=== PATIENT | male | born 1940 | race Caucasian/White ===

== ENCOUNTER 2019-10-12 16:18 | Inpatient (IN) | payer OTHER ==
--- NOTE | 2019-10-12 16:22 | PDOC ---
Rapid Medical Evaluation Time Seen by Provider: 10/12/19 16:20 Medical Evaluation: 10/12/19 16:20 Patient c/o: low hgb sent from pcp, no hx of anemia, no blood in stool or urine , + sob, + weakness Patient on brief exam: vss, no resp distress, ambulatory Patient ordered for: labs, urine, stool, type and screen, ekg, cxr Patient to proceed to the ED Discharge Disposition - Diagnosis Symptomatic anemia - Discharge Dispostion Condition at time of disposition: Stable - Referrals - Patient Instructions - Post Discharge Activity
[2019-10-12 16:56] LABS: PH,URINE 5.5 (5.0-8.0); URINE APPEARANCE CLEAR; URINE BILIRUBIN NEGATIVE (NEGATIVE); URINE COLOR YELLOW; URINE GLUCOSE (UA) NEGATIVE (NEGATIVE); URINE KETONE NEGATIVE (NEGATIVE); URINE LEUK ESTERASE NEGATIVE (NEGATIVE); URINE NITRITE NEGATIVE (NEGATIVE); URINE PROTEIN NEGATIVE (NEGATIVE)
[2019-10-12 17:06] LABS: INR 1.05 (0.83-1.09); PROTHROMBIN TIME (PATIENT) 12.4 SEC (9.7-13.0)
[2019-10-12 17:20] LABS: BASO % 0.7 % (0-2.0); EOS % 1.8 % (0-4.5); HEMATOCRIT 19.4 % (35.4-49); MCHC 25.2 g/dl (32.0-35.9); MEAN CELL VOLUME 58.6 fl (80-96); MEAN PLT VOLUME 8.4 fl (7.5-11.1); MONO % 8.2 % (3.8-10.2); NEUT % 75.3 % (42.8-82.8); PLATELET COUNT 219 K/MM3 (134-434); RBC 3.31 M/mm3 (4.00-5.60); RDW 22.7 % (11.9-15.9)
--- NOTE | 2019-10-12 17:22 | PDOC ---
Documentation entered by Filomena Parr SCRIBE, acting as scribe for Marylu Nam DO. Marylu Nam DO: This documentation has been prepared by the Karolyn conley Xhesika, SCRIBE, under my direction and personally reviewed by me in its entirety. I confirm that the documentation accurately reflects all work, treatment, procedures, and medical decision making performed by me. Attending Attestation - Resident Resident Name: KobeClint - ED Attending Attestation I have performed the following: I have examined & evaluated the patient, The case was reviewed & discussed with the resident, I agree w/resident's findings & plan, Exceptions are as noted - HPI HPI: 10/12/19 18:18 The patient is an 79 year old male with a significant PMH of HTN (non medicated ) who presents to the emergency department from PCP (Javier Car) office with low HGB. Family at bedside reports chronic constipation with black tarry stool for the past 2 years. Pt reports associated abdominal and epigastric pain and SOB worse when walking. Pt denies history of blood transfusions, hematuria, hemostasis, and epistaxis. Pt denies taking blood thinners. The patient denies chest pain, headache and dizziness. Denies fever, chills, cough, nausea, vomiting, diarrhea. Denies dysuria, frequency, urgency and hematuria. Allergies: NKDA - Physicial Exam PE: 10/12/19 18:19 GENERAL: Awake, alert, and fully oriented, in no acute distress HEAD: No signs of trauma EYES: PERRLA, EOMI, sclera anicteric, + pale conjunctiva ENT: Auricles normal inspection, hearing grossly normal, nares patent, oropharynx clear without exudates. Moist mucosa LUNGS: Breath sounds equal, clear to auscultation bilaterally. No wheezes, and no crackles HEART: Regular rate and rhythm, normal S1 and S2, no murmurs, rubs or gallops ABDOMEN: + mild LLQ abdominal tenderness. + mild epigastric tenderness to palpation. Soft, normoactive bowel sounds. No guarding, no rebound. No masses EXTREMITIES: Normal range of motion, no edema. No clubbing or cyanosis. No cords, erythema, or tenderness NEUROLOGICAL: Cranial nerves II through XII grossly intact. Normal speech, normal gait SKIN: Warm, Dry, normal turgor, no rashes or lesions noted. - Medical Decision Making 10/12/19 17:22 a/p:79yo male presents for eval of GOMEZ and low h/h per PMD ([facility]) -pt states constipation x 2 years and intermittent dark stools x 2 years -denies hematemesis -denies cp -denies f/c, wt loss, night sweats -no prior colonoscopy or endoscopy -labs sent from E -pt denies cp, cough -states mild epigastric abd pain and intermittent LLQ pain- denies currently -denies hematuria, epistaxis -denies nsaids or blood thinners cxr- clear 10/12/19 18:08 hgb 4.9 vss will need transfusion will add iron studies will need rectal exam 10/12/19 18:12 cxr shows a nodule vs calcification 10/12/19 18:44 stool was light brown per the resident, no masses palpated pt will need admission 10/12/19 18:[address] Staton- case discussed and she accepts pt to service Discharge - Discharge Information Problems reviewed: Yes Clinical Impression/Diagnosis: Symptomatic anemia Condition: Stable - Admission Yes - Follow up/Referral - Patient Discharge Instructions - Post Discharge Activity Heart Score/ECG Review - ECG Intrepretation Comment:: 10/12/19 17:57 sinus at 66, RBBB, nl axis, no acute s/tt wave findings, t wave inversions iii which are nonspecific
[2019-10-12 17:25] LABS: HEMOGLOBIN 4.9 GM/dL (11.7-16.9); MCH 14.7 pg (25.7-33.7)
[2019-10-12 17:28] LABS: ALBUMIN 3.3 g/dl (3.4-5.0); BILIRUBIN,TOTAL 0.8 mg/dL (0.2-1); BLOOD UREA NITROGEN 17.2 mg/dL (7-18); CALCIUM 9.7 mg/dL (8.5-10.1); CREATININE 1.1 mg/dL (0.55-1.3); POTASSIUM 4.4 mmol/L (3.5-5.1); TOT PROT 6.4 g/dl (6.4-8.2)
--- NOTE | 2019-10-12 18:52 | PDOC ---
History of Present Illness - General Chief Complaint: Shortness of Breath Stated Complaint: LOW HEMOGLOBIN, SOB Time Seen by Provider: 10/12/19 16:20 History Source: Patient Exam Limitations: No Limitations - History of Present Illness Initial Comments: 10/12/19 18:45 Sree Gallegos is an 79M with PMH HTN presenting with SOB on exertion. Patient immigrated from [place] 2 months ago, is a recent new citizen, went to [place] for first physical, labs show anemia with Hgb 5.3, sent from PMD office to ED for evaluation and transfusion. Reports for last 3 months has had worsening SOB with ambulation, can only walk across the room before getting SOB, associated with midline chest pain radiating to L shoulder. Denies chest pain at rest, palpitations, abdominal pain , urinary symptoms. Has been constipated intermittently with dark stools, denies any epigastric pain or pain with eating. Has never had a colonoscopy or EGD. Denies PMH anemia or cardiac/pulmonary disease. Denies nausea/vomiting, denies blood in stools, denies hematuria, denies weakness or weight loss, appetite good. PMH HTN, was on antihypertensives in [place] but doctor there discontinued. Had trauma to head 10 years ago, had surgery to remove calcified clot. Non-smoker, 1 glass of wine every once in a while, no drug use. Past History - Past Medical History Allergies/Adverse Reactions: Allergies Allergy/AdvReac Type Severity Reaction Status Date / Time No Known Allergies Allergy Verified 10/12/19 16:24 COPD: No HTN: Yes (not on meds) - Psycho Social/Smoking Cessation Hx Smoking History: Never smoked Information on smoking cessation initiated: No Hx Alcohol Use: No Drug/Substance Use Hx: No Review of Systems - Review of Systems Able to Perform ROS?: Yes Constitutional: No: Symptoms Reported HEENTM: No: Symptoms Reported Respiratory: Yes: SOB with Exertion. No: Cough, Orthopnea, Stridor, Wheezing, Productive cough, Hemoptysis Cardiac (ROS): Yes: Chest Pain. No: Edema, Irregular Heart Rate, Lightheadedness, Palpitations, Syncope, Chest Tightness ABD/GI: Yes: Constipated, Tarry Stools. No: Blood Streaked Bowels, Nausea, Poor Appetite, Poor Fluid Intake, Vomiting : No: Symptoms Reported Musculoskeletal: No: Symptoms Reported Integumentary: No: Symptoms Reported Neurological: No: Symptoms reported Endocrine: No: Symptoms Reported Hematologic/Lymphatic: No: Symptoms Reported All Other Systems: Reviewed and Negative *Physical Exam - Vital Signs Last Vital Signs Temp Pulse Resp BP Pulse Ox 98.7 F 71 12 117/50 L 100 10/12/19 16:22 10/12/19 16:22 10/12/19 16:22 10/12/19 16:22 10/12/19 16:22 - Physical Exam General Appearance: Yes: Nourished, Appropriately Dressed, Other (well- appearing male resting in bed, conversing amicably with family). No: Apparent Distress HEENT: positive: EOMI, MUMTAZ, Normal Voice, Symmetrical, Pharynx Normal, Hearing Grossly Normal. negative: Scleral Icterus (R), Scleral Icterus (L), Pharyngeal Erythema, Tonsillar Exudate, Tonsillar Erythema Neck: positive: Trachea midline, Normal Thyroid, Supple. negative: Tender, Lymphadenopathy (R), Lymphadenopathy (L) Respiratory/Chest: positive: Lungs Clear, Normal Breath Sounds. negative: Chest Tender, Respiratory Distress, Accessory Muscle Use, Crackles, Rales, Rhonchi, Stridor, Wheezing Cardiovascular: positive: Regular Rhythm, Regular Rate. negative: Murmur Gastrointestinal/Abdominal: positive: Normal Bowel Sounds, Flat, Soft. negative : Tender, Organomegaly, Pulsatile Mass, Distended, Guarding, Rebound Rectal Exam: positive: heme negative stool, normal exam, NL Prostate, normal rectal tone, other (good rectal tone, no hemorrhoids or fissues, no palpable masses, no BRBPR, stool appeared brown and soft). negative: melena, hemorrhoids Musculoskeletal: positive: Normal Inspection. negative: CVA Tenderness, Vertebral Tenderness Extremity: positive: Normal Capillary Refill, Normal Inspection, Normal Range of Motion, Pelvis Stable. negative: Tender, Coldness, Cyanosis, Pedal Edema, Calf Tenderness Integumentary: positive: Normal Color, Dry, Warm Neurologic: positive: Fully Oriented, Alert, Normal Mood/Affect, Normal Response ED Treatment Course - LABORATORY CBC & Chemistry Diagram: 10/12/19 16:39 10/12/19 16:39 - ADDITIONAL ORDERS Additional order review: Laboratory Results 10/12/19 10/12/19 10/12/19 16:39 16:39 16:39 PT with INR 12.40 INR 1.05 Sodium Potassium Chloride Carbon Dioxide Anion Gap BUN Creatinine Est GFR (CKD-EPI)AfAm Est GFR (CKD-EPI)NonAf Random Glucose Calcium Total Bilirubin AST ALT Alkaline Phosphatase Creatine Kinase Troponin I Total Protein Albumin Urine Color Yellow Urine Appearance Clear Urine pH 5.5 Ur Specific [place] 1.017 Urine Protein Negative Urine Glucose (UA) Negative Urine Ketones Negative Urine Blood Negative Urine Nitrite Negative Urine Bilirubin Negative Urine Urobilinogen 1.0 Ur Leukocyte Esterase Negative Blood Type O POSITIVE Antibody Screen Negative Crossmatch See Detail 10/12/19 16:39 PT with INR INR Sodium 140 Potassium 4.4 Chloride 110 H Carbon Dioxide 23 Anion Gap 7 L BUN 17.2 Creatinine 1.1 Est GFR (CKD-EPI)AfAm 73.09 Est GFR (CKD-EPI)NonAf 63.07 Random Glucose 149 H Calcium 9.7 Total Bilirubin 0.8 AST 13 L ALT 18 Alkaline Phosphatase 196 H Creatine Kinase 66 Troponin I 0.04 Total Protein 6.4 Albumin 3.3 L Urine Color Urine Appearance Urine pH Ur Specific [place] Urine Protein Urine Glucose (UA) Urine Ketones Urine Blood Urine Nitrite Urine Bilirubin Urine Urobilinogen Ur Leukocyte Esterase Blood Type Antibody Screen Crossmatch 10/12/19 16:39 RBC 3.31 L MCV 58.6 L MCHC 25.2 L RDW 22.7 H MPV 8.4 Neutrophils % 75.3 Lymphocytes % 14.0 Monocytes % 8.2 Eosinophils % 1.8 Basophils % 0.7 Medical Decision Making - Medical Decision Making 10/12/19 18:45 Sree Gallegos is an 79M with PMH HTN presenting with SOB on exertion. Patient has symptomatic anemia with exertion, but is completely well-appearing at this time, alert/oriented, speaking in full sentences, no findings on exam. Hemodynamically stable and hypertensive despite known anemia. Re-evaluation of anemia via CBC, CMP, CP, ECG, CXR, T&S. Labs notable for: - Hbg 4.9 - remaining CBC WNL - trop 0.04 - CMP WNL ECG shows NSR with HR 66, QRS 120, QTc 429, RBBB, no evidence of ischemic changes or TWI. CXR grossly normal cardiac silhouette, notable nodular mass vs. calcification in R upper lung field, no prior studies to compare to. Ordered 2 units pRBCs as well as iron studies to evaluate for anemia. 10/12/19 19:[address] Staton for admission to Med Surg, as patient is hemodynamically stable. Discharge - Discharge Information Problems reviewed: Yes Clinical Impression/Diagnosis: Symptomatic anemia Condition: Stable - Follow up/Referral - Patient Discharge Instructions - Post Discharge Activity
[2019-10-12 19:04] LABS: IRON SERUM 10 ug/dL (50-175); TOTAL IRON BINDING CAPACITY 422 ug/dL (250-450)
[2019-10-12 19:27] LABS: ANISOCYTOSIS 3+; MACROCYTOSIS 0; PLATELET ESTIMATE NORMAL
--- NOTE | 2019-10-13 10:43 | EKG ---
Test Reason : Blood Pressure : / mmHG Vent. Rate : 066 BPM Atrial Rate : 066 BPM P-R Int : 188 ms QRS Dur : 120 ms QT Int : 410 ms P-R-T Axes : 028 -06 005 degrees QTc Int : 429 ms NORMAL SINUS RHYTHM RIGHT BUNDLE BRANCH BLOCK ABNORMAL ECG NO PREVIOUS ECGS AVAILABLE Confirmed by CHASE LARSON, TIFFANY ([id number]) on 10/13/2019 10:42:37 AM Referred By: Confirmed By:TIFFANY STONE MD
[2019-10-13] MEDS ORDERED: PNEUMOC 13-VAL CONJ-DIP CRM/PF 0.5 ML DISP.SYRIN IM ONE (17:37)
--- NOTE | 2019-10-13 17:40 | HP ---
Admitting History and Physical - Primary Care Physician PCP: Jagruti Staton - Admission History of Present Illness: Sree Gallegos is an 79M with PMH HTN presenting with SOB on exertion. Patient immigrated from [place] 2 months ago, is a recent new citizen, went to [place] for first physical, labs show anemia with Hgb 5.3, sent from PMD office to ED for evaluation and transfusion. Reports for last 3 months has had worsening SOB with ambulation, can only walk across the room before getting SOB, associated with midline chest pain radiating to L shoulder. Denies chest pain at rest, palpitations, abdominal pain , urinary symptoms. Has been constipated intermittently with dark stools, denies any epigastric pain or pain with eating. Has never had a colonoscopy or EGD. Denies PMH anemia or cardiac/pulmonary disease. Denies nausea/vomiting, denies blood in stools, denies hematuria, denies weakness or weight loss, appetite good. - Past Medical History Cardiovascular: Yes: HTN - Smoking History Smoking history: Never smoked - Alcohol/Substance Use Hx Alcohol Use: No Home Medications - Allergies Allergies/Adverse Reactions: Allergies Allergy/AdvReac Type Severity Reaction Status Date / Time No Known Allergies Allergy Verified 10/12/19 16:24 Physical Examination Vital Signs: Vital Signs Temperature 98.2 F 10/13/19 17:00 Pulse Rate 84 10/13/19 17:00 Respiratory Rate 18 10/13/19 17:00 Blood Pressure 132/80 10/13/19 17:00 O2 Sat by Pulse Oximetry (%) 100 10/13/19 16:35 Constitutional: Yes: No Distress HENT: Yes: Atraumatic Neck: Yes: Supple Cardiovascular: Yes: Regular Rate and Rhythm Respiratory: Yes: CTA Bilaterally Gastrointestinal: Yes: Normal Bowel Sounds Extremities: Yes: WNL Edema: No Neurological: Yes: Alert, Oriented Labs: CBC, BMP 10/12/19 16:39 10/12/19 16:39 Problem List - Problems (1) Symptomatic anemia Assessment/Plan: will trsnsfuse fu h/h gi consult stool occult Code(s): D64.9 - ANEMIA, UNSPECIFIED Assessment/Plan Laboratory Tests 10/12/19 10/12/19 10/12/19 16:39 16:39 16:39 WBC 6.0 RBC 3.31 L Hgb 4.9 L* Hct 19.4 L MCV 58.6 L MCH 14.7 L MCHC 25.2 L RDW 22.7 H Plt Count 219 MPV 8.4 Absolute Neuts (auto) 4.6 Neutrophils % 75.3 Lymphocytes % 14.0 Monocytes % 8.2 Eosinophils % 1.8 Basophils % 0.7 Nucleated RBC % 0 Hypochromia 2+ Platelet Estimate Normal Polychromasia 1+ Poikilocytosis 1+ Anisocytosis 3+ Microcytosis 3+ Macrocytosis 0 PT with INR 12.40 INR 1.05 Sodium 140 Potassium 4.4 Chloride 110 H Carbon Dioxide 23 Anion Gap 7 L BUN 17.2 Creatinine 1.1 Est GFR (CKD-EPI)AfAm 73.09 Est GFR (CKD-EPI)NonAf 63.07 Random Glucose 149 H Calcium 9.7 Iron TIBC Iron Saturation Unsaturated IBC Total Bilirubin 0.8 AST 13 L ALT 18 Alkaline Phosphatase 196 H Creatine Kinase 66 Troponin I 0.04 Total Protein 6.4 Albumin 3.3 L Urine Color Urine Appearance Urine pH Ur Specific [place] Urine Protein Urine Glucose (UA) Urine Ketones Urine Blood Urine Nitrite Urine Bilirubin Urine Urobilinogen Ur Leukocyte Esterase Stool Occult Blood Blood Type Antibody Screen Crossmatch 10/12/19 10/12/19 10/12/19 16:39 16:39 18:25 WBC RBC Hgb Hct MCV MCH MCHC RDW Plt Count MPV Absolute Neuts (auto) Neutrophils % Lymphocytes % Monocytes % Eosinophils % Basophils % Nucleated RBC % Hypochromia Platelet Estimate Polychromasia Poikilocytosis Anisocytosis Microcytosis Macrocytosis PT with INR INR Sodium Potassium Chloride Carbon Dioxide Anion Gap BUN Creatinine Est GFR (CKD-EPI)AfAm Est GFR (CKD-EPI)NonAf Random Glucose Calcium Iron TIBC Iron Saturation Unsaturated IBC Total Bilirubin AST ALT Alkaline Phosphatase Creatine Kinase Troponin I Total Protein Albumin Urine Color Yellow Urine Appearance Clear Urine pH 5.5 Ur Specific [place] 1.017 Urine Protein Negative Urine Glucose (UA) Negative Urine Ketones Negative Urine Blood Negative Urine Nitrite Negative Urine Bilirubin Negative Urine Urobilinogen 1.0 Ur Leukocyte Esterase Negative Stool Occult Blood Negative Blood Type O POSITIVE Antibody Screen Negative Crossmatch See Detail 10/12/19 10/12/19 18:30 18:30 WBC RBC Hgb Hct MCV MCH MCHC RDW Plt Count MPV Absolute Neuts (auto) Neutrophils % Lymphocytes % Monocytes % Eosinophils % Basophils % Nucleated RBC % Hypochromia Platelet Estimate Polychromasia Poikilocytosis Anisocytosis Microcytosis Macrocytosis PT with INR INR Sodium Potassium Chloride Carbon Dioxide Anion Gap BUN Creatinine Est GFR (CKD-EPI)AfAm Est GFR (CKD-EPI)NonAf Random Glucose Calcium Iron 10 L TIBC 422 Iron Saturation 2 L Unsaturated IBC 412 H Total Bilirubin AST ALT Alkaline Phosphatase Creatine Kinase Troponin I Total Protein Albumin Urine Color Urine Appearance Urine pH Ur Specific [place] Urine Protein Urine Glucose (UA) Urine Ketones Urine Blood Urine Nitrite Urine Bilirubin Urine Urobilinogen Ur Leukocyte Esterase Stool Occult Blood Blood Type O POSITIVE Antibody Screen Negative Crossmatch Active Medications Generic Name Dose Route Start Last Admin Trade Name Freq PRN Reason Stop Dose Admin Acetaminophen 650 mg 10/14/19 17:38 Tylenol - PO Q6H PRN FEVER
[2019-10-13 20:03] LABS: BASO % 1.3 % (0-2.0); EOS % 3.3 % (0-4.5); LYMPH % 15.8 % (8-40); MCHC 26.5 g/dl (32.0-35.9); MEAN CELL VOLUME 61.9 fl (80-96); MEAN PLT VOLUME 9.7 fl (7.5-11.1); MONO % 7.7 % (3.8-10.2); NEUT % 71.9 % (42.8-82.8); PLATELET COUNT 222 K/MM3 (134-434); RBC 3.88 M/mm3 (4.00-5.60); RDW 26.2 % (11.9-15.9); WHITE BLOOD COUNT 5.2 K/mm3 (4.0-10.0)
[2019-10-13 20:14] LABS: MCH 16.4 pg (25.7-33.7)
[2019-10-13 20:15] LABS: HEMOGLOBIN 6.4 GM/dL (11.7-16.9)
[2019-10-14] MEDS ORDERED: ACETAMINOPHEN 325 MG TABLET (FP) PO PRN (17:38)
--- NOTE | 2019-10-14 17:40 | PN ---
Progress Note, Physician History of Present Illness: no complaints - Current Medication List Current Medications: Active Medications Acetaminophen (Tylenol -) 650 mg PO Q6H PRN PRN Reason: FEVER - Objective Vital Signs: Vital Signs Temperature 98.1 F 10/14/19 13:46 Pulse Rate 56 L 10/14/19 13:46 Respiratory Rate 20 10/14/19 13:46 Blood Pressure 152/69 10/14/19 13:46 O2 Sat by Pulse Oximetry (%) 100 10/14/19 09:00 Constitutional: Yes: No Distress HENT: Yes: Atraumatic Neck: Yes: Supple Cardiovascular: Yes: Regular Rate and Rhythm Respiratory: Yes: CTA Bilaterally Gastrointestinal: Yes: Normal Bowel Sounds Extremities: Yes: WNL Neurological: Yes: Alert, Oriented Labs: CBC, BMP 10/13/19 19:11 10/12/19 16:39 INR, PTT INR 1.05 (0.83-1.09) 10/12/19 16:39 Problem List - Problems (1) Symptomatic anemia Assessment/Plan: s/p 2 u prbc fu h/h gi consult stool occult Code(s): D64.9 - ANEMIA, UNSPECIFIED
[2019-10-14 19:53] LABS: HEMATOCRIT 25.7 % (35.4-49); HEMOGLOBIN 7.2 GM/dL (11.7-16.9); MEAN CELL VOLUME 64.2 fl (80-96); MEAN PLT VOLUME 10.1 fl (7.5-11.1); PLATELET COUNT 172 K/MM3 (134-434); RDW 27.6 % (11.9-15.9); WHITE BLOOD COUNT 6.8 K/mm3 (4.0-10.0)
[2019-10-14 20:04] LABS: MCH 17.9 pg (25.7-33.7)
--- NOTE | 2019-10-15 07:39 | CON.GI ---
Consult - History of Present Illness History of Present Illness: GI CONSULT DICTATED - Past Medical History Cardio/Vascular: Yes: HTN - Alcohol/Substance Use Hx Alcohol Use: No - Smoking History Smoking history: Never smoked Home Medications - Allergies Allergies/Adverse Reactions: Allergies Allergy/AdvReac Type Severity Reaction Status Date / Time No Known Allergies Allergy Verified 10/12/19 16:24 Physical Exam-GI Vital Signs: Vital Signs Temperature 98.6 F 10/15/19 06:00 Pulse Rate 60 10/15/19 06:00 Respiratory Rate 18 10/15/19 06:00 Blood Pressure 132/63 10/15/19 06:00 O2 Sat by Pulse Oximetry (%) 100 10/14/19 20:08 Labs: CBC, BMP 10/14/19 18:30 10/12/19 16:39 INR, PTT INR 1.05 (0.83-1.09) 10/12/19 16:39
[2019-10-15 08:14] LABS: BASO % 0.4 % (0-2.0); EOS % 1.7 % (0-4.5); HEMATOCRIT 28.3 % (35.4-49); LYMPH % 7.8 % (8-40); MCHC 28.2 g/dl (32.0-35.9); MEAN CELL VOLUME 63.5 fl (80-96); MEAN PLT VOLUME 9.6 fl (7.5-11.1); MONO % 7.2 % (3.8-10.2); NEUT % 82.9 % (42.8-82.8); PLATELET COUNT 212 K/MM3 (134-434); RBC 4.46 M/mm3 (4.00-5.60); RDW 28.6 % (11.9-15.9); WHITE BLOOD COUNT 12.5 K/mm3 (4.0-10.0)
[2019-10-15 08:18] LABS: MCH 17.9 pg (25.7-33.7)
[2019-10-15 08:41] LABS: BLOOD UREA NITROGEN 15.9 mg/dL (7-18); CREATININE 1.3 mg/dL (0.55-1.3)
[2019-10-15 09:39] LABS: PLATELET ESTIMATE NORMAL
--- NOTE | 2019-10-15 15:26 | PN ---
Progress Note, Physician - Current Medication List Current Medications: Active Medications Acetaminophen (Tylenol -) 650 mg PO Q6H PRN PRN Reason: FEVER - Objective Vital Signs: Vital Signs Temperature 98.0 F 10/15/19 13:51 Pulse Rate 70 10/15/19 13:51 Respiratory Rate 18 10/15/19 13:51 Blood Pressure 128/43 L 10/15/19 13:51 O2 Sat by Pulse Oximetry (%) 98 10/15/19 09:00 Constitutional: Yes: No Distress HENT: Yes: Atraumatic Neck: Yes: Supple Respiratory: Yes: CTA Bilaterally Gastrointestinal: Yes: Normal Bowel Sounds Extremities: Yes: WNL Edema: No Neurological: Yes: Alert, Oriented Labs: CBC, BMP 10/15/19 06:37 10/15/19 06:37 INR, PTT INR 1.05 (0.83-1.09) 10/12/19 16:39 Problem List - Problems (1) Symptomatic anemia Assessment/Plan: s/p 2 u prbc fu h/h...MUCH IMPROVED gi consult stool occult Code(s): D64.9 - ANEMIA, UNSPECIFIED
--- NOTE | 2019-10-15 18:35 | CONS ---
DATE OF CONSULTATION: DATE OF DICTATION: 10/15/2019 GASTROENTEROLOGY CONSULTATION Patient is an 79-year-old man with a past medical history of hypertension. Apparently he immigrated from [place] 2 months ago and he went to [place] for his physical examination and was found to have a hemoglobin of 5.3. He was therefore sent to the emergency room for further evaluation and transfusion. As per the patient's history, he has been experiencing weakness and shortness of breath over the past couple of months. In addition to that, he complains of constipation and intermittent dark stools. He has had these symptoms intermittently for years. He denies any bright red blood per rectum. He has never had a colonoscopy or upper endoscopy in the past. He denies abdominal pain, nausea, vomiting or hematemesis. He has not been taking NSAID. PAST MEDICAL AND SURGICAL HISTORY: As listed in the HPI. Additional history was surgery to remove a clot. ALLERGIES: No known drug allergies. SOCIAL HISTORY: He does not smoke. He does drink a glass of wine once in a while. No drug abuse. REVIEW OF SYSTEMS: As per the HPI. PHYSICAL EXAMINATION: Vital Signs: Temperature 98, pulse 63, respiratory rate 12, blood pressure 140/ 60, pulse oximetry 98% on room air. General: In no acute distress. HEENT: Anicteric sclerae. Cardiovascular: S1/S2. Regular rate and rhythm. Lungs: Bilaterally clear to auscultation. Abdomen: Soft and nontender. Extremities: Without edema. LABORATORY DATA: White blood cell count 6, currently 12. On admission hemoglobin was 4.9; currently it is 8 after blood transfusion. MCV 63, platelet count 212. INR 1. Sodium 139, potassium 4, BUN 15, creatinine 1.3, glucose 122, iron 10, iron saturation 2, AST 13, ALT 18, alkaline phosphatase 196. DIAGNOSTIC STUDIES: He had a chest x-ray on admission, which revealed a 1.4-cm facet-shaped hyperdensity in the region of the 3rd rib costophrenic angle that may represent calcification. A pulmonary nodule cannot be excluded. IMPRESSION: Microcytic anemia, symptomatic. Gastrointestinal blood loss cannot be excluded at this time particularly since he complains of intermittent dark stool. RECOMMENDATION: Monitor hemoglobin and hematocrit daily while hospitalized. Transfuse to a hemoglobin of 10. Avoid NSAID. Protonix 40 mg p.o. daily and would also plan for endoscopic evaluation - egd - on Thursday, to further evaluate his microcytic anemia. Also, a Hematology consultation should be obtained. DO DRE JACKSON/[id number] MTDD
[2019-10-15] MEDS: POLYETHYLENE GLYCOL 3350 119 GM BTL PO SCH (21:00)
--- NOTE | 2019-10-16 07:40 | PN.GI ---
GI Progress Note Subjective: NO NEW COMPLAINTS - FEELING BETTER TODAY - Objective Vital Signs: Vital Signs Temperature 98.5 F 10/16/19 05:00 Pulse Rate 65 10/16/19 05:00 Respiratory Rate 16 10/16/19 05:00 Blood Pressure 127/57 L 10/16/19 05:00 O2 Sat by Pulse Oximetry (%) 98 10/15/19 21:00 Constitutional: Well Nourished, No Distress, Calm Eyes: Yes: WNL HENT: Yes: WNL Neck: Yes: WNL Cardiovascular: Yes: WNL Respiratory: Yes: WNL, Regular, CTA Bilaterally Gastrointestinal Inspection: Yes: WNL ...Auscultate: Yes: Normoactive Bowel Sounds Musculoskeletal: Yes: WNL Extremities: Yes: WNL Labs: CBC, BMP 10/15/19 06:37 10/15/19 06:37 INR, PTT INR 1.05 (0.83-1.09) 10/12/19 16:39 Problem List - Problems (1) Symptomatic anemia Assessment/Plan: H/H NOTED - KEEP HG ABOVE 8 VENOFER CLEAR LIQUID DIET PPI AVOID NSAID NPO MIDNIGHT FOR DIAGNOSTIC EGD ON THURSDAY Code(s): D64.9 - ANEMIA, UNSPECIFIED
[2019-10-16] MEDS: POLYETHYLENE GLYCOL 3350 119 GM BTL PO SCH ×2 (09:47→21:26)
--- NOTE | 2019-10-16 16:46 | PN ---
Progress Note, Physician - Current Medication List Current Medications: Active Medications Acetaminophen (Tylenol -) 650 mg PO Q6H PRN PRN Reason: FEVER Polyethylene Glycol (Miralax (For Daily Use) -) 17 gm PO BID MEME Last Admin: 10/16/19 09:47 Dose: 17 gm - Objective Vital Signs: Vital Signs Temperature 98.1 F 10/16/19 13:36 Pulse Rate 69 10/16/19 13:36 Respiratory Rate 20 10/16/19 13:36 Blood Pressure 143/72 10/16/19 13:36 O2 Sat by Pulse Oximetry (%) 100 10/16/19 09:46 Constitutional: Yes: No Distress HENT: Yes: Atraumatic Neck: Yes: Supple Cardiovascular: Yes: Regular Rate and Rhythm Respiratory: Yes: CTA Bilaterally Gastrointestinal: Yes: Normal Bowel Sounds Extremities: Yes: WNL Edema: No Peripheral Pulses WNL: Yes Neurological: Yes: Alert, Oriented Labs: CBC, BMP 10/15/19 06:37 10/15/19 06:37 INR, PTT INR 1.05 (0.83-1.09) 10/12/19 16:39 Problem List - Problems (1) Symptomatic anemia Assessment/Plan: for egd in am Code(s): D64.9 - ANEMIA, UNSPECIFIED
[2019-10-17] MEDS: POLYETHYLENE GLYCOL 3350 119 GM BTL PO SCH ×2 (11:05→21:30)
--- NOTE | 2019-10-17 18:25 | PN ---
Progress Note, Physician - Current Medication List Current Medications: Active Medications Acetaminophen (Tylenol -) 650 mg PO Q6H PRN PRN Reason: FEVER Polyethylene Glycol (Miralax (For Daily Use) -) 17 gm PO BID [facility] Last Admin: 10/17/19 11:05 Dose: Not Given - Objective Vital Signs: Vital Signs Temperature 98.9 F 10/17/19 17:00 Pulse Rate 61 10/17/19 17:00 Respiratory Rate 18 10/17/19 17:00 Blood Pressure 123/56 L 10/17/19 17:00 O2 Sat by Pulse Oximetry (%) 99 10/17/19 12:40 Constitutional: Yes: No Distress HENT: Yes: Atraumatic Neck: Yes: Supple Cardiovascular: Yes: Regular Rate and Rhythm Respiratory: Yes: CTA Bilaterally Extremities: Yes: WNL Edema: No Neurological: Yes: Alert, Oriented Labs: CBC, BMP 10/15/19 06:37 10/15/19 06:37 INR, PTT INR 1.05 (0.83-1.09) 10/12/19 16:39 Problem List - Problems (1) Symptomatic anemia Assessment/Plan: saw endoscopy report mass? will get onc consult id consult Code(s): D64.9 - ANEMIA, UNSPECIFIED
--- NOTE | 2019-10-17 20:09 | CONSULT ---
Consult - text type - Consultation Consultation Note: Patient seen and examined Used [employer]. Not the best historian but able to given relavant details 79 y/o patient presenting with exertional SOB of few weeks duration. Presenting Hgb 4.9 Denies any fever/ chills/ cough/SOB/abdominal pain/nausea/vomiting/diarrhea. Reports melena, 5lb wt. loss. good appetite Vague epigastric pain EGD --gastric amss PMH -- Does not recollect PSH h/o neurosurgery in 2009 for ??? membranes FH Denies h/o cancer AFVSS Cor: RSR, No murmurs, No gallops Lungs: Clear to P&A Abd: Soft, Normal bowel sounds, No organomegaly Ext:No significant edema Labs/MEds reviewed A/P 79 y/o patient presenting with exertional SOB of few weeks duration. Presenting Hgb 4.9 Reports melena, 5lb wt. loss. good appetite Vague epigastric pain Gastric antral mass on EGD/esophageal candidiasis Await pathology Check CT c/a/p. Gentle hydration with contrast Discussed findings with patient
[2019-10-18 07:26] LABS: BASO % 0.9 % (0-2.0); EOS % 6.8 % (0-4.5); HEMATOCRIT 22.9 % (35.4-49); LYMPH % 16.9 % (8-40); MCHC 27.8 g/dl (32.0-35.9); MEAN CELL VOLUME 65.2 fl (80-96); MEAN PLT VOLUME 9.1 fl (7.5-11.1); MONO % 13.7 % (3.8-10.2); NEUT % 61.7 % (42.8-82.8); PLATELET COUNT 158 K/MM3 (134-434); RBC 3.51 M/mm3 (4.00-5.60); RDW 29.2 % (11.9-15.9); WHITE BLOOD COUNT 4.6 K/mm3 (4.0-10.0)
[2019-10-18 07:47] LABS: MCH 18.1 pg (25.7-33.7)
[2019-10-18 07:49] LABS: HEMOGLOBIN 6.4 GM/dL (11.7-16.9)
[2019-10-18 08:07] LABS: ALBUMIN 2.6 g/dl (3.4-5.0); BILIRUBIN,TOTAL 0.8 mg/dL (0.2-1); CALCIUM 9.8 mg/dL (8.5-10.1); CREATININE 0.9 mg/dL (0.55-1.3); POTASSIUM 4.3 mmol/L (3.5-5.1); TOT PROT 5.6 g/dl (6.4-8.2)
[2019-10-18 09:21] LABS: ANISOCYTOSIS 2+; MACROCYTOSIS 0; PLATELET ESTIMATE NORMAL; TARGET CELLS 1+
[2019-10-18] MEDS: POLYETHYLENE GLYCOL 3350 119 GM BTL PO SCH ×2 (10:33→21:47)
[2019-10-18] MEDS: SODIUM CHLORIDE 1,000 ML IV SCH (10:34)
--- NOTE | 2019-10-18 13:23 | PN ---
Progress Note (short form) - Note Progress Note: Patient seen and examined Offers no complaints of abdominal pain, nausea, vomiting, diarrhea, constipation. Good appetite Underwent EGD with candidiasis and gastric mass with multiple biopsies taken. Last Vital Signs Temp Pulse Resp BP Pulse Ox 98.7 F 54 L 18 107/56 L 99 10/18/19 06:00 10/18/19 06:00 10/18/19 06:00 10/18/19 06:00 10/17/19 21:00 HEENT: PUJA, EOM Intact Oropharynx: No thrush, No mucositis Cor: RSR, No murmurs, No gallops Lungs: Clear to P&A Abd: Soft, Normal bowel sounds, No organomegaly Ext:No significant edema Skin: No rashes, Integument intact CBC, BMP 10/18/19 06:35 10/18/19 06:35 Current Medications Generic Name Dose Route Start Last Admin Trade Name Freq PRN Reason Stop Dose Admin Acetaminophen 650 mg 10/14/19 17:38 Tylenol - PO Q6H PRN FEVER Sodium Chloride 1,000 mls @ 42 mls/hr 10/18/19 08:45 10/18/19 10:34 Normal Saline - IV 42 mls/hr ASDIR [facility] Administration Polyethylene Glycol 17 gm 10/15/19 22:00 10/18/19 10:33 Miralax (For Daily Use) - PO 17 gm BID [facility] Administration Impression: Gastric mass Iron deficiency Candidiasis Plan: Additional transfusion of packed cells. IV Venofer in future after transfusion therapy completed. Add PPI Add diflucan Await pathology of gastric biopsies . Monitor CBC Await results of CT scan. CEA.
[2019-10-18] MEDS: FLUCONAZOLE 100 MG TABLET (UD) PO SCH (14:12)
[2019-10-18] MEDS: PANTOPRAZOLE 40 MG TABLET (FP) PO SCH (14:12)
--- NOTE | 2019-10-18 14:33 | PN ---
Progress Note (short form) - Note Progress Note: Called by pathologist Dr. Romero. 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
--- NOTE | 2019-10-18 18:19 | PN ---
Progress Note, Physician - Current Medication List Current Medications: Active Medications Acetaminophen (Tylenol -) 650 mg PO Q6H PRN PRN Reason: FEVER Fluconazole (Diflucan -) 100 mg PO DAILY [facility] Last Admin: 10/18/19 14:12 Dose: 100 mg Sodium Chloride (Normal Saline -) 1,000 mls @ 42 mls/hr IV ASDIR [facility] Last Admin: 10/18/19 10:34 Dose: 42 mls/hr Pantoprazole Sodium (Protonix -) 40 mg PO DAILY [facility] Last Admin: 10/18/19 14:12 Dose: 40 mg Polyethylene Glycol (Miralax (For Daily Use) -) 17 gm PO BID [facility] Last Admin: 10/18/19 10:33 Dose: 17 gm - Objective Vital Signs: Vital Signs Temperature 98.3 F 10/18/19 13:38 Pulse Rate 57 L 10/18/19 13:38 Respiratory Rate 18 10/18/19 13:38 Blood Pressure 138/75 10/18/19 13:38 O2 Sat by Pulse Oximetry (%) 100 10/18/19 09:00 Constitutional: Yes: No Distress HENT: Yes: Atraumatic Cardiovascular: Yes: Regular Rate and Rhythm Respiratory: Yes: CTA Bilaterally Gastrointestinal: Yes: Normal Bowel Sounds Extremities: Yes: WNL Neurological: Yes: Alert, Oriented Labs: CBC, BMP 10/18/19 06:35 10/18/19 06:35 INR, PTT INR 1.05 (0.83-1.09) 10/12/19 16:39 Problem List - Problems (1) Symptomatic anemia Assessment/Plan: saw endoscopy report mass? s/p blood transfudion on diflucan Code(s): D64.9 - ANEMIA, UNSPECIFIED
--- NOTE | 2019-10-18 20:52 | PN ---
Progress Note (short form) - Note Progress Note: ID CONSULT DICTATED ESOPHAGEAL CANDIDIASIS GASTRIC NEOPLASM ANEMIA CONTINUE FLUCONAZOLE DISCUSSED WITH SON AT BEDSIDE
[2019-10-19] MEDS: SODIUM CHLORIDE 1,000 ML IV SCH ×3 (06:06→21:16)
[2019-10-19 08:17] LABS: BASO % 1.3 % (0-2.0); EOS % 4.4 % (0-4.5); HEMATOCRIT 26.1 % (35.4-49); HEMOGLOBIN 7.6 GM/dL (11.7-16.9); LYMPH % 10.2 % (8-40); MCHC 29.2 g/dl (32.0-35.9); MEAN CELL VOLUME 67.4 fl (80-96); MEAN PLT VOLUME 8.7 fl (7.5-11.1); MONO % 8.8 % (3.8-10.2); NEUT % 75.3 % (42.8-82.8); PLATELET COUNT 178 K/MM3 (134-434); RBC 3.88 M/mm3 (4.00-5.60); RDW 29.4 % (11.9-15.9); WHITE BLOOD COUNT 7.5 K/mm3 (4.0-10.0)
[2019-10-19 08:30] LABS: INR 1.03 (0.83-1.09); MCH 19.7 pg (25.7-33.7); PROTHROMBIN TIME (PATIENT) 12.2 SEC (9.7-13.0)
[2019-10-19] MEDS: PANTOPRAZOLE 40 MG TABLET (FP) PO SCH (09:29)
[2019-10-19] MEDS: POLYETHYLENE GLYCOL 3350 119 GM BTL PO SCH ×2 (09:29→21:15)
[2019-10-19] MEDS: FLUCONAZOLE 100 MG TABLET (UD) PO SCH (09:29)
--- NOTE | 2019-10-19 15:04 | PATH ---
Surgical Pathology Report Patient Name: BITA YOON [facility]. Rec. 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 Specimen(s) Received A: STOMACH B: GASTRIC MASS C: ESOPHAGUS Clinical History Anemia Postoperative diagnosis: Gastric mass and esophageal roby Final Diagnosis A. STOMACH, BIOPSY: GASTRIC MUCOSA WITH MODERATE CHRONIC FOCAL ACUTE GASTRITIS AND INTESTINAL METAPLASIA. NO DYSPLASIA IDENTIFIED. IMMUNOHISTOCHEMICAL STAIN FOR H. PYLORI IS NEGATIVE. B. GASTRIC MASS, BIOPSY: ADENOCARCINOMA, MODERATELY DIFFERENTIATED. IMMUNOHISTOCHEMICAL STAIN FOR H. PYLORI IS POSITIVE (RARE). SEE COMMENT. C. ESOPHAGUS, BIOPSY: SQUAMOUS MUCOSA WITH MARKED ACUTE ESOPHAGITIS. PAS FUNGAL STAIN HIGHLIGHTS FUNGAL FORMS, MORPHOLOGICALLY CONSISTENT WITH ROBY SPECIES. Comment: Part C, Immunohistochemical stains performed and interpreted at [facility] show the tumor is highlighted by AE1/3. Case seen in intradepartmental review with consensus on diagnosis. Findings discussed with Dr. Varner. Special stain performed at [place], [place] ([id number]) and interpreted at [facility]: PAS Positive and negative controls (internal if applicable) show appropriate results. Electronically Signed Jeanne Carrizales M.D. Addendum Reported: 10/19/2019 Addendum Diagnosis Her2 (IHC) pending, findings will be reported separately. Jeanne Carrizales M.D. Addendum Reported: 10/27/2019 Addendum Diagnosis Part B, Results of Her2 (IHC) studies performed at [facility], [place], [place] and interpreted at [facility], [place], [place] ([id number]) are as follows: MARKER RESULT INTERPRETATION Her2 IHC ([facility] anti-Her-2/gil (4B5) rabbit monoclonal antibody): 2+ Equivocal HER2/CEP17 2.0 Positive FINAL HER2 Interpretation Positive Her2 IHC Results: 2+ Equivocal Uniform Staining: Absent Homogeneous, dark circumferential pattern: Absent Sample Adequate for Analysis: Yes HER2 FISH results: Average Her2 copy number: 4.68 Average CEP17 copy number: 2.38 Ratio of average HER2/CEP17: 2.0 See [facility] report for additional details. Jeanne Carrizales M.D. Gross Description A. Received in formalin, labeled "stomach" are 4 durán, irregular portions of soft tissue averaging 0.3 cm. in greatest dimension. The specimens are submitted in toto in one cassette. B. Received in formalin labeled "gastric mass," is a 0.7 x 0.5 x 0.2 cm aggregate of durán soft tissue fragments. The formalin is filtered and the specimen is entirely submitted in one cassette. C. Received in formalin, labeled "esophagus" is a durán, irregular portion of soft tissue measuring 0.5 cm. in greatest dimension. The specimen is submitted in toto in one cassette. 10/17/2019 [facility]10/17/2019
--- NOTE | 2019-10-19 15:31 | PN ---
Progress Note, Physician History of Present Illness: previous noted - Current Medication List Current Medications: Active Medications Acetaminophen (Tylenol -) 650 mg PO Q6H PRN PRN Reason: FEVER Fluconazole (Diflucan -) 100 mg PO DAILY [facility] Last Admin: 10/19/19 09:29 Dose: 100 mg Sodium Chloride (Normal Saline -) 1,000 mls @ 42 mls/hr IV ASDIR [facility] Last Admin: 10/19/19 06:06 Dose: 42 mls/hr Pantoprazole Sodium (Protonix -) 40 mg PO DAILY [facility] Last Admin: 10/19/19 09:29 Dose: 40 mg Polyethylene Glycol (Miralax (For Daily Use) -) 17 gm PO BID [facility] Last Admin: 10/19/19 09:29 Dose: 17 gm - Objective Vital Signs: Vital Signs Temperature 98.4 F 10/19/19 14:06 Pulse Rate 54 L 10/19/19 14:06 Respiratory Rate 18 10/19/19 14:06 Blood Pressure 130/56 L 10/19/19 14:06 O2 Sat by Pulse Oximetry (%) 96 10/19/19 07:26 Constitutional: Yes: No Distress HENT: Yes: Atraumatic Neck: Yes: Supple Cardiovascular: Yes: Regular Rate and Rhythm Respiratory: Yes: CTA Bilaterally Gastrointestinal: Yes: Normal Bowel Sounds Extremities: Yes: WNL Labs: CBC, BMP 10/19/19 07:54 10/18/19 06:35 INR, PTT INR 1.03 (0.83-1.09) 10/19/19 07:54 Problem List - Problems (1) Symptomatic anemia Assessment/Plan: saw endoscopy report antral mass oncology note reviewed surgical eval Code(s): D64.9 - ANEMIA, UNSPECIFIED (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
--- NOTE | 2019-10-19 16:30 | PN ---
Progress Note (short form) - Note Progress Note: Patient seen and examined Result of gastic biopsy - positive for adenoca and h.pylorii (rare)l acute / chronic gastritis/ esophagitis and candidiasis. CT scans pending Last Vital Signs Temp Pulse Resp BP Pulse Ox 98.4 F 54 L 18 130/56 L 96 10/19/19 14:06 10/19/19 14:06 10/19/19 14:06 10/19/19 14:06 10/19/19 07:26 HEENT: PUJA, EOM Intact Oropharynx: No thrush, No mucositis Cor: RSR, No murmurs, No gallops Lungs: Clear to P&A Abd: Soft, Normal bowel sounds, No organomegaly, mild distension Ext:No significant edema Skin: No rashes, Integument intact CBC, BMP 10/19/19 07:54 10/18/19 06:35 Current Medications Generic Name Dose Route Start Last Admin Trade Name Freq PRN Reason Stop Dose Admin Acetaminophen 650 mg 10/14/19 17:38 Tylenol - PO Q6H PRN FEVER Fluconazole 100 mg 10/18/19 13:45 10/19/19 09:29 Diflucan - PO 100 mg DAILY [facility] Administration Sodium Chloride 1,000 mls @ 42 mls/hr 10/18/19 08:45 10/19/19 06:06 Normal Saline - IV 42 mls/hr ASDIR [facility] Administration Pantoprazole Sodium 40 mg 10/18/19 13:45 10/19/19 09:29 Protonix - PO 40 mg DAILY [facility] Administration Polyethylene Glycol 17 gm 10/15/19 22:00 10/19/19 09:29 Miralax (For Daily Use) - PO 17 gm BID [facility] Administration Impression: Gastric ca H.Pylorii Candidiasis Gastritis/esophagitis Anemia Plan: Await CT scans Await CT scan results Surgical evaluation Consider outpatient PET. Treatment of H.Pylorii.
--- NOTE | 2019-10-19 22:22 | CONSULT ---
Consult Consult Specialty:: Surgery Referred by:: Brionna Reason for Consultation:: Gastric carcinoma - History of Present Illness Chief Complaint: Patiemnt is 83, fells tired and found to have anemia. H/O Dark colored stools. - History Source History Provided By: Patient - Past Medical History Cardio/Vascular: Yes: HTN - Alcohol/Substance Use Hx Alcohol Use: No - Smoking History Smoking history: Never smoked Home Medications - Allergies Allergies/Adverse Reactions: Allergies Allergy/AdvReac Type Severity Reaction Status Date / Time No Known Allergies Allergy Verified 10/12/19 16:24 Physical Exam Vital Signs: Vital Signs Temperature 98.5 F 10/19/19 18:00 Pulse Rate 55 L 10/19/19 18:00 Respiratory Rate 18 10/19/19 18:00 Blood Pressure 125/54 L 10/19/19 18:00 O2 Sat by Pulse Oximetry (%) 96 10/19/19 07:26 Labs: CBC, BMP 10/19/19 07:54 10/18/19 06:35 Imaging - Results Cat Scan: Pending (CT scan reviewed, no sign of gastric outlet obstruction. 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 Consider gastectomy , if patient is condidered fit, Other alternativre is neoadjuvant therapy. Correct anemia.
--- NOTE | 2019-10-20 00:57 | CONS ---
DATE OF CONSULTATION: DATE OF DICTATION: 10/19/2019 INFECTIOUS DISEASE CONSULTATION HISTORY OF PRESENT ILLNESS: The patient is an 79-year-old male who was admitted to the hospital with severe anemia. He was admitted to the hospital on October 12, 2019, after he was noted to be increasingly short of breath. His hematocrit on evaluation in the emergency room was noted to be 4.9. The patient received transfusion of packed red blood cells. An EGD was performed as a part of the anemia workup and showed a gastric mass. Biopsy preliminarily positive for carcinoma. He was noted on endoscopy to have evidence of esophageal candidiasis. Patient was seen in the presence of his son, who served as development representative. The patient was able to tolerate a solid diet. He denies any dysphagia, no odynophagia. He denies any associated fever or chills. PAST MEDICAL HISTORY: Positive for hypertension. ALLERGIES: No known allergies. MEDICATION: Include Tylenol, fluconazole, Protonix. SOCIAL HISTORY: Patient lives at home with family members. Nonsmoker, nondrinker. LABORATORY DATA: White count 4.6, hematocrit 22.9, platelets 158, creatinine 0.9. PHYSICAL EXAMINATION: General: On exam, he is awake and alert, he is not acutely toxic appearing. Vital signs: Temperature 98.7, blood pressure 107/56, pulse 54 regular, respirations 18 per minute. HEENT: Sclerae anicteric. Oropharynx no evidence of oral candidiasis. Cardiovascular: Heart sounds S1, S2. Lungs: Clear. Abdomen: Soft, nontender. Extremities: Negative for edema. IMPRESSION: 1. Esophageal candidiasis. 2. Gastric neoplasm. 3. Severe symptomatic anemia. Suspect esophageal candidiasis secondary to immunosuppression from gastric neoplasm. Patient is able to tolerate oral therapy. Continue fluconazole orally. Would obtain HIV test, status not known. Case discussed with patient's son at the bedside. Thank you for the kind referral. LINNEA GALVAN M.D. [id number]
--- NOTE | 2019-10-20 10:37 | PN ---
Progress Note, Physician History of Present Illness: previous noted - Current Medication List Current Medications: Active Medications Acetaminophen (Tylenol -) 650 mg PO Q6H PRN PRN Reason: FEVER Fluconazole (Diflucan -) 100 mg PO DAILY [facility] Last Admin: 10/19/19 09:29 Dose: 100 mg Sodium Chloride (Normal Saline -) 1,000 mls @ 42 mls/hr IV ASDIR [facility] Last Admin: 10/19/19 21:16 Dose: Not Given Pantoprazole Sodium (Protonix -) 40 mg PO DAILY [facility] Last Admin: 10/19/19 09:29 Dose: 40 mg Polyethylene Glycol (Miralax (For Daily Use) -) 17 gm PO BID [facility] Last Admin: 10/19/19 21:15 Dose: 17 gm - Objective Vital Signs: Vital Signs Temperature 98.0 F 10/20/19 06:04 Pulse Rate 50 L 10/20/19 06:04 Respiratory Rate 18 10/20/19 06:04 Blood Pressure 119/63 10/20/19 06:04 O2 Sat by Pulse Oximetry (%) 98 10/19/19 21:00 Constitutional: Yes: No Distress HENT: Yes: Atraumatic Neck: Yes: Supple Cardiovascular: Yes: Regular Rate and Rhythm Respiratory: Yes: CTA Bilaterally Gastrointestinal: Yes: Normal Bowel Sounds Extremities: Yes: WNL Edema: No Neurological: Yes: Alert, Oriented Labs: CBC, BMP 10/19/19 07:54 10/18/19 06:35 INR, PTT INR 1.03 (0.83-1.09) 10/19/19 07:54 Problem List - Problems (1) Symptomatic anemia Assessment/Plan: saw endoscopy report antral mass oncology note reviewed surgical eval Code(s): D64.9 - ANEMIA, UNSPECIFIED (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
[2019-10-20] MEDS: SODIUM CHLORIDE 1,000 ML IV SCH (11:20)
[2019-10-20] MEDS: PANTOPRAZOLE 40 MG TABLET (FP) PO SCH (11:29)
[2019-10-20] MEDS: FLUCONAZOLE 100 MG TABLET (UD) PO SCH (11:29)
[2019-10-20] MEDS: POLYETHYLENE GLYCOL 3350 119 GM BTL PO SCH ×2 (11:30→21:15)
--- NOTE | 2019-10-20 12:09 | PN ---
Progress Note, Physician History of Present Illness: AWAKE, ALERT NO C/O DYSPHAGIA/ODYNOPHAGIA TOLERATING REGULAR DIET AFEBRILE WBC WNL - Current Medication List Current Medications: Active Medications Acetaminophen (Tylenol -) 650 mg PO Q6H PRN PRN Reason: FEVER Fluconazole (Diflucan -) 100 mg PO DAILY [facility] Last Admin: 10/20/19 11:29 Dose: 100 mg Sodium Chloride (Normal Saline -) 1,000 mls @ 42 mls/hr IV ASDIR [facility] Last Admin: 10/20/19 11:20 Dose: 42 mls/hr Pantoprazole Sodium (Protonix -) 40 mg PO DAILY [facility] Last Admin: 10/20/19 11:29 Dose: 40 mg Polyethylene Glycol (Miralax (For Daily Use) -) 17 gm PO BID [facility] Last Admin: 10/20/19 11:30 Dose: 17 gm - Objective Vital Signs: Vital Signs Temperature 98.0 F 10/20/19 06:04 Pulse Rate 50 L 10/20/19 06:04 Respiratory Rate 18 10/20/19 09:00 Blood Pressure 119/63 10/20/19 06:04 O2 Sat by Pulse Oximetry (%) 98 10/20/19 09:00 Constitutional: Yes: No Distress HENT: No: Thrush Cardiovascular: Yes: Regular Rate and Rhythm, S1, S2 Respiratory: Yes: CTA Bilaterally Gastrointestinal: Yes: Normal Bowel Sounds, Soft. No: Tenderness Labs: CBC, BMP 10/19/19 07:54 10/18/19 06:35 INR, PTT INR 1.03 (0.83-1.09) 10/19/19 07:54 Assessment/Plan GASTRIC ADENOCARCINOMA ESOPHAGEAL CANDIDIASIS CONTINUE PO FLUCONAZOLE COMPLETE 14D COURSE
--- NOTE | 2019-10-20 13:28 | PN ---
Progress Note (short form) - Note Progress Note: H. Pylori +. Will need rx
--- NOTE | 2019-10-20 18:25 | PN ---
Progress Note, Physician - Current Medication List Current Medications: Active Medications Acetaminophen (Tylenol -) 650 mg PO Q6H PRN PRN Reason: FEVER Amoxicillin (Amoxicillin -) 1,000 mg PO BID [facility] Stop: 11/04/19 09:59 Clarithromycin (Biaxin -) 500 mg PO BID [facility] Stop: 11/04/19 09:59 Sodium Chloride (Normal Saline -) 1,000 mls @ 42 mls/hr IV ASDIR [facility] Last Admin: 10/20/19 11:20 Dose: 42 mls/hr Pantoprazole Sodium (Protonix -) 20 mg PO BID [facility] Stop: 11/04/19 09:59 Polyethylene Glycol (Miralax (For Daily Use) -) 17 gm PO BID [facility] Last Admin: 10/20/19 11:30 Dose: 17 gm - Objective Vital Signs: Vital Signs Temperature 98.2 F 10/20/19 18:00 Pulse Rate 51 L 10/20/19 18:00 Respiratory Rate 20 10/20/19 18:00 Blood Pressure 133/53 L 10/20/19 18:00 O2 Sat by Pulse Oximetry (%) 98 10/20/19 09:00 Labs: CBC, BMP 10/19/19 07:54 10/18/19 06:35 INR, PTT INR 1.03 (0.83-1.09) 10/19/19 07:54 Problem List - Problems (1) Symptomatic anemia Code(s): D64.9 - ANEMIA, UNSPECIFIED (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 History obtained. He is able to eat food. Good performance status currently. Abdomen is soft , no mass is palpable. Neck examination is normal. Ct scan of abdomen does not reveal any ascites , or perigastric lymph nodes. Endoscopy reveals limited involvement of the distal stomach. Ct scan reveals sclerotic lesion throughout bony structures, ? Secondary to malignancy , though gastric metastasis is likely to be lytic. Will request a bone scan. Endoscopic ultrasound can facilitate preoperative staging of the primary lesion. Will disscuss with oncology , regarding treatment plan , staging vs gastrectomy as an initial procedure , vs chemotherapy followed by surgery. Will order bone scan , CEA Patient is explained. Message left with patients son.
--- NOTE | 2019-10-20 18:51 | PN ---
Progress Note (short form) - Note Progress Note: Patient seen and examined Discussed via [employer] [employer]ter Last Vital Signs Temp Pulse Resp BP Pulse Ox 98 F 51 L 16 129/53 L 98 10/20/19 20:35 10/20/19 20:35 10/20/19 20:35 10/20/19 20:35 10/20/19 09:00 Cor: RSR, No murmurs, No gallops Lungs: Clear to P&A Abd: Soft, Normal bowel sounds, No organomegaly Ext:No significant edema Labs/Meds reviewed A/P Gastric ca H.Pylori Candidiasis Gastritis/esophagitis Anemia Plan: Gastric adenoca. Her2-pending. H. pylori + CT c/a/p --m ild rt. hilar adenopathy/fatty liver/mass next to rt. adrenal 1.5cm ? , sclerotic bone lesions, enlarged prostate check PSA check bone scan will follow
[2019-10-21] MEDS: PANTOPRAZOLE 20 MG TABLET (FP) PO SCH ×2 (10:15→21:28)
[2019-10-21] MEDS: AMOXICILLIN 500 MG CAPSULE (FP) PO SCH ×2 (10:15→21:27)
[2019-10-21] MEDS: CLARITHROMYCIN 500 MG TABLET (UD) PO SCH ×2 (10:15→21:27)
[2019-10-21] MEDS: POLYETHYLENE GLYCOL 3350 119 GM BTL PO SCH ×2 (10:27→21:27)
[2019-10-21] MEDS: SODIUM CHLORIDE 1,000 ML IV SCH (10:28)
--- NOTE | 2019-10-21 12:51 | DS ---
Physical Examination Vital Signs: Vital Signs Temperature 97.9 F 10/21/19 10:00 Pulse Rate 55 L 10/21/19 10:00 Respiratory Rate 16 10/21/19 10:00 Blood Pressure 131/71 10/21/19 10:00 O2 Sat by Pulse Oximetry (%) 100 10/21/19 09:00 Labs: CBC, BMP 10/19/19 07:54 10/18/19 06:35 Discharge Summary Problems reviewed: Yes Reason For Visit: SECONDARY ANEMIA Current Active Problems Gastric carcinoma (Acute) Hypertension (Acute) Symptomatic anemia (Acute) Condition: Stable - Instructions
--- NOTE | 2019-10-21 12:52 | PN ---
Progress Note, Physician - Current Medication List Current Medications: Active Medications Acetaminophen (Tylenol -) 650 mg PO Q6H PRN PRN Reason: FEVER Amoxicillin (Amoxicillin -) 1,000 mg PO BID [facility] Stop: 11/04/19 09:59 Last Admin: 10/21/19 10:15 Dose: 1,000 mg Clarithromycin (Biaxin -) 500 mg PO BID [facility] Stop: 11/04/19 09:59 Last Admin: 10/21/19 10:15 Dose: 500 mg Sodium Chloride (Normal Saline -) 1,000 mls @ 42 mls/hr IV ASDIR [facility] Last Admin: 10/21/19 10:28 Dose: 42 mls/hr Pantoprazole Sodium (Protonix -) 20 mg PO BID [facility] Stop: 11/04/19 09:59 Last Admin: 10/21/19 10:15 Dose: 20 mg Polyethylene Glycol (Miralax (For Daily Use) -) 17 gm PO BID [facility] Last Admin: 10/21/19 10:27 Dose: 17 gm - Objective Vital Signs: Vital Signs Temperature 97.9 F 10/21/19 10:00 Pulse Rate 55 L 10/21/19 10:00 Respiratory Rate 16 10/21/19 10:00 Blood Pressure 131/71 10/21/19 10:00 O2 Sat by Pulse Oximetry (%) 100 10/21/19 09:00 Constitutional: Yes: No Distress Eyes: Yes: Conjunctiva Clear HENT: Yes: Atraumatic Neck: Yes: Supple Cardiovascular: Yes: Regular Rate and Rhythm Respiratory: Yes: CTA Bilaterally Gastrointestinal: Yes: Normal Bowel Sounds Extremities: Yes: WNL Edema: No Neurological: Yes: Alert, Oriented Labs: CBC, BMP 10/19/19 07:54 10/18/19 06:35 INR, PTT INR 1.03 (0.83-1.09) 10/19/19 07:54 Problem List - Problems (1) Symptomatic anemia Assessment/Plan: saw endoscopy report antral mass oncology note reviewed BONE SCAN TODAY Code(s): D64.9 - ANEMIA, UNSPECIFIED (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
--- NOTE | 2019-10-21 16:41 | PN ---
Progress Note, Physician - Current Medication List Current Medications: Active Medications Acetaminophen (Tylenol -) 650 mg PO Q6H PRN PRN Reason: FEVER Amoxicillin (Amoxicillin -) 1,000 mg PO BID [facility] Stop: 11/04/19 09:59 Last Admin: 10/21/19 10:15 Dose: 1,000 mg Clarithromycin (Biaxin -) 500 mg PO BID [facility] Stop: 11/04/19 09:59 Last Admin: 10/21/19 10:15 Dose: 500 mg Sodium Chloride (Normal Saline -) 1,000 mls @ 42 mls/hr IV ASDIR [facility] Last Admin: 10/21/19 10:28 Dose: 42 mls/hr Pantoprazole Sodium (Protonix -) 20 mg PO BID [facility] Stop: 11/04/19 09:59 Last Admin: 10/21/19 10:15 Dose: 20 mg Polyethylene Glycol (Miralax (For Daily Use) -) 17 gm PO BID [facility] Last Admin: 10/21/19 10:27 Dose: 17 gm - Objective Vital Signs: Vital Signs Temperature 98.1 F 10/21/19 14:18 Pulse Rate 61 10/21/19 14:18 Respiratory Rate 18 10/21/19 14:18 Blood Pressure 157/72 10/21/19 14:18 O2 Sat by Pulse Oximetry (%) 100 10/21/19 09:00 Labs: CBC, BMP 10/19/19 07:54 10/18/19 06:35 INR, PTT INR 1.03 (0.83-1.09) 10/19/19 07:54 Problem List - Problems (1) Symptomatic anemia Code(s): D64.9 - ANEMIA, UNSPECIFIED (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 Unable to maintain his hematocrit. Having occult blood ion stools. CEA 3 , ( normal) Bone scan to be reported. I have discussed the management of carcinoma of stomach. and overall poor prognosis of the disease. Ideally would consider staging laparoscopy with peritoneal wash out , possible preop chemotherapy and surgery. However if he is not able to maintain his hematocrit may need emergency surgery. PET-CT scan is being requested by oncology service , this will have to be done as an out patient at [facility]. I have explained the management plan with the patient's son. Also has hypoalbuminaemia.
--- NOTE | 2019-10-21 18:54 | PN ---
Progress Note (short form) - Note Progress Note: Patient seen and examined Discussed via tajik interreter AFVSS Cor: RSR, No murmurs, No gallops Lungs: Clear to P&A Abd: Soft, Normal bowel sounds, No organomegaly Ext:No significant edema Labs/Meds reviewed A/P Gastric ca H.Pylori Candidiasis Gastritis/esophagitis Anemia Plan: Gastric adenoca. Her2-pending. H. pylori + CT c/a/p --m ild rt. hilar adenopathy/fatty liver/mass next to rt. adrenal 1.5cm ? , sclerotic bone lesions, enlarged prostate check PSA check bone scan discussed with --if bleeding continues , may need surgery discussed with patients son
[2019-10-21] MEDS ORDERED: PT OWN MED DRAWER 7, Y5N ONE (21:08)
[2019-10-22] MEDS: POLYETHYLENE GLYCOL 3350 119 GM BTL PO SCH ×2 (10:06→21:05)
[2019-10-22] MEDS: PANTOPRAZOLE 20 MG TABLET (FP) PO SCH ×2 (10:06→21:05)
[2019-10-22] MEDS: AMOXICILLIN 500 MG CAPSULE (FP) PO SCH ×2 (10:10→21:04)
[2019-10-22] MEDS: CLARITHROMYCIN 500 MG TABLET (UD) PO SCH ×2 (10:10→21:04)
[2019-10-22] MEDS: SODIUM CHLORIDE 1,000 ML IV SCH ×2 (10:12→17:21)
--- NOTE | 2019-10-22 14:44 | PN ---
Progress Note, Physician - Current Medication List Current Medications: Active Medications Acetaminophen (Tylenol -) 650 mg PO Q6H PRN PRN Reason: FEVER Amoxicillin (Amoxicillin -) 1,000 mg PO BID [facility] Stop: 11/04/19 09:59 Last Admin: 10/22/19 10:10 Dose: 1,000 mg Clarithromycin (Biaxin -) 500 mg PO BID [facility] Stop: 11/04/19 09:59 Last Admin: 10/22/19 10:10 Dose: 500 mg Sodium Chloride (Normal Saline -) 1,000 mls @ 42 mls/hr IV ASDIR [facility] Last Admin: 10/22/19 10:12 Dose: Not Given Pantoprazole Sodium (Protonix -) 20 mg PO BID [facility] Stop: 11/04/19 09:59 Last Admin: 10/22/19 10:06 Dose: 20 mg Polyethylene Glycol (Miralax (For Daily Use) -) 17 gm PO BID [facility] Last Admin: 10/22/19 10:06 Dose: 17 gm - Objective Vital Signs: Vital Signs Temperature 97.9 F 10/22/19 13:51 Pulse Rate 65 10/22/19 13:51 Respiratory Rate 20 10/22/19 13:51 Blood Pressure 150/68 10/22/19 13:51 O2 Sat by Pulse Oximetry (%) 100 10/22/19 09:00 Labs: CBC, BMP 10/19/19 07:54 10/18/19 06:35 INR, PTT INR 1.03 (0.83-1.09) 10/19/19 07:54 Problem List - Problems (1) Symptomatic anemia Code(s): D64.9 - ANEMIA, UNSPECIFIED (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 Hematocrit is being repeated. Abdomen is soft , not tender. I have discussed with Dr. Escobar. Patient continues to drop his hematocrit, and needs surgery for continued bleeding. He is scheduled for surgery on thursday , 10/24/2019. Transfuse as needed. I have spoken to his son , and who has translated to his father. They understand that he has gastric cancer that is bleeding , and surgery is being done for bleeding gastric cancer,. All complications explained , and he understands.
--- NOTE | 2019-10-22 17:54 | PN ---
Progress Note, Physician - Current Medication List Current Medications: Active Medications Acetaminophen (Tylenol -) 650 mg PO Q6H PRN PRN Reason: FEVER Amoxicillin (Amoxicillin -) 1,000 mg PO BID [facility] Stop: 11/04/19 09:59 Last Admin: 10/22/19 10:10 Dose: 1,000 mg Clarithromycin (Biaxin -) 500 mg PO BID [facility] Stop: 11/04/19 09:59 Last Admin: 10/22/19 10:10 Dose: 500 mg Sodium Chloride (Normal Saline -) 1,000 mls @ 42 mls/hr IV ASDIR [facility] Last Admin: 10/22/19 17:21 Dose: 42 mls/hr Pantoprazole Sodium (Protonix -) 20 mg PO BID [facility] Stop: 11/04/19 09:59 Last Admin: 10/22/19 10:06 Dose: 20 mg Polyethylene Glycol (Miralax (For Daily Use) -) 17 gm PO BID [facility] Last Admin: 10/22/19 10:06 Dose: 17 gm - Objective Vital Signs: Vital Signs Temperature 97.9 F 10/22/19 13:51 Pulse Rate 65 10/22/19 13:51 Respiratory Rate 20 10/22/19 13:51 Blood Pressure 150/68 10/22/19 13:51 O2 Sat by Pulse Oximetry (%) 100 10/22/19 09:00 Constitutional: Yes: No Distress HENT: Yes: Atraumatic Neck: Yes: Supple Cardiovascular: Yes: Regular Rate and Rhythm Respiratory: Yes: CTA Bilaterally Gastrointestinal: Yes: Normal Bowel Sounds Extremities: Yes: WNL Edema: No Neurological: Yes: Alert, Oriented Labs: CBC, BMP 10/19/19 07:54 10/18/19 06:35 INR, PTT INR 1.03 (0.83-1.09) 10/19/19 07:54 Problem List - Problems (1) Symptomatic anemia Assessment/Plan: antral mass surgery consult for surgery Code(s): D64.9 - ANEMIA, UNSPECIFIED (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
--- NOTE | 2019-10-22 17:59 | PN ---
Progress Note (short form) - Note Progress Note: Patient seen and examined. S: Mentioned continues to have melena, but denies abdominal pain. Last Vital Signs Temp Pulse Resp BP Pulse Ox 97.9 F 65 20 150/68 100 10/22/19 13:51 10/22/19 13:51 10/22/19 13:51 10/22/19 13:51 10/22/19 09:00 AFVSS Cor: RSR, No murmurs, No gallops Lungs: Clear to P&A Abd: Soft, Normal bowel sounds, No organomegaly Ext:No significant edema CBC, BMP 10/19/19 07:54 10/18/19 06:35 Current Medications Generic Name Dose Route Start Last Admin Trade Name Freq PRN Reason Stop Dose Admin Acetaminophen 650 mg 10/14/19 17:38 Tylenol - PO Q6H PRN FEVER Amoxicillin 1,000 mg 10/21/19 10:00 10/22/19 10:10 Amoxicillin - PO 11/04/19 09:59 1,000 mg BID [facility] Administration Clarithromycin 500 mg 10/21/19 10:00 10/22/19 10:10 Biaxin - PO 11/04/19 09:59 500 mg BID [facility] Administration Sodium Chloride 1,000 mls @ 42 mls/hr 10/18/19 08:45 10/22/19 17:21 Normal Saline - IV 42 mls/hr ASDIR [facility] Administration Pantoprazole Sodium 20 mg 10/21/19 10:00 10/22/19 10:06 Protonix - PO 11/04/19 09:59 20 mg BID [facility] Administration Polyethylene Glycol 17 gm 10/15/19 22:00 10/22/19 10:06 Miralax (For Daily Use) - PO 17 gm BID [facility] Administration A/P Gastric ca H.Pylori Candidiasis Gastritis/esophagitis Anemia Plan: Gastric adenoca. Her2-pending. H. pylori + CT c/a/p --m ild rt. hilar adenopathy/fatty liver/mass next to rt. adrenal 1.5cm ? , sclerotic bone lesions, enlarged prostate check PSA check bone scan [facility] note Dr. Wu (Surgery). Scheduled for surgery on Wednesday 10/24
[2019-10-22] MEDS ORDERED: PT OWN MED DRAWER 7, Y5N ONE (21:01)
[2019-10-23 08:34] LABS: BASO % 1.1 % (0-2.0); EOS % 4.9 % (0-4.5); HEMATOCRIT 24.4 % (35.4-49); LYMPH % 17.3 % (8-40); MCHC 28.7 g/dl (32.0-35.9); MEAN PLT VOLUME 9.2 fl (7.5-11.1); MONO % 7.9 % (3.8-10.2); NEUT % 68.8 % (42.8-82.8); PLATELET COUNT 238 K/MM3 (134-434); RBC 3.58 M/mm3 (4.00-5.60); RDW 29.2 % (11.9-15.9); WHITE BLOOD COUNT 5.3 K/mm3 (4.0-10.0)
[2019-10-23 08:37] LABS: MCH 19.5 pg (25.7-33.7)
[2019-10-23 08:57] LABS: ALBUMIN 2.7 g/dl (3.4-5.0); BILIRUBIN,TOTAL 0.4 mg/dL (0.2-1); BLOOD UREA NITROGEN 17.3 mg/dL (7-18); CALCIUM 9.3 mg/dL (8.5-10.1); POTASSIUM 4.1 mmol/L (3.5-5.1); TOT PROT 5.4 g/dl (6.4-8.2)
[2019-10-23 09:24] LABS: ANISOCYTOSIS 2+; MACROCYTOSIS 1+; PLATELET ESTIMATE NORMAL
[2019-10-23] MEDS: SODIUM CHLORIDE 1,000 ML IV SCH ×2 (10:54→17:15)
[2019-10-23] MEDS: CLARITHROMYCIN 500 MG TABLET (UD) PO SCH ×2 (10:55→21:52)
[2019-10-23] MEDS: AMOXICILLIN 500 MG CAPSULE (FP) PO SCH ×2 (10:55→21:52)
[2019-10-23] MEDS: POLYETHYLENE GLYCOL 3350 119 GM BTL PO SCH ×2 (11:05→21:53)
[2019-10-23] MEDS: PANTOPRAZOLE 20 MG TABLET (FP) PO SCH ×2 (11:06→21:52)
--- NOTE | 2019-10-23 17:31 | PN ---
Progress Note (short form) - Note Progress Note: Patient seen and examined. S: Mentioned continues to have melena (about 1/3 half a pitcher), but denies abdominal pain. Last Vital Signs Temp Pulse Resp BP Pulse Ox 98.0 F 54 L 18 136/65 99 10/23/19 16:54 10/23/19 16:54 10/23/19 16:54 10/23/19 16:54 10/23/19 09:00 AFVSS Cor: RSR, No murmurs, No gallops Lungs: Clear to P&A Abd: Soft, Normal bowel sounds, No organomegaly Ext:No significant edema 10/23/19 07:10 10/23/19 07:10 Current Medications Generic Name Dose Route Start Last Admin Trade Name Freq PRN Reason Stop Dose Admin Acetaminophen 650 mg 10/14/19 17:38 Tylenol - PO Q6H PRN FEVER Amoxicillin 1,000 mg 10/21/19 10:00 10/23/19 10:55 Amoxicillin - PO 11/04/19 09:59 1,000 mg BID [facility] Administration Clarithromycin 500 mg 10/21/19 10:00 10/23/19 10:55 Biaxin - PO 11/04/19 09:59 500 mg BID [facility] Administration Sodium Chloride 1,000 mls @ 42 mls/hr 10/18/19 08:45 10/23/19 17:15 Normal Saline - IV 42 mls/hr ASDIR [facility] Administration Pantoprazole Sodium 20 mg 10/21/19 10:00 10/23/19 11:06 Protonix - PO 11/04/19 09:59 20 mg BID [facility] Administration Polyethylene Glycol 17 gm 10/15/19 22:00 10/23/19 11:05 Miralax (For Daily Use) - PO 17 gm BID [facility] Administration A/P Gastric ca H.Pylori Candidiasis Gastritis/esophagitis Anemia Plan: Gastric adenoca. Her2-pending. H. pylori + CT c/a/p --m ild rt. hilar adenopathy/fatty liver/mass next to rt. adrenal 1.5cm ? , sclerotic bone lesions, enlarged prostate check PSA check bone scan Hb 7 and continuously bleeding--> Will transfuse 1 unit pRBCs now, check H&H and give a second unit of pRBCs if less than [address] Wu (Surgery). Scheduled for surgery on Wednesday 10/24
--- NOTE | 2019-10-23 18:56 | PN ---
Progress Note, Physician - Current Medication List Current Medications: Active Medications Acetaminophen (Tylenol -) 650 mg PO Q6H PRN PRN Reason: FEVER Amoxicillin (Amoxicillin -) 1,[address] [facility] Stop: 11/04/19 09:59 Last Admin: 10/23/19 10:55 Dose: 1,000 mg Clarithromycin (Biaxin -) [address] [facility] Stop: 11/04/19 09:59 Last Admin: 10/23/19 10:55 Dose: 500 mg Sodium Chloride (Normal Saline -) 1,000 mls @ 42 mls/hr IV ASDIR [facility] Last Admin: 10/23/19 17:15 Dose: 42 mls/hr Pantoprazole Sodium (Protonix -) [address] [facility] Stop: 11/04/19 09:59 Last Admin: 10/23/19 11:06 Dose: 20 mg Polyethylene Glycol (Miralax (For Daily Use) -) [address] [facility] Last Admin: 10/23/19 11:05 Dose: 17 gm - Objective Vital Signs: Vital Signs Temperature 98.3 F 10/23/19 18:20 Pulse Rate 56 L 10/23/19 18:20 Respiratory Rate 18 10/23/19 18:20 Blood Pressure 143/61 10/23/19 18:20 O2 Sat by Pulse Oximetry (%) 99 10/23/19 09:00 Constitutional: Yes: No Distress HENT: Yes: Atraumatic Neck: Yes: Supple Cardiovascular: Yes: Regular Rate and Rhythm Respiratory: Yes: CTA Bilaterally Gastrointestinal: Yes: Normal Bowel Sounds Extremities: Yes: WNL Edema: No Peripheral Pulses WNL: Yes Neurological: Yes: Alert, Oriented Labs: CBC, BMP 10/23/19 07:10 10/23/19 07:10 INR, PTT INR 1.03 (0.83-1.09) 10/19/19 07:54 Problem List - Problems (1) Symptomatic anemia Assessment/Plan: for OR tomorrow need cardiac clearance Code(s): D64.9 - ANEMIA, UNSPECIFIED (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 pylori) infection Code(s): A04.8 - OTHER SPECIFIED BACTERIAL INTESTINAL INFECTIONS (4) Hypertension Assessment/Plan: on meds Code(s): I10 - ESSENTIAL (PRIMARY) HYPERTENSION Qualifiers: Hypertension type: essential hypertension Qualified Code(s): I10 - Essential (primary) hypertension
--- NOTE | 2019-10-23 19:42 | PN ---
Progress Note, Physician - Current Medication List Current Medications: Active Medications Acetaminophen (Tylenol -) 650 mg PO Q6H PRN PRN Reason: FEVER Amoxicillin (Amoxicillin -) 1,000 mg PO BID [facility] Stop: 11/04/19 09:59 Last Admin: 10/23/19 10:55 Dose: 1,000 mg Clarithromycin (Biaxin -) 500 mg PO BID [facility] Stop: 11/04/19 09:59 Last Admin: 10/23/19 10:55 Dose: 500 mg Sodium Chloride (Normal Saline -) 1,000 mls @ 42 mls/hr IV [facility]IR [facility] Last Admin: 10/23/19 17:15 Dose: 42 mls/hr Pantoprazole Sodium (Protonix -) 20 mg PO BID [facility] Stop: 11/04/19 09:59 Last Admin: 10/23/19 11:06 Dose: 20 mg Polyethylene Glycol (Miralax (For Daily Use) -) 17 gm PO BID [facility] Last Admin: 10/23/19 11:05 Dose: 17 gm - Objective Vital Signs: Vital Signs Temperature 98.3 F 10/23/19 18:20 Pulse Rate 56 L 10/23/19 18:20 Respiratory Rate 18 10/23/19 18:20 Blood Pressure 143/61 10/23/19 18:20 O2 Sat by Pulse Oximetry (%) 99 10/23/19 09:00 Labs: CBC, BMP 10/23/19 07:10 10/23/19 07:10 INR, PTT INR 1.03 (0.83-1.09) 10/19/19 07:54 Problem List - Problems (1) Symptomatic anemia Code(s): D64.9 - ANEMIA, UNSPECIFIED (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 For gastrectomy tomorrow Hematocrit 24.4. Will transfuse one unit of packed RBC tonight.
[2019-10-23] MEDS ORDERED: PT OWN MED DRAWER 7, Y5N ONE (20:45)
[2019-10-24 01:25] LABS: BASO % 1.3 % (0-2.0); EOS % 5.3 % (0-4.5); HEMATOCRIT 27.7 % (35.4-49); HEMOGLOBIN 8.1 GM/dL (11.7-16.9); LYMPH % 17.8 % (8-40); MCH 20.2 pg (25.7-33.7); MCHC 29.4 g/dl (32.0-35.9); MEAN CELL VOLUME 68.7 fl (80-96); MEAN PLT VOLUME 8.9 fl (7.5-11.1); MONO % 7.9 % (3.8-10.2); NEUT % 67.7 % (42.8-82.8); PLATELET COUNT 263 K/MM3 (134-434); RBC 4.04 M/mm3 (4.00-5.60); RDW 28.1 % (11.9-15.9); WHITE BLOOD COUNT 5.3 K/mm3 (4.0-10.0)
[2019-10-24] MEDS: CLARITHROMYCIN 500 MG TABLET (UD) PO SCH ×2 (09:01→22:56)
[2019-10-24] MEDS: AMOXICILLIN 500 MG CAPSULE (FP) PO SCH ×2 (09:01→22:56)
[2019-10-24] MEDS: PANTOPRAZOLE 20 MG TABLET (FP) PO SCH ×2 (09:01→22:59)
[2019-10-24] MEDS: POLYETHYLENE GLYCOL 3350 119 GM BTL PO SCH ×2 (09:01→22:57)
[2019-10-24] MEDS: SODIUM CHLORIDE 1,000 ML IV SCH ×3 (09:01→23:00)
[2019-10-24] MEDS ORDERED: PROPOFOL 20 ML ONE (09:26)
[2019-10-24] MEDS ORDERED: fentaNYL CITRATE 250 MCG/5 ML VIAL ONE (09:26)
[2019-10-24] MEDS ORDERED: ROCURONIUM BROMIDE 50 MG/5 ML SYRINGE ONE (09:26)
[2019-10-24] MEDS ORDERED: SUCCINYLCHOLINE CHLORIDE 200 MG/10 ML SYRINGE ONE (09:26)
--- NOTE | 2019-10-24 13:57 | CONSULT ---
Consultation: REQUESTING PROVIDER: CONSULT REQUEST: ICU management HISTORY OF PRESENT ILLNESS: 79 y/o male with PMH of HTN presented to the ED with shortness of breath on exertion for the last 3 months in addition, was found to have a hemoglobin level of 5.3 on routine labs done at his PCP office- endoscopy was done showing mass in the gastric antrum, biopsy results consistent with adenocarcinoma. Patient was scheduled for OR this afternoon (10/24) for gastrectomy however developed shortness of breath- needing ICU care for further cardiac and respiratory optimization in anticipation for OR . REVIEW OF SYSTEMS: CONSTITUTIONAL: Absent: fever, chills, diaphoresis, generalized weakness, malaise, loss of appetite, weight change HEENT: Absent: rhinorrhea, nasal congestion, throat pain, throat swelling, difficulty swallowing, mouth swelling, ear pain, eye pain, visual changes CARDIOVASCULAR: Absent: chest pain, syncope, palpitations, irregular heart rate, lightheadedness , peripheral edema RESPIRATORY: Present: shortness of breath Absent: cough, , dyspnea with exertion, orthopnea, wheezing, stridor, hemoptysis GASTROINTESTINAL: present: melena Absent: abdominal pain, abdominal distension, nausea, vomiting, diarrhea, constipation, hematochezia GENITOURINARY: Absent: dysuria, frequency, urgency, hesitancy, hematuria, flank pain, genital pain MUSCULOSKELETAL: Absent: myalgia, arthralgia, joint swelling, back pain, neck pain SKIN: Absent: rash, itching, pallor HEMATOLOGIC/IMMUNOLOGIC: Absent: easy bleeding, easy bruising, lymphadenopathy, frequent infections ENDOCRINE: Absent: unexplained weight gain, unexplained weight loss, heat intolerance, cold intolerance NEUROLOGIC: Absent: headache, focal weakness or paresthesias, dizziness, unsteady gait, seizure, mental status changes, bladder or bowel incontinence PSYCHIATRIC: Absent: anxiety, depression, suicidal or homicidal ideation, hallucinations. PHYSICAL EXAMINATION Vital Signs - 24 hr 10/23/19 10/23/19 10/23/19 16:54 18:20 21:00 Temperature 98.0 F 98.3 F Pulse Rate 54 L 56 L Respiratory 18 18 18 Rate Blood Pressure 136/65 143/61 O2 Sat by Pulse 100 Oximetry (%) 10/23/19 10/24/19 10/24/19 22:00 01:31 06:00 Temperature 98 F 98.4 F 98.3 F Pulse Rate 53 L 51 L 49 L Respiratory 18 18 18 Rate Blood Pressure 145/72 144/60 130/65 O2 Sat by Pulse Oximetry (%) 10/24/19 10/24/19 10/24/19 09:00 10:00 13:52 Temperature 97.6 F 98.1 F Pulse Rate 54 L 48 L Respiratory 18 18 Rate Blood Pressure 143/66 160/59 L O2 Sat by Pulse 96 Oximetry (%) GENERAL: Awake, alert, and fully oriented, in no acute distress. EYES: PEERLA; EOMI; no scleral icterus . NECK: no JVD; no lympha LUNGS: slight crackles at the LLB ; no rales/rhonchi or wheezing appreciated HEART: Regular rate and rhythm, normal S1 and S2 without murmur, rub or gallop. ABDOMEN: soft; NT/ND +BS in all 4 quadrants MUSCULOSKELETAL: Normal range of motion at all joints. No bony deformities or tenderness. No CVA tenderness. EXTREMITIES: warm; well-perfused no clubbing/cyanosis or edema NEUROLOGICAL: Cranial nerves II-XII intact. Normal speech. Normal gait. PSYCHIATRIC: Cooperative. Good eye contact. Appropriate mood and affect. SKIN: Warm, dry, normal turgor, no rashes or lesions noted. Laboratory Results - last 24 hr 10/23/19 10/24/19 10/24/19 15:45 01:00 08:00 WBC 5.3 RBC 4.04 Hgb 8.1 L Hct 27.7 L MCV 68.7 L MCH 20.2 L MCHC 29.4 L RDW 28.1 H Plt Count 263 MPV 8.9 Absolute Neuts (auto) 3.6 Neutrophils % 67.7 Lymphocytes % 17.8 Monocytes % 7.9 Eosinophils % 5.3 H Basophils % 1.3 Nucleated RBC % 0 Blood Type O POSITIVE O POSITIVE Antibody Screen Negative Negative Crossmatch See Detail See Detail Active Medications Generic Name Dose Route Start Last Admin Trade Name Freq PRN Reason Stop Dose Admin Acetaminophen 650 mg 10/14/19 17:38 Tylenol - PO Q6H PRN FEVER Amoxicillin 1,000 mg 10/21/19 10:00 10/24/19 09:01 Amoxicillin - PO 11/04/19 09:59 Not Given BID [facility] Clarithromycin 500 mg 10/21/19 10:00 10/24/19 09:01 Biaxin - PO 11/04/19 09:59 Not Given BID [facility] Sodium Chloride 1,000 mls @ 42 mls/hr 10/18/19 08:45 10/24/19 09:01 Normal Saline - IV Not Given [facility] Pantoprazole Sodium 20 mg 10/21/19 10:00 10/24/19 09:01 Protonix - PO 11/04/19 09:59 Not Given BID [facility] Polyethylene Glycol 17 gm 10/15/19 22:00 10/24/19 09:01 Miralax (For Daily Use) - PO Not Given [facility] ASSESSMENT/PLAN: 79 y/o male with PMH of HTN presented to the ED with shortness of breath on exertion for the last 3 months in addition, was found to have a hemoglobin level of 5.3 on routine labs done at his PCP office found to have an gastric antrum mass going for gastrectomy needing optimization #Neuro stable; no issues #Cardio history of HTN; not currently on meds -need cardiac clearance before surgery -echo ordered -will start BP meds if necessary -monitor hemodynamics; #GI endoscopy done - gastric antrum mass found as well as H Pylori -GI and surgery on board; consults appreciated -c/w amoxicillin, clarithromycin, PPI for h pylori -gastrectomy surgery to take place once medically optimized (possible 10/26) #Heme/Onc patients most recent Hgb was 8.1 this AM -normal transfusion threshold (tranfuse if Hgb<7) -monitor for melena -gastric antrum mass c/w adenocarcinoma -heme on board; recs appreciated -monitor hemodynamics F/E/N NS @42mls/hr monitor electrolytes sodium-controlled diet dvt ppx: scds Dispo: We will continue to follow the patient. Thank you for this consultative opportunity. Visit type - Emergency Visit Emergency Visit: Yes ED Registration Date: 10/12/19 Care time: The patient presented to the Emergency Department on the above date and was hospitalized for further evaluation of their emergent condition. - New Patient This patient is new to me today: No - Critical Care Critical Care patient: Yes Total Critical Care Time (in minutes): 35 Critical Care Statement: The care of this patient involved high complexity decision making to prevent further life threatening deterioration of the patient 's condition and/or to evaluate & treat vital organ system(s) failure or risk of failure. ATTENDING PHYSICIAN STATEMENT I saw and evaluated the patient. I reviewed the resident's note and discussed the case with the resident. I agree with the resident's findings and plan as documented. SUBJECTIVE: OBJECTIVE: ASSESSMENT AND PLAN:
[2019-10-24] MEDS ORDERED: ACETAMINOPHEN 325 MG TABLET (FP) PO PRN (14:44)
--- NOTE | 2019-10-24 15:33 | ECHO ---
Name: BITA YOON Exam:Adult Echocardiogram Study Date: 10/24/2019 11:29 AM Age: 79 yrs Height: 63 in Weight: 135 lb BSA: 1.6 m2 MMode/2D Measurements & Calculations IVSd: 0.84 cm Ao root diam: 2.8 cm LVIDd: 4.7 cm LA dimension: 3.9 cm LVIDs: 2.9 cm LVPWd: 1.0 cm LVPWs: 0.88 cm EDV(Teich): 100.0 ml ESV(Teich): 32.9 ml LVOT diam: 1.8 cm LAV (MOD-bp): 84.0 ml Doppler Measurements & Calculations MV E max william: 85.4 cm/sec Ao V2 max: 157.6 cm/sec MV A max william: 77.5 cm/sec Ao max P.1 mmHg MV E/A: 1.1 MV dec time: 0.29 sec HENRY(V,D): 1.9 cm2 LV V1 max P.8 mmHg TR max william: 240.3 cm/sec LV V1 max: 109.1 cm/sec TR max P.3 mmHg PA V2 max: 137.1 cm/sec Med Peak E' William: 5.4 cm/sec PA max P.5 mmHg Med E/e': 15.8 Lat Peak E' William: 8.7 cm/sec Lat E/e': 9.9 Procedure A complete two-dimensional transthoracic echocardiogram was performed (2D, M-mode, Doppler and color flow Doppler). Left Ventricle The left ventricle is normal in size. Left ventricular systolic function is normal. Ejection Fraction = 60- 65%. Diastolic dysfunction, Grade II (pseudonormalization pattern). No regional wall motion abnormali ties noted. Right Ventricle The right ventricle is normal size. The right ventricular systolic function is normal. RV systolic TD I is 13 cm/s. Atria The left atrial size is normal. Right atrial size is normal. Mitral Valve There is mild mitral annular calcification. There is mild mitral regurgitation. Tricuspid Valve The tricuspid valve is normal in structure and function. There is mild tricuspid regurgitation. Pulmo nary artery systolic pressure is at least 33 mmHg if RA pressure is assumed 3 mmHg. Aortic Valve There is mild aortic sclerosis.;. No aortic regurgitation is present. Pulmonic Valve The pulmonic valve is not well visualized. Mild pulmonic valvular regurgitation. Great Vessels The aortic root is normal size. Pericardium/Pleura There is no pericardial effusion. Interpretation Summary The left ventricle is normal in size. Left ventricular systolic function is normal. No regional wall motion abnormalities noted. Ejection Fraction = 60-65%. Diastolic dysfunction, Grade II (pseudonormalization pattern). The right ventricular systolic function is normal. The left atrial size is normal. Right atrial size is normal. There is mild mitral annular calcification. There is mild mitral regurgitation. There is mild tricuspid regurgitation. Pulmonary artery systolic pressure is at least 33 mmHg if RA pressure is assumed 3 mmHg There is mild aortic sclerosis. Mild pulmonic valvular regurgitation. There is no pericardial effusion. Jose Burch MD 10/24/2019 03:32 PM
--- NOTE | 2019-10-24 15:44 | PN ---
Progress Note (short form) - Note Progress Note: Patient seen and examined still with melena Last Vital Signs Temp Pulse Resp BP Pulse Ox 98.0 F 46 L 15 145/61 96 10/24/19 14:46 10/24/19 14:46 10/24/19 14:46 10/24/19 14:46 10/24/19 09:00 Cor: RSR, No murmurs, No gallops Lungs: Clear to P&A Abd: Soft, Normal bowel sounds, No organomegaly Ext:No significant edema Labs/Meds reviewed A/P Gastric ca H.Pylori Candidiasis Gastritis/esophagitis Anemia Plan: Gastric adenoca. Her2-pending. H. pylori + CT c/a/p --m ild rt. hilar adenopathy/fatty liver/mass next to rt. adrenal 1.5cm ? , sclerotic bone lesions, enlarged prostate PSA/CEA --normal f/u bone scan Given ongoing significant bleeding awaiting surgical , awaiting preop. clearence /surgery discussed with patient and his son
--- NOTE | 2019-10-24 15:45 | PN ---
Progress Note, Physician - Current Medication List Current Medications: Active Medications Acetaminophen (Tylenol -) 650 mg PO Q6H PRN PRN Reason: FEVER Amoxicillin (Amoxicillin -) 1,000 mg PO BID [facility] Stop: 11/04/19 09:59 Chlorhexidine Gluconate (Hibiclens For Decolonization -) 1 applic TP HS [facility] Clarithromycin (Biaxin -) 500 mg PO BID [facility] Stop: 11/04/19 09:59 Sodium Chloride (Normal Saline -) 1,000 mls @ 42 mls/hr IV ASDIR [facility] Last Admin: 10/24/19 15:00 Dose: 42 mls/hr Mupirocin (Bactroban Ointment (For Decolonization) -) 1 applic NS BID [facility] Stop: 10/29/19 21:59 Pantoprazole Sodium (Protonix -) 20 mg PO BID [facility] Stop: 11/04/19 09:59 Polyethylene Glycol (Miralax (For Daily Use) -) 17 gm PO BID [facility] - Objective Vital Signs: Vital Signs Temperature 98.0 F 10/24/19 14:46 Pulse Rate 46 L 10/24/19 14:46 Respiratory Rate 15 10/24/19 14:46 Blood Pressure 145/61 10/24/19 14:46 O2 Sat by Pulse Oximetry (%) 96 10/24/19 09:00 Labs: CBC, BMP 10/24/19 01:00 10/23/19 07:10 INR, PTT INR 1.03 (0.83-1.09) 10/19/19 07:54 Problem List - Problems (1) Symptomatic anemia Code(s): D64.9 - ANEMIA, UNSPECIFIED (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 Hematocrit slightly improved after one unit bof packed RBC. C/O Shortness of breath. Was evaluated by anesthesia. Patient has not had cardiac assessment . Cardiac consult requested. Will hold surgery until cardiac evaluation. Discussed with Dr. Staton. Possible surgery on 10/26/2019. Patients son explained.
--- NOTE | 2019-10-24 17:26 | CON.CARD ---
Consult Consult Specialty:: Cardiology Referred by:: Jagruti Staton MD Reason for Consultation:: Pre-op CV evaluation - History of Present Illness Chief Complaint: Acute blood loss anemia History of Present Illness: Sree Gallegos is an 79M with PMH HTN presenting with SOB on exertion, chest pain, anemia with Hgb 5.3, dark stools, EGD shows antral mass adenocarcinoma and +H pylori, bleeding continues requiring transfusion, planned for gastrectomy. He is currently asymptomatic and denies chest pain, GOMEZ, near or true syncope, palpitations, orthopnea, PND or LE edema. - History Source History Provided By: Patient Limitations to Obtaining History: No Limitations - Past Medical History Cardio/Vascular: Yes: HTN - Alcohol/Substance Use Hx Alcohol Use: No - Smoking History Smoking history: Never smoked Home Medications - Allergies Allergies/Adverse Reactions: Allergies Allergy/AdvReac Type Severity Reaction Status Date / Time No Known Allergies Allergy Verified 10/12/19 16:24 Review of Systems - Review of Systems Cardiovascular: reports: Shortness of Breath Respiratory: reports: SOB on Exertion Gastrointestinal: reports: Melena Vital Signs: Vital Signs Temperature 98.0 F 10/24/19 14:46 Pulse Rate 46 L 10/24/19 15:41 Respiratory Rate 16 10/24/19 15:41 Blood Pressure 128/57 L 10/24/19 15:41 O2 Sat by Pulse Oximetry (%) 97 10/24/19 14:00 Constitutional: Yes: No Distress, Calm, Thin Neck: Yes: Supple Respiratory: Yes: Regular, CTA Bilaterally Gastrointestinal: Yes: Soft, Hypoactive Bowel Sounds, Melena Cardiovascular: Yes: Regular Rate and Rhythm JVD: No Carotid Bruit: No Heart Sounds: Yes: S1, S2 Murmur: Yes: Systolic Murmur, Grade 1 Edema: No - Other Data Labs, Other Data: CBC, BMP 10/24/19 01:00 10/23/19 07:10 INR, PTT INR 1.03 (0.83-1.09) 10/19/19 07:54 NSR @ 66 RBBB Echo: Report Reviewed Ejection Fraction %: LVEF > or = 40 % Imaging - Results Chest X-ray: Report Reviewed (NAD) Cat Scan: Report Reviewed (Gastric mass) Other: Report Reviewed (Bone scan: Lower sternum uptake, healing fracture vs mets) Problem List - Problems (1) Pre-operative cardiovascular examination, bradycardia Code(s): Z01.810 - ENCOUNTER FOR PREPROCEDURAL CARDIOVASCULAR EXAMINATION; R00.1 - BRADYCARDIA, UNSPECIFIED (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 pylori) infection Code(s): A04.8 - OTHER SPECIFIED BACTERIAL INTESTINAL INFECTIONS Assessment/Plan 10/24/2019 Echo: Normal LV size and fxn, LVEF 60-65%, grade II diastolic dysfunction, mild MR, TR RVSP 33 mmHg, mild [place] 1. Pre-op CV evaluation, gastrectomy for antral gastric adenocarcinoma 2. Acute blood loss anemia ongoing 3. H. Pylori 4. Sinus bradycardia 5. Hypertension P:1. Given absence of sxs of acute coronary syndrome, decompensated CHF or malignant arrhythmia, may proceed with gastrectomy from CV-standpoint w/o further testing. 2. Treatment for H. pylori, monitor H&H post transfusion 3. Avoid AV pao blocking agents given sinus bradycardia 4. Thank you for consultative opportunity, further CV w/u including stress testing may be performed once clinically stable
--- NOTE | 2019-10-24 18:27 | PN ---
Progress Note, Physician History of Present Illness: all noted - Current Medication List Current Medications: Active Medications Acetaminophen (Tylenol -) 650 mg PO Q6H PRN PRN Reason: FEVER Amoxicillin (Amoxicillin -) 1,000 mg PO BID [facility] Stop: 11/04/19 09:59 Chlorhexidine Gluconate (Hibiclens For Decolonization -) 1 applic TP HS [facility] Clarithromycin (Biaxin -) 500 mg PO BID [facility] Stop: 11/04/19 09:59 Sodium Chloride (Normal Saline -) 1,000 mls @ 42 mls/hr IV ASDIR [facility] Last Admin: 10/24/19 15:00 Dose: 42 mls/hr Mupirocin (Bactroban Ointment (For Decolonization) -) 1 applic NS BID [facility] Stop: 10/29/19 21:59 Pantoprazole Sodium (Protonix -) 20 mg PO BID [facility] Stop: 11/04/19 09:59 Polyethylene Glycol (Miralax (For Daily Use) -) 17 gm PO BID [facility] - Objective Vital Signs: Vital Signs Temperature 98.0 F 10/24/19 14:46 Pulse Rate 46 L 10/24/19 15:41 Respiratory Rate 16 10/24/19 15:41 Blood Pressure 128/57 L 10/24/19 15:41 O2 Sat by Pulse Oximetry (%) 97 10/24/19 14:00 Constitutional: Yes: No Distress HENT: Yes: Atraumatic Neck: Yes: Supple Cardiovascular: Yes: Regular Rate and Rhythm Respiratory: Yes: CTA Bilaterally Gastrointestinal: Yes: Normal Bowel Sounds Extremities: Yes: WNL Edema: No Peripheral Pulses WNL: Yes Neurological: Yes: Alert, Oriented Labs: CBC, BMP 10/24/19 01:00 10/23/19 07:10 INR, PTT INR 1.03 (0.83-1.09) 10/19/19 07:54 Problem List - Problems (1) Symptomatic anemia Assessment/Plan: for OR on thursday, cardiac clearance...done Code(s): D64.9 - ANEMIA, UNSPECIFIED (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 pylori) infection Code(s): A04.8 - OTHER SPECIFIED BACTERIAL INTESTINAL INFECTIONS (4) Hypertension Assessment/Plan: on meds Code(s): I10 - ESSENTIAL (PRIMARY) HYPERTENSION Qualifiers: Hypertension type: essential hypertension Qualified Code(s): I10 - Essential (primary) hypertension (5) Pre-operative cardiovascular examination, bradycardia Code(s): Z01.810 - ENCOUNTER FOR PREPROCEDURAL CARDIOVASCULAR EXAMINATION; R00.1 - BRADYCARDIA, UNSPECIFIED
[2019-10-24 21:42] LABS: HEMATOCRIT 27.4 % (35.4-49); HEMOGLOBIN 7.9 GM/dL (11.7-16.9); MCHC 28.9 g/dl (32.0-35.9); MEAN CELL VOLUME 68.9 fl (80-96); MEAN PLT VOLUME 9.2 fl (7.5-11.1); PLATELET COUNT 280 K/MM3 (134-434); RBC 3.97 M/mm3 (4.00-5.60); RDW 27.6 % (11.9-15.9)
[2019-10-24] MEDS: MUPIROCIN 2% TOPICAL OINTMENT FOR DECOLONIZATION NS SCH (22:56)
[2019-10-24] MEDS: CHLORHEXIDINE GLUCONATE 4% CLEANSER FOR DECOLONIZATION TP SCH (22:57)
--- NOTE | 2019-10-25 07:15 | PN ---
Progress Note (short form) - Note Progress Note: Chief Complaint: Events noted, notes reviewed, History of Present Illness: Seen and examined in the ICU. - Current Medication List Current Medications Acetaminophen (Tylenol -) 650 mg PO Q6H PRN PRN Reason: FEVER Amoxicillin (Amoxicillin -) 1,000 mg PO BID [facility] Stop: 11/04/19 09:59 Last Admin: 10/24/19 22:56 Dose: 1,000 mg Chlorhexidine Gluconate (Hibiclens For Decolonization -) 1 applic TP HS [facility] Last Admin: 10/24/19 22:57 Dose: 1 applic Clarithromycin (Biaxin -) 500 mg PO BID [facility] Stop: 11/04/19 09:59 Last Admin: 10/24/19 22:56 Dose: 500 mg Sodium Chloride (Normal Saline -) 1,000 mls @ 42 mls/hr IV ASDIR [facility] Last Admin: 10/24/19 23:00 Dose: 42 mls/hr Mupirocin (Bactroban Ointment (For Decolonization) -) 1 applic NS BID [facility] Stop: 10/29/19 21:59 Last Admin: 10/24/19 22:56 Dose: 1 applic Pantoprazole Sodium (Protonix -) 20 mg PO BID [facility] Stop: 11/04/19 09:59 Last Admin: 10/24/19 22:59 Dose: 20 mg Polyethylene Glycol (Miralax (For Daily Use) -) 17 gm PO BID [facility] Last Admin: 10/24/19 22:57 Dose: 17 gm Review of Systems Constitutional: denies: Chills or Fever Cardiovascular: as noted above Respiratory: as noted above Gastrointestinal: denies: Nausea, Vomiting, Diarrhea, Constipation or Abdominal Pain Genitourinary: denies: Dysuria Musculoskeletal: denies: Joint Pain Neurological: denies: Dizziness or Headache - Objective Vital Signs: Last Vital Signs Temp Pulse Resp BP Pulse Ox 97.6 F 44 L 15 139/58 L 97 10/25/19 00:00 10/25/19 06:00 10/25/19 06:00 10/25/19 06:00 10/24/19 20:05 Intake & Output 10/22/19 10/23/19 10/24/19 10/25/19 23:59 23:59 23:59 23:59 Intake Total 1422 1590 666 754 Output Total 800 1500 Balance 1422 790 666 -746 Weight 131 lb 6.328 oz 131 lb 14.4 oz Neck: Supple Negative JVD No Bruit Respiratory: Scattered Rhonchi Bilaterally Cardiovascular: S1 S2 Irregularly Irregular Gastrointestinal: Soft Benign Normal Bowel Sounds Ext: Edema Labs: CBC, BMP 10/24/19 21:10 10/23/19 07:10 Hepatic Panel Total Bilirubin 0.4 mg/dL (0.2-1) 10/23/19 07:10 AST 14 U/L (15-37) L 10/23/19 07:10 ALT 19 U/L (13-61) 10/23/19 07:10 Alkaline Phosphatase 168 U/L (45-117) H 10/23/19 07:10 Albumin 2.7 g/dl (3.4-5.0) L 10/23/19 07:10 INR, PTT INR 1.03 (0.83-1.09) 10/19/19 07:54 Assessment/Plan ASSESSMENT: 10/24/2019 Echo: Normal LV size and fxn, LVEF 60-65%, grade II diastolic dysfunction, mild MR, TR RVSP 33 mmHg, mild [place] 1. Pre-op CV evaluation, gastrectomy for antral gastric adenocarcinoma 2. Acute blood loss anemia ongoing 3. H. Pylori 4. Sinus bradycardia 5. Hypertension PLAN: 1. Given absence of sxs of acute coronary syndrome, decompensated CHF or malignant arrhythmia, may proceed with gastrectomy from CV-standpoint w/o further testing. 2. Treatment for H. pylori, monitor H&H post transfusion 3. Avoid AV pao blocking agents given sinus bradycardia 4. Thank you for consultative opportunity, further CV w/u including stress testing may be performed once clinically stable Christine Lucero M.D.
[2019-10-25 07:29] LABS: HEMATOCRIT 27.7 % (35.4-49); HEMOGLOBIN 8.2 GM/dL (11.7-16.9); MCH 20.3 pg (25.7-33.7); MCHC 29.8 g/dl (32.0-35.9); MEAN CELL VOLUME 68.3 fl (80-96); MEAN PLT VOLUME 9.6 fl (7.5-11.1); PLATELET COUNT 295 K/MM3 (134-434); RBC 4.05 M/mm3 (4.00-5.60); WHITE BLOOD COUNT 4.9 K/mm3 (4.0-10.0)
[2019-10-25 08:01] LABS: ALBUMIN 2.7 g/dl (3.4-5.0); BILIRUBIN,TOTAL 0.7 mg/dL (0.2-1); BLOOD UREA NITROGEN 18.8 mg/dL (7-18); CALCIUM 9.6 mg/dL (8.5-10.1); CREATININE 0.9 mg/dL (0.55-1.3); MAGNESIUM 2.3 mg/dL (1.8-2.4); PHOSPHOROUS 3.1 mg/dL (2.5-4.9); POTASSIUM 4.3 mmol/L (3.5-5.1); TOT PROT 5.6 g/dl (6.4-8.2)
[2019-10-25] MEDS ORDERED: PT OWN MED DRAWER 7, Y5N ONE ×3 (08:30→21:44)
[2019-10-25] MEDS: AMOXICILLIN 500 MG CAPSULE (FP) PO SCH ×2 (10:24→21:47)
[2019-10-25] MEDS: MUPIROCIN 2% TOPICAL OINTMENT FOR DECOLONIZATION NS SCH ×2 (10:24→21:47)
[2019-10-25] MEDS: PANTOPRAZOLE 20 MG TABLET (FP) PO SCH ×2 (10:24→21:46)
[2019-10-25] MEDS: CLARITHROMYCIN 500 MG TABLET (UD) PO SCH ×2 (10:25→21:47)
[2019-10-25] MEDS: POLYETHYLENE GLYCOL 3350 119 GM BTL PO SCH ×2 (10:26→22:31)
--- NOTE | 2019-10-25 11:32 | PN ---
Teaching Attending Note Name of Resident: Sidra Venegas ATTENDING PHYSICIAN STATEMENT I saw and evaluated the patient. I reviewed the resident's note and discussed the case with the resident. I agree with the resident's findings and plan as documented. SUBJECTIVE: Patient seen and examined in the ICU. Awake and alert. Family at bedside. Denies CP or SOB. No acute events overnight. Hemodynamics and H&H stable. Intake & Output 10/22/19 10/23/19 10/24/19 10/25/19 23:59 23:59 23:59 23:59 Intake Total 1422 1590 666 754 Output Total 800 1500 Balance 1422 790 666 -746 Weight 131 lb 6.328 oz 131 lb 14.4 oz Last Vital Signs Temp Pulse Resp BP Pulse Ox 97.6 F 52 L 16 141/66 97 10/25/19 10:00 10/25/19 10:00 10/25/19 10:00 10/25/19 10:00 10/24/19 20:05 Active Medications Acetaminophen (Tylenol -) 650 mg PO Q6H PRN PRN Reason: FEVER Amoxicillin (Amoxicillin -) 1,000 mg PO BID [facility] Stop: 11/04/19 09:59 Last Admin: 10/25/19 10:24 Dose: 1,000 mg Chlorhexidine Gluconate (Hibiclens For Decolonization -) 1 applic TP HS [facility] Last Admin: 10/24/19 22:57 Dose: 1 applic Clarithromycin (Biaxin -) 500 mg PO BID [facility] Stop: 11/04/19 09:59 Last Admin: 10/25/19 10:25 Dose: 500 mg Sodium Chloride (Normal Saline -) 1,000 mls @ 42 mls/hr IV ASDIR [facility] Last Admin: 10/24/19 23:00 Dose: 42 mls/hr Mupirocin (Bactroban Ointment (For Decolonization) -) 1 applic NS BID [facility] Stop: 10/29/19 21:59 Last Admin: 10/25/19 10:24 Dose: 1 applic Pantoprazole Sodium (Protonix -) 20 mg PO BID [facility] Stop: 11/04/19 09:59 Last Admin: 10/25/19 10:24 Dose: 20 mg Polyethylene Glycol (Miralax (For Daily Use) -) 17 gm PO BID [facility] Last Admin: 10/25/19 10:26 Dose: 17 gm GENERAL: Awake, alert, and fully oriented, in no acute distress. EYES: PEERLA; EOMI; no scleral icterus . NECK: no JVD; no lympha LUNGS: Clear, no rales/rhonchi or wheezing appreciated HEART: Regular rate and rhythm, normal S1 and S2 without murmur, rub or gallop. ABDOMEN: soft; NT/ND +BS in all 4 quadrants MUSCULOSKELETAL: Normal range of motion at all joints. No bony deformities or tenderness. No CVA tenderness. EXTREMITIES: warm; well-perfused no clubbing/cyanosis or edema NEUROLOGICAL: Non-focal PSYCHIATRIC: Cooperative. Good eye contact. Appropriate mood and affect. SKIN: Warm, dry, normal turgor, no rashes or lesions noted. Laboratory Results - last 24 hr 10/23/19 10/24/19 10/24/19 15:45 08:00 21:10 WBC 5.0 RBC 3.97 L Hgb 7.9 L Hct 27.4 L MCV 68.9 L MCH 20.0 L MCHC 28.9 L RDW 27.6 H Plt Count 280 MPV 9.2 Sodium Potassium Chloride Carbon Dioxide Anion Gap BUN Creatinine Est GFR (CKD-EPI)AfAm Est GFR (CKD-EPI)NonAf Random Glucose Calcium Phosphorus Magnesium Total Bilirubin AST ALT Alkaline Phosphatase Total Protein Albumin Crossmatch See Detail See Detail 10/25/19 10/25/19 06:05 06:05 WBC 4.9 RBC 4.05 Hgb 8.2 L Hct 27.7 L MCV 68.3 L MCH 20.3 L MCHC 29.8 L RDW 28.0 H Plt Count 295 MPV 9.6 Sodium 141 Potassium 4.3 Chloride 111 H Carbon Dioxide 24 Anion Gap 6 L BUN 18.8 H Creatinine 0.9 Est GFR (CKD-EPI)AfAm 93.16 Est GFR (CKD-EPI)NonAf 80.38 Random Glucose 102 Calcium 9.6 Phosphorus 3.1 Magnesium 2.3 Total Bilirubin 0.7 AST 14 L ALT 19 Alkaline Phosphatase 156 H Total Protein 5.6 L Albumin 2.7 L Crossmatch ASSESSMENT/PLAN: Anemia due to bleeding gastric CA HTN H Pylori No history consistent with [facility] Normal transfusion threshold O2 as needed Mechanical VTE prophylaxis ABX for H Pylori NPO after midnight, for OR tomorrow There is no Pulmonary contraindication for OR Can monitor on 4W / 4S Dr Cottrell
--- NOTE | 2019-10-25 15:16 | SPA.PREOP ---
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 Wu Last Vital Signs Temp Pulse Resp BP Pulse Ox 98.2 F 51 L 18 134/57 L 97 10/25/19 14:00 10/25/19 14:00 10/25/19 14:00 10/25/19 14:00 10/25/19 09:00 Lab Results WBC 4.9 K/mm3 (4.0-10.0) 10/25/19 06:05 RBC 4.05 M/mm3 (4.00-5.60) 10/25/19 06:05 Hgb 8.2 GM/dL (11.7-16.9) L 10/25/19 06:05 Hct 27.7 % (35.4-49) L 10/25/19 06:05 MCV 68.3 fl (80-96) L 10/25/19 06:05 MCHC 29.8 g/dl (32.0-35.9) L 10/25/19 06:05 RDW 28.0 % (11.9-15.9) H 10/25/19 06:05 Plt Count 295 K/MM3 (134-434) 10/25/19 06:05 Sodium 141 mmol/L (136-145) 10/25/19 06:05 Potassium 4.3 mmol/L (3.5-5.1) 10/25/19 06:05 Chloride 111 mmol/L (98-107) H 10/25/19 06:05 Carbon Dioxide 24 mmol/L (21-32) 10/25/19 06:05 Anion Gap 6 MMOL/L (8-16) L 10/25/19 06:05 BUN 18.8 mg/dL (7-18) H 10/25/19 06:05 Creatinine 0.9 mg/dL (0.55-1.3) 10/25/19 06:05 Random Glucose 102 mg/dL (74-106) 10/25/19 06:05 Calcium 9.6 mg/dL (8.5-10.1) 10/25/19 06:05 Blood Type O POSITIVE 10/24/19 08:00 Antibody Screen Negative 10/24/19 08:00 INR 1.03 (0.83-1.09) 10/19/19 07:54 - ASSESSMENT/PLAN 1. NPO after midnight except PO meds 2. GI PPX 3. DVT PPX 4. Cardio note reviewed...cleared for procedure 5. Pulmonary note reviewed...cleared for procedure 6. 2 PRBC on hold for OR 7. Consent to be obtained by surgeon after risks, benefits and alternatives discussed with patient and or Health Care Proxy. Visit type - Case Type Case Type: ED Admission - Emergency Emergency Visit: Yes ED Registration Date: 10/12/19 Care time: The patient presented to the Emergency Department on the above date and was hospitalized for further evaluation of their emergent condition. - New patient This patient is new to me today: Yes Date on this admission: 10/25/19
--- NOTE | 2019-10-25 15:18 | PN ---
Physical Exam: SUBJECTIVE: Patient seen and examined, son present at bedside for Estonian translation. Patient feeling well. Reports 1 melanotic stool overnight. C/o mild dizziness. OBJECTIVE: Vital Signs Period Temp Pulse Resp BP Sys/Newman Pulse Ox Last 24 Hr 97.6 F-98.2 F 44-54 15-20 124-157/53-80 97-97 GENERAL: AOx3 NAD HEENT: No conjunctival or mucosal pallor noted. NCAT LUNGS: CTABL no incr work of breathing HEART: RRR S1S2 heard no murmurs ABDOMEN: Soft, nontender, nondistended, normoactive bowel sounds EXTREMITIES: 2+ pulses, warm, well-perfused, no edema. NEUROLOGICAL: nonfocal exam PSYCH: Normal mood, normal affect. SKIN: no rashes or lesions noted Laboratory Results - last 24 hr 10/23/19 10/24/19 10/24/19 15:45 08:00 21:10 WBC 5.0 RBC 3.97 L Hgb 7.9 L Hct 27.4 L MCV 68.9 L MCH 20.0 L MCHC 28.9 L RDW 27.6 H Plt Count 280 MPV 9.2 Sodium Potassium Chloride Carbon Dioxide Anion Gap BUN Creatinine Est GFR (CKD-EPI)AfAm Est GFR (CKD-EPI)NonAf Random Glucose Calcium Phosphorus Magnesium Total Bilirubin AST ALT Alkaline Phosphatase Total Protein Albumin Crossmatch See Detail See Detail 10/25/19 10/25/19 06:05 06:05 WBC 4.9 RBC 4.05 Hgb 8.2 L Hct 27.7 L MCV 68.3 L MCH 20.3 L MCHC 29.8 L RDW 28.0 H Plt Count 295 MPV 9.6 Sodium 141 Potassium 4.3 Chloride 111 H Carbon Dioxide 24 Anion Gap 6 L BUN 18.8 H Creatinine 0.9 Est GFR (CKD-EPI)AfAm 93.16 Est GFR (CKD-EPI)NonAf 80.38 Random Glucose 102 Calcium 9.6 Phosphorus 3.1 Magnesium 2.3 Total Bilirubin 0.7 AST 14 L ALT 19 Alkaline Phosphatase 156 H Total Protein 5.6 L Albumin 2.7 L Crossmatch Active Medications Generic Name Dose Route Start Last Admin Trade Name Freq PRN Reason Stop Dose Admin Acetaminophen 650 mg 10/24/19 14:44 Tylenol - PO Q6H PRN FEVER Amoxicillin 1,000 mg 10/24/19 22:00 12/17/19 10:24 Amoxicillin - PO 11/04/19 09:59 1,000 mg BID [facility] Administration Chlorhexidine Gluconate 1 applic 10/24/19 22:00 10/24/19 22:57 Hibiclens For Decolonization - TP 1 applic HS [facility] Administration Clarithromycin 500 mg 10/24/19 22:00 10/25/19 10:25 Biaxin - PO 11/04/19 09:59 500 mg BID [facility] Administration Sodium Chloride 1,000 mls @ 42 mls/hr 10/24/19 14:44 10/24/19 23:00 Normal Saline - IV 42 mls/hr ASDIR [facility] Administration Mupirocin 1 applic 10/24/19 22:00 10/25/19 10:24 Bactroban Ointment (For Decolonization) - NS 10/29/19 21:59 1 applic BID [facility] Administration Pantoprazole Sodium 20 mg 10/24/19 22:00 10/25/19 10:24 Protonix - PO 11/04/19 09:59 20 mg BID [facility] Administration Polyethylene Glycol 17 gm 10/24/19 22:00 10/25/19 10:26 Miralax (For Daily Use) - PO 17 gm BID [facility] Administration ASSESSMENT/PLAN: 79 y.o. M PMH HTN (no home meds) with limited past medical care presented for acute blood loss anemia. #CV -Echo 10/24: LVEF 60-65%. Grade II diastolic dysfunction, mild MR, TR -EKG NSR RBBB qtc 429 no comparison studies available -Cardio following; cleared for OR tomorrow -Bradycardic, monitor on tele #Pulm -CXR: 1.4 cm faceted shape hyperdensity in the region of the right third rib costophrenic angle that may represent cartilage calcification. Pleural calcification and less likely a hyperdense pulmonary nodule cannot be excluded. #GI -CT abd/pel: 1. Mild right hilar lymphadenopathy of uncertain etiology or significance. 2. No evidence of pulmonary metastases or acute pathology within the chest. 3. Suspected gastric mass. 4. Diffuse fatty infiltration of the liver and mild splenomegaly. 5. 1.5 cm mass adjacent to the right adrenal gland of uncertain etiology. 6. Cholelithiasis. 7. Right nephrolithiasis. 8. Prostatic enlargement. 9. Sclerotic bone lesions. Follow-up with nuclear medicine bone scan recommended. Please see above discussion. -PSA, CEA WNL -F/u Her2 -Bone scan- 1. Increased activity within the lower sternum. The possibility that this represents a healing fracture should be considered, although a metastatic lesion cannot be excluded. 2. No definite additional areas of radionuclide accumulation suspicious for metastatic disease. -EGD shows gastric antral adenocarcinoma; chronic gastritis/ esophagitis + candidiasis -H. pylori +; c/w triple therapy -H&H stable; maintain Hgb >7; transfuse if needed -NPO after midnight for gastrectomy #Heme/Onc -melanotic stools; maintain hgb >7 -GI following #ID -C/w abx: amoxicillin, clarithromycin #PPX DVT: SCDs; hold AC d/t bleeding GI: protonix 20mg BID #FEN -Gentle hydration NS @42mL/hr -Trend lytes -NPO at midnight pending OR tomorrow #Dispo -telemetry Visit type - Emergency Visit Emergency Visit: No - New Patient This patient is new to me today: Yes Date on this admission: 10/25/19 - Critical Care Critical Care patient: Yes Total Critical Care Time (in minutes): 36 Critical Care Statement: The care of this patient involved high complexity decision making to prevent further life threatening deterioration of the patient 's condition and/or to evaluate & treat vital organ system(s) failure or risk of failure. ATTENDING PHYSICIAN STATEMENT I saw and evaluated the patient. I reviewed the resident's note and discussed the case with the resident. I agree with the resident's findings and plan as documented. SUBJECTIVE: OBJECTIVE: ASSESSMENT AND PLAN:
--- NOTE | 2019-10-25 15:52 | PN ---
Progress Note, Physician - Current Medication List Current Medications: Active Medications Acetaminophen (Tylenol -) 650 mg PO Q6H PRN PRN Reason: FEVER Amoxicillin (Amoxicillin -) 1,000 mg PO BID [facility] Stop: 11/04/19 09:59 Last Admin: 10/25/19 10:24 Dose: 1,000 mg Chlorhexidine Gluconate (Hibiclens For Decolonization -) 1 applic TP HS [facility] Last Admin: 10/24/19 22:57 Dose: 1 applic Clarithromycin (Biaxin -) 500 mg PO BID [facility] Stop: 11/04/19 09:59 Last Admin: 10/25/19 10:25 Dose: 500 mg Sodium Chloride (Normal Saline -) 1,000 mls @ 42 mls/hr IV ASDIR [facility] Last Admin: 10/24/19 23:00 Dose: 42 mls/hr Mupirocin (Bactroban Ointment (For Decolonization) -) 1 applic NS BID [facility] Stop: 10/29/19 21:59 Last Admin: 10/25/19 10:24 Dose: 1 applic Pantoprazole Sodium (Protonix -) 20 mg PO BID [facility] Stop: 11/04/19 09:59 Last Admin: 10/25/19 10:24 Dose: 20 mg Polyethylene Glycol (Miralax (For Daily Use) -) 17 gm PO BID [facility] Last Admin: 10/25/19 10:26 Dose: 17 gm - Objective Vital Signs: Vital Signs Temperature 98.2 F 10/25/19 14:00 Pulse Rate 51 L 10/25/19 14:00 Respiratory Rate 18 10/25/19 14:00 Blood Pressure 134/57 L 10/25/19 14:00 O2 Sat by Pulse Oximetry (%) 97 10/25/19 09:00 Constitutional: Yes: No Distress HENT: Yes: Atraumatic Neck: Yes: Supple Cardiovascular: Yes: Regular Rate and Rhythm Respiratory: Yes: CTA Bilaterally Gastrointestinal: Yes: Normal Bowel Sounds Extremities: Yes: WNL Edema: No Peripheral Pulses WNL: Yes Neurological: Yes: Alert, Oriented Labs: CBC, BMP 10/25/19 06:05 10/25/19 06:05 INR, PTT INR 1.03 (0.83-1.09) 10/19/19 07:54 Problem List - Problems (1) Symptomatic anemia Assessment/Plan: for OR on thursday, cardiac clearance...done blood ordered for before surgery Code(s): D64.9 - ANEMIA, UNSPECIFIED (2) Gastric carcinoma Assessment/Plan: for OR in am Code(s): C16.9 - MALIGNANT NEOPLASM OF STOMACH, UNSPECIFIED (3) Helicobacter pylori (H. pylori) infection Code(s): A04.8 - OTHER SPECIFIED BACTERIAL INTESTINAL INFECTIONS (4) Hypertension Assessment/Plan: on meds monitor Code(s): I10 - ESSENTIAL (PRIMARY) HYPERTENSION Qualifiers: Hypertension type: essential hypertension Qualified Code(s): I10 - Essential (primary) hypertension (5) Pre-operative cardiovascular examination, bradycardia Code(s): Z01.810 - ENCOUNTER FOR PREPROCEDURAL CARDIOVASCULAR EXAMINATION; R00.1 - BRADYCARDIA, UNSPECIFIED
[2019-10-25] MEDS: CHLORHEXIDINE GLUCONATE 4% CLEANSER FOR DECOLONIZATION TP SCH (21:47)
[2019-10-26] MEDS: SODIUM CHLORIDE 1,000 ML IV SCH (05:30)
[2019-10-26 07:55] LABS: INR 1.07 (0.83-1.09); PROTHROMBIN TIME (PATIENT) 12.6 SEC (9.7-13.0)
[2019-10-26 07:57] LABS: ACTIVATED PTT 31.3 SECONDS (25.2-36.5); BASO % 0.7 % (0-2.0); EOS % 4.4 % (0-4.5); HEMATOCRIT 27.6 % (35.4-49); HEMOGLOBIN 8.3 GM/dL (11.7-16.9); LYMPH % 15.6 % (8-40); MCH 20.4 pg (25.7-33.7); MCHC 30.2 g/dl (32.0-35.9); MEAN CELL VOLUME 67.7 fl (80-96); MEAN PLT VOLUME 8.8 fl (7.5-11.1); NEUT % 71.3 % (42.8-82.8); PLATELET COUNT 312 K/MM3 (134-434); RBC 4.08 M/mm3 (4.00-5.60); RDW 28.2 % (11.9-15.9); WHITE BLOOD COUNT 5.5 K/mm3 (4.0-10.0)
[2019-10-26 08:07] LABS: ALBUMIN 2.8 g/dl (3.4-5.0); BILIRUBIN,TOTAL 0.6 mg/dL (0.2-1); BLOOD UREA NITROGEN 20.2 mg/dL (7-18); CALCIUM 9.9 mg/dL (8.5-10.1); CREATININE 0.9 mg/dL (0.55-1.3); POTASSIUM 4.1 mmol/L (3.5-5.1); TOT PROT 5.8 g/dl (6.4-8.2)
[2019-10-26] MEDS: AMOXICILLIN 500 MG CAPSULE (FP) PO SCH (10:30)
[2019-10-26] MEDS: PANTOPRAZOLE 20 MG TABLET (FP) PO SCH (10:30)
[2019-10-26] MEDS: POLYETHYLENE GLYCOL 3350 119 GM BTL PO SCH (10:30)
[2019-10-26] MEDS: CLARITHROMYCIN 500 MG TABLET (UD) PO SCH (10:30)
[2019-10-26] MEDS: MUPIROCIN 2% TOPICAL OINTMENT FOR DECOLONIZATION NS SCH ×2 (11:00→22:38)
--- NOTE | 2019-10-26 11:47 | PN ---
Progress Note, Physician - Current Medication List Current Medications: Active Medications Acetaminophen (Tylenol -) 650 mg PO Q6H PRN PRN Reason: FEVER Amoxicillin (Amoxicillin -) 1,000 mg PO BID [facility] Stop: 11/04/19 09:59 Last Admin: 10/26/19 10:30 Dose: Not Given Chlorhexidine Gluconate (Hibiclens For Decolonization -) 1 applic TP HS [facility] Last Admin: 10/25/19 21:47 Dose: 1 applic Clarithromycin (Biaxin -) 500 mg PO BID [facility] Stop: 11/04/19 09:59 Last Admin: 10/26/19 10:30 Dose: Not Given Sodium Chloride (Normal Saline -) 1,000 mls @ 42 mls/hr IV ASDIR [facility] Last Admin: 10/26/19 05:30 Dose: 42 mls/hr Mupirocin (Bactroban Ointment (For Decolonization) -) 1 applic NS BID [facility] Stop: 10/29/19 21:59 Last Admin: 10/26/19 11:00 Dose: 1 applic Pantoprazole Sodium (Protonix -) 20 mg PO BID [facility] Stop: 11/04/19 09:59 Last Admin: 10/26/19 10:30 Dose: Not Given Polyethylene Glycol (Miralax (For Daily Use) -) 17 gm PO BID [facility] Last Admin: 10/26/19 10:30 Dose: Not Given - Objective Vital Signs: Vital Signs Temperature 97.6 F 10/25/19 22:00 Pulse Rate 47 L 10/26/19 08:00 Respiratory Rate 16 10/26/19 09:00 Blood Pressure 140/58 L 10/26/19 08:00 O2 Sat by Pulse Oximetry (%) 97 10/26/19 09:00 Labs: CBC, BMP 10/26/19 06:16 10/26/19 06:16 INR, PTT INR 1.07 (0.83-1.09) 10/26/19 06:16 Problem List - Problems (1) Symptomatic anemia Code(s): D64.9 - ANEMIA, UNSPECIFIED (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 He is alert and oriented. Hematocrit is stable. He has blood on hold for surgery. Procedure of gastrectomy with enteral anastamosis is explained to the patient and his son . The possibilty of extensive disease with inability to resect was also explained. with consideration of a gastrojejunostomy as a palliative procedure. However that would not palliate bleeding from the tumor. Possible postoperative complications of bleeding , anastamotic leak , wound infection , and other related compliactions of anesthesia , pulmonary and thromboembolic episodes were explained. Consent obatined.
--- NOTE | 2019-10-26 12:44 | PN ---
Teaching Attending Note Name of Resident: Sidra Venegas ATTENDING PHYSICIAN STATEMENT I saw and evaluated the patient. I reviewed the resident's note and discussed the case with the resident. I agree with the resident's findings and plan as documented. SUBJECTIVE: Pt seen and examined in the ICU. Denies abdominal pain, shortness of breath or chest pain. For OR today. OBJECTIVE: Vital Signs Period Temp Pulse Resp BP Sys/Newman Pulse Ox Last 24 Hr 97.6 F-98.2 F 47-55 - 126-155/46-76 97-97 Intake & Output 10/23/19 10/24/19 10/25/19 10/26/19 23:59 23:59 23:59 23:59 Intake Total 5653 383 8099 Output Total 800 2000 Balance 790 666 -262 Weight 59.6 kg 59.829 kg 58.967 kg Gen: NAD at rest Heart: RRR Lung: decreased breath sounds at the bases Abd: soft, nontender Ext: no edema CBC, BMP 10/26/19 06:16 10/26/19 06:16 Active Medications Acetaminophen (Tylenol -) 650 mg PO Q6H PRN PRN Reason: FEVER Amoxicillin (Amoxicillin -) 1,000 mg PO BID [facility] Stop: 11/04/19 09:59 Last Admin: 10/26/19 10:30 Dose: Not Given Chlorhexidine Gluconate (Hibiclens For Decolonization -) 1 applic TP HS [facility] Last Admin: 10/25/19 21:47 Dose: 1 applic Clarithromycin (Biaxin -) 500 mg PO BID [facility] Stop: 11/04/19 09:59 Last Admin: 10/26/19 10:30 Dose: Not Given Sodium Chloride (Normal Saline -) 1,000 mls @ 42 mls/hr IV ASDIR [facility] Last Admin: 10/26/19 05:30 Dose: 42 mls/hr Mupirocin (Bactroban Ointment (For Decolonization) -) 1 applic NS BID [facility] Stop: 10/29/19 21:59 Last Admin: 10/26/19 11:00 Dose: 1 applic Pantoprazole Sodium (Protonix -) 20 mg PO BID [facility] Stop: 11/04/19 09:59 Last Admin: 10/26/19 10:30 Dose: Not Given Polyethylene Glycol (Miralax (For Daily Use) -) 17 gm PO BID [facility] Last Admin: 10/26/19 10:30 Dose: Not Given ASSESSMENT AND PLAN: Gastric Cancer Acute Blood Loss Anemia HTN - for OR today - monitor H/H - IVF - protonix - DVT prophylaxis - can monitor on floor
[2019-10-26] MEDS ORDERED: ROPIVACAINE HCL 0.5% 30ML VIAL ONE (13:31)
[2019-10-26] MEDS ORDERED: MIDAZOLAM HCL 2 MG/2 ML SINGLE DOSE VIAL ONE ×3 (13:34→13:46)
--- NOTE | 2019-10-26 13:35 | PN ---
Progress Note, Physician History of Present Illness: Sree Gallegos is an 79M with PMH HTN presenting with SOB on exertion, chest pain, anemia with Hgb 5.3, dark stools, EGD shows antral mass adenocarcinoma and +H pylori, bleeding continues requiring transfusion, planned for gastrectomy. He is currently asymptomatic and denies chest pain, GOMEZ, near or true syncope, palpitations, orthopnea, PND or LE edema. - Current Medication List Current Medications: Active Medications Acetaminophen (Tylenol -) 650 mg PO Q6H PRN PRN Reason: FEVER Amoxicillin (Amoxicillin -) 1,000 mg PO BID [facility] Stop: 11/04/19 09:59 Last Admin: 10/26/19 10:30 Dose: Not Given Chlorhexidine Gluconate (Hibiclens For Decolonization -) 1 applic TP HS [facility] Last Admin: 10/25/19 21:47 Dose: 1 applic Clarithromycin (Biaxin -) 500 mg PO BID [facility] Stop: 11/04/19 09:59 Last Admin: 10/26/19 10:30 Dose: Not Given Sodium Chloride (Normal Saline -) 1,000 mls @ 42 mls/hr IV ASDIR [facility] Last Admin: 10/26/19 05:30 Dose: 42 mls/hr Mupirocin (Bactroban Ointment (For Decolonization) -) 1 applic NS BID [facility] Stop: 10/29/19 21:59 Last Admin: 10/26/19 11:00 Dose: 1 applic Pantoprazole Sodium (Protonix -) 20 mg PO BID [facility] Stop: 11/04/19 09:59 Last Admin: 10/26/19 10:30 Dose: Not Given Polyethylene Glycol (Miralax (For Daily Use) -) 17 gm PO BID [facility] Last Admin: 10/26/19 10:30 Dose: Not Given - Objective Vital Signs: Vital Signs Temperature 97.8 F 10/26/19 10:00 Pulse Rate 47 L 10/26/19 12:00 Respiratory Rate 14 10/26/19 12:00 Blood Pressure 142/62 10/26/19 12:00 O2 Sat by Pulse Oximetry (%) 97 10/26/19 09:00 Labs: CBC, BMP 10/26/19 06:16 10/26/19 06:16 INR, PTT INR 1.07 (0.83-1.09) 10/26/19 06:16 Problem List - Problems (1) Pre-operative cardiovascular examination, bradycardia Code(s): Z01.810 - ENCOUNTER FOR PREPROCEDURAL CARDIOVASCULAR EXAMINATION; R00.1 - BRADYCARDIA, UNSPECIFIED (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 pylori) infection Code(s): A04.8 - OTHER SPECIFIED BACTERIAL INTESTINAL INFECTIONS Assessment/Plan 10/24/2019 Echo: Normal LV size and fxn, LVEF 60-65%, grade II diastolic dysfunction, mild MR, TR RVSP 33 mmHg, mild TX 1. Pre-op CV evaluation, gastrectomy for antral gastric adenocarcinoma 2. Acute blood loss anemia ongoing 3. H. Pylori 4. Sinus bradycardia 5. Hypertension PLAN: 1. Given absence of sxs of acute coronary syndrome, decompensated CHF or malignant arrhythmia, may proceed with gastrectomy from CV-standpoint w/o further testing. 2. Treatment for H. pylori, monitor H&H post transfusion 3. Avoid AV pao blocking agents given sinus bradycardia 4. Thank you for consultative opportunity, further CV w/u including stress testing may be performed once clinically stable Gastric Cancer Acute Blood Loss Anemia HTN - for OR today - monitor H/H - IVF - protonix - DVT prophylaxis - can monitor on floor Surgery : Patient is seen and examined. He is alert and oriented. Hematocrit is stable. He has blood on hold for surgery. Procedure of gastrectomy with enteral anastamosis is explained to the patient and his son . The possibilty of extensive disease with inability to resect was also explained. with consideration of a gastrojejunostomy as a palliative procedure. However that would not palliate bleeding from the tumor. Possible postoperative complications of bleeding , anastamotic leak , wound infection , and other related compliactions of anesthesia , pulmonary and thromboembolic episodes were explained. Consent obatined.
[2019-10-26] MEDS ORDERED: ROCURONIUM BROMIDE 50 MG/5 ML SYRINGE ONE ×2 (13:36→15:15)
[2019-10-26] MEDS ORDERED: fentaNYL CITRATE 250 MCG/5 ML VIAL ONE (13:36)
[2019-10-26] MEDS ORDERED: PROPOFOL 20 ML ONE (13:36)
[2019-10-26] MEDS ORDERED: ceFAZolin SODIUM 1 GM VIAL IVPB ONE (14:30)
--- NOTE | 2019-10-26 17:02 | PN ---
Physical Exam: SUBJECTIVE: Patient seen and examined. For OR today for gastrectomy. No bowel movement today. [facility] #[id number] OBJECTIVE: Vital Signs Period Temp Pulse Resp BP Sys/Newman Pulse Ox Last 24 Hr 97.6 F-98 F 45-55 14-19 126-155/46-76 97-97 GENERAL: AOx3 NAD LUNGS: CTABL no incr work of breathing HEART: Arron. S1S2 heard no murmurs ABDOMEN: Soft, nontender, nondistended, normoactive bowel sounds EXTREMITIES: 2+ pulses, warm, well-perfused, no edema. NEUROLOGICAL: nonfocal exam PSYCH: Normal mood, normal affect. SKIN: no rashes or lesions noted Laboratory Results - last 24 hr 10/24/19 10/26/19 10/26/19 08:00 06:16 06:16 WBC RBC Hgb Hct MCV MCH MCHC RDW Plt Count MPV Absolute Neuts (auto) Neutrophils % Lymphocytes % Monocytes % Eosinophils % Basophils % Nucleated RBC % PT with INR 12.60 INR 1.07 PTT (Actin FS) 31.3 Sodium Potassium Chloride Carbon Dioxide Anion Gap BUN Creatinine Est GFR (CKD-EPI)AfAm Est GFR (CKD-EPI)NonAf Random Glucose Calcium Total Bilirubin AST ALT Alkaline Phosphatase Total Protein Albumin Blood Type O POSITIVE Antibody Screen Negative Crossmatch See Detail See Detail 10/26/19 10/26/19 06:16 06:16 WBC 5.5 RBC 4.08 Hgb 8.3 L Hct 27.6 L MCV 67.7 L MCH 20.4 L MCHC 30.2 L RDW 28.2 H Plt Count 312 MPV 8.8 Absolute Neuts (auto) 3.9 Neutrophils % 71.3 Lymphocytes % 15.6 Monocytes % 8.0 Eosinophils % 4.4 Basophils % 0.7 Nucleated RBC % 0 PT with INR INR PTT (Actin FS) Sodium 141 Potassium 4.1 Chloride 111 H Carbon Dioxide 25 Anion Gap 5 L BUN 20.2 H Creatinine 0.9 Est GFR (CKD-EPI)AfAm 93.16 Est GFR (CKD-EPI)NonAf 80.38 Random Glucose 106 Calcium 9.9 Total Bilirubin 0.6 AST 14 L ALT 18 Alkaline Phosphatase 164 H Total Protein 5.8 L Albumin 2.8 L Blood Type Antibody Screen Crossmatch Active Medications Generic Name Dose Route Start Last Admin Trade Name Freq PRN Reason Stop Dose Admin Acetaminophen 650 mg 10/24/19 14:44 Tylenol - PO Q6H PRN FEVER Amoxicillin 1,000 mg 10/24/19 22:00 10/26/19 10:30 Amoxicillin - PO 11/04/19 09:59 Not Given BID [facility] Chlorhexidine Gluconate 1 applic 10/24/19 22:00 10/25/19 21:47 Hibiclens For Decolonization - TP 1 applic HS [facility] Administration Clarithromycin 500 mg 10/24/19 22:00 10/26/19 10:30 Biaxin - PO 11/04/19 09:59 Not Given BID [facility] Sodium Chloride 1,000 mls @ 42 mls/hr 10/24/19 14:44 10/26/19 05:30 Normal Saline - IV 42 mls/hr ASDIR [facility] Administration Mupirocin 1 applic 10/24/19 22:00 10/26/19 11:00 Bactroban Ointment (For Decolonization) - NS 10/29/19 21:59 1 applic BID [facility] Administration Pantoprazole Sodium 20 mg 10/24/19 22:00 10/26/19 10:30 Protonix - PO 11/04/19 09:59 Not Given BID [facility] Polyethylene Glycol 17 gm 10/24/19 22:00 10/26/19 10:30 Miralax (For Daily Use) - PO Not Given BID [facility] Imaging: CT abd/pel 10/18/19: There are prominent lymph nodes in the right hilar chains. There are slightly increased interstitial markings diffusely indicative of chronic lung disease. Platelike atelectasis is noted within the right middle lobe anteromedially. Evaluation of the stomach is somewhat limited due to under distention, however, there appears to be an irregular mass within the body of the stomach which measures approximately 5.8 x 2.6 x 3.7 cm. This most likely represents the patient's gastric malignancy. Clinical correlation is advised. The gastric antrum is also thickened. The liver is normal in size. It is mildly hypodense in texture consistent with diffuse fatty infiltration. No mass lesions are identified within the liver. The spleen is mildly enlarged measuring 12 cm in craniocaudad dimension. There is a 1.5 cm soft tissue mass adjacent to the medial limb of the right adrenal gland. It is uncertain whether this is connected to the gland. Its etiology is uncertain. Clinical correlation and follow-up is recommended. The pancreas, left adrenal gland and kidneys demonstrate no significant abnormalities. Parapelvic renal cysts are noted bilaterally. There is also 6 mm nonobstructing calculus within the upper pole of the right kidney. Small gallstones are identified within the gallbladder. There is no evidence of intra-abdominal or retroperitoneal lymphadenopathy or fluid collections. Examination of the pelvis demonstrates no evidence of pelvic masses, fluid collections or lymphadenopathy. The prostate gland is enlarged measuring 4.7 x 3.5 x 4.9 cm. There are several sclerotic foci scattered throughout the bony structures. Metastatic disease cannot be excluded and a follow-up nuclear medicine bone scan is recommended. Bone scan 10/21/19: 1. Increased activity within the lower sternum. The possibility that this represents a healing fracture should be considered, although a metastatic lesion cannot be excluded. 2. No definite additional areas of radionuclide accumulation suspicious for metastatic disease. -CXR: 1.4 cm faceted shape hyperdensity in the region of the right third rib costophrenic angle that may represent cartilage calcification. Pleural calcification and less likely a hyperdense pulmonary nodule cannot be excluded. ASSESSMENT/PLAN: 79 y.o. M PMH HTN (no home meds) with limited past medical care presented for acute blood loss anemia. #CHUTE PULLER AOx3 no acute rn outpatient surgery issues #CV -Echo 10/24: LVEF 60-65%. Grade II diastolic dysfunction, mild MR, TR -EKG NSR RBBB qtc 429 no comparison studies available -Cardio following, patient cleared for surgery -Bradycardic, monitor vitals #Pulm -CXR apreciated as above -Saturating well on RA #GI -Bone scan, ct abd/ pel appreciated as above -EGD showing antral adenocarcinoma -Gastrectomy today w/ Dr. Wu -c/w triple therapy for h. pylori -PSA, CEA WNL -F/u Her2 -H&H stable; maintain Hgb >7; transfuse if needed -GI following #Heme/Onc -hx of melanotic stools last reported yesterday 10/25; maintain hgb >7 #ID -C/w abx: amoxicillin, clarithromycin #PPX DVT: SCDs; hold AC d/t bleeding GI: protonix 20mg BID #FEN -Gentle hydration NS @42mL/hr -Trend lytes -NPO for gastrectomy #Dispo med surg Visit type - Emergency Visit Emergency Visit: No - New Patient This patient is new to me today: No - Critical Care Critical Care patient: Yes Total Critical Care Time (in minutes): 36 Critical Care Statement: The care of this patient involved high complexity decision making to prevent further life threatening deterioration of the patient 's condition and/or to evaluate & treat vital organ system(s) failure or risk of failure. ATTENDING PHYSICIAN STATEMENT I saw and evaluated the patient. I reviewed the resident's note and discussed the case with the resident. I agree with the resident's findings and plan as documented. SUBJECTIVE: OBJECTIVE: ASSESSMENT AND PLAN:
--- NOTE | 2019-10-26 17:20 | PN ---
Progress Note, Physician - Current Medication List Current Medications: Active Medications Acetaminophen (Tylenol -) 650 mg PO Q6H PRN PRN Reason: FEVER Amoxicillin (Amoxicillin -) 1,000 mg PO BID [facility] Stop: 11/04/19 09:59 Last Admin: 10/26/19 10:30 Dose: Not Given Chlorhexidine Gluconate (Hibiclens For Decolonization -) 1 applic TP HS [facility] Last Admin: 10/25/19 21:47 Dose: 1 applic Clarithromycin (Biaxin -) 500 mg PO BID [facility] Stop: 11/04/19 09:59 Last Admin: 10/26/19 10:30 Dose: Not Given Sodium Chloride (Normal Saline -) 1,000 mls @ 42 mls/hr IV ASDIR [facility] Last Admin: 10/26/19 05:30 Dose: 42 mls/hr Mupirocin (Bactroban Ointment (For Decolonization) -) 1 applic NS BID [facility] Stop: 10/29/19 21:59 Last Admin: 10/26/19 11:00 Dose: 1 applic Pantoprazole Sodium (Protonix -) 20 mg PO BID [facility] Stop: 11/04/19 09:59 Last Admin: 10/26/19 10:30 Dose: Not Given Polyethylene Glycol (Miralax (For Daily Use) -) 17 gm PO BID [facility] Last Admin: 10/26/19 10:30 Dose: Not Given - Objective Vital Signs: Vital Signs Temperature 97.8 F 10/26/19 10:00 Pulse Rate 47 L 10/26/19 12:00 Respiratory Rate 14 10/26/19 12:00 Blood Pressure 142/62 10/26/19 12:00 O2 Sat by Pulse Oximetry (%) 97 10/26/19 09:00 Constitutional: Yes: No Distress HENT: Yes: Atraumatic Neck: Yes: Supple Cardiovascular: Yes: Regular Rate and Rhythm Respiratory: Yes: CTA Bilaterally Gastrointestinal: Yes: Normal Bowel Sounds Extremities: Yes: WNL Neurological: Yes: Alert Labs: CBC, BMP 10/26/19 06:16 10/26/19 06:16 INR, PTT INR 1.07 (0.83-1.09) 10/26/19 06:16 Problem List - Problems (1) Symptomatic anemia Assessment/Plan: in OR for stomach cancer surgery Code(s): D64.9 - ANEMIA, UNSPECIFIED (2) Gastric carcinoma Assessment/Plan: in OR Code(s): C16.9 - MALIGNANT NEOPLASM OF STOMACH, UNSPECIFIED (3) Helicobacter pylori (H. pylori) infection Code(s): A04.8 - OTHER SPECIFIED BACTERIAL INTESTINAL INFECTIONS (4) Hypertension Assessment/Plan: on meds monitor Code(s): I10 - ESSENTIAL (PRIMARY) HYPERTENSION Qualifiers: Hypertension type: essential hypertension Qualified Code(s): I10 - Essential (primary) hypertension (5) Pre-operative cardiovascular examination, bradycardia Assessment/Plan: bradycardia...base line cleared for surgery Code(s): Z01.810 - ENCOUNTER FOR PREPROCEDURAL CARDIOVASCULAR EXAMINATION; R00.1 - BRADYCARDIA, UNSPECIFIED
[2019-10-26] MEDS ORDERED: NEOSTIGMINE METHYLSULFATE 0.5 MG/ML - 10 ML MDV ONE (17:25)
--- NOTE | 2019-10-26 17:38 | OP ---
Operative Note - Note: Operative Date: 10/26/19 Pre-Operative Diagnosis: Carcinoma of antrum of the stomach , with bleeding. Operation: Radical subtotal gastectomy, omentectomy , gastrojejunostomy. Findings: Tumor mass in the antrum of the stomach , did not penetrate into the serosa. Palpable distal perigastric lymph nodes . Post-Operative Diagnosis: Same as Pre-op Surgeon: Srinivasan Wu Shop Manager: Sherry Angeles Anesthesia: General Specimens Removed: Subtotal gastrectomy, omentectomy, first portion of the duodenum. Estimated Blood Loss (mls): 100 Instrument used (Debridements only): GAlban blank Operative Report Dictated: Yes
[2019-10-26] MEDS ORDERED: ONDANSETRON 4 MG/2 ML VIAL IVPUSH PRN (18:35)
[2019-10-26] MEDS ORDERED: LACTATED RINGERS SOLUTION 1,000 ML IV SCH (18:45)
[2019-10-26] MEDS ORDERED: ATROPINE SULFATE 1 MG/10 ML DISP.SYRIN ONE (18:52)
[2019-10-26] MEDS ORDERED: MORPHINE SULFATE 2 MG/ML VIAL IVPUSH PRN ×2 (18:56→18:58)
[2019-10-26] MEDS ORDERED: ePHEDrine SULFATE 50 MG/1 ML AMPULE ONE (18:57)
--- NOTE | 2019-10-26 19:05 | SURG ---
Surgery Professor Of Graphic Design Note Professor Of Graphic Design: Destiny Ambrosio PA-C (Suzy) Date of Service: 10/26/19 Diagnosis: Carcinoma of antrum of the stomach , with bleeding. Procedure: Radical subtotal gastectomy, omentectomy , gastrojejunostomy. I was present for the entirety of the operative procedure. For further detail, please refer to operative report. Visit type - Case Type Case Type: ED Admission - Emergency Emergency Visit: Yes ED Registration Date: 10/12/19 Care time: The patient presented to the Emergency Department on the above date and was hospitalized for further evaluation of their emergent condition. - New patient This patient is new to me today: Yes Date on this admission: 10/26/19
[2019-10-26 21:52] LABS: BASO % 1.4 % (0-2.0); HEMATOCRIT 34.3 % (35.4-49); HEMOGLOBIN 10.4 GM/dL (11.7-16.9); LYMPH % 1.1 % (8-40); MCH 21.7 pg (25.7-33.7); MCHC 30.3 g/dl (32.0-35.9); MEAN CELL VOLUME 71.6 fl (80-96); MEAN PLT VOLUME 8.9 fl (7.5-11.1); MONO % 5.3 % (3.8-10.2); NEUT % 92.2 % (42.8-82.8); PLATELET COUNT 306 K/MM3 (134-434); RBC 4.79 M/mm3 (4.00-5.60); RDW 26.5 % (11.9-15.9); WHITE BLOOD COUNT 21.2 K/mm3 (4.0-10.0)
[2019-10-26] MEDS ORDERED: CHLORHEXIDINE GLUCONATE 4% CLEANSER FOR DECOLONIZATION TP SCH (22:00)
[2019-10-26] MEDS ORDERED: CEFAZOLIN 1 GM in DEXTROSE 5%-WATER - 50 ML IVPB ONE (22:30)
[2019-10-26 22:33] LABS: ANISOCYTOSIS 3+; OVALOCYTE FEW; TEAR DROP CELLS FEW
[2019-10-26] MEDS ORDERED: DEXTROSE 5%-WATER - 50 ML IVPB ONE (22:36)
[2019-10-26] MEDS ORDERED: ceFAZolin SODIUM 1 GM VIAL ONE (22:36)
[2019-10-26] MEDS: ACETAMINOPHEN 1000 MG/100 ML VIAL (NON FORMULARY) IVPB PRN (22:41)
--- NOTE | 2019-10-27 01:59 | OP ---
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 OPERATIVE PROCEDURE: Radical gastrectomy, (subtotal gastrectomy). Isoperistaltic retrocolic gastrojejunostomy, and total omentectomy. SURGEON: Srinivasan Wu M.D. SUPERVISOR SOLDERING: Sav Estrella ANESTHESIA: General anesthesia. OPERATIVE DESCRIPTION: This 79-year-old man was admitted with melenic stools and workup revealed tumor in the antrum of the stomach, which was reported as moderately differentiated adenocarcinoma. He also had focal gastritis and intestinal metaplasia. An endoscopy was done which showed a mass in the gastric antrum. Abdominopelvic CT scan, and a chest CT was done which showed somewhat distended stomach with an irregular mass within the body of the stomach measuring 5.8 x 2.6 x 3.7 cm. There was mild right hilar lymphadenopathy on the CAT scan of the chest. The liver was normal. There was no ascites. There are sclerotic bowel on the CAT scan. On the bone scan it showed increased activity within the lower sternum, possibly revealing healing fracture, although metastatic lesion could not be excluded. The rest of the scan was negative. Patient continued to breathe and drop his hematocrit, could not maintain it over 27 in spite of multiple transfusions. It was therefore decided to operate and do a radical gastrectomy. Consent was obtained from the patient in the presence of his son. Risks, benefits, and complications were repeatedly and extensively explained to both the patient as well as his son including duodenal blowout, leaking anastomosis, bile leak, bleeding, pulmonary complications, and wound complications, etc. Patient and son agreed to have surgery and primary treatment, as patient continued to bleed. He was optimized in the ICU and brought to the operating room. General anesthesia was administered. Abdomen painted and draped. He was also given TAP block to the abdominal wall. Timeout was called. He was given antibiotics prior to the procedure. Incision was made in the midline from the xiphoid down to just below the umbilicus. This was deepened through skin and subcutaneous tissue, the linea alba and the peritoneum. Upon entering abdominal cavity, there was no ascites. There was no mass in the omentum or the peritoneum with visceral and parietal. The liver was normal. There were some palpable nodes in the supraduodenal or supragastric region at the antrum of the stomach. There was a palpable mass in the distal stomach and we decided it did not penetrate the stomach wall. It was then decided to do a subtotal gastrectomy. The omentum was mobilized from the transverse colon from end-to-end using the LigaSure. This was carried all the way to the tail of the spleen and the first short gastric vessels. The lesser omentum was also from the duodenum going to the hepatic hilum, the liver, and then brought down superiorly along the lesser curvature of the stomach. All the fibrofatty tissue around the stomach, the pylorus, the first portion of the duodenum, was brought towards the stomach inferiorly as well the gastrocolic vessels were ligated as close to the stomach as possible. The gastric artery was identified at its origin, and all fibrofatty tissue was brought down close to the body of the stomach leaving the left gastric artery intact with the blood supply to the stomach, the 1st branch. Posteriorly, the stomach was free and there was no adhesion attachment. Thus, releasing for radical subtotal gastrectomy. When this was done, the edges of the stomach were freed, and the stomach was divided just proximal to the inferior short gastric vessels and going on the lesser curvature side at an angle towards the branch of the left gastric. Two 60-mm abhay were used angling it towards the lesser curvature on the medial aspect. The stomach was pink and bleeding throughout the procedure. The duodenum was also divided beyond the pylorus using TAMIKO stapling device. Once this was done, the specimen consisted of 80% of the stomach, the pylorus, first portion of the duodenum along with the perigastric lymph nodes mainly around the lesser curvature of the distal portion of the stomach. There were no grossly palpable lymph nodes along the left gastric vessels as well as along the iliac and the origin of the left gastric. The duodenal abhay were intact, complete, and the duodenum had good blood supply and was pink. When this was done, specimen sent to Pathology, wherein there was adequate margin, proximal to the tumor. Once this was done, a loop of the proximal jejunum was brought out through the anterior mesentery and anastomosis was performed in isoperistaltic fashion on the posterior wall of the stomach. This was done using the TAMIKO stapling device. The posterior wall of the stomach was attached to the proximal small intestine for the short afferent limb using 3-0 silk seromuscular sutures. After this, anastomosis was performed after doing enterotomy as well as gastrotomy and a [id number] anastomosis performed. Second layer of seromuscular sutures was then brought, anastomosing the anterior wall of the stomach to the small intestine beyond the anastomosis. An NG tube was then inserted through the nose and was introduced into the afferent limb after it was passed through the anastomosis. Air was introduced into the stomach; there was no leak from the anastomosis. Hemostasis was satisfactory. The anastomosis was adequate, and a 2-layer adequate anastomosis was then performed. The mesocolon was then approximated with interrupted sutures to avoid any rent and herniation of the bowel. Estimated blood loss 50 to 100 mL. Sponge count, instrument count was correct. The abdominal cavity was thoroughly irrigated with normal saline. There was no bleeding. Peritoneum was closed with continuous number 1 loop PDS sutures. Skin was approximated with abhay. Patient remained stable throughout the procedure. A Arias catheter was placed in the bladder before the surgery and maintained postoperatively. He received antibiotics prior to the procedure. Patient was transferred back to ICU in stable condition. Dianne [id number] cc: Jagruti Staton M.D. cc: Anuradha Manjarrez
[2019-10-27 06:55] LABS: HEMOGLOBIN 10.7 GM/dL (11.7-16.9); MCH 21.9 pg (25.7-33.7); MCHC 30.7 g/dl (32.0-35.9); MEAN CELL VOLUME 71.3 fl (80-96); MEAN PLT VOLUME 9.1 fl (7.5-11.1); PLATELET COUNT 284 K/MM3 (134-434); RDW 26.4 % (11.9-15.9); WHITE BLOOD COUNT 18.8 K/mm3 (4.0-10.0)
[2019-10-27 07:16] LABS: BLOOD UREA NITROGEN 18.7 mg/dL (7-18); CALCIUM 9.5 mg/dL (8.5-10.1); MAGNESIUM 1.9 mg/dL (1.8-2.4); PHOSPHOROUS 3.6 mg/dL (2.5-4.9)
--- NOTE | 2019-10-27 08:09 | PN ---
Progress Note (short form) - Note Progress Note: GENERAL SURGERY POD #1 s/p Radical subtotal gastectomy, omentectomy , gastrojejunostomy. No acute events since surgery per RN notes. Alert. Sitting up with HOB at 30 degrees. NGT on ILWCS C/o incisional tenderness. 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 Denies n/v/f/c, CP, palpitations, SOB or GOMEZ. Last Vital Signs Temp Pulse Resp BP Pulse Ox 97.3 F L 69 21 H 152/63 94 L 10/27/19 06:00 10/27/19 06:00 10/27/19 06:53 10/27/19 06:00 10/26/19 19:19 CBC, BMP 10/27/19 05:22 10/27/19 05:22 INR, PTT INR 1.07 (0.83-1.09) 10/26/19 06:16 Gen: nad ABD: dressing c/d/i : banda to gravity (clear) LE: SCDs bilat. Soft, nt. negative edema/swelling Problem List - Problems (1) Gastric carcinoma Assessment/Plan: Cont NGT to [facility] GI PPX DVT PPX ID for abx --> H. Pylori Pain management PRN Incentive spirometer CBC, BMP in AM Code(s): C16.9 - MALIGNANT NEOPLASM OF STOMACH, UNSPECIFIED (2) Helicobacter pylori (H. pylori) infection Code(s): A04.8 - OTHER SPECIFIED BACTERIAL INTESTINAL INFECTIONS
--- NOTE | 2019-10-27 08:55 | PN ---
Progress Note (short form) - Note Progress Note: Anesthesia postop note 79 y/o M s/p GA/TAP blocks for Gastrectomy POD#1, vss, awake and alert, vss, pain fairly well controlled No anesthesia complications.
[2019-10-27] MEDS: ACETAMINOPHEN 1000 MG/100 ML VIAL (NON FORMULARY) IVPB PRN (08:58)
[2019-10-27] MEDS: MUPIROCIN 2% TOPICAL OINTMENT FOR DECOLONIZATION NS SCH (09:40)
[2019-10-27] MEDS ORDERED: PANTOPRAZOLE SODIUM 40 MG VIAL IVPUSH SCH (10:00)
--- NOTE | 2019-10-27 11:22 | PN ---
Teaching Attending Note Name of Resident: Edwina Barriga ATTENDING PHYSICIAN STATEMENT I saw and evaluated the patient. I reviewed the resident's note and discussed the case with the resident. I agree with the resident's findings and plan as documented. SUBJEC Patient seen and examined in the ICU. (+) Abdominal discomfort. NGT remains in place. Apparently had 1 episode of bradycardia to the 20's that required intervention by anesthesia (? Push of ephedrine). No SOB or CP. OBJECTIVE: Intake & Output 10/24/19 10/25/19 10/26/19 10/27/19 23:59 23:59 23:59 23:59 Intake Total 666 1738 2350 0 Output Total 1999 1400 850 Balance 666 -463 950 -850 Weight 131 lb 6.328 oz 131 lb 14.4 oz 130 lb Last Vital Signs Temp Pulse Resp BP Pulse Ox 97.8 F 66 15 147/63 94 L 10/27/19 10:00 10/27/19 10:00 10/27/19 10:00 10/27/19 10:00 10/26/19 19:19 Active Medications Acetaminophen (Ofirmev Injection -) 1,000 mg IVPB Q8H PRN PRN Reason: FEVER Last Admin: 10/27/19 08:58 Dose: 1,000 mg Amoxicillin (Amoxicillin -) 1,000 mg PO BID [facility] Stop: 11/04/19 09:59 Last Admin: 10/26/19 10:30 Dose: Not Given Clarithromycin (Biaxin -) 500 mg PO BID [facility] Stop: 11/04/19 09:59 Last Admin: 10/26/19 10:30 Dose: Not Given Fentanyl (Sublimaze Injection -) 50 mcg IVPUSH [id number] PRN PRN Reason: PAIN-PACU ORDER X 4 DOSES ONLY Last Admin: 10/26/19 18:38 Dose: 50 mcg Hydromorphone HCl (Dilaudid Vial -) 2 mg IVPB Q6H PRN PRN Reason: PAIN LEVEL 7 - 10 Lactated Ringer's (Lactated Ringers Solution) 1,000 mls @ 75 mls/hr IV ASDIR MEME Last Admin: 10/26/19 18:39 Dose: 75 mls/hr Morphine Sulfate (Morphine Sulfate) 3 mg IVPUSH Q4H PRN PRN Reason: PAIN LEVEL 6-10 Ondansetron HCl (Zofran Injection) 4 mg IVPUSH Q6H PRN PRN Reason: NAUSEA AND/OR VOMITING Pantoprazole Sodium (Protonix Iv) 40 mg IVPUSH DAILY MEME Last Admin: 10/27/19 09:36 Dose: 40 mg Gen: Awake and alert, mildly uncomfortable due to pain Heart: RRR Lung: decreased breath sounds at the bases Abd: soft, (+) tenderness to palpation, Hypoactive BS, dressing intact Ext: no edema Laboratory Results - last 24 hr 10/23/19 10/24/19 10/26/19 15:45 08:00 06:16 WBC RBC Hgb Hct MCV MCH MCHC RDW Plt Count MPV Absolute Neuts (auto) Neutrophils % Neutrophils % (Manual) Band Neutrophils % Lymphocytes % Lymphocytes % (Manual) Monocytes % Monocytes % (Manual) Eosinophils % Eosinophils % (Manual) Basophils % Basophils % (Manual) Nucleated RBC % Hypochromia Poikilocytosis Anisocytosis Tear Drop Cells Ovalocytes Sodium Potassium Chloride Carbon Dioxide Anion Gap BUN Creatinine Est GFR (CKD-EPI)AfAm Est GFR (CKD-EPI)NonAf Random Glucose Calcium Phosphorus Magnesium Blood Type O POSITIVE O POSITIVE Antibody Screen Negative Negative Crossmatch See Detail See Detail See Detail 10/26/19 10/27/19 10/27/19 21:40 05:22 05:22 WBC 21.2 H 18.8 H RBC 4.79 4.90 Hgb 10.4 L 10.7 L Hct 34.3 L D 35.0 L MCV 71.6 L 71.3 L MCH 21.7 L 21.9 L MCHC 30.3 L 30.7 L RDW 26.5 H 26.4 H Plt Count 306 284 MPV 8.9 9.1 Absolute Neuts (auto) 19.5 H Neutrophils % 92.2 H D Neutrophils % (Manual) 73.0 Band Neutrophils % 19.0 Lymphocytes % 1.1 L D Lymphocytes % (Manual) 7.0 L Monocytes % 5.3 Monocytes % (Manual) 1 L Eosinophils % 0.0 D Eosinophils % (Manual) 0.0 Basophils % 1.4 Basophils % (Manual) 0.0 Nucleated RBC % 0 Hypochromia 2+ Poikilocytosis 1+ Anisocytosis 3+ Tear Drop Cells Few Ovalocytes Few Sodium 142 Potassium 4.0 Chloride 112 H Carbon Dioxide 21 Anion Gap 9 BUN 18.7 H Creatinine 1.0 Est GFR (CKD-EPI)AfAm 82.02 Est GFR (CKD-EPI)NonAf 70.77 Random Glucose 171 H Calcium 9.5 Phosphorus 3.6 Magnesium 1.9 Blood Type Antibody Screen Crossmatch ASSESSMENT AND PLAN: POD #1: Radical subtotal gastectomy, omentectomy, gastrojejunostomy. Gastric Cancer Acute Blood Loss Anemia HTN Resolved Bradycardia - Pain control - monitor H/H - Normal transfusion thresholds - IVF - protonix - DVT prophylaxis - Cardiac Telemetry monitoring Dr Cottrell
--- NOTE | 2019-10-27 11:23 | PN ---
Physical Exam: SUBJECTIVE: Patient seen and examined 79 y/o M hx of HTN and antral adenocarcinoma s/p gastrectomy,ometectomy and gastrojejunostomy. post op day 1. pt. was hypotensive and shakira cardic following surgery was given ephedrine by anesthesia and pulse has been normal since then. OBJECTIVE: Vital Signs Period Temp Pulse Resp BP Sys/Newman Pulse Ox Last 24 Hr 97.1 F-97.8 F 28-73 12-22 86-152/42-92 94-97 GENERAL: The patient is awake, alert, and fully oriented, complaining of abdominal pain HEAD: Normal with no signs of trauma. EYES, extraocular movements intact, sclera anicteric, conjunctiva clear. No ptosis. ENT: Ears normal, nares patent, oropharynx clear without exudates, moist mucous membranes. NECK: Trachea midline, full range of motion, supple. LUNGS: Breath sounds equal, clear to auscultation bilaterally, no wheezes, no crackles, no accessory muscle use. HEART: Regular rate and rhythm, S1, S2 without murmur, rub or gallop. ABDOMEN: bandage in mid abdomen from surgery. tendernes to palpation diffusely. EXTREMITIES: 2+ pulses, warm, well-perfused, no edema. NEUROLOGICAL: Cranial nerves II through XII grossly intact. Normal speech, PSYCH: Normal mood, normal affect. SKIN: Warm, dry, normal turgor, no rashes or lesions noted Laboratory Results - last 24 hr 10/23/19 10/24/19 10/26/19 15:45 08:00 06:16 WBC RBC Hgb Hct MCV MCH MCHC RDW Plt Count MPV Absolute Neuts (auto) Neutrophils % Neutrophils % (Manual) Band Neutrophils % Lymphocytes % Lymphocytes % (Manual) Monocytes % Monocytes % (Manual) Eosinophils % Eosinophils % (Manual) Basophils % Basophils % (Manual) Nucleated RBC % Hypochromia Poikilocytosis Anisocytosis Tear Drop Cells Ovalocytes Sodium Potassium Chloride Carbon Dioxide Anion Gap BUN Creatinine Est GFR (CKD-EPI)AfAm Est GFR (CKD-EPI)NonAf Random Glucose Calcium Phosphorus Magnesium Blood Type O POSITIVE O POSITIVE Antibody Screen Negative Negative Crossmatch See Detail See Detail See Detail 10/26/19 10/27/19 10/27/19 21:40 05:22 05:22 WBC 21.2 H 18.8 H RBC 4.79 4.90 Hgb 10.4 L 10.7 L Hct 34.3 L D 35.0 L MCV 71.6 L 71.3 L MCH 21.7 L 21.9 L MCHC 30.3 L 30.7 L RDW 26.5 H 26.4 H Plt Count 306 284 MPV 8.9 9.1 Absolute Neuts (auto) 19.5 H Neutrophils % 92.2 H D Neutrophils % (Manual) 73.0 Band Neutrophils % 19.0 Lymphocytes % 1.1 L D Lymphocytes % (Manual) 7.0 L Monocytes % 5.3 Monocytes % (Manual) 1 L Eosinophils % 0.0 D Eosinophils % (Manual) 0.0 Basophils % 1.4 Basophils % (Manual) 0.0 Nucleated RBC % 0 Hypochromia 2+ Poikilocytosis 1+ Anisocytosis 3+ Tear Drop Cells Few Ovalocytes Few Sodium 142 Potassium 4.0 Chloride 112 H Carbon Dioxide 21 Anion Gap 9 BUN 18.7 H Creatinine 1.0 Est GFR (CKD-EPI)AfAm 82.02 Est GFR (CKD-EPI)NonAf 70.77 Random Glucose 171 H Calcium 9.5 Phosphorus 3.6 Magnesium 1.9 Blood Type Antibody Screen Crossmatch Active Medications Generic Name Dose Route Start Last Admin Trade Name Freq PRN Reason Stop Dose Admin Acetaminophen 1,000 mg 10/26/19 18:56 10/27/19 08:58 Ofirmev Injection - IVPB 1,000 mg Q8H PRN Administration FEVER Amoxicillin 1,000 mg 10/24/19 22:00 10/26/19 10:30 Amoxicillin - PO 11/04/19 09:59 Not Given BID [facility] Clarithromycin 500 mg 10/24/19 22:00 10/26/19 10:30 Biaxin - PO 11/04/19 09:59 Not Given BID [facility] Fentanyl 50 mcg 10/26/19 18:35 10/26/19 18:38 Sublimaze Injection - IVPUSH 50 mcg [id number] PRN Administration PAIN-PACU ORDER X 4 DOSES ONLY Hydromorphone HCl 2 mg 10/27/19 10:59 Dilaudid Vial - IVPB Q6H PRN PAIN LEVEL 7 - 10 Lactated Ringer's 1,000 mls @ 75 mls/hr 10/26/19 18:45 10/26/19 18:39 Lactated Ringers Solution IV 75 mls/hr ASDIR MEME Administration Morphine Sulfate 3 mg 10/26/19 18:58 Morphine Sulfate IVPUSH Q4H PRN PAIN LEVEL 6-10 Ondansetron HCl 4 mg 10/26/19 18:35 Zofran Injection IVPUSH Q6H PRN NAUSEA AND/OR VOMITING Pantoprazole Sodium 40 mg 10/27/19 10:00 10/27/19 09:36 Protonix Iv IVPUSH 40 mg DAILY MEME Administration ASSESSMENT/PLAN: 79 y/o M hx of HTN and antral adenocarcinoma s/p gastrectomy,ometectomy and gastrojejunostomy A/P dilaudid added to pain regimen for adequate pain control NEURO: alert and oriented CV: Grade II diastolic dysfuntiction bradycardic in immediate post-op perioed monitor and cardiac follow up. - IV fluids FENGI: Gi follow up, triple therapy for H. pyloric. Iv IV fluids monitor electrolytes ID: ID consult to see how triple therapy for h. pylori will be managed since NPO DVT PPX: SCD's LINES/TUBES/DRAINS:no central line -ready for transfer to the floor to telemetry. Visit type - Emergency Visit Emergency Visit: Yes ED Registration Date: 10/12/19 Care time: The patient presented to the Emergency Department on the above date and was hospitalized for further evaluation of their emergent condition. - New Patient This patient is new to me today: No - Critical Care Critical Care patient: No - Discharge Referral Referred to [facility] Med [facility] No ATTENDING PHYSICIAN STATEMENT I saw and evaluated the patient. I reviewed the resident's note and discussed the case with the resident. I agree with the resident's findings and plan as documented. SUBJECTIVE: OBJECTIVE: ASSESSMENT AND PLAN:
--- NOTE | 2019-10-27 12:43 | PN ---
Progress Note, Physician History of Present Illness: s/p subtotal gastrectomy with post-op abdominal discomfort, NGT remains in place , apparently had 1 episode of bradycardia to the 20's that required intervention by anesthesia (? Push of ephedrine). No SOB or CP. - Current Medication List Current Medications: Active Medications Acetaminophen (Ofirmev Injection -) 1,000 mg IVPB Q8H PRN PRN Reason: FEVER Last Admin: 10/27/19 08:58 Dose: 1,000 mg Amoxicillin (Amoxicillin -) 1,000 mg PO BID [facility] Stop: 11/04/19 09:59 Last Admin: 10/26/19 10:30 Dose: Not Given Clarithromycin (Biaxin -) 500 mg PO BID [facility] [place] Stop: 11/04/19 09:59 Last Admin: 10/26/19 10:30 Dose: Not Given Fentanyl (Sublimaze Injection -) 50 mcg IVPUSH [id number] PRN PRN Reason: PAIN-PACU ORDER X 4 DOSES ONLY Last Admin: 10/26/19 18:38 Dose: 50 mcg Hydromorphone HCl (Dilaudid Vial -) 2 mg IVPB Q6H PRN PRN Reason: PAIN LEVEL 7 - 10 Lactated Ringer's (Lactated Ringers Solution) 1,000 mls @ 75 mls/hr IV ASDIR [facility] [place] Last Admin: 10/26/19 18:39 Dose: 75 mls/hr Morphine Sulfate (Morphine Sulfate) 3 mg IVPUSH Q4H PRN PRN Reason: PAIN LEVEL 6-10 Ondansetron HCl (Zofran Injection) 4 mg IVPUSH Q6H PRN PRN Reason: NAUSEA AND/OR VOMITING Pantoprazole Sodium (Protonix Iv) 40 mg IVPUSH DAILY [facility] [place] Last Admin: 10/27/19 09:36 Dose: 40 mg - Objective Vital Signs: Vital Signs Temperature 97.8 F 10/27/19 10:00 Pulse Rate 67 10/27/19 12:00 Respiratory Rate 21 H 10/27/19 12:00 Blood Pressure 156/65 10/27/19 12:00 O2 Sat by Pulse Oximetry (%) 94 L 10/26/19 19:19 Constitutional: Yes: No Distress, Calm Neck: Yes: Supple Cardiovascular: Yes: Regular Rate and Rhythm Respiratory: Yes: Regular, Diminished Gastrointestinal: Yes: Soft, Hypoactive Bowel Sounds, Other (Post-op) Genitourinary: Yes: Arias Present Edema: No Labs: CBC, BMP 10/27/19 05:22 10/27/19 05:22 INR, PTT INR 1.07 (0.83-1.09) 10/26/19 06:16 - ....Imaging EKG: Report Reviewed (Tele: Transient 2nd deg AVB since resolved) Problem List - Problems (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 pylori) infection Code(s): A04.8 - OTHER SPECIFIED BACTERIAL INTESTINAL INFECTIONS Assessment/Plan 10/24/2019 Echo: Normal LV size and fxn, LVEF 60-65%, grade II diastolic dysfunction, mild MR, TR RVSP 33 mmHg, mild MA 1. POD #1: Radical subtotal gastectomy, omentectomy, gastrojejunostomy for Gastric Cancer 2. Acute blood loss anemia 3. H. Pylori 4. Sinus bradycardia, transient 2nd deg AV block post-op 5. Hypertension PLAN: 1. Analgesia as needed, DVT prophylaxis, teletypesetter monitor, NGT to [facility], IS 2. Treatment for H. pylori, monitor H&H post transfusion 3. Avoid AV pao blocking agents given sinus bradycardia 4. Further CV w/u including stress testing may be performed once clinically stable
[2019-10-27] MEDS: HYDROmorphone HCl 2 MG/ML VIAL IVPB PRN (13:26)
--- NOTE | 2019-10-27 15:26 | PN ---
Progress Note, Physician - Current Medication List Current Medications: Active Medications Acetaminophen (Ofirmev Injection -) 1,000 mg IVPB Q8H PRN PRN Reason: FEVER Last Admin: 10/27/19 08:58 Dose: 1,000 mg Amoxicillin (Amoxicillin -) 1,000 mg PO BID [facility] Stop: 11/04/19 09:59 Last Admin: 10/26/19 10:30 Dose: Not Given Clarithromycin (Biaxin -) 500 mg PO BID [facility] Stop: 11/04/19 09:59 Last Admin: 10/26/19 10:30 Dose: Not Given Fentanyl (Sublimaze Injection -) 50 mcg IVPUSH [id number] PRN PRN Reason: PAIN-PACU ORDER X 4 DOSES ONLY Last Admin: 10/26/19 18:38 Dose: 50 mcg Hydromorphone HCl (Dilaudid Vial -) 2 mg IVPB Q6H PRN PRN Reason: PAIN LEVEL 7 - 10 Last Admin: 10/27/19 13:26 Dose: 2 mg Lactated Ringer's (Lactated Ringers Solution) 1,000 mls @ 75 mls/hr IV ASDIR [facility] Last Admin: 10/26/19 18:39 Dose: 75 mls/hr Morphine Sulfate (Morphine Sulfate) 3 mg IVPUSH Q4H PRN PRN Reason: PAIN LEVEL 6-10 Ondansetron HCl (Zofran Injection) 4 mg IVPUSH Q6H PRN PRN Reason: NAUSEA AND/OR VOMITING Pantoprazole Sodium (Protonix Iv) 40 mg IVPUSH DAILY [facility] Last Admin: 10/27/19 09:36 Dose: 40 mg - Objective Vital Signs: Vital Signs Temperature 97.9 F 10/27/19 14:00 Pulse Rate 64 10/27/19 14:00 Respiratory Rate 20 10/27/19 14:00 Blood Pressure 145/54 L 10/27/19 14:00 O2 Sat by Pulse Oximetry (%) 98 10/27/19 09:00 Labs: CBC, BMP 10/27/19 05:22 10/27/19 05:22 INR, PTT INR 1.07 (0.83-1.09) 10/26/19 06:16 Problem List - Problems (1) Symptomatic anemia Code(s): D64.9 - ANEMIA, UNSPECIFIED (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 Assessment/Plan Surgery: PO day #1. He is alert and oriented. Talking , comfortable. Herat rate 68/m. Greenish bile seen in NG tube. Abdomen is soft , wound is clean. Specimen inspected with pathologist , adequate margin from the tumor. Hematocrit improved and stable. Out of bed , D/C Arias catheter. Npo .
--- NOTE | 2019-10-27 16:42 | PN ---
Progress Note, Physician History of Present Illness: stable - Current Medication List Current Medications: Active Medications Acetaminophen (Ofirmev Injection -) 1,000 mg IVPB Q8H PRN PRN Reason: FEVER Last Admin: 10/27/19 08:58 Dose: 1,000 mg Amoxicillin (Amoxicillin -) 1,000 mg PO BID [facility] Stop: 11/04/19 09:59 Last Admin: 10/26/19 10:30 Dose: Not Given Clarithromycin (Biaxin -) 500 mg PO BID [facility] Stop: 11/04/19 09:59 Last Admin: 10/26/19 10:30 Dose: Not Given Fentanyl (Sublimaze Injection -) 50 mcg IVPUSH [id number] PRN PRN Reason: PAIN-PACU ORDER X 4 DOSES ONLY Last Admin: 10/26/19 18:38 Dose: 50 mcg Hydromorphone HCl (Dilaudid Vial -) 2 mg IVPB Q6H PRN PRN Reason: PAIN LEVEL 7 - 10 Last Admin: 10/27/19 13:26 Dose: 2 mg Lactated Ringer's (Lactated Ringers Solution) 1,000 mls @ 75 mls/hr IV ASDIR [facility] Last Admin: 10/26/19 18:39 Dose: 75 mls/hr Morphine Sulfate (Morphine Sulfate) 3 mg IVPUSH Q4H PRN PRN Reason: PAIN LEVEL 6-10 Ondansetron HCl (Zofran Injection) 4 mg IVPUSH Q6H PRN PRN Reason: NAUSEA AND/OR VOMITING Pantoprazole Sodium (Protonix Iv) 40 mg IVPUSH DAILY [facility] Last Admin: 10/27/19 09:36 Dose: 40 mg - Objective Vital Signs: Vital Signs Temperature 97.9 F 10/27/19 14:00 Pulse Rate 64 10/27/19 14:00 Respiratory Rate 20 10/27/19 14:00 Blood Pressure 145/54 L 10/27/19 14:00 O2 Sat by Pulse Oximetry (%) 98 10/27/19 09:00 Constitutional: Yes: No Distress HENT: Yes: Atraumatic Neck: Yes: Supple Cardiovascular: Yes: Regular Rate and Rhythm Respiratory: Yes: CTA Bilaterally Gastrointestinal: Yes: Hypoactive Bowel Sounds Extremities: Yes: WNL Edema: No Peripheral Pulses WNL: Yes Neurological: Yes: Alert, Oriented Labs: CBC, BMP 10/27/19 05:22 12/19/19 05:22 INR, PTT INR 1.07 (0.83-1.09) 10/26/19 06:16 Problem List - Problems (1) Symptomatic anemia Assessment/Plan: s/p subtotal gastrectomy post op day 1 Code(s): D64.9 - ANEMIA, UNSPECIFIED (2) Gastric carcinoma Assessment/Plan: s/p surgery pod #1 npo ivf Code(s): C16.9 - MALIGNANT NEOPLASM OF STOMACH, UNSPECIFIED (3) Helicobacter pylori (H. pylori) infection Code(s): A04.8 - OTHER SPECIFIED BACTERIAL INTESTINAL INFECTIONS (4) Hypertension Assessment/Plan: on meds monitor Code(s): I10 - ESSENTIAL (PRIMARY) HYPERTENSION Qualifiers: Hypertension type: essential hypertension Qualified Code(s): I10 - Essential (primary) hypertension (5) Pre-operative cardiovascular examination, bradycardia Assessment/Plan: bradycardia...base line cleared for surgery Code(s): Z01.810 - ENCOUNTER FOR PREPROCEDURAL CARDIOVASCULAR EXAMINATION; R00.1 - BRADYCARDIA, UNSPECIFIED
--- NOTE | 2019-10-27 19:41 | PN ---
Progress Note (short form) - Note Progress Note: Patient seen and examined. S: Last Vital Signs Temp Pulse Resp BP Pulse Ox 97.8 F 69 11 138/63 98 10/27/19 17:15 10/27/19 18:15 10/27/19 18:15 10/27/19 18:15 10/27/19 09:00 AFVSS Cor: RSR, No murmurs, No gallops Lungs: Clear to P&A Abd: Soft, Normal bowel sounds, No organomegaly Ext:No significant edema 10/27/19 05:22 10/27/19 05:22 Current Medications Generic Name Dose Route Start Last Admin Trade Name Freq PRN Reason Stop Dose Admin Acetaminophen 1,000 mg 10/26/19 18:56 10/27/19 08:58 Ofirmev Injection - IVPB 1,000 mg Q8H PRN Administration FEVER Amoxicillin 1,000 mg 10/24/19 22:00 10/26/19 10:30 Amoxicillin - PO 11/04/19 09:59 Not Given BID [facility] Clarithromycin 500 mg 10/24/19 22:00 10/26/19 10:30 Biaxin - PO 11/04/19 09:59 Not Given BID [facility] Fentanyl 50 mcg 10/26/19 18:35 10/26/19 18:38 Sublimaze Injection - IVPUSH 50 mcg [id number] PRN Administration PAIN-PACU ORDER X 4 DOSES ONLY Hydromorphone HCl 2 mg 10/27/19 10:59 10/27/19 13:26 Dilaudid Vial - IVPB 2 mg Q6H PRN Administration PAIN LEVEL 7 - 10 Lactated Ringer's 1,000 mls @ 75 mls/hr 10/26/19 18:45 10/26/19 18:39 Lactated Ringers Solution IV 75 mls/hr ASDIR [facility] Administration Morphine Sulfate 3 mg 10/26/19 18:58 Morphine Sulfate IVPUSH Q4H PRN PAIN LEVEL 6-10 Ondansetron HCl 4 mg 10/26/19 18:35 Zofran Injection IVPUSH Q6H PRN NAUSEA AND/OR VOMITING Pantoprazole Sodium 40 mg 10/27/19 10:00 10/27/19 09:36 Protonix Iv IVPUSH 40 mg DAILY [facility] Administration A/P Gastric ca H.Pylori Candidiasis Gastritis/esophagitis Anemia Plan: Gastric adenoca. Her2-pending. Had surgery POD#2 H. pylori + CT c/a/p --m ild rt. hilar adenopathy/fatty liver/mass next to rt. adrenal 1.5cm ? , sclerotic bone lesions, enlarged prostate check PSA check bone scan Awaiting final pathology before treatment plan can be formulated
[2019-10-28] MEDS: HYDROmorphone HCl 2 MG/ML VIAL IVPB PRN (02:30)
[2019-10-28] MEDS ORDERED: HYDROmorphone HCl 2 MG/ML VIAL IVPB PRN (03:39)
[2019-10-28] MEDS ORDERED: morphine SULFATE 4 MG/ML VIAL IVPUSH PRN (03:39)
[2019-10-28] MEDS ORDERED: ACETAMINOPHEN 1000 MG/100 ML VIAL (NON FORMULARY) IVPB PRN (03:39)
--- NOTE | 2019-10-28 09:26 | PN ---
Progress Note, Physician History of Present Illness: s/p subtotal gastrectomy with resolved post-op abdominal discomfort, NGT remains in place, no further AV block on telemetry. No SOB or CP, awaiting return of bowel function. - Current Medication List Current Medications: Active Medications Acetaminophen (Ofirmev Injection -) 1,000 mg IVPB Q8H PRN PRN Reason: FEVER Amoxicillin (Amoxicillin -) 1,000 mg PO BID [facility] Stop: 11/04/19 09:59 Clarithromycin (Biaxin -) 500 mg PO BID [facility] Stop: 11/04/19 09:59 Fentanyl (Sublimaze Injection -) 50 mcg IVPUSH [id number] PRN PRN Reason: PAIN-PACU ORDER X 4 DOSES ONLY Hydromorphone HCl (Dilaudid Vial -) 2 mg IVPB Q6H PRN PRN Reason: PAIN LEVEL 7 - 10 Lactated Ringer's (Lactated Ringers Solution) 1,000 mls @ 75 mls/hr IV ASDIR [facility] Morphine Sulfate (Morphine Sulfate) 3 mg IVPUSH Q4H PRN PRN Reason: PAIN LEVEL 6-10 Ondansetron HCl (Zofran Injection) 4 mg IVPUSH Q6H PRN PRN Reason: NAUSEA AND/OR VOMITING Pantoprazole Sodium (Protonix Iv) 40 mg IVPUSH DAILY [facility] - Objective Vital Signs: Vital Signs Temperature 98.4 F 10/28/19 01:00 Pulse Rate 85 10/28/19 05:00 Respiratory Rate 20 10/28/19 05:00 Blood Pressure 156/69 10/28/19 05:00 O2 Sat by Pulse Oximetry (%) 96 10/27/19 21:00 Constitutional: Yes: No Distress, Calm HENT: Yes: Other (NGT in place) Neck: Yes: Supple Cardiovascular: Yes: Regular Rate and Rhythm Respiratory: Yes: Regular, Diminished Gastrointestinal: Yes: Soft, Hypoactive Bowel Sounds, Other (Post-op) Edema: No Labs: CBC, BMP 10/27/19 05:22 10/27/19 05:22 INR, PTT INR 1.07 (0.83-1.09) 10/26/19 06:16 Problem List - Problems (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 pylori) infection Code(s): A04.8 - OTHER SPECIFIED BACTERIAL INTESTINAL INFECTIONS Assessment/Plan 10/24/2019 Echo: Normal LV size and fxn, LVEF 60-65%, grade II diastolic dysfunction, mild MR, TR RVSP 33 mmHg, mild DC 1. POD #2: Radical subtotal gastectomy, omentectomy, gastrojejunostomy for Gastric Cancer 2. Acute blood loss anemia 3. H. Pylori 4. Sinus bradycardia, transient 2nd deg AV block post-op since resolved 5. Hypertension PLAN: 1. Analgesia as needed, DVT prophylaxis, residential monitor, NGT to [facility], IS 2. Treatment for H. pylori, monitor H&H post transfusion, f/u pathology 3. Avoid AV pao blocking agents given sinus bradycardia 4. Further CV w/u including stress testing may be performed once clinically stable
--- NOTE | 2019-10-28 10:37 | PN ---
Progress Note, Physician - Current Medication List Current Medications: Active Medications Acetaminophen (Ofirmev Injection -) 1,000 mg IVPB Q8H PRN PRN Reason: FEVER Amoxicillin (Amoxicillin -) 1,000 mg PO BID [facility] Stop: 11/04/19 09:59 Clarithromycin (Biaxin -) 500 mg PO BID [facility] Stop: 11/04/19 09:59 Fentanyl (Sublimaze Injection -) 50 mcg IVPUSH [id number] PRN PRN Reason: PAIN-PACU ORDER X 4 DOSES ONLY Hydromorphone HCl (Dilaudid Vial -) 2 mg IVPB Q6H PRN PRN Reason: PAIN LEVEL 7 - 10 Lactated Ringer's (Lactated Ringers Solution) 1,000 mls @ 75 mls/hr IV ASDIR [facility] Morphine Sulfate (Morphine Sulfate) 3 mg IVPUSH Q4H PRN PRN Reason: PAIN LEVEL 6-10 Ondansetron HCl (Zofran Injection) 4 mg IVPUSH Q6H PRN PRN Reason: NAUSEA AND/OR VOMITING Pantoprazole Sodium (Protonix Iv) 40 mg IVPUSH DAILY [facility] - Objective Vital Signs: Vital Signs Temperature 98.4 F 10/28/19 01:00 Pulse Rate 85 10/28/19 05:00 Respiratory Rate 20 10/28/19 05:00 Blood Pressure 156/69 10/28/19 05:00 O2 Sat by Pulse Oximetry (%) 96 10/27/19 21:00 Labs: CBC, BMP 10/27/19 05:22 10/27/19 05:22 INR, PTT INR 1.07 (0.83-1.09) 10/26/19 06:16 Problem List - Problems (1) Symptomatic anemia Code(s): D64.9 - ANEMIA, UNSPECIFIED (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 Assessment/Plan Surgery: Po Day #3. Patient is out of bed. Biliary drainage ( greenish) from NG tube. Wound is clean. Hematocrit is normal. Will start DVt prophylaxis. Patient is explained , through his daughter in law. Voiding urine.
[2019-10-28] MEDS: LACTATED RINGERS SOLUTION 1,000 ML IV SCH (11:37)
[2019-10-28] MEDS: AMOXICILLIN 500 MG CAPSULE (FP) PO SCH ×2 (11:37→23:35)
[2019-10-28] MEDS: ONDANSETRON 4 MG/2 ML VIAL IVPUSH PRN (11:38)
[2019-10-28] MEDS: CLARITHROMYCIN 500 MG TABLET (UD) PO SCH ×2 (11:38→23:35)
[2019-10-28] MEDS: PANTOPRAZOLE SODIUM 40 MG VIAL IVPUSH SCH (11:38)
--- NOTE | 2019-10-28 18:24 | PN ---
Progress Note, Physician History of Present Illness: stable - Current Medication List Current Medications: Active Medications Acetaminophen (Ofirmev Injection -) 1,000 mg IVPB Q8H PRN PRN Reason: FEVER Amoxicillin (Amoxicillin -) 1,000 mg PO BID [facility] Stop: 11/04/19 09:59 Last Admin: 10/28/19 11:37 Dose: Not Given Clarithromycin (Biaxin -) 500 mg PO BID [facility] Stop: 11/04/19 09:59 Last Admin: 10/28/19 11:38 Dose: Not Given Fentanyl (Sublimaze Injection -) 50 mcg IVPUSH [id number] PRN PRN Reason: PAIN-PACU ORDER X 4 DOSES ONLY Heparin Sodium (Porcine) (Heparin -) 5,000 unit SQ BID [facility] Hydromorphone HCl (Dilaudid Vial -) 2 mg IVPB Q6H PRN PRN Reason: PAIN LEVEL 7 - 10 Lactated Ringer's (Lactated Ringers Solution) 1,000 mls @ 75 mls/hr IV ASDIR [facility] Last Admin: 10/28/19 11:37 Dose: Not Given Morphine Sulfate (Morphine Sulfate) 3 mg IVPUSH Q4H PRN PRN Reason: PAIN LEVEL 6-10 Ondansetron HCl (Zofran Injection) 4 mg IVPUSH Q6H PRN PRN Reason: NAUSEA AND/OR VOMITING Last Admin: 10/28/19 11:38 Dose: 4 mg Pantoprazole Sodium (Protonix Iv) 40 mg IVPUSH DAILY [facility] Last Admin: 10/28/19 11:38 Dose: 40 mg - Objective Vital Signs: Vital Signs Temperature 97.7 F 10/28/19 14:37 Pulse Rate 81 10/28/19 14:37 Respiratory Rate 18 10/28/19 14:37 Blood Pressure 141/68 10/28/19 14:37 O2 Sat by Pulse Oximetry (%) 96 10/27/19 21:00 Constitutional: Yes: No Distress HENT: Yes: Atraumatic Neck: Yes: Supple Cardiovascular: Yes: Regular Rate and Rhythm Respiratory: Yes: CTA Bilaterally Gastrointestinal: Yes: Hypoactive Bowel Sounds, Tenderness (at the surgery site) Extremities: Yes: WNL Edema: No Neurological: Yes: Alert, Oriented Labs: CBC, BMP 10/27/19 05:22 10/27/19 05:22 INR, PTT INR 1.07 (0.83-1.09) 10/26/19 06:16 Problem List - Problems (1) Symptomatic anemia Assessment/Plan: s/p subtotal gastrectomy post op day 2 Code(s): D64.9 - ANEMIA, UNSPECIFIED (2) Gastric carcinoma Assessment/Plan: s/p surgery pod #2 npo ivf dvt ppx ngt in place Code(s): C16.9 - MALIGNANT NEOPLASM OF STOMACH, UNSPECIFIED (3) Helicobacter pylori (H. pylori) infection Code(s): A04.8 - OTHER SPECIFIED BACTERIAL INTESTINAL INFECTIONS (4) Hypertension Assessment/Plan: on meds monitor Code(s): I10 - ESSENTIAL (PRIMARY) HYPERTENSION Qualifiers: Qualified Code(s): I10 - Essential (primary) hypertension (5) Pre-operative cardiovascular examination, bradycardia Code(s): Z01.810 - ENCOUNTER FOR PREPROCEDURAL CARDIOVASCULAR EXAMINATION; R00.1 - BRADYCARDIA, UNSPECIFIED
--- NOTE | 2019-10-28 18:27 | PN ---
Progress Note (short form) - Note Progress Note: Patient seen and examined S/P sub total gastrectomy omentectomy, gastrojejunostomy Last Vital Signs Temp Pulse Resp BP Pulse Ox 97.7 F 81 18 141/68 96 10/28/19 14:37 10/28/19 14:37 10/28/19 14:37 10/28/19 14:37 10/27/19 21:[address] Poor inspiratory effort RSR Well healed; surgical abhay Ext- negative CBC, BMP 10/27/19 05:22 10/27/19 05:22 Current Medications Generic Name Dose Route Start Last Admin Trade Name Freq PRN Reason Stop Dose Admin Acetaminophen 1,000 mg 10/28/19 03:39 Ofirmev Injection - IVPB Q8H PRN FEVER Amoxicillin 1,000 mg 10/28/19 10:00 10/28/19 11:37 Amoxicillin - PO 11/04/19 09:59 Not Given BID [facility] Clarithromycin 500 mg 10/28/19 10:00 10/28/19 11:38 Biaxin - PO 11/04/19 09:59 Not Given BID [facility] Fentanyl 50 mcg 10/28/19 03:39 Sublimaze Injection - IVPUSH [id number] PRN PAIN-PACU ORDER X 4 DOSES ONLY Heparin Sodium (Porcine) 5,000 unit 10/28/19 22:00 Heparin - SQ BID [facility] Hydromorphone HCl 2 mg 10/28/19 03:39 Dilaudid Vial - IVPB Q6H PRN PAIN LEVEL 7 - 10 Lactated Ringer's 1,000 mls @ 75 mls/hr 10/28/19 03:39 10/28/19 11:37 Lactated Ringers Solution IV Not Given ASDIR [facility] Morphine Sulfate 3 mg 10/28/19 03:39 Morphine Sulfate IVPUSH Q4H PRN PAIN LEVEL 6-10 Ondansetron HCl 4 mg 10/28/19 03:39 10/28/19 11:38 Zofran Injection IVPUSH 4 mg Q6H PRN Administration NAUSEA AND/OR VOMITING Pantoprazole Sodium 40 mg 10/28/19 10:00 10/28/19 11:38 Protonix Iv IVPUSH 40 mg DAILY [facility] Administration Impression: Gastric ca s/p subtotal resection, omentectomy, gastrojejunostomy Await pathology'
[2019-10-28 21:45] LABS: BASO % 0.2 % (0-2.0); EOS % 0.3 % (0-4.5); HEMATOCRIT 32.5 % (35.4-49); HEMOGLOBIN 9.7 GM/dL (11.7-16.9); LYMPH % 4.4 % (8-40); MCH 21.1 pg (25.7-33.7); MCHC 29.9 g/dl (32.0-35.9); MEAN CELL VOLUME 70.7 fl (80-96); MEAN PLT VOLUME 9.2 fl (7.5-11.1); MONO % 5.7 % (3.8-10.2); NEUT % 89.4 % (42.8-82.8); PLATELET COUNT 306 K/MM3 (134-434); RDW 26.3 % (11.9-15.9)
[2019-10-28 22:20] LABS: ALBUMIN 2.7 g/dl (3.4-5.0); BILIRUBIN,TOTAL 1.1 mg/dL (0.2-1); BLOOD UREA NITROGEN 15.4 mg/dL (7-18); CALCIUM 9.8 mg/dL (8.5-10.1); CREATININE 0.8 mg/dL (0.55-1.3); POTASSIUM 3.8 mmol/L (3.5-5.1); TOT PROT 5.4 g/dl (6.4-8.2)
[2019-10-28] MEDS ORDERED: PT OWN MED DRAWER 7, Y5N ONE (23:34)
[2019-10-28] MEDS: HEPARIN NA (PORCINE) 5,000 UNITS/ML 1ML VIAL SQ SCH (23:35)
--- NOTE | 2019-10-29 06:02 | PN ---
Progress Note (short form) - Note Progress Note: Notified about Troponin 18.5. A repeat EKG did not show major abnormalities compared to 10/12/19. Dr Sevilla was contacted, who did have any new recommendations at that time. Pt to be evaluated by him in the AM. Follow-up Troponin was 15.9
[2019-10-29] MEDS: AMOXICILLIN 500 MG CAPSULE (FP) PO SCH ×2 (09:22→21:43)
[2019-10-29] MEDS: CLARITHROMYCIN 500 MG TABLET (UD) PO SCH ×2 (09:23→21:43)
[2019-10-29] MEDS: HEPARIN NA (PORCINE) 5,000 UNITS/ML 1ML VIAL SQ SCH ×2 (09:24→21:44)
[2019-10-29] MEDS: LACTATED RINGERS SOLUTION 1,000 ML IV SCH (09:24)
[2019-10-29] MEDS: PANTOPRAZOLE SODIUM 40 MG VIAL IVPUSH SCH (09:24)
[2019-10-29] MEDS ORDERED: PT OWN MED DRAWER 7, Y5N ONE (09:42)
--- NOTE | 2019-10-29 10:02 | PN ---
Progress Note, Physician History of Present Illness: s/p subtotal gastrectomy with resolved post-op abdominal discomfort, NGT remains in place, no further AV block on telemetry. No SOB or CP, awaiting return of bowel function. Troponins elevated. - Current Medication List Current Medications: Active Medications Acetaminophen (Ofirmev Injection -) 1,000 mg IVPB Q8H PRN PRN Reason: FEVER Amoxicillin (Amoxicillin -) 1,000 mg PO BID [facility] Stop: 11/04/19 09:59 Last Admin: 10/29/19 09:22 Dose: Not Given Clarithromycin (Biaxin -) 500 mg PO BID [facility] Stop: 11/04/19 09:59 Last Admin: 10/29/19 09:23 Dose: Not Given Fentanyl (Sublimaze Injection -) 50 mcg IVPUSH [id number] PRN PRN Reason: PAIN-PACU ORDER X 4 DOSES ONLY Heparin Sodium (Porcine) (Heparin -) 5,000 unit SQ BID [facility] Last Admin: 10/29/19 09:24 Dose: 5,000 unit Hydromorphone HCl (Dilaudid Vial -) 2 mg IVPB Q6H PRN PRN Reason: PAIN LEVEL 7 - 10 Lactated Ringer's (Lactated Ringers Solution) 1,000 mls @ 75 mls/hr IV ASDIR [facility] Last Admin: 10/29/19 09:24 Dose: 75 mls/hr Morphine Sulfate (Morphine Sulfate) 3 mg IVPUSH Q4H PRN PRN Reason: PAIN LEVEL 6-10 Ondansetron HCl (Zofran Injection) 4 mg IVPUSH Q6H PRN PRN Reason: NAUSEA AND/OR VOMITING Last Admin: 10/28/19 11:38 Dose: 4 mg Pantoprazole Sodium (Protonix Iv) 40 mg IVPUSH DAILY [facility] Last Admin: 10/29/19 09:24 Dose: 40 mg - Objective Vital Signs: Vital Signs Temperature 99.0 F 10/29/19 02:00 Pulse Rate 76 10/29/19 06:00 Respiratory Rate 20 10/29/19 06:00 Blood Pressure 148/70 10/29/19 06:00 O2 Sat by Pulse Oximetry (%) 96 10/28/19 21:00 Constitutional: Yes: No Distress, Calm, Thin HENT: Yes: Other (NGT) Neck: Yes: Supple Cardiovascular: Yes: Regular Rate and Rhythm Respiratory: Yes: Regular, CTA Bilaterally Gastrointestinal: Yes: Soft, Hypoactive Bowel Sounds, Tenderness, Epigastrium Edema: No Labs: CBC, BMP 10/28/19 20:40 10/28/19 20:40 INR, PTT INR 1.07 (0.83-1.09) 10/26/19 06:16 - ....Imaging EKG: Report Reviewed (NSR @ 79 LAD RBBB) Problem List - Problems (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 pylori) infection Code(s): A04.8 - OTHER SPECIFIED BACTERIAL INTESTINAL INFECTIONS (6) Postoperative non-ST elevation myocardial infarction (NSTEMI) Code(s): [id number] - Assessment/Plan 10/24/2019 Echo: Normal LV size and fxn, LVEF 60-65%, grade II diastolic dysfunction, mild MR, TR RVSP 33 mmHg, mild GA 1. POD #4: Radical subtotal gastectomy, omentectomy, gastrojejunostomy for Gastric Cancer 2. Acute blood loss anemia 3. H. Pylori 4. Sinus bradycardia, transient 2nd deg AV block post-op since resolved 5. Hypertension 6. Post-op CT , doubt PE PLAN: 1. 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 Treatment for H. pylori, monitor H&H post transfusion, f/u pathology 3. Avoid AV pao blocking agents given sinus bradycardia, add ASA 81 qd, statin and Norvasc 2.5 qd once taking oral 4. Repeat echo to reassess LV fxn, trops downtrending 5. Stress testing may be performed once clinically stable
--- NOTE | 2019-10-29 14:09 | EKG ---
Test Reason : Blood Pressure : / mmHG Vent. Rate : 079 BPM Atrial Rate : 079 BPM P-R Int : 170 ms QRS Dur : 122 ms QT Int : 390 ms P-R-T Axes : 016 -33 -38 degrees QTc Int : 447 ms NORMAL SINUS RHYTHM LEFT AXIS DEVIATION RIGHT BUNDLE BRANCH BLOCK NONSPECIFIC ST AND T WAVE ABNORMALITY ABNORMAL ECG WHEN COMPARED WITH ECG OF 12-OCT-2019 17:52, NONSPECIFIC T WAVE ABNORMALITY NOW EVIDENT IN LATERAL LEADS Confirmed by DAMION SANTOYO MD ([id number]) on 10/29/2019 2:08:52 PM Referred By: Confirmed By:DAMION SANTOYO MD
--- NOTE | 2019-10-29 15:20 | PN ---
Progress Note, Physician - Current Medication List Current Medications: Active Medications Acetaminophen (Ofirmev Injection -) 1,000 mg IVPB Q8H PRN PRN Reason: FEVER Last Admin: 10/29/19 12:44 Dose: 1,000 mg Amoxicillin (Amoxicillin -) 1,000 mg PO BID [facility] Stop: 11/04/19 09:59 Last Admin: 10/29/19 09:22 Dose: Not Given Clarithromycin (Biaxin -) 500 mg PO BID [facility] Stop: 11/04/19 09:59 Last Admin: 10/29/19 09:23 Dose: Not Given Fentanyl (Sublimaze Injection -) 50 mcg IVPUSH [id number] PRN PRN Reason: PAIN-PACU ORDER X 4 DOSES ONLY Heparin Sodium (Porcine) (Heparin -) 5,000 unit SQ BID [facility] Last Admin: 10/29/19 09:24 Dose: 5,000 unit Hydromorphone HCl (Dilaudid Vial -) 2 mg IVPB Q6H PRN PRN Reason: PAIN LEVEL 7 - 10 Lactated Ringer's (Lactated Ringers Solution) 1,000 mls @ 75 mls/hr IV ASDIR [facility] Last Admin: 10/29/19 09:24 Dose: 75 mls/hr Morphine Sulfate (Morphine Sulfate) 3 mg IVPUSH Q4H PRN PRN Reason: PAIN LEVEL 6-10 Ondansetron HCl (Zofran Injection) 4 mg IVPUSH Q6H PRN PRN Reason: NAUSEA AND/OR VOMITING Last Admin: 10/28/19 11:38 Dose: 4 mg Pantoprazole Sodium (Protonix Iv) 40 mg IVPUSH DAILY [facility] Last Admin: 10/29/19 09:24 Dose: 40 mg - Objective Vital Signs: Vital Signs Temperature 98 F 10/29/19 10:00 Pulse Rate 74 10/29/19 10:00 Respiratory Rate 20 10/29/19 10:00 Blood Pressure 150/82 10/29/19 10:00 O2 Sat by Pulse Oximetry (%) 98 10/29/19 09:00 Labs: CBC, BMP 10/28/19 20:40 10/28/19 20:40 INR, PTT INR 1.07 (0.83-1.09) 10/26/19 06:16 Problem List - Problems (1) Symptomatic anemia Code(s): D64.9 - ANEMIA, UNSPECIFIED (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 Assessment/Plan Surgeery: Post op day #4. Patient is comfortable. Abdomen is soft , not distended, not tender. Wound is clean. Greenish bile draining through the NG tube. Has not had a bowel movement, and hasnot passed, flayus. Out of bed . Will clamp NG tube tomorrow, and do gastrograffin study on Thursday. Hematocrit is normal. WBc is improving [id number]. Afebrile.
--- NOTE | 2019-10-29 19:15 | PN ---
Progress Note, Physician History of Present Illness: AWAKE, ALERT IN BED ELEVATED WBC NOTED AFEBRILE NGT IN PLACE - Current Medication List Current Medications: Active Medications Acetaminophen (Ofirmev Injection -) 1,000 mg IVPB Q8H PRN PRN Reason: FEVER Last Admin: 10/29/19 12:44 Dose: 1,000 mg Amoxicillin (Amoxicillin -) 1,000 mg PO BID [facility] Stop: 11/04/19 09:59 Last Admin: 10/29/19 09:22 Dose: Not Given Clarithromycin (Biaxin -) 500 mg PO BID [facility] Stop: 11/04/19 09:59 Last Admin: 10/29/19 09:23 Dose: Not Given Fentanyl (Sublimaze Injection -) 50 mcg IVPUSH [id number] PRN PRN Reason: PAIN-PACU ORDER X 4 DOSES ONLY Heparin Sodium (Porcine) (Heparin -) 5,000 unit SQ BID [facility] Last Admin: 10/29/19 09:24 Dose: 5,000 unit Hydromorphone HCl (Dilaudid Vial -) 2 mg IVPB Q6H PRN PRN Reason: PAIN LEVEL 7 - 10 Lactated Ringer's (Lactated Ringers Solution) 1,000 mls @ 75 mls/hr IV ASDIR [facility] Last Admin: 10/29/19 09:24 Dose: 75 mls/hr Morphine Sulfate (Morphine Sulfate) 3 mg IVPUSH Q4H PRN PRN Reason: PAIN LEVEL 6-10 Ondansetron HCl (Zofran Injection) 4 mg IVPUSH Q6H PRN PRN Reason: NAUSEA AND/OR VOMITING Last Admin: 10/28/19 11:38 Dose: 4 mg Pantoprazole Sodium (Protonix Iv) 40 mg IVPUSH DAILY [facility] Last Admin: 10/29/19 09:24 Dose: 40 mg - Objective Vital Signs: Vital Signs Temperature 97.6 F 10/29/19 17:00 Pulse Rate 63 10/29/19 17:00 Respiratory Rate 20 10/29/19 17:00 Blood Pressure 145/68 10/29/19 17:00 O2 Sat by Pulse Oximetry (%) 98 10/29/19 09:00 Constitutional: Yes: No Distress Cardiovascular: Yes: Regular Rate and Rhythm, S1, S2 Respiratory: Yes: CTA Bilaterally Gastrointestinal: Yes: Normal Bowel Sounds, Other (SURGICAL WOUND INTACT) Labs: CBC, BMP 10/28/19 20:40 10/28/19 20:40 INR, PTT INR 1.07 (0.83-1.09) 10/26/19 06:16 Assessment/Plan GASTRIC ADENOCARCINOMA POST OP GASRECTOMY LEUKOCYTOSIS MONITOR WBC BC, CT ABDO FOR PERSISTANT LEUKOCYTOSIS OR DEVELOPMENT OF FEVER
--- NOTE | 2019-10-29 22:14 | PN ---
Progress Note, Physician - Current Medication List Current Medications: Active Medications Acetaminophen (Ofirmev Injection -) 1,000 mg IVPB Q8H PRN PRN Reason: FEVER Last Admin: 10/29/19 12:44 Dose: 1,000 mg Amoxicillin (Amoxicillin -) 1,000 mg PO BID [facility] Stop: 11/04/19 09:59 Last Admin: 10/29/19 21:43 Dose: Not Given Clarithromycin (Biaxin -) 500 mg PO BID [facility] Stop: 11/04/19 09:59 Last Admin: 10/29/19 21:43 Dose: Not Given Fentanyl (Sublimaze Injection -) 50 mcg IVPUSH [id number] PRN PRN Reason: PAIN-PACU ORDER X 4 DOSES ONLY Heparin Sodium (Porcine) (Heparin -) 5,000 unit SQ BID [facility] Last Admin: 10/29/19 21:44 Dose: 5,000 unit Hydromorphone HCl (Dilaudid Vial -) 2 mg IVPB Q6H PRN PRN Reason: PAIN LEVEL 7 - 10 Lactated Ringer's (Lactated Ringers Solution) 1,000 mls @ 75 mls/hr IV ASDIR [facility] Last Admin: 10/29/19 09:24 Dose: 75 mls/hr Morphine Sulfate (Morphine Sulfate) 3 mg IVPUSH Q4H PRN PRN Reason: PAIN LEVEL 6-10 Ondansetron HCl (Zofran Injection) 4 mg IVPUSH Q6H PRN PRN Reason: NAUSEA AND/OR VOMITING Last Admin: 10/28/19 11:38 Dose: 4 mg Pantoprazole Sodium (Protonix Iv) 40 mg IVPUSH DAILY [facility] Last Admin: 10/29/19 09:24 Dose: 40 mg - Objective Vital Signs: Vital Signs Temperature 97.6 F 10/29/19 17:00 Pulse Rate 63 10/29/19 17:00 Respiratory Rate 20 10/29/19 17:00 Blood Pressure 145/68 10/29/19 17:00 O2 Sat by Pulse Oximetry (%) 98 10/29/19 09:00 Labs: CBC, BMP 10/28/19 20:40 10/28/19 20:40 INR, PTT INR 1.07 (0.83-1.09) 10/26/19 06:16
[2019-10-30] MEDS: CLARITHROMYCIN 500 MG TABLET (UD) PO SCH ×2 (09:54→21:31)
[2019-10-30] MEDS: PANTOPRAZOLE SODIUM 40 MG VIAL IVPUSH SCH (09:54)
[2019-10-30] MEDS: HEPARIN NA (PORCINE) 5,000 UNITS/ML 1ML VIAL SQ SCH ×2 (09:54→21:31)
[2019-10-30] MEDS: AMOXICILLIN 500 MG CAPSULE (FP) PO SCH ×2 (09:54→21:31)
--- NOTE | 2019-10-30 12:39 | PN ---
Progress Note, Physician History of Present Illness: s/p subtotal gastrectomy with improving post-op abdominal discomfort, NGT remains in place to be clamped, samantha gastrograffin study Thursday, no further AV block on telemetry. No SOB or CP, awaiting return of bowel function. Troponins elevated downtrending. - Current Medication List Current Medications: Active Medications Acetaminophen (Ofirmev Injection -) 1,000 mg IVPB Q8H PRN PRN Reason: FEVER Last Admin: 10/29/19 12:44 Dose: 1,000 mg Amoxicillin (Amoxicillin -) 1,000 mg PO BID [facility] Stop: 11/04/19 09:59 Last Admin: 10/30/19 09:54 Dose: Not Given Clarithromycin (Biaxin -) 500 mg PO BID [facility] Stop: 11/04/19 09:59 Last Admin: 10/30/19 09:54 Dose: Not Given Fentanyl (Sublimaze Injection -) 50 mcg IVPUSH [id number] PRN PRN Reason: PAIN-PACU ORDER X 4 DOSES ONLY Heparin Sodium (Porcine) (Heparin -) 5,000 unit SQ BID [facility] Last Admin: 10/30/19 09:54 Dose: 5,000 unit Hydromorphone HCl (Dilaudid Vial -) 2 mg IVPB Q6H PRN PRN Reason: PAIN LEVEL 7 - 10 Lactated Ringer's (Lactated Ringers Solution) 1,000 mls @ 75 mls/hr IV ASDIR [facility] Last Admin: 10/29/19 09:24 Dose: 75 mls/hr Morphine Sulfate (Morphine Sulfate) 3 mg IVPUSH Q4H PRN PRN Reason: PAIN LEVEL 6-10 Ondansetron HCl (Zofran Injection) 4 mg IVPUSH Q6H PRN PRN Reason: NAUSEA AND/OR VOMITING Last Admin: 10/28/19 11:38 Dose: 4 mg Pantoprazole Sodium (Protonix Iv) 40 mg IVPUSH DAILY [facility] Last Admin: 10/30/19 09:54 Dose: 40 mg - Objective Vital Signs: Vital Signs Temperature 98.2 F 10/30/19 09:00 Pulse Rate 68 10/30/19 09:00 Respiratory Rate 18 10/30/19 09:00 Blood Pressure 166/73 10/30/19 09:00 O2 Sat by Pulse Oximetry (%) 94 L 10/30/19 09:00 Constitutional: Yes: No Distress, Calm Neck: Yes: Supple Cardiovascular: Yes: Regular Rate and Rhythm Respiratory: Yes: Regular, CTA Bilaterally Gastrointestinal: Yes: Soft, Hypoactive Bowel Sounds Edema: No Labs: CBC, BMP 10/28/19 20:40 10/28/19 20:40 INR, PTT INR 1.07 (0.83-1.09) 10/26/19 06:16 - ....Imaging EKG: Report Reviewed (Tele: NSR) Problem List - Problems (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 pylori) infection Code(s): A04.8 - OTHER SPECIFIED BACTERIAL INTESTINAL INFECTIONS (6) Postoperative non-ST elevation myocardial infarction (NSTEMI) Code(s): [id number] - Assessment/Plan 10/24/2019 Echo: Normal LV size and fxn, LVEF 60-65%, grade II diastolic dysfunction, mild MR, TR RVSP 33 mmHg, mild [place] 1. POD #5: Radical subtotal gastectomy, omentectomy, gastrojejunostomy for Gastric Cancer 2. Acute blood loss anemia 3. H. Pylori 4. Sinus bradycardia, transient 2nd deg AV block post-op since resolved 5. Hypertension 6. CAD with post-op [place] , doubt PE PLAN: 1. Analgesia as needed, DVT prophylaxis, monitor technician, NGT to [facility], [place] 2. Treatment for H. pylori, monitor H&H post transfusion, f/u pathology 3. Avoid AV pao blocking agents given sinus bradycardia, add ASA 81 qd, statin and Norvasc 2.5 qd once taking oral 4. Repeat echo to reassess LV fxn, trops downtrending 5. Lexiscan Myoview may be performed once clinically stable
[2019-10-30] MEDS: LACTATED RINGERS SOLUTION 1,000 ML IV SCH (15:30)
[2019-10-30] MEDS ORDERED: PT OWN MED DRAWER 7, Y5N ONE (21:02)
--- NOTE | 2019-10-30 21:55 | PN ---
Progress Note, Physician Chief Complaint: No new complaints - Current Medication List Current Medications: Active Medications Acetaminophen (Ofirmev Injection -) 1,000 mg IVPB Q8H PRN PRN Reason: FEVER Last Admin: 10/29/19 12:44 Dose: 1,000 mg Amoxicillin (Amoxicillin -) 1,000 mg PO BID [facility] Stop: 11/04/19 09:59 Last Admin: 10/30/19 21:31 Dose: Not Given Clarithromycin (Biaxin -) 500 mg PO BID [facility] Stop: 11/04/19 09:59 Last Admin: 10/30/19 21:31 Dose: Not Given Fentanyl (Sublimaze Injection -) 50 mcg IVPUSH [id number] PRN PRN Reason: PAIN-PACU ORDER X 4 DOSES ONLY Heparin Sodium (Porcine) (Heparin -) 5,000 unit SQ BID [facility] Last Admin: 10/30/19 21:31 Dose: 5,000 unit Hydromorphone HCl (Dilaudid Vial -) 2 mg IVPB Q6H PRN PRN Reason: PAIN LEVEL 7 - 10 Lactated Ringer's (Lactated Ringers Solution) 1,000 mls @ 75 mls/hr IV ASDIR [facility] Last Admin: 10/30/19 15:30 Dose: 75 mls/hr Morphine Sulfate (Morphine Sulfate) 3 mg IVPUSH Q4H PRN PRN Reason: PAIN LEVEL 6-10 Ondansetron HCl (Zofran Injection) 4 mg IVPUSH Q6H PRN PRN Reason: NAUSEA AND/OR VOMITING Last Admin: 10/28/19 11:38 Dose: 4 mg Pantoprazole Sodium (Protonix Iv) 40 mg IVPUSH DAILY [facility] Last Admin: 10/30/19 09:54 Dose: 40 mg - Objective Vital Signs: Vital Signs Temperature 97.6 F 10/30/19 17:00 Pulse Rate 71 10/30/19 17:00 Respiratory Rate 20 10/30/19 17:00 Blood Pressure 163/80 10/30/19 17:00 O2 Sat by Pulse Oximetry (%) 94 L 10/30/19 09:00 Constitutional: Yes: Other (NGT in place) Cardiovascular: Yes: WNL, Regular Rate and Rhythm Respiratory: Yes: WNL, Regular, CTA Bilaterally Gastrointestinal: Yes: WNL, Normal Bowel Sounds, Soft Labs: CBC, BMP 10/28/19 20:40 12/20/19 20:40 INR, PTT INR 1.07 (0.83-1.09) 10/26/19 06:16 Problem List - Problems (1) Gastric carcinoma Assessment/Plan: S/P gastrectomy Cont IV protonix As per surgery Pt for UGI series in am NGT Code(s): C16.9 - MALIGNANT NEOPLASM OF STOMACH, UNSPECIFIED (2) Helicobacter pylori (H. pylori) infection Assessment/Plan: Cont amoxicillin/biaxin Code(s): A04.8 - OTHER SPECIFIED BACTERIAL INTESTINAL INFECTIONS (3) Postoperative non-ST elevation myocardial infarction (NSTEMI) Code(s): RVC4201 - (4) Symptomatic anemia Assessment/Plan: Monitor H/H Code(s): D64.9 - ANEMIA, UNSPECIFIED
[2019-10-31 07:12] LABS: ALBUMIN 2.4 g/dl (3.4-5.0); BILIRUBIN,TOTAL 1.6 mg/dL (0.2-1); BLOOD UREA NITROGEN 17.2 mg/dL (7-18); CALCIUM 10.2 mg/dL (8.5-10.1); CREATININE 0.7 mg/dL (0.55-1.3); POTASSIUM 3.2 mmol/L (3.5-5.1); TOT PROT 5.3 g/dl (6.4-8.2)
[2019-10-31 08:21] LABS: BASO % 0.4 % (0-2.0); EOS % 1.9 % (0-4.5); HEMATOCRIT 33.7 % (35.4-49); LYMPH % 7.1 % (8-40); MCH 21.1 pg (25.7-33.7); MCHC 29.8 g/dl (32.0-35.9); MEAN PLT VOLUME 8.8 fl (7.5-11.1); MONO % 9.1 % (3.8-10.2); NEUT % 81.5 % (42.8-82.8); PLATELET COUNT 300 K/MM3 (134-434); RBC 4.75 M/mm3 (4.00-5.60); WHITE BLOOD COUNT 5.5 K/mm3 (4.0-10.0)
[2019-10-31] MEDS: AMOXICILLIN 500 MG CAPSULE (FP) PO SCH ×2 (10:00→22:40)
[2019-10-31] MEDS: CLARITHROMYCIN 500 MG TABLET (UD) PO SCH ×2 (10:06→22:40)
--- NOTE | 2019-10-31 10:09 | PN ---
Progress Note, Physician History of Present Illness: s/p subtotal gastrectomy with improving post-op abdominal discomfort, NGT remains in place to be clamped, for gastrograffin study today, no further AV block on telemetry. No SOB or CP, awaiting return of bowel function. Elevated troponins downtrending. - Current Medication List Current Medications: Active Medications Acetaminophen (Ofirmev Injection -) 1,000 mg IVPB Q8H PRN PRN Reason: FEVER Last Admin: 10/29/19 12:44 Dose: 1,000 mg Amoxicillin (Amoxicillin -) 1,000 mg PO BID [facility] Stop: 11/04/19 09:59 Last Admin: 10/30/19 21:31 Dose: Not Given Clarithromycin (Biaxin -) 500 mg PO BID [facility] Stop: 11/04/19 09:59 Last Admin: 10/30/19 21:31 Dose: Not Given Heparin Sodium (Porcine) (Heparin -) 5,000 unit SQ BID [facility] Last Admin: 10/30/19 21:31 Dose: 5,000 unit Lactated Ringer's (Lactated Ringers Solution) 1,000 mls @ 75 mls/hr IV ASDIR [facility] Last Admin: 10/30/19 15:30 Dose: 75 mls/hr Morphine Sulfate (Morphine Sulfate) 3 mg IVPUSH Q4H PRN PRN Reason: PAIN LEVEL 6-10 Ondansetron HCl (Zofran Injection) 4 mg IVPUSH Q6H PRN PRN Reason: NAUSEA AND/OR VOMITING Last Admin: 10/28/19 11:38 Dose: 4 mg Pantoprazole Sodium (Protonix Iv) 40 mg IVPUSH DAILY [facility] Last Admin: 10/30/19 09:54 Dose: 40 mg - Objective Vital Signs: Vital Signs Temperature 98.2 F 10/31/19 06:00 Pulse Rate 66 10/31/19 06:00 Respiratory Rate 20 10/31/19 06:00 Blood Pressure 167/74 10/31/19 06:00 O2 Sat by Pulse Oximetry (%) 95 10/30/19 21:00 Constitutional: Yes: No Distress, Calm Neck: Yes: Supple Cardiovascular: Yes: Regular Rate and Rhythm Respiratory: Yes: Regular, CTA Bilaterally Gastrointestinal: Yes: Soft, Hypoactive Bowel Sounds Edema: No Labs: CBC, BMP 10/31/19 05:45 10/31/19 06:00 INR, PTT INR 1.07 (0.83-1.09) 10/26/19 06:16 - ....Imaging EKG: Report Reviewed Problem List - Problems (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 pylori) infection Code(s): A04.8 - OTHER SPECIFIED BACTERIAL INTESTINAL INFECTIONS (6) Postoperative non-ST elevation myocardial infarction (NSTEMI) Code(s): [id number] - Assessment/Plan 10/24/2019 Echo: Normal LV size and fxn, LVEF 60-65%, grade II diastolic dysfunction, mild MR, TR RVSP 33 mmHg, mild [place] 1. POD #6: Radical subtotal gastectomy, omentectomy, gastrojejunostomy for Gastric Cancer 2. Acute blood loss anemia 3. H. Pylori 4. Sinus bradycardia, transient 2nd deg AV block post-op since resolved 5. Hypertension 6. CAD with post-op [place] , doubt PE 7. Hypernatremia PLAN: 1. Analgesia as needed, DVT prophylaxis, quality assurance monitor final, NGT clamped pending gastrograffin study, IS, free H20 repletion, replete K 2. Treatment for H. pylori, monitor H&H post transfusion, f/u pathology 3. Avoid AV pao blocking agents given sinus bradycardia, add ASA 81 qd, statin and Norvasc 2.5 qd once taking oral 4. Repeat echo to reassess LV fxn, trops downtrending 5. Lexiscan Myoview may be performed once clinically stable
[2019-10-31 10:26] LABS: ANISOCYTOSIS 2+; MACROCYTOSIS 0; PLATELET ESTIMATE NORMAL; TEAR DROP CELLS 1+
[2019-10-31] MEDS: HEPARIN NA (PORCINE) 5,000 UNITS/ML 1ML VIAL SQ SCH ×2 (12:21→22:40)
[2019-10-31] MEDS: PANTOPRAZOLE SODIUM 40 MG VIAL IVPUSH SCH (12:21)
[2019-10-31] MEDS: LACTATED RINGERS SOLUTION 1,000 ML IV SCH (13:06)
--- NOTE | 2019-10-31 14:39 | ECHO ---
Name: BITA YOON Exam:Adult Echocardiogram Study Date: 10/31/2019 07:26 AM Age: 79 yrs Reason For Study: postMI lv fx Height: 63 in Weight: 136 lb BSA: 1.6 m2 Procedure A complete two-dimensional transthoracic echocardiogram was performed (2D, M-mode, Doppler and color flow Doppler). Left Ventricle The left ventricle is normal in size. Left ventricular systolic function is normal. Ejection Fraction = 65- 70%. LV diastology reveals impaired relaxation with normal filling pressure (E/E' 14). No regional wa ll motion abnormalities noted. Right Ventricle The right ventricle is normal size. The right ventricular systolic function is normal. Atria The left atrial size is normal. Right atrial size is normal. Mitral Valve There is mild mitral annular calcification. There is mild mitral regurgitation. Tricuspid Valve The tricuspid valve is normal in structure and function. There is mild tricuspid regurgitation. Pulmo nary artery systolic pressure is at least 29 mmHg if RA pressure is assumed 3 mmHg. Aortic Valve There is mild aortic sclerosis.;. No aortic regurgitation is present. Pulmonic Valve The pulmonic valve is not well visualized. Great Vessels Moderate aortic root dilatation. Pericardium/Pleura There is no pericardial effusion. Interpretation Summary The left ventricle is normal in size. Left ventricular systolic function is normal. No regional wall motion abnormalities noted. Ejection Fraction = 65-70%. LV diastology reveals impaired relaxation with normal filling pressure (E/E' 14) The right ventricular systolic function is normal. The left atrial size is normal. Right atrial size is normal. There is mild mitral annular calcification. There is mild mitral regurgitation. There is mild tricuspid regurgitation. Pulmonary artery systolic pressure is at least 29 mmHg if RA pressure is assumed 3 mmHg There is mild aortic sclerosis. Moderate aortic root dilatation. There is no pericardial effusion. Jose Burch MD 10/31/2019 02:39 PM
--- NOTE | 2019-10-31 16:12 | PN ---
Progress Note, Physician History of Present Illness: no bm no gas - Current Medication List Current Medications: Active Medications Acetaminophen (Ofirmev Injection -) 1,000 mg IVPB Q8H PRN PRN Reason: FEVER Last Admin: 10/29/19 12:44 Dose: 1,000 mg Amoxicillin (Amoxicillin -) 1,000 mg PO BID [facility] Stop: 11/04/19 09:59 Last Admin: 10/31/19 10:00 Dose: Not Given Clarithromycin (Biaxin -) 500 mg PO BID [facility] Stop: 11/04/19 09:59 Last Admin: 10/31/19 10:06 Dose: Not Given Heparin Sodium (Porcine) (Heparin -) 5,000 unit SQ BID [facility] Last Admin: 10/31/19 12:21 Dose: 5,000 unit Lactated Ringer's (Lactated Ringers Solution) 1,000 mls @ 75 mls/hr IV ASDIR [facility] Last Admin: 10/31/19 13:06 Dose: 75 mls/hr Morphine Sulfate (Morphine Sulfate) 3 mg IVPUSH Q4H PRN PRN Reason: PAIN LEVEL 6-10 Ondansetron HCl (Zofran Injection) 4 mg IVPUSH Q6H PRN PRN Reason: NAUSEA AND/OR VOMITING Last Admin: 10/28/19 11:38 Dose: 4 mg Pantoprazole Sodium (Protonix Iv) 40 mg IVPUSH DAILY [facility] Last Admin: 10/31/19 12:21 Dose: 40 mg - Objective Vital Signs: Vital Signs Temperature 98.2 F 10/31/19 14:00 Pulse Rate 82 10/31/19 14:00 Respiratory Rate 20 10/31/19 06:00 Blood Pressure 149/87 10/31/19 14:00 O2 Sat by Pulse Oximetry (%) 95 10/30/19 21:00 Constitutional: Yes: No Distress HENT: Yes: Atraumatic Neck: Yes: Supple Cardiovascular: Yes: Regular Rate and Rhythm Respiratory: Yes: CTA Bilaterally Gastrointestinal: Yes: Hypoactive Bowel Sounds, Tenderness (at the site of surgery) Extremities: Yes: WNL Edema: No Peripheral Pulses WNL: Yes Neurological: Yes: Alert, Oriented Labs: CBC, BMP 10/31/19 05:45 10/31/19 06:00 INR, PTT INR 1.07 (0.83-1.09) 10/26/19 06:16 Problem List - Problems (1) Symptomatic anemia Assessment/Plan: s/p subtotal gastrectomy post op day#5 Code(s): D64.9 - ANEMIA, UNSPECIFIED (2) Gastric carcinoma Assessment/Plan: s/p surgery pod #5 npo ivf dvt ppx ngt in place need to knw from surgery if we can feed him Code(s): C16.9 - MALIGNANT NEOPLASM OF STOMACH, UNSPECIFIED (3) Helicobacter pylori (H. pylori) infection Code(s): A04.8 - OTHER SPECIFIED BACTERIAL INTESTINAL INFECTIONS (4) Hypertension Assessment/Plan: on meds monitor troponins trending down Code(s): I10 - ESSENTIAL (PRIMARY) HYPERTENSION Qualifiers: Hypertension type: essential hypertension Qualified Code(s): I10 - Essential (primary) hypertension (5) Pre-operative cardiovascular examination, bradycardia Code(s): Z01.810 - ENCOUNTER FOR PREPROCEDURAL CARDIOVASCULAR EXAMINATION; R00.1 - BRADYCARDIA, UNSPECIFIED (6) Postoperative non-ST elevation myocardial infarction (NSTEMI) Code(s): [id number] -
--- NOTE | 2019-10-31 16:37 | PN ---
Progress Note, Physician - Current Medication List Current Medications: Active Medications Acetaminophen (Ofirmev Injection -) 1,000 mg IVPB Q8H PRN PRN Reason: FEVER Last Admin: 10/29/19 12:44 Dose: 1,000 mg Amoxicillin (Amoxicillin -) 1,000 mg PO BID [facility] Stop: 11/04/19 09:59 Last Admin: 10/31/19 10:00 Dose: Not Given Clarithromycin (Biaxin -) 500 mg PO BID [facility] Stop: 11/04/19 09:59 Last Admin: 10/31/19 10:06 Dose: Not Given Heparin Sodium (Porcine) (Heparin -) 5,000 unit SQ BID [facility] Last Admin: 10/31/19 12:21 Dose: 5,000 unit Lactated Ringer's (Lactated Ringers Solution) 1,000 mls @ 75 mls/hr IV ASDIR [facility] Last Admin: 10/31/19 13:06 Dose: 75 mls/hr Morphine Sulfate (Morphine Sulfate) 3 mg IVPUSH Q4H PRN PRN Reason: PAIN LEVEL 6-10 Ondansetron HCl (Zofran Injection) 4 mg IVPUSH Q6H PRN PRN Reason: NAUSEA AND/OR VOMITING Last Admin: 10/28/19 11:38 Dose: 4 mg Pantoprazole Sodium (Protonix Iv) 40 mg IVPUSH DAILY [facility] Last Admin: 10/31/19 12:21 Dose: 40 mg - Objective Vital Signs: Vital Signs Temperature 98.2 F 10/31/19 14:00 Pulse Rate 82 10/31/19 14:00 Respiratory Rate 20 10/31/19 06:00 Blood Pressure 149/87 10/31/19 14:00 O2 Sat by Pulse Oximetry (%) 95 10/30/19 21:00 Labs: CBC, BMP 10/31/19 05:45 10/31/19 06:00 INR, PTT INR 1.07 (0.83-1.09) 10/26/19 06:16 Problem List - Problems (1) Symptomatic anemia Code(s): D64.9 - ANEMIA, UNSPECIFIED (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 Abdomen is soft. Wound is clean. Resume oral feeding.
[2019-10-31] MEDS ORDERED: PT OWN MED DRAWER 7, Y5N ONE (21:17)
[2019-11-01] MEDS ORDERED: PT OWN MED DRAWER 7, Y5N ONE ×2 (09:17→21:32)
[2019-11-01] MEDS: HEPARIN NA (PORCINE) 5,000 UNITS/ML 1ML VIAL SQ SCH ×2 (10:14→21:45)
[2019-11-01] MEDS: CLARITHROMYCIN 500 MG TABLET (UD) PO SCH ×2 (10:14→21:45)
[2019-11-01] MEDS: PANTOPRAZOLE SODIUM 40 MG VIAL IVPUSH SCH (10:14)
[2019-11-01] MEDS: AMOXICILLIN 500 MG CAPSULE (FP) PO SCH ×2 (10:14→21:45)
[2019-11-01] MEDS: LACTATED RINGERS SOLUTION 1,000 ML IV SCH (10:14)
--- NOTE | 2019-11-01 10:37 | PN ---
Progress Note, Physician History of Present Illness: s/p subtotal gastrectomy with improving post-op abdominal discomfort, UGI series shows passage of contrast into small bowel, oral feeding resume, no further AV block on telemetry. No SOB or CP, awaiting return of bowel function. Elevated troponins downtrending. - Current Medication List Current Medications: Active Medications Acetaminophen (Ofirmev Injection -) 1,000 mg IVPB Q8H PRN PRN Reason: FEVER Last Admin: 10/29/19 12:44 Dose: 1,000 mg Amoxicillin (Amoxicillin -) 1,000 mg PO BID [facility] Stop: 11/04/19 09:59 Last Admin: 11/01/19 10:14 Dose: 1,000 mg Clarithromycin (Biaxin -) 500 mg PO BID [facility] Stop: 11/04/19 09:59 Last Admin: 11/01/19 10:14 Dose: 500 mg Heparin Sodium (Porcine) (Heparin -) 5,000 unit SQ BID [facility] Last Admin: 11/01/19 10:14 Dose: 5,000 unit Lactated Ringer's (Lactated Ringers Solution) 1,000 mls @ 75 mls/hr IV ASDIR [facility] Last Admin: 11/01/19 10:14 Dose: 75 mls/hr Morphine Sulfate (Morphine Sulfate) 3 mg IVPUSH Q4H PRN PRN Reason: PAIN LEVEL 6-10 Ondansetron HCl (Zofran Injection) 4 mg IVPUSH Q6H PRN PRN Reason: NAUSEA AND/OR VOMITING Last Admin: 10/28/19 11:38 Dose: 4 mg Pantoprazole Sodium (Protonix Iv) 40 mg IVPUSH DAILY [facility] Last Admin: 11/01/19 10:14 Dose: 40 mg - Objective Vital Signs: Vital Signs Temperature 98.3 F 11/01/19 08:40 Pulse Rate 73 11/01/19 08:40 Respiratory Rate 20 11/01/19 08:40 Blood Pressure 183/80 H 11/01/19 08:40 O2 Sat by Pulse Oximetry (%) 97 11/01/19 08:39 Constitutional: Yes: No Distress, Calm Neck: Yes: Supple Cardiovascular: Yes: Regular Rate and Rhythm Respiratory: Yes: Regular, CTA Bilaterally Gastrointestinal: Yes: Soft, Hypoactive Bowel Sounds Edema: No Wound/Incision: Yes: Sutures Intact (Tele: NSR) Labs: CBC, BMP 10/31/19 05:45 10/31/19 06:00 INR, PTT INR 1.07 (0.83-1.09) 10/26/19 06:16 Problem List - Problems (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 pylori) infection Code(s): A04.8 - OTHER SPECIFIED BACTERIAL INTESTINAL INFECTIONS (6) Postoperative non-ST elevation myocardial infarction (NSTEMI) Code(s): [id number] - Assessment/Plan 10/31/2019 Echo: Normal LV size and fxn, LVEF 65-70%, normal RV size and fxn, mild MR, TR RVSP 29 mmHg, mod ao dilatation 10/24/2019 Echo: Normal LV size and fxn, LVEF 60-65%, grade II diastolic dysfunction, mild [place], TR RVSP 33 mmHg, mild [place] 1. POD #7: Radical subtotal gastectomy, omentectomy, gastrojejunostomy for Gastric Cancer 2. Acute blood loss anemia 3. H. Pylori 4. Sinus bradycardia, transient 2nd deg AV block post-op since resolved 5. Hypertension, BP elevated 6. CAD with post-op [place] , doubt PE 7. Hypernatremia PLAN: 1. Analgesia as needed, DVT prophylaxis, monitoring coordinator, started clears per surgery, IS, free H20 repletion, replete K 2. Treatment for H. pylori, monitor H&H post transfusion, f/u pathology 3. Avoid AV pao blocking agents given sinus bradycardia, add ASA 81 qd, statin and Norvasc 2.5 qd once taking oral 4. Lexiscan Myoview may be performed once clinically stable
[2019-11-01] MEDS: POTASSIUM CHLORIDE TABS 20 MEQ TABLET.ER (FP) PO SCH ×2 (11:19→13:13)
[2019-11-01] MEDS: amLODIPine BESYLATE 2.5 MG TABLET (FP) PO SCH (11:19)
--- NOTE | 2019-11-01 12:34 | PATH ---
Surgical Pathology Report Patient Name: BITA YO[facility]. Rec. #: [id number] /Age/Gender: 1940 (Age: 79) / M Account: [id number] Location: 4 W TELEMETRY U Taken: 10/26/2019 Received: 10/27/2019 Reported: 11/01/2019 Physicians: Dianne Phillips M.D. Christopher DiGiorno, D.O. Specimen(s) Received PORTION OF STOMACH AND OMENTUM Clinical History Secondary anemia, gastric carcinoma Final Diagnosis PORTION OF STOMACH AND OMENTUM, RADICAL SUBTOTAL GASTRECTOMY: ADENOCARCINOMA, INTESTINAL TYPE (OSCAR CLASSIFICATION), MODERATELY DIFFERENTIATED (G2), WITH FOCAL MUCINOUS FEATURES. TUMOR MEASURES 7 X 3.8 CM (GROSS MEASUREMENT) AND PRESENT IN ANTRUM. TUMOR INVADES INTO THE MUSCULARIS PROPRIA. LYMPHOVASCULAR INVASION IDENTIFIED. SURGICAL MARGINS ARE NEGATIVE (PROXIMAL, DISTAL, OMENTAL/RADIAL). TWO OF SIXTEEN LYMPH NODES WITH METASTATIC CARCINOMA (> 2 MM, 2/16). LARGEST TUMOR DEPOSIT MEASURES 1.1 CM IN GREATEST MICROSCOPIC DIMENSION. EXTRANODAL EXTENSION IDENTIFIED. SIX (6) LYMPH NODES WITH ISOLATED TUMOR CELL CLUSTERS (<0.2 MM), ON H&E AND CONFIRMED BY AE1/3 IMMUNOHISTOCHEMICAL STAINS. REMAINDER OF STOMACH SHOWS HYPERPLASTIC POLYPS, SEVERE CHRONIC ACTIVE GASTRITIS, AND EXTENSIVE INTESTINAL METAPLASIA. IMMUNOHISTOCHEMICAL STAIN FOR H. PYLORI IS NEGATIVE. AJCC TNM STAGE (8TH EDITION): pT2 pN1. SEE CASE SUMMARY BELOW. SEE COMMENT. Comment: Immunohistochemical stains performed and interpreted at [facility] show AE1/3 highlights isolated tumor cell clusters (<0.2 MM) on six lymph nodes. Positive and negative controls (internal if applicable) show appropriate results. Comments Surgical Pathology Cancer Case Summary (Based on AJCC TNM 8th Edition) Procedure _X_ Other (specify): Radical subtotal gastrectomy Tumor Site _X_ Antrum (Per report) Tumor Size (gross measurement) Greatest dimension (centimeters): 7 cm Additional dimensions (centimeters): 3.8 cm Histologic Type _X_ Adenocarcinoma Oscar classification of adenocarcinoma: _X_ Intestinal type Histologic Grade _X_ G2: Moderately differentiated Tumor Extension _X_ Tumor invades the muscularis propria Margins _X_ All margins are uninvolved by invasive carcinoma and dysplasia Margins examined: proximal, distal, omental/radial Treatment Effect _X_ No known presurgical therapy Lymphovascular Invasion _X_ Not identified Regional Lymph Nodes (> 2 mm) Number of Lymph Nodes Involved: 2 Number of Lymph Nodes Examined: 16 Pathologic Stage Classification (pTNM, AJCC 8th Edition) Primary Tumor (pT) _X_ pT2: Tumor invades the muscularis propria Regional Lymph Nodes (pN) _X_ pN1: Metastasis in one or two regional lymph nodes Additional Pathologic Findings _X_ Intestinal metaplasia _X_ Polyp(s) (type): Hyperplastic polyps _X_ Other (specify): chronic active gastritis Ancillary Studies HER2 IHC and FISH Analysis performed at [facility], [place], [place] and interpreted at [facility], [place], [place] (#[id number]) performed on prior biopsy specimen ([id number]) shows the following: MARKER RESULT INTERPRETATION Her2 IHC ([facility] anti-Her-2/gil (4B5) rabbit monoclonal antibody): 2+ Equivocal HER2/CEP17 2.0 Positive FINAL HER2 Interpretation Positive HER2 IHC Uniform Staining: Absent Homogeneous, dark circumferential pattern: Absent HER2 FISH Average HER2 copy number: 4.68 Average CEP17 copy number: 2.38 Ratio of average HER2/CEP17: 2.0 Electronically Signed Jeanne Carrizales M.D. Gross Description Received fresh labeled "portion of stomach and omentum," is a 14.5 x 5.5 x 5.0 cm portion of stomach with 2 stapled mucosal margins. The specimen displays moderate attached perigastric fat and a 40.0 x 13.5 x 1.8 cm unremarkable portion of omentum. The serosa is durán-pink and smooth. The mucosa displays a 7.0 x 3.8 cm durán, polypoid mass. The mass is 4.5 cm from proximal and 6 cm from distal stapled margins. The mass invades the muscularis. No definite invasion through the serosa is identified. The remaining mucosa displays multiple small mucosal polyps averaging 0.2 cm in greatest dimension. The proximal margin staple line is inked blue and the distal margin staple line is inked green. The gastric lining is thickened and focally edematous. Sectioning of the perigastric fat reveals multiple lymph nodes, measuring up to 1.4 cm in greatest dimension. Production Estimator sections are submitted in 33 cassettes as follows: 6-5-pgtixlms margin; 4-5-distal margin; 6-7-one bisected section of mass to deep margin; 1-15-yiliqphktw sections of mass to deep margin; 12-mass to normal mucosa; 13-mucosal polyps 1 cm from mass; 14-mucosal polyps 2 cm from mass; 18-25-fmsygdnwrk mucosa; 17-omentum; 18-21-one bisected lymph node each; 22-33-one whole possible lymph node each. 10/27/2019 saudi10/27/2019
--- NOTE | 2019-11-01 15:35 | PN ---
Progress Note, Physician - Current Medication List Current Medications: Active Medications Acetaminophen (Ofirmev Injection -) 1,000 mg IVPB Q8H PRN PRN Reason: FEVER Last Admin: 10/29/19 12:44 Dose: 1,000 mg Amlodipine Besylate (Norvasc -) 2.5 mg PO DAILY [facility] Last Admin: 11/01/19 11:19 Dose: 2.5 mg Amoxicillin (Amoxicillin -) 1,000 mg PO BID [facility] Stop: 11/04/19 09:59 Last Admin: 11/01/19 10:14 Dose: 1,000 mg Aspirin (Asa -) 81 mg PO DAILY [facility] Atorvastatin Calcium (Lipitor -) 20 mg PO HS [facility] Clarithromycin (Biaxin -) 500 mg PO BID [facility] Stop: 11/04/19 09:59 Last Admin: 11/01/19 10:14 Dose: 500 mg Heparin Sodium (Porcine) (Heparin -) 5,000 unit SQ BID [facility] Last Admin: 11/01/19 10:14 Dose: 5,000 unit Lactated Ringer's (Lactated Ringers Solution) 1,000 mls @ 75 mls/hr IV ASDIR [facility] Last Admin: 11/01/19 10:14 Dose: 75 mls/hr Morphine Sulfate (Morphine Sulfate) 3 mg IVPUSH Q4H PRN PRN Reason: PAIN LEVEL 6-10 Ondansetron HCl (Zofran Injection) 4 mg IVPUSH Q6H PRN PRN Reason: NAUSEA AND/OR VOMITING Last Admin: 10/28/19 11:38 Dose: 4 mg Pantoprazole Sodium (Protonix Iv) 40 mg IVPUSH DAILY [facility] Last Admin: 11/01/19 10:14 Dose: 40 mg - Objective Vital Signs: Vital Signs Temperature 98.3 F 11/01/19 08:40 Pulse Rate 73 11/01/19 08:40 Respiratory Rate 20 11/01/19 08:40 Blood Pressure 183/80 H 11/01/19 08:40 O2 Sat by Pulse Oximetry (%) 97 11/01/19 08:39 Labs: CBC, BMP 10/31/19 05:45 10/31/19 06:00 INR, PTT INR 1.07 (0.83-1.09) 10/26/19 06:16 Problem List - Problems (1) Symptomatic anemia Code(s): D64.9 - ANEMIA, UNSPECIFIED (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 Alternate abhay are removed. having bowel movements, and tolerating diet. Advised on postgastrectomy diet , and avoidance of very sugary or malted food to avoid postgastrectomy syndromes. Advised to have small frequent , soft feeds. I have explained to his son Lloyd. Medical oncology follow up . Final pathology is pending.
--- NOTE | 2019-11-01 19:50 | PN ---
Physical Exam: SUBJECTIVE: Patient was seen and examined at bedside this evening. POD #7: Radical subtotal gastectomy, omentectomy, gastrojejunostomy for gastric cancer He denies chest pain or shortness of breath. He reports mild abdominal pain.He denies nausea or vomiting. Patient is doing well. OBJECTIVE: Vital Signs Period Temp Pulse Resp BP Sys/Newman Pulse Ox Last 24 Hr 97.6 F-99 F 59-79 20-20 146-183/71-85 97-97 GENERAL: awake alert and fully oriented no acute distress HEAD: normal EYES: PERRL, extraocular movements intact ENT: ears normal nares patent oropharynx clear without exudates moist mucous membranes NECK: supple no JVD LUNGS: breath sounds equal clear to auscultation bilaterally no wheezes no crackles no accessory muscle use HEART: regular rate and rhythm S1 S2 present ABDOMEN: soft nontender on light palpation normoactive bowel sounds EXTREMITIES: 2+ pulses warm on palpation well-perfused no pitting edema NEUROLOGICAL: normal speech no facial droop no facial grimace gait not observed PSYCH: normal mood and affect SKIN: warm dry normal turgor no rashes or lesions Active Medications Generic Name Dose Route Start Last Admin Trade Name Freq PRN Reason Stop Dose Admin Acetaminophen 1,000 mg 10/28/19 03:39 10/29/19 12:44 Ofirmev Injection - IVPB 1,000 mg Q8H PRN Administration FEVER Amlodipine Besylate 2.5 mg 11/01/19 10:45 11/01/19 11:19 Norvasc - PO 2.5 mg DAILY [facility] Administration Amoxicillin 1,000 mg 10/28/19 10:00 11/01/19 10:14 Amoxicillin - PO 11/04/19 09:59 1,000 mg BID [facility] Administration Aspirin 81 mg 11/02/19 10:00 Asa - PO DAILY [facility] Atorvastatin Calcium 20 mg 11/01/19 22:00 Lipitor - PO HS [facility] Clarithromycin 500 mg 10/28/19 10:00 11/01/19 10:14 Biaxin - PO 11/04/19 09:59 500 mg BID [facility] Administration Heparin Sodium (Porcine) 5,000 unit 10/28/19 22:00 11/01/19 10:14 Heparin - SQ 5,000 unit BID [facility] Administration Lactated Ringer's 1,000 mls @ 75 mls/hr 10/28/19 03:39 11/01/19 10:14 Lactated Ringers Solution IV 75 mls/hr ASDIR [facility] Administration Morphine Sulfate 3 mg 10/28/19 03:39 Morphine Sulfate IVPUSH Q4H PRN PAIN LEVEL 6-10 Ondansetron HCl 4 mg 10/28/19 03:39 10/28/19 11:38 Zofran Injection IVPUSH 4 mg Q6H PRN Administration NAUSEA AND/OR VOMITING Pantoprazole Sodium 40 mg 10/28/19 10:00 11/01/19 10:14 Protonix Iv IVPUSH 40 mg DAILY [facility] Administration ASSESSMENT/PLAN: 79 year old mainly Persian speaking male who is POD #7 radical subtotal gastectomy, omentectomy, gastrojejunostomy for gastric cancer. #1 POD #7 radical subtotal gastectomy, omentectomy, gastrojejunostomy for gastric cancer He is recovering nicely. He is tolerating post gastrectomy diet well and passing stool. [place] were removed today by Surgery and abdominal dressing in place. He is currently hemodynamically stable and afebrile. No leukocytosis. Continue with oral amoxacillin and biaxin Anemia improved Continue with IV protonix, zofran prn with monitoring of QTc interval, morphine IV for severe pain and IV tylenol for mild to moderate pain Medical oncology follow up upon discharge Final pathology is pending #2 Sinus bradycardia/Transient 2nd Degree AV block post-op Resolved Cardiology following- Dr. Sevilla On telemetry maintaining a normal sinus rhythm Continue with amlodipine for bp control #3 Hypertension BP elevated Continue w/ amlodipine 2.5mg once daily #4 Coronary Artery Disease with post-op MD Elevated troponin and trending downwards Asymptomatic of chest pain Cardiology following, recommended lexiscan stress test once medically stable Continue with aspirin and statin therapy #5 Hypokalemia repleted 11/01 Continue to monitor on telemetry for ventricular ectopy Repeat BMP in am #6 Hypernatremia IVF LR infusing at 75cc/hr DVT Prophylaxsis Continue with heparin sq injections FEN Continue w/ LR at 75cc/hr Monitor BMP daily Continue with gastrectomy diet Visit type - Emergency Visit Emergency Visit: No - New Patient This patient is new to me today: Yes Date on this admission: 11/01/19 - Critical Care Critical Care patient: No - Discharge Referral Referred to [facility] Med [facility].C.: No
[2019-11-01] MEDS: ATORVASTATIN CA 20 MG TABLET (FP) PO SCH (21:45)
[2019-11-02] MEDS ORDERED: METOCLOPRAMIDE HCL INJECTION 10 MG/2 ML VIAL IVPUSH ONE (05:38)
[2019-11-02] MEDS: LACTATED RINGERS SOLUTION 1,000 ML IV SCH (06:25)
[2019-11-02 07:12] LABS: HEMATOCRIT 33.5 % (35.4-49); MCH 21.2 pg (25.7-33.7); MEAN CELL VOLUME 70.8 fl (80-96); MEAN PLT VOLUME 9.1 fl (7.5-11.1); PLATELET COUNT 284 K/MM3 (134-434); RBC 4.73 M/mm3 (4.00-5.60); RDW 27.1 % (11.9-15.9); WHITE BLOOD COUNT 7.5 K/mm3 (4.0-10.0)
[2019-11-02 07:36] LABS: ALBUMIN 2.4 g/dl (3.4-5.0); BILIRUBIN,TOTAL 0.7 mg/dL (0.2-1); BLOOD UREA NITROGEN 11.4 mg/dL (7-18); CALCIUM 10.2 mg/dL (8.5-10.1); CREATININE 0.7 mg/dL (0.55-1.3); TOT PROT 5.4 g/dl (6.4-8.2)
[2019-11-02 07:40] LABS: POTASSIUM 2.8 mmol/L (3.5-5.1)
[2019-11-02] MEDS ORDERED: PT OWN MED DRAWER 7, Y5N ONE (07:41)
[2019-11-02] MEDS: amLODIPine BESYLATE 2.5 MG TABLET (FP) PO SCH (09:31)
[2019-11-02] MEDS: AMOXICILLIN 500 MG CAPSULE (FP) PO SCH ×2 (09:31→21:28)
[2019-11-02] MEDS: CLARITHROMYCIN 500 MG TABLET (UD) PO SCH ×2 (09:32→21:28)
[2019-11-02] MEDS: HEPARIN NA (PORCINE) 5,000 UNITS/ML 1ML VIAL SQ SCH ×2 (09:32→21:28)
[2019-11-02] MEDS: PANTOPRAZOLE SODIUM 40 MG VIAL IVPUSH SCH ×2 (09:32→21:28)
[2019-11-02] MEDS: ONDANSETRON 4 MG/2 ML VIAL IVPUSH PRN (09:32)
[2019-11-02] MEDS: KCL 10 MEQ IVPB 10 MEQ/100 ML INFUS.BAG IVPB SCH ×4 (09:36→21:27)
[2019-11-02] MEDS: ASPIRIN 81 MG CHEWABLE TABLETS PO SCH (09:36)
--- NOTE | 2019-11-02 12:32 | PN ---
Progress Note, Physician Chief Complaint: Pt A&Ox3; no chest pain, dyspnea, or palpitations; c/o intermittent abdominal pain at surgical site. History of Present Illness: s/p subtotal gastrectomy with improving post-op abdominal discomfort, UGI series shows passage of contrast into small bowel, oral feeding resume, no further AV block on telemetry. No SOB or CP, awaiting return of bowel function. Elevated troponins downtrending. Pt developed post-op SC. - Current Medication List Current Medications: Active Medications Acetaminophen (Ofirmev Injection -) 1,000 mg IVPB Q8H PRN PRN Reason: FEVER Last Admin: 10/29/19 12:44 Dose: 1,000 mg Amlodipine Besylate (Norvasc -) 2.5 mg PO DAILY [facility] Last Admin: 11/02/19 09:31 Dose: 2.5 mg Amoxicillin (Amoxicillin -) 1,000 mg PO BID [facility] Stop: 11/04/19 09:59 Last Admin: 11/02/19 09:31 Dose: 1,000 mg Aspirin (Asa -) 81 mg PO DAILY [facility] Last Admin: 11/02/19 09:36 Dose: 81 mg Atorvastatin Calcium (Lipitor -) 20 mg PO HS [facility] Last Admin: 11/01/19 21:45 Dose: 20 mg Clarithromycin (Biaxin -) 500 mg PO BID [facility] Stop: 11/04/19 09:59 Last Admin: 11/02/19 09:32 Dose: 500 mg Heparin Sodium (Porcine) (Heparin -) 5,000 unit SQ BID [facility] Last Admin: 11/02/19 09:32 Dose: 5,000 unit Lactated Ringer's (Lactated Ringers Solution) 1,000 mls @ 75 mls/hr IV ASDIR [facility] Last Admin: 11/02/19 06:25 Dose: 75 mls/hr Morphine Sulfate (Morphine Sulfate) 3 mg IVPUSH Q4H PRN PRN Reason: PAIN LEVEL 6-10 Pantoprazole Sodium (Protonix Iv) 40 mg IVPUSH DAILY [facility] Last Admin: 11/02/19 09:32 Dose: 40 mg - Objective Vital Signs: Vital Signs Temperature 98.6 F 11/02/19 08:11 Pulse Rate 60 11/02/19 08:11 Respiratory Rate 20 11/02/19 08:13 Blood Pressure 152/79 11/02/19 08:11 O2 Sat by Pulse Oximetry (%) 97 11/02/19 08:13 Constitutional: Yes: Anxious Eyes: Yes: WNL HENT: Yes: WNL Neck: Yes: WNL Cardiovascular: Yes: S1, S2, S4 Respiratory: Yes: WNL Gastrointestinal: Yes: Tenderness ...Rectal Exam: Yes: Deferred Genitourinary: No: Anuria Breast(s): Yes: WNL Musculoskeletal: Yes: WNL Extremities: Yes: WNL Edema: No Peripheral Pulses WNL: Yes Integumentary: Yes: Incision Wound/Incision: Yes: Dressing Dry and Intact Neurological: Yes: WNL ...Motor Strength: WNL Psychiatric: Yes: WNL Labs: CBC, BMP 11/02/19 06:00 11/02/19 06:00 INR, PTT INR 1.07 (0.83-1.09) 10/26/19 06:16 Abnormal Lab Results 11/02/19 11/02/19 11/02/19 06:00 06:00 15:30 Hgb 10.0 L Hct 33.5 L MCV 70.8 L MCH 21.2 L MCHC 30.0 L RDW 27.1 H Sodium 147 H Potassium 2.8 L* 3.3 L Chloride 115 H Anion Gap 6 L Random Glucose 118 H Calcium 10.2 H AST 39 H Alkaline Phosphatase 329 H Total Protein 5.4 L Albumin 2.4 L Triglycerides 154 H HDL Cholesterol 28 L - ....Imaging Chest X-ray: Image Reviewed EKG: Image Reviewed Problem List - Problems (1) Hyperlipemia Code(s): E78.5 - HYPERLIPIDEMIA, UNSPECIFIED (2) Gastric carcinoma Assessment/Plan: s/p subtotal gastrectomy Code(s): C16.9 - MALIGNANT NEOPLASM OF STOMACH, UNSPECIFIED (3) Hypertension Code(s): I10 - ESSENTIAL (PRIMARY) HYPERTENSION Qualifiers: Hypertension type: essential hypertension Qualified Code(s): I10 - Essential (primary) hypertension (4) Postoperative non-ST elevation myocardial infarction (NSTEMI) Assessment/Plan: diminishing TNI. Pt denies chest pain. ECHO: normal LVEF; abnormal diastolic compliance. EKG: NSR; Add lisinopril for NSTEMI, HTN. F/u K (2.8 this morning); keep 4-4.5 Problematic using beta blockers due to bradycardia. Pain management (abdominal). Code(s): [id number] - (5) Pre-operative cardiovascular examination, bradycardia Code(s): Z01.810 - ENCOUNTER FOR PREPROCEDURAL CARDIOVASCULAR EXAMINATION; R00.1 - BRADYCARDIA, UNSPECIFIED (7) Hypokalemia Assessment/Plan: replete K, and keep 4-4.5 F/u Mg and PO4 Code(s): E87.6 - HYPOKALEMIA (8) Anemia Code(s): D64.9 - ANEMIA, UNSPECIFIED (9) Aortic root dilatation Assessment/Plan: moderate by ECHO; f/u clinically and with additional imaging, if appropriate ( CT chest with contrast was done recently). Code(s): I77.810 - THORACIC AORTIC ECTASIA
[2019-11-02] MEDS ORDERED: LISINOPRIL 5 MG TABLET (FP) PO ONE (12:43)
--- NOTE | 2019-11-02 13:00 | PN ---
Progress Note (short form) - Note Progress Note: Patient seen and examined still with melena Last Vital Signs Temp Pulse Resp BP Pulse Ox 98.0 F 46 L 15 145/61 96 10/24/19 14:46 10/24/19 14:46 10/24/19 14:46 10/24/19 14:46 10/24/19 09:00 Cor: RSR, No murmurs, No gallops Lungs: Clear to P&A Abd: Soft, Normal bowel sounds, No organomegaly Ext:No significant edema Abnormal Lab Results 11/02/19 11/02/19 06:00 06:00 Hgb 10.0 L Hct 33.5 L MCV 70.8 L MCH 21.2 L MCHC 30.0 L RDW 27.1 H Sodium 147 H Potassium 2.8 L* Chloride 115 H Anion Gap 6 L Random Glucose 118 H Calcium 10.2 H AST 39 H Alkaline Phosphatase 329 H Total Protein 5.4 L Albumin 2.4 L Active Medications Acetaminophen (Ofirmev Injection -) 1,000 mg IVPB Q8H PRN PRN Reason: FEVER Last Admin: 10/29/19 12:44 Dose: 1,000 mg Amlodipine Besylate (Norvasc -) 2.5 mg PO DAILY [facility] Last Admin: 11/02/19 09:31 Dose: 2.5 mg Amoxicillin (Amoxicillin -) 1,000 mg PO BID [facility] Stop: 11/04/19 09:59 Last Admin: 11/02/19 09:31 Dose: 1,000 mg Aspirin (Asa -) 81 mg PO DAILY [facility] Last Admin: 11/02/19 09:36 Dose: 81 mg Atorvastatin Calcium (Lipitor -) 20 mg PO HS [facility] Last Admin: 11/01/19 21:45 Dose: 20 mg Clarithromycin (Biaxin -) 500 mg PO BID [facility] Stop: 11/04/19 09:59 Last Admin: 11/02/19 09:32 Dose: 500 mg Heparin Sodium (Porcine) (Heparin -) 5,000 unit SQ BID [facility] Last Admin: 11/02/19 09:32 Dose: 5,000 unit Lactated Ringer's (Lactated Ringers Solution) 1,000 mls @ 75 mls/hr IV ASDIR [facility] Last Admin: 11/02/19 06:25 Dose: 75 mls/hr Lisinopril (Prinivil) 5 mg PO DAILY [facility] Morphine Sulfate (Morphine Sulfate) 3 mg IVPUSH Q4H PRN PRN Reason: PAIN LEVEL 6-10 Pantoprazole Sodium (Protonix Iv) 40 mg IVPUSH DAILY [facility] Last Admin: 11/02/19 09:32 Dose: 40 mg A/P Gastric ca H.Pylori Candidiasis Gastritis/esophagitis Anemia Plan: Gastric adenoca. Her2-+. H. pylori + CT c/a/p --m ild rt. hilar adenopathy/fatty liver/mass next to rt. adrenal 1.5cm ? 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 grade2, neg. margins, consider adjuvant >? CAPOX/FOLFOX and rad-onc cosult , once healed postoperatively discussed with family at bed side
[2019-11-02 14:38] LABS: MAGNESIUM 1.9 mg/dL (1.8-2.4)
[2019-11-02] MEDS ORDERED: LACTATED RINGERS SOLUTION 1,000 ML with POTASSIUM CHLORIDE 20 MEQ IVPB SCH (18:05)
--- NOTE | 2019-11-02 18:12 | PN ---
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 has abd pain .N/v with eating . decreased appetite . had BMs . no CP . no SOB Objective: Vital Signs: Last Vital Signs Temp Pulse Resp BP Pulse Ox 97.4 F L 86 18 155/63 97 11/02/19 14:00 11/02/19 14:00 11/02/19 14:00 11/02/19 14:00 11/02/19 08:13 Laboratory Results - last 24 hr 11/02/19 11/02/19 11/02/19 06:00 06:00 15:30 WBC 7.5 RBC 4.73 Hgb 10.0 L Hct 33.5 L MCV 70.8 L MCH 21.2 L MCHC 30.0 L RDW 27.1 H Plt Count 284 MPV 9.1 Sodium 147 H Potassium 2.8 L* 3.3 L Chloride 115 H Carbon Dioxide 26 Anion Gap 6 L BUN 11.4 Creatinine 0.7 Est GFR (CKD-EPI)AfAm 103.30 Est GFR (CKD-EPI)NonAf 89.13 Random Glucose 118 H Calcium 10.2 H Magnesium 1.9 Total Bilirubin 0.7 AST 39 H ALT 29 Alkaline Phosphatase 329 H Total Protein 5.4 L Albumin 2.4 L Triglycerides 154 H Cholesterol 118 Total LDL Cholesterol 67 HDL Cholesterol 28 L TSH 3.00 Physical Exam: NAD. MMM CV: RRR. Lungs: CTAB . Abd: slightly distended. mid line surgical wound with staple and clear discharge on dressing . TTP . NL BS Ext : No edema or erythema Imaging: Gi series reviewed. CT of abd reviewed. EKG reviewed. Assessment/Plan: 1- GAstric adenocarcinoma s/p subtotal gastrectomy :contto have N/V. Gi series noted. - order KUB for tomorrow - add compazine for nausea. - avoid zofran and reglan if possible , due to slightly prolonged Qtc - IVF. - clears - Might need PET scan as out pt . nodule near the adrenal gland 2- H pylori infection : cont claritro and amoxi BId. change Protonix to BID fro the duration of the treatment 3- POSt op NSTEMI. will need Stress test when stable - cont asa and ACEI - avoid BB 4- severe hypokalemia: replace with IV Kcl. add Kcl to IVF . check Mag 5- Transaminitis : improved . monitor 6- Acute dehydration: Na improved . cont current fluids.and encourage oral hydration 7- Bradycardia : resolved. Avoid BB 8- HTN : lisinopril and norvasc DVT PX : change heparin to TId form BId dosing Visit type - Emergency Visit Emergency Visit: Yes ED Registration Date: 10/12/19 Care time: The patient presented to the Emergency Department on the above date and was hospitalized for further evaluation of their emergent condition. - New Patient This patient is new to me today: Yes Date on this admission: 11/02/19 - Critical Care Critical Care patient: No
[2019-11-02] MEDS ORDERED: PROCHLORPERAZINE INJECTION 10 MG/2 ML VIAL IVPB PRN (18:13)
[2019-11-02] MEDS ORDERED: POTASSIUM CHLORIDE 20 MEQ in LACTATED RINGERS SOLUTION 1,000 ML IVPB SCH (18:27)
[2019-11-02] MEDS: ATORVASTATIN CA 20 MG TABLET (FP) PO SCH (21:28)
[2019-11-03] MEDS: KCL 10 MEQ IVPB 10 MEQ/100 ML INFUS.BAG IVPB SCH (01:28)
[2019-11-03] MEDS: HEPARIN NA (PORCINE) 5,000 UNITS/ML 1ML VIAL SQ SCH ×3 (06:28→22:23)
[2019-11-03 06:36] LABS: BASO % 0.5 % (0-2.0); EOS % 3.5 % (0-4.5); HEMATOCRIT 31.9 % (35.4-49); HEMOGLOBIN 9.7 GM/dL (11.7-16.9); LYMPH % 8.5 % (8-40); MCH 21.2 pg (25.7-33.7); MCHC 30.4 g/dl (32.0-35.9); MEAN PLT VOLUME 8.7 fl (7.5-11.1); MONO % 6.4 % (3.8-10.2); NEUT % 81.1 % (42.8-82.8); PLATELET COUNT 282 K/MM3 (134-434); RBC 4.56 M/mm3 (4.00-5.60); RDW 26.8 % (11.9-15.9); WHITE BLOOD COUNT 6.2 K/mm3 (4.0-10.0)
[2019-11-03 07:10] LABS: BLOOD UREA NITROGEN 13.1 mg/dL (7-18); CALCIUM 10.1 mg/dL (8.5-10.1); CREATININE 0.7 mg/dL (0.55-1.3); PHOSPHOROUS 2.6 mg/dL (2.5-4.9); POTASSIUM 3.3 mmol/L (3.5-5.1)
[2019-11-03] MEDS ORDERED: KCL 10 MEQ IVPB 10 MEQ/100 ML INFUS.BAG IVPB SCH (09:00)
[2019-11-03] MEDS ORDERED: PT OWN MED DRAWER 7, Y5N ONE ×2 (09:04→22:20)
[2019-11-03] MEDS: CLARITHROMYCIN 500 MG TABLET (UD) PO SCH ×2 (09:16→22:23)
[2019-11-03] MEDS: ASPIRIN 81 MG CHEWABLE TABLETS PO SCH (09:16)
[2019-11-03] MEDS: amLODIPine BESYLATE 2.5 MG TABLET (FP) PO SCH (09:16)
[2019-11-03] MEDS: AMOXICILLIN 500 MG CAPSULE (FP) PO SCH ×2 (09:16→22:23)
[2019-11-03] MEDS: PANTOPRAZOLE SODIUM 40 MG VIAL IVPUSH SCH ×2 (09:17→22:22)
[2019-11-03 09:54] LABS: ANISOCYTOSIS 2+; MACROCYTOSIS 0; PLATELET ESTIMATE NORMAL; ROULEAU 1+
[2019-11-03] MEDS ORDERED: LISINOPRIL 5 MG TABLET (FP) PO SCH (10:00)
--- NOTE | 2019-11-03 10:14 | PN ---
Progress Note, Physician History of Present Illness: s/p subtotal gastrectomy with improving post-op abdominal discomfort, UGI series shows passage of contrast into small bowel, oral feeding resume, no further AV block on telemetry. No SOB or CP, small sanguinous drainage upper pole of abd wound, no pus, having BM. - Current Medication List Current Medications: Active Medications Acetaminophen (Ofirmev Injection -) 1,000 mg IVPB Q8H PRN PRN Reason: FEVER Last Admin: 10/29/19 12:44 Dose: 1,000 mg Amlodipine Besylate (Norvasc -) 2.5 mg PO DAILY [facility] Last Admin: 11/03/19 09:16 Dose: 2.5 mg Amoxicillin (Amoxicillin -) 1,000 mg PO BID [facility] Stop: 11/04/19 09:59 Last Admin: 11/03/19 09:16 Dose: 1,000 mg Aspirin (Asa -) 81 mg PO DAILY [facility] Last Admin: 11/03/19 09:16 Dose: 81 mg Atorvastatin Calcium (Lipitor -) 20 mg PO HS [facility] Last Admin: 11/02/19 21:28 Dose: 20 mg Clarithromycin (Biaxin -) 500 mg PO BID [facility] Stop: 11/04/19 09:59 Last Admin: 11/03/19 09:16 Dose: 500 mg Heparin Sodium (Porcine) (Heparin -) 5,000 unit SQ TID [facility] Last Admin: 11/03/19 06:28 Dose: 5,000 unit Potassium Chloride 20 meq/ (Lactated Ringer's) 1,010 mls @ 75 mls/hr IVPB ASDIR [facility] Last Admin: 11/02/19 21:27 Dose: 75 mls/hr Lisinopril (Prinivil) 5 mg PO DAILY [facility] Last Admin: 11/03/19 09:16 Dose: 5 mg Pantoprazole Sodium (Protonix Iv) 40 mg IVPUSH BID [facility] Last Admin: 11/03/19 09:17 Dose: 40 mg Prochlorperazine Edisylate (Compazine Injection -) 5 mg IVPB Q4H PRN PRN Reason: NAUSEA AND/OR VOMITING - Objective Vital Signs: Vital Signs Temperature 98.0 F 11/03/19 07:52 Pulse Rate 68 11/03/19 07:52 Respiratory Rate 18 11/03/19 07:55 Blood Pressure 160/77 11/03/19 07:52 O2 Sat by Pulse Oximetry (%) 95 11/03/19 07:55 Constitutional: Yes: No Distress, Calm, Thin Neck: Yes: Supple Cardiovascular: Yes: Regular Rate and Rhythm Respiratory: Yes: Regular, CTA Bilaterally Gastrointestinal: Yes: Soft, Hypoactive Bowel Sounds Edema: No Wound/Incision: Yes: Draining (Sanguinous fluid) Labs: CBC, BMP 11/03/19 06:00 11/03/19 06:00 INR, PTT INR 1.07 (0.83-1.09) 10/26/19 06:16 Problem List - Problems (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 pylori) infection Code(s): A04.8 - OTHER SPECIFIED BACTERIAL INTESTINAL INFECTIONS (6) Postoperative non-ST elevation myocardial infarction (NSTEMI) Code(s): [id number] - Assessment/Plan 10/31/2019 Echo: Normal LV size and fxn, LVEF 65-70%, normal RV size and fxn, mild MR, TR RVSP 29 mmHg, mod ao dilatation 10/24/2019 Echo: Normal LV size and fxn, LVEF 60-65%, grade II diastolic dysfunction, mild MR, TR RVSP 33 mmHg, mild ND 1. POD #9: Radical subtotal gastectomy, omentectomy, gastrojejunostomy for Gastric Cancer 2. Acute blood loss anemia 3. H. Pylori 4. Sinus bradycardia, transient 2nd deg AV block post-op since resolved 5. Hypertension, BP elevated 6. CAD with post-op [place] 7. Hypernatremia, hypokalemia PLAN: 1. Analgesia as needed, DVT prophylaxis, hall monitor, post-gastrectomy diet per surgery, IS, free H20 repletion, replete K 2. Treatment for H. pylori, monitor H&H post transfusion, f/u pathology 3. Avoid AV pao blocking agents given sinus bradycardia, continue ASA 81 qd, Lipitor 20 qd, lisinopril 10 qd and Norvasc 2.5 qd with uptitration as tolerated 4. Lexiscan Myoview may be performed once clinically stable
--- NOTE | 2019-11-03 10:39 | PN ---
Progress Note, Physician - Current Medication List Current Medications: Active Medications Acetaminophen (Ofirmev Injection -) 1,000 mg IVPB Q8H PRN PRN Reason: FEVER Last Admin: 10/29/19 12:44 Dose: 1,000 mg Amlodipine Besylate (Norvasc -) 2.5 mg PO DAILY [facility] Last Admin: 11/03/19 09:16 Dose: 2.5 mg Amoxicillin (Amoxicillin -) 1,000 mg PO BID [facility] Stop: 11/04/19 09:59 Last Admin: 11/03/19 09:16 Dose: 1,000 mg Aspirin (Asa -) 81 mg PO DAILY [facility] Last Admin: 11/03/19 09:16 Dose: 81 mg Atorvastatin Calcium (Lipitor -) 20 mg PO HS [facility] Last Admin: 11/02/19 21:28 Dose: 20 mg Clarithromycin (Biaxin -) 500 mg PO BID [facility] Stop: 11/04/19 09:59 Last Admin: 11/03/19 09:16 Dose: 500 mg Heparin Sodium (Porcine) (Heparin -) 5,000 unit SQ TID [facility] Last Admin: 11/03/19 06:28 Dose: 5,000 unit Potassium Chloride 20 meq/ (Lactated Ringer's) 1,010 mls @ 75 mls/hr IVPB ASDIR [facility] Last Admin: 11/02/19 21:27 Dose: 75 mls/hr Lisinopril (Prinivil) 5 mg PO DAILY [facility] Last Admin: 11/03/19 09:16 Dose: 5 mg Pantoprazole Sodium (Protonix Iv) 40 mg IVPUSH BID [facility] Last Admin: 11/03/19 09:17 Dose: 40 mg Prochlorperazine Edisylate (Compazine Injection -) 5 mg IVPB Q4H PRN PRN Reason: NAUSEA AND/OR VOMITING - Objective Vital Signs: Vital Signs Temperature 98.0 F 11/03/19 07:52 Pulse Rate 68 11/03/19 07:52 Respiratory Rate 18 11/03/19 07:55 Blood Pressure 160/77 11/03/19 07:52 O2 Sat by Pulse Oximetry (%) 95 11/03/19 07:55 Labs: CBC, BMP 11/03/19 06:00 11/03/19 06:00 INR, PTT INR 1.07 (0.83-1.09) 10/26/19 06:16 Problem List - Problems (1) Symptomatic anemia Code(s): D64.9 - ANEMIA, UNSPECIFIED (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 Fluid drained , no pus, . wound intact, He is on anticoagulants. Tolerating diet. Discharge when drainage diminishes.
[2019-11-03] MEDS ORDERED: LISINOPRIL 5 MG TABLET (FP) PO ONE (11:33)
[2019-11-03] MEDS: CALCIUM (OYSTER SHELL) 500 MG TABLET (FP) PO SCH ×2 (12:28→22:23)
[2019-11-03] MEDS: CHOLECALCIFEROL (VIT D3) 1,000 UNIT (25 MCG) TABLET PO SCH (12:28)
[2019-11-03] MEDS: CYANOCOBALAMIN (VITAMIN B-12) 100 MCG TABLET PO SCH (13:21)
[2019-11-03] MEDS: MULTIVIT-MINERALS ORAL LIQUID PO SCH (13:21)
--- NOTE | 2019-11-03 13:39 | PN ---
Physical Exam: SUBJECTIVE: Patient seen and examined at bed side , reports some abdominal pain , difficulty swallowing the medicine or the food reports nausea but no vomiting , surgical abdominal wound medline with stapleas and serasenous drainage on iggy top. OBJECTIVE: Vital Signs Period Temp Pulse Resp BP Sys/Newman Pulse Ox Last 24 Hr 97.4 F-98.0 F 60-86 18-22 132-160/63-77 95-95 GENERAL: The patient is awake, alert, and fully oriented, HEAD: Normal with no signs of trauma. EYES: PERRL, extraocular movements intact, sclera anicteric, ENT: moist mucous membranes. NECK: supple. no lyphademopathy was palpated no axillary or inguinal lyph nodes palpated LUNGS: Breath sounds equal, clear to auscultation bilaterally, no wheezes, no crackles, no accessory muscle use. HEART: Regular rate and rhythm, S1, S2 without murmur, rub or gallop. ABDOMEN: Soft, diffuse tender, mild distended, normoactive bowel sounds, no guarding, surgical wound longtudical med line with abhay and serous drainage at the top , covered with gauze EXTREMITIES: 2+ pulses, warm, well-perfused, no edema. NEUROLOGICAL: no focal deficit PSYCH: Normal mood, normal affect. SKIN: Warm, dry, Laboratory Results - last 24 hr 11/02/19 11/02/19 11/03/19 06:00 15:30 06:00 WBC 6.2 RBC 4.56 Hgb 9.7 L Hct 31.9 L MCV 70.0 L MCH 21.2 L MCHC 30.4 L RDW 26.8 H Plt Count 282 MPV 8.7 Absolute Neuts (auto) 5.0 Neutrophils % 81.1 Lymphocytes % 8.5 Monocytes % 6.4 Eosinophils % 3.5 D Basophils % 0.5 Nucleated RBC % 0 Hypochromia 2+ Platelet Estimate Normal Platelet Comment Present Polychromasia 1+ Poikilocytosis 1+ Basophilic Stippling 1+ Anisocytosis 2+ Microcytosis 2+ Macrocytosis 0 Rouleaux 1+ Sodium 147 H Potassium 2.8 L* 3.3 L Chloride 115 H Carbon Dioxide 26 Anion Gap 6 L BUN 11.4 Creatinine 0.7 Est GFR (CKD-EPI)AfAm 103.30 Est GFR (CKD-EPI)NonAf 89.13 Random Glucose 118 H Calcium 10.2 H Phosphorus Magnesium 1.9 Total Bilirubin 0.7 AST 39 H ALT 29 Alkaline Phosphatase 329 H Total Protein 5.4 L Albumin 2.4 L Triglycerides 154 H Cholesterol 118 Total LDL Cholesterol 67 HDL Cholesterol 28 L Vitamin B12 Serum Folate TSH 3.00 11/03/19 06:00 WBC RBC Hgb Hct MCV MCH MCHC RDW Plt Count MPV Absolute Neuts (auto) Neutrophils % Lymphocytes % Monocytes % Eosinophils % Basophils % Nucleated RBC % Hypochromia Platelet Estimate Platelet Comment Polychromasia Poikilocytosis Basophilic Stippling Anisocytosis Microcytosis Macrocytosis Rouleaux Sodium 147 H Potassium 3.3 L Chloride 116 H Carbon Dioxide 27 Anion Gap 5 L BUN 13.1 Creatinine 0.7 Est GFR (CKD-EPI)AfAm 103.30 Est GFR (CKD-EPI)NonAf 89.13 Random Glucose 103 Calcium 10.1 Phosphorus 2.6 Magnesium 2.0 Total Bilirubin AST ALT Alkaline Phosphatase Total Protein Albumin Triglycerides Cholesterol Total LDL Cholesterol HDL Cholesterol Vitamin B12 115 L Serum Folate 17 TSH Active Medications Generic Name Dose Route Start Last Admin Trade Name Freq PRN Reason Stop Dose Admin Acetaminophen 1,000 mg 10/28/19 03:39 10/29/19 12:44 Ofirmev Injection - IVPB 1,000 mg Q8H PRN Administration FEVER Amino Acids 30 ml 11/03/19 17:30 Prosource No Carb Liquid Pkt PO BID@0800,1730 [facility] Amlodipine Besylate 2.5 mg 11/01/19 10:45 11/03/19 09:16 Norvasc - PO 2.5 mg DAILY [facility] Administration Amoxicillin 1,000 mg 10/28/19 10:00 11/03/19 09:16 Amoxicillin - PO 11/04/19 09:59 1,000 mg BID [facility] Administration Aspirin 81 mg 11/02/19 10:00 11/03/19 09:16 Asa - PO 81 mg DAILY [facility] Administration Atorvastatin Calcium 20 mg 11/01/19 22:00 11/02/19 21:28 Lipitor - PO 20 mg HS [facility] Administration Calcium Carbonate 500 mg 11/03/19 12:15 11/03/19 12:28 Os-Jc 500mg - PO 500 mg BID [facility] Administration Cholecalciferol 1,000 unit 11/03/19 12:15 12/26/19 12:28 Vitamin D3 - PO 1,000 unit DAILY [facility] Administration Clarithromycin 500 mg 10/28/19 10:00 11/03/19 09:16 Biaxin - PO 11/04/19 09:59 500 mg BID [facility] Administration Cyanocobalamin 300 mcg 11/03/19 12:15 11/03/19 13:21 Vitamin B12 - PO 300 mcg DAILY [facility] Administration Heparin Sodium (Porcine) 5,000 unit 11/02/19 22:00 11/03/19 13:36 Heparin - SQ 5,000 unit TID [facility] Administration Potassium Chloride 20 meq/ 1,010 mls @ 75 mls/hr 11/02/19 18:27 11/02/19 21: 27 Lactated Ringer's IVPB 75 mls/hr ASDIR [facility] Administration Lisinopril 10 mg 11/04/19 10:00 Prinivil PO DAILY [facility] Multivitamins/Minerals 15 ml 11/03/19 13:00 11/03/19 13:21 Certavite-Antioxidant Liquid PO 15 ml DAILY [facility] Administration Pantoprazole Sodium 40 mg 11/02/19 22:00 11/03/19 09:17 Protonix Iv IVPUSH 40 mg BID [facility] Administration Prochlorperazine Edisylate 5 mg 11/02/19 18:13 Compazine Injection - IVPB Q4H PRN NAUSEA AND/OR VOMITING CBC, BMP 11/03/19 06:00 11/03/19 06:00 ASSESSMENT/PLAN: #Gastric Cardinoma S.P subtotal gastrectomy POD # 9 #H.Pylori #Candidiasis #Gastritis/esophagitis #Anemia Plan: * Gastric adenoca. Her2+. * H. pylori + * CT c/a/p --mild rt. hilar adenopathy/fatty liver/mass next to rt. adrenal 1.5cm? 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 - New Patient This patient is new to me today: No - Critical Care Critical Care patient: No ATTENDING PHYSICIAN STATEMENT I saw and evaluated the patient. I reviewed the resident's note and discussed the case with the resident. I agree with the resident's findings and plan as documented. SUBJECTIVE: OBJECTIVE: ASSESSMENT AND PLAN:
--- NOTE | 2019-11-03 15:07 | PN ---
Physical Exam: SUBJECTIVE: Patient seen and examined, tells me that he is not eating well, has no appetite, when tries to eat he has regurgitation and nausea but no vomiting. he is eating less than 10% of his meals. willing to try small frequent meals. OBJECTIVE: poor dietary intake s/p radical subtotal gastectomy, omentectomy, gastrojejunostomy on 10/26/19. added supplements, multivitamins, b12, vit d3, prosource will add clinimax and lipids every other day until appetite improves, discussed with dietary per dietary, recommend clinimix @ 83cc/hr with added KCl. add intralipids every other day ------- Patient is an 79 year venezuelan speaking male who had radical subtotal gastectomy , omentectomy, gastrojejunostomy for gastric cancer on 10/26/2019. Vital Signs Period Temp Pulse Resp BP Sys/Newman Pulse Ox Last 24 Hr 97.7 F-98.0 F 60-68 18-22 132-160/68-77 95-95 GENERAL: The patient is awake, alert, and fully oriented, in no acute distress. speaks venezuelan primarily HEAD: Normal with no signs of trauma. EYES: PERRL, extraocular movements intact, sclera anicteric, conjunctiva clear. No ptosis. ENT: Ears normal, nares patent, oropharynx clear without exudates NECK: Trachea midline, full range of motion, supple. LUNGS: Breath sounds equal, clear to auscultation bilaterally HEART: Regular rate and rhythm ABDOMEN: Soft, mild tender abdomen, +hyperactive bowel sounds EXTREMITIES: no edema. NEUROLOGICAL: Normal speech, gait not observed. PSYCH: Normal mood, normal affect. SKIN: abdominal dressing c/d/i and changed by surgery today. Laboratory Results - last 24 hr 11/02/19 11/03/19 11/03/19 15:30 06:00 06:00 WBC 6.2 RBC 4.56 Hgb 9.7 L Hct 31.9 L MCV 70.0 L MCH 21.2 L MCHC 30.4 L RDW 26.8 H Plt Count 282 MPV 8.7 Absolute Neuts (auto) 5.0 Neutrophils % 81.1 Lymphocytes % 8.5 Monocytes % 6.4 Eosinophils % 3.5 D Basophils % 0.5 Nucleated RBC % 0 Hypochromia 2+ Platelet Estimate Normal Platelet Comment Present Polychromasia 1+ Poikilocytosis 1+ Basophilic Stippling 1+ Anisocytosis 2+ Microcytosis 2+ Macrocytosis 0 Rouleaux 1+ Sodium 147 H Potassium 3.3 L 3.3 L Chloride 116 H Carbon Dioxide 27 Anion Gap 5 L BUN 13.1 Creatinine 0.7 Est GFR (CKD-EPI)AfAm 103.30 Est GFR (CKD-EPI)NonAf 89.13 Random Glucose 103 Calcium 10.1 Phosphorus 2.6 Magnesium 2.0 Vitamin B12 115 L Serum Folate 17 Active Medications Generic Name Dose Route Start Last Admin Trade Name Freq PRN Reason Stop Dose Admin Acetaminophen 1,000 mg 10/28/19 03:39 10/29/19 12:44 Ofirmev Injection - IVPB 1,000 mg Q8H PRN Administration FEVER Amino Acids 30 ml 11/03/19 17:30 Prosource No Carb Liquid Pkt PO BID@0800,1730 [facility] Amlodipine Besylate 2.5 mg 11/01/19 10:45 11/03/19 09:16 Norvasc - PO 2.5 mg DAILY [facility] Administration Amoxicillin 1,000 mg 10/28/19 10:00 11/03/19 09:16 Amoxicillin - PO 11/04/19 09:59 1,000 mg BID [facility] Administration Aspirin 81 mg 11/02/19 10:00 11/03/19 09:16 Asa - PO 81 mg DAILY [facility] Administration Atorvastatin Calcium 20 mg 11/01/19 22:00 11/02/19 21:28 Lipitor - PO 20 mg HS [facility] Administration Calcium Carbonate 500 mg 11/03/19 12:15 11/03/19 12:28 Os-Jc 500mg - PO 500 mg BID [facility] Administration Cholecalciferol 1,000 unit 11/03/19 12:15 11/03/19 12:28 Vitamin D3 - PO 1,000 unit DAILY [facility] Administration Clarithromycin 500 mg 10/28/19 10:00 11/03/19 09:16 Biaxin - PO 11/04/19 09:59 500 mg BID [facility] Administration Cyanocobalamin 300 mcg 11/03/19 12:15 11/03/19 13:21 Vitamin B12 - PO 300 mcg DAILY [facility] Administration Heparin Sodium (Porcine) 5,000 unit 11/02/19 22:00 11/03/19 13:36 Heparin - SQ 5,000 unit TID [facility] Administration Potassium Chloride 20 meq/ 1,010 mls @ 75 mls/hr 11/02/19 18:27 11/02/19 21: 27 Lactated Ringer's IVPB 75 mls/hr ASDIR [facility] Administration Lisinopril 10 mg 11/04/19 10:00 Prinivil PO DAILY [facility] Multivitamins/Minerals 15 ml 11/03/19 13:00 11/03/19 13:21 Certavite-Antioxidant Liquid PO 15 ml DAILY [facility] Administration Pantoprazole Sodium 40 mg 11/02/19 22:00 11/03/19 09:17 Protonix Iv IVPUSH 40 mg BID [facility] Administration Prochlorperazine Edisylate 5 mg 11/02/19 18:13 Compazine Injection - IVPB Q4H PRN NAUSEA AND/OR VOMITING ASSESSMENT/PLAN: Problem List - Problems (1) S/P subtotal gastrectomy Assessment/Plan: S/P radical subtotal gastectomy, omentectomy, gastrojejunostomy for gastric cancer Not tolerating diet currently, with nausea, and regurgitation of meals Surgical site c/d/i, abdominal dressing intact He is currently hemodynamically stable and afebrile. No leukocytosis. Continue with oral amoxacillin and biaxin Anemia improved Continue with IV protonix, zofran prn with monitoring of QTc interval, morphine IV for severe pain and IV tylenol for mild to moderate pain (2) Anemia Assessment/Plan: monitor hmg/hct has received venofer on this admission will defer iron supplements to avoid constipation Code(s): D64.9 - ANEMIA, UNSPECIFIED (3) Gastric carcinoma Code(s): C16.9 - MALIGNANT NEOPLASM OF STOMACH, UNSPECIFIED (4) Helicobacter pylori (H. pylori) infection Assessment/Plan: On treatment for H. pylori, monitor H&H, f/u pathology Code(s): A04.8 - OTHER SPECIFIED BACTERIAL INTESTINAL INFECTIONS (5) Hypertension Assessment/Plan: avoid AV pao blocking agents given sinus bradycardia, continue ASA 81 qd, Lipitor 20 qd, lisinopril 10 qd and Norvasc 2.5 qd with uptitration as tolerated Code(s): I10 - ESSENTIAL (PRIMARY) HYPERTENSION Qualifiers: Hypertension type: essential hypertension Qualified Code(s): I10 - Essential (primary) hypertension (6) Postoperative non-ST elevation myocardial infarction (NSTEMI) Assessment/Plan: stress test when more stable continue ASA 81mg and lisinopril. avoid beta blockers Code(s): [id number] - (7) Hypokalemia Assessment/Plan: given on K rider today, then will add K to clinimax Code(s): E87.6 - HYPOKALEMIA (8) Very poor nutrition Assessment/Plan: post op, nutrition remains poor add clinimax and lipids every other day monitor for need of TPN if appetite remains poor monitor albumin Code(s): E63.9 - NUTRITIONAL DEFICIENCY, UNSPECIFIED Visit type - Emergency Visit Emergency Visit: Yes ED Registration Date: 10/12/19 Care time: The patient presented to the Emergency Department on the above date and was hospitalized for further evaluation of their emergent condition. - New Patient This patient is new to me today: Yes Date on this admission: 11/03/19 - Critical Care Critical Care patient: No - Discharge Referral Referred to [facility] No
[2019-11-03] MEDS ORDERED: AMINO ACIDS 4.25%/D5W 1,000 ML IV SCH (16:00)
[2019-11-03] MEDS: POTASSIUM CHLORIDE 10 MEQ in AMINO ACIDS 4.25%/D5W 1,000 ML IVPB SCH (17:35)
[2019-11-03] MEDS: AMINO ACIDS/PROTEIN HYDROLYS 30 ML LIQUID.PKT PO SCH (17:37)
--- NOTE | 2019-11-03 18:40 | PN ---
Progress Note (short form) - Note Progress Note: Patient seen and examined Mentioned liquid stools Last Vital Signs Temp Pulse Resp BP Pulse Ox 98.0 F 68 18 160/77 95 11/03/19 07:52 11/03/19 07:52 11/03/19 07:55 11/03/19 07:52 11/03/19 07:55 Cor: RSR, No murmurs, No gallops Lungs: Clear to P&A Abd: Soft, Normal bowel sounds, No organomegaly Ext:No significant edema 11/03/19 06:00 11/03/19 06:00 Current Medications Acetaminophen (Ofirmev Injection -) 1,000 mg IVPB Q8H PRN PRN Reason: FEVER Last Admin: 10/29/19 12:44 Dose: 1,000 mg Amino Acids (Prosource No Carb Liquid Pkt) 30 ml PO BID@0800,1730 [facility] Last Admin: 11/03/19 17:37 Dose: 30 ml Amlodipine Besylate (Norvasc -) 2.5 mg PO DAILY [facility] Last Admin: 11/03/19 09:16 Dose: 2.5 mg Amoxicillin (Amoxicillin -) 1,000 mg PO BID [facility] Stop: 11/04/19 09:59 Last Admin: 11/03/19 09:16 Dose: 1,000 mg Aspirin (Asa -) 81 mg PO DAILY [facility] Last Admin: 11/03/19 09:16 Dose: 81 mg Atorvastatin Calcium (Lipitor -) 20 mg PO HS [facility] Last Admin: 11/02/19 21:28 Dose: 20 mg Calcium Carbonate (Os-Jc 500mg -) 500 mg PO BID [facility] Last Admin: 11/03/19 12:28 Dose: 500 mg Cholecalciferol (Vitamin D3 -) 1,000 unit PO DAILY [facility] Last Admin: 11/03/19 12:28 Dose: 1,000 unit Clarithromycin (Biaxin -) 500 mg PO BID [facility] Stop: 11/04/19 09:59 Last Admin: 11/03/19 09:16 Dose: 500 mg Cyanocobalamin (Vitamin B12 -) 300 mcg PO DAILY [facility] Last Admin: 11/03/19 13:21 Dose: 300 mcg Heparin Sodium (Porcine) (Heparin -) 5,000 unit SQ TID [facility] Last Admin: 11/03/19 13:36 Dose: 5,000 unit Potassium Chloride 10 meq/ (Amino Acids) 1,005 mls @ 84 mls/hr IVPB Q12H [facility] Last Admin: 11/03/19 17:35 Dose: 84 mls/hr Fat Emulsion Intravenous (Intralipid -) 250 mls @ 20.833 mls/hr IV Q48H [facility] Lisinopril (Prinivil) 10 mg PO DAILY [facility] Multivitamins/Minerals (Certavite-Antioxidant Liquid) 15 ml PO DAILY [facility] Last Admin: 11/03/19 13:21 Dose: 15 ml Pantoprazole Sodium (Protonix Iv) 40 mg IVPUSH BID [facility] Last Admin: 11/03/19 09:17 Dose: 40 mg Prochlorperazine Edisylate (Compazine Injection -) 5 mg IVPB Q4H PRN PRN Reason: NAUSEA AND/OR VOMITING A/P Gastric ca H.Pylori Candidiasis Gastritis/esophagitis Anemia Plan: Gastric adenoca. Her2-+. H. pylori + CT c/a/p --m ild rt. hilar adenopathy/fatty liver/mass next to rt. adrenal 1.5cm ? 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 grade2, neg. margins, consider adjuvant >? CAPOX/FOLFOX and rad-onc consult , once healed postoperatively
[2019-11-03] MEDS ORDERED: FAT EMULSIONS 20% 250 ML PREMIX INFUS.BAG IV SCH (22:00)
[2019-11-03] MEDS: ATORVASTATIN CA 20 MG TABLET (FP) PO SCH (22:23)
[2019-11-03] MEDS: FAT EMULSIONS 250 ML IV SCH (22:28)
[2019-11-04] MEDS: POTASSIUM CHLORIDE 10 MEQ in AMINO ACIDS 4.25%/D5W 1,000 ML IVPB SCH (06:18)
[2019-11-04] MEDS: HEPARIN NA (PORCINE) 5,000 UNITS/ML 1ML VIAL SQ SCH ×3 (06:18→22:15)
[2019-11-04 07:02] LABS: BASO % 0.5 % (0-2.0); HEMATOCRIT 30.7 % (35.4-49); HEMOGLOBIN 9.3 GM/dL (11.7-16.9); LYMPH % 10.7 % (8-40); MCH 21.3 pg (25.7-33.7); MCHC 30.3 g/dl (32.0-35.9); MEAN CELL VOLUME 70.4 fl (80-96); MEAN PLT VOLUME 9.3 fl (7.5-11.1); MONO % 6.4 % (3.8-10.2); NEUT % 76.4 % (42.8-82.8); PLATELET COUNT 261 K/MM3 (134-434); RBC 4.36 M/mm3 (4.00-5.60); RDW 26.7 % (11.9-15.9); WHITE BLOOD COUNT 5.6 K/mm3 (4.0-10.0)
[2019-11-04 07:40] LABS: ALBUMIN 2.2 g/dl (3.4-5.0); BILIRUBIN,TOTAL 0.5 mg/dL (0.2-1); BLOOD UREA NITROGEN 18.7 mg/dL (7-18); CALCIUM 9.7 mg/dL (8.5-10.1); CREATININE 0.7 mg/dL (0.55-1.3); MAGNESIUM 1.9 mg/dL (1.8-2.4); TOT PROT 5.1 g/dl (6.4-8.2)
--- NOTE | 2019-11-04 07:44 | PN ---
Progress Note, Physician Chief Complaint: No complaints offered History of Present Illness: poor dietary intake s/p radical subtotal gastectomy, omentectomy, gastrojejunostomy on 10/26/19. added supplements, multivitamins, b12, vit d3, prosource will add clinimax and lipids every other day until appetite improves, discussed with dietary per dietary, recommend clinimix @ 83cc/hr with added KCl. add intralipids every other day - Current Medication List Current Medications: Active Medications Acetaminophen (Ofirmev Injection -) 1,000 mg IVPB Q8H PRN PRN Reason: FEVER Last Admin: 10/29/19 12:44 Dose: 1,000 mg Amino Acids (Prosource No Carb Liquid Pkt) 30 ml PO BID@0800,1730 [facility] Last Admin: 11/03/19 17:37 Dose: 30 ml Amlodipine Besylate (Norvasc -) 2.5 mg PO DAILY [facility] Last Admin: 11/03/19 09:16 Dose: 2.5 mg Amoxicillin (Amoxicillin -) 1,000 mg PO BID [facility] Stop: 11/04/19 09:59 Last Admin: 11/03/19 22:23 Dose: 1,000 mg Aspirin (Asa -) 81 mg PO DAILY [facility] Last Admin: 11/03/19 09:16 Dose: 81 mg Atorvastatin Calcium (Lipitor -) 20 mg PO HS [facility] Last Admin: 11/03/19 22:23 Dose: 20 mg Calcium Carbonate (Os-Jc 500mg -) 500 mg PO BID [facility] Last Admin: 11/03/19 22:23 Dose: 500 mg Cholecalciferol (Vitamin D3 -) 1,000 unit PO DAILY [facility] Last Admin: 11/03/19 12:28 Dose: 1,000 unit Clarithromycin (Biaxin -) 500 mg PO BID [facility] Stop: 11/04/19 09:59 Last Admin: 11/03/19 22:23 Dose: 500 mg Cyanocobalamin (Vitamin B12 -) 300 mcg PO DAILY [facility] Last Admin: 11/03/19 13:21 Dose: 300 mcg Heparin Sodium (Porcine) (Heparin -) 5,000 unit SQ TID [facility] Last Admin: 11/04/19 06:18 Dose: 5,000 unit Potassium Chloride 10 meq/ (Amino Acids) 1,005 mls @ 84 mls/hr IVPB Q12H [facility] Last Admin: 11/04/19 06:18 Dose: 84 mls/hr Fat Emulsion Intravenous (Intralipid -) 250 mls @ 20.833 mls/hr IV Q48H [facility] Last Admin: 11/03/19 22:28 Dose: 20.833 mls/hr Lisinopril (Prinivil) 10 mg PO DAILY [facility] Multivitamins/Minerals (Certavite-Antioxidant Liquid) 15 ml PO DAILY [facility] Last Admin: 11/03/19 13:21 Dose: 15 ml Pantoprazole Sodium (Protonix Iv) 40 mg IVPUSH BID [facility] Last Admin: 11/03/19 22:22 Dose: 40 mg Prochlorperazine Edisylate (Compazine Injection -) 5 mg IVPB Q4H PRN PRN Reason: NAUSEA AND/OR VOMITING - Objective Vital Signs: Vital Signs Temperature 98.3 F 11/04/19 06:00 Pulse Rate 68 11/04/19 06:00 Respiratory Rate 20 11/04/19 06:00 Blood Pressure 156/70 11/04/19 06:00 O2 Sat by Pulse Oximetry (%) 95 11/03/19 21:00 Constitutional: Yes: No Distress, Calm Eyes: Yes: WNL, Conjunctiva Clear HENT: Yes: WNL, Atraumatic, Normocephalic Neck: Yes: WNL, Supple, Trachea Midline Cardiovascular: Yes: WNL, Regular Rate and Rhythm Respiratory: Yes: WNL, Regular, CTA Bilaterally Gastrointestinal: Yes: Soft, Hyperactive Bowel Sounds, Tenderness (mild) ...Rectal Exam: Yes: Deferred Genitourinary: Yes: WNL Breast(s): Yes: WNL Musculoskeletal: Yes: WNL Extremities: Yes: WNL Edema: No Peripheral Pulses WNL: Yes Peripheral Pulses: Left Radial: 2+, Right Radial: 2+, Left Doralis Pedis: 2+, Right Dorsalis Pedis: 2+, Left Femoral: 2+, Right Femoral: 2+ Wound/Incision: Yes: Clean/Dry Neurological: Yes: WNL, Alert, Oriented ...Motor Strength: WNL Psychiatric: Yes: WNL, Other (primarily english speaking) Labs: CBC, BMP 11/04/19 06:40 INR, PTT INR 1.07 (0.83-1.09) 10/26/19 06:16 - ....Imaging Other: Report Reviewed (10/31/2019 Echo: Normal LV size and fxn, LVEF 65-70%, normal RV size and fxn,mild MR, TR RVSP 29 mmHg, mod ao dilatation 10/24/2019 Echo: Normal LV size and fxn, LVEF 60-65%, grade II diastolic dysfunction, mild MR, TR RVSP 33 mmHg, mild IN) Problem List - Problems (1) Prophylactic measure Assessment/Plan: 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 pylori) infection Assessment/Plan: c/w treatment Code(s): A04.8 - OTHER SPECIFIED BACTERIAL INTESTINAL INFECTIONS (5) Hyperlipemia Assessment/Plan: c/w atrovastatin Code(s): E78.5 - HYPERLIPIDEMIA, UNSPECIFIED (6) Hypertension Assessment/Plan: c/w norvasc, lisinipril Code(s): I10 - ESSENTIAL (PRIMARY) HYPERTENSION Qualifiers: Hypertension type: essential hypertension Qualified Code(s): I10 - Essential (primary) hypertension (7) Hypokalemia Assessment/Plan: c/w clinimix increased Kcl 10 20mEq continue to monitor Code(s): E87.6 - HYPOKALEMIA (8) Postoperative non-ST elevation myocardial infarction (NSTEMI) Assessment/Plan: cardiology following stress test when more stable continue ASA 81mg and lisinopril. avoid beta blockers Code(s): [id number] - (9) S/P subtotal gastrectomy Assessment/Plan: S/P radical subtotal gastectomy, omentectomy, gastrojejunostomy for gastric cancer poor po intake Surgical site c/d/i, abdominal dressing intact Continue with IV protonix, zofran prn with monitoring of QTc interval, morphine IV for severe pain and IV tylenol for mild to moderate pain (10) Very poor nutrition Assessment/Plan: post op nutrition remains poor c/w clinimax and lipids every other day monitor for need of TPN if appetite remains poor monitor albumin Code(s): E63.9 - NUTRITIONAL DEFICIENCY, UNSPECIFIED Visit type - Emergency Visit Emergency Visit: Yes ED Registration Date: 10/12/19 Care time: The patient presented to the Emergency Department on the above date and was hospitalized for further evaluation of their emergent condition. - New Patient This patient is new to me today: Yes Date on this admission: 11/04/19 - Critical Care Critical Care patient: No - Discharge Referral Referred to [facility] Med P.C.: No
[2019-11-04] MEDS ORDERED: PT OWN MED DRAWER 7, Y5N ONE ×3 (07:57→09:30)
[2019-11-04 07:58] LABS: POTASSIUM 2.9 mmol/L (3.5-5.1)
[2019-11-04] MEDS: AMINO ACIDS/PROTEIN HYDROLYS 30 ML LIQUID.PKT PO SCH ×2 (08:03→17:28)
[2019-11-04] MEDS ORDERED: POTASSIUM CHLORIDE TABS 20 MEQ TABLET.ER (FP) PO ONE (08:30)
[2019-11-04] MEDS ORDERED: POTASSIUM CHLORIDE ORAL LIQUID 20 MEQ/15 ML PO ONE ×2 (09:30→09:45)
--- NOTE | 2019-11-04 10:15 | PN ---
Progress Note, Physician History of Present Illness: s/p subtotal gastrectomy with improving post-op abdominal discomfort, UGI series shows passage of contrast into small bowel, oral feeding resume, no further AV block on telemetry. No SOB or CP, small sanguinous drainage upper pole of abd wound, no pus, having BM. - Current Medication List Current Medications: Active Medications Acetaminophen (Ofirmev Injection -) 1,000 mg IVPB Q8H PRN PRN Reason: FEVER Last Admin: 10/29/19 12:44 Dose: 1,000 mg Amino Acids (Prosource No Carb Liquid Pkt) 30 ml PO BID@0800,1730 [facility] Last Admin: 11/04/19 08:03 Dose: 30 ml Amlodipine Besylate (Norvasc -) 2.5 mg PO DAILY [facility] Last Admin: 11/03/19 09:16 Dose: 2.5 mg Amoxicillin (Amoxicillin -) 1,000 mg PO BID [facility] Stop: 11/04/19 09:59 Last Admin: 11/03/19 22:23 Dose: 1,000 mg Aspirin (Asa -) 81 mg PO DAILY [facility] Last Admin: 11/03/19 09:16 Dose: 81 mg Atorvastatin Calcium (Lipitor -) 20 mg PO HS [facility] Last Admin: 11/03/19 22:23 Dose: 20 mg Calcium Carbonate (Os-Jc 500mg -) 500 mg PO BID [facility] Last Admin: 11/03/19 22:23 Dose: 500 mg Cholecalciferol (Vitamin D3 -) 1,000 unit PO DAILY [facility] Last Admin: 11/03/19 12:28 Dose: 1,000 unit Clarithromycin (Biaxin -) 500 mg PO BID [facility] Stop: 11/04/19 09:59 Last Admin: 11/03/19 22:23 Dose: 500 mg Cyanocobalamin (Vitamin B12 -) 300 mcg PO DAILY [facility] Last Admin: 11/03/19 13:21 Dose: 300 mcg Heparin Sodium (Porcine) (Heparin -) 5,000 unit SQ TID [facility] Last Admin: 11/04/19 06:18 Dose: 5,000 unit Fat Emulsion Intravenous (Intralipid -) 250 mls @ 20.833 mls/hr IV Q48H [facility] Last Admin: 11/03/19 22:28 Dose: 20.833 mls/hr Potassium Chloride 20 meq/ (Amino Acids) 1,010 mls @ 84 mls/hr IVPB Q12H [facility] Lisinopril (Prinivil) 10 mg PO DAILY [facility] Multivitamins/Minerals (Certavite-Antioxidant Liquid) 15 ml PO DAILY [facility] Last Admin: 11/03/19 13:21 Dose: 15 ml Pantoprazole Sodium (Protonix Iv) 40 mg IVPUSH BID [facility] Last Admin: 11/03/19 22:22 Dose: 40 mg Prochlorperazine Edisylate (Compazine Injection -) 5 mg IVPB Q4H PRN PRN Reason: NAUSEA AND/OR VOMITING - Objective Vital Signs: Vital Signs Temperature 98.3 F 11/04/19 06:00 Pulse Rate 68 11/04/19 06:00 Respiratory Rate 20 11/04/19 06:00 Blood Pressure 156/70 11/04/19 06:00 O2 Sat by Pulse Oximetry (%) 95 11/03/19 21:00 Constitutional: Yes: No Distress, Calm, Thin Neck: Yes: Supple Cardiovascular: Yes: Regular Rate and Rhythm Respiratory: Yes: Regular, CTA Bilaterally Gastrointestinal: Yes: Normal Bowel Sounds, Soft Edema: No Labs: CBC, BMP 11/04/19 06:40 11/04/19 06:40 INR, PTT INR 1.07 (0.83-1.09) 10/26/19 06:16 - ....Imaging EKG: Report Reviewed (Tele: NSR) Problem List - Problems (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 pylori) infection Code(s): A04.8 - OTHER SPECIFIED BACTERIAL INTESTINAL INFECTIONS (6) Postoperative non-ST elevation myocardial infarction (NSTEMI) Code(s): [id number] - Assessment/Plan 10/31/2019 Echo: Normal LV size and fxn, LVEF 65-70%, normal RV size and fxn, mild MR, TR RVSP 29 mmHg, mod ao dilatation 10/24/2019 Echo: Normal LV size and fxn, LVEF 60-65%, grade II diastolic dysfunction, mild MR, TR RVSP 33 mmHg, mild ID 1. POD #10: Radical subtotal gastectomy, omentectomy, gastrojejunostomy for Gastric Cancer 2. Acute blood loss anemia 3. H. Pylori 4. Sinus bradycardia, transient 2nd deg AV block post-op since resolved 5. Hypertension, BP elevated 6. CAD with post-op DE 7. Hypernatremia, hypokalemia PLAN: 1. 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 Treatment for H. pylori, monitor H&H post transfusion, f/u pathology 3. Avoid AV pao blocking agents given sinus bradycardia, continue ASA 81 qd, Lipitor 20 qd, lisinopril 10 qd and Norvasc 2.5 qd with uptitration as tolerated 4. Lexiscan Myoview may be performed once clinically stable
[2019-11-04] MEDS: AMOXICILLIN 500 MG CAPSULE (FP) PO SCH ×2 (10:37→10:39)
[2019-11-04] MEDS: CHOLECALCIFEROL (VIT D3) 1,000 UNIT (25 MCG) TABLET PO SCH ×2 (10:38→10:40)
[2019-11-04] MEDS: PANTOPRAZOLE SODIUM 40 MG VIAL IVPUSH SCH ×2 (10:38→22:16)
[2019-11-04] MEDS: CLARITHROMYCIN 500 MG TABLET (UD) PO SCH (10:39)
[2019-11-04] MEDS: amLODIPine BESYLATE 2.5 MG TABLET (FP) PO SCH (10:39)
[2019-11-04] MEDS: MULTIVIT-MINERALS ORAL LIQUID PO SCH (10:41)
[2019-11-04] MEDS: CALCIUM (OYSTER SHELL) 500 MG TABLET (FP) PO SCH ×2 (10:41→22:16)
[2019-11-04] MEDS: ASPIRIN 81 MG CHEWABLE TABLETS PO SCH (10:41)
[2019-11-04] MEDS: LISINOPRIL 5 MG TABLET (FP) PO SCH (10:49)
[2019-11-04] MEDS: POTASSIUM CHLORIDE 20 MEQ in AMINO ACIDS 4.25%/D5W 1,000 ML IVPB SCH ×2 (12:17→23:00)
[2019-11-04] MEDS: CYANOCOBALAMIN (VITAMIN B-12) 100 MCG TABLET PO SCH (12:18)
--- NOTE | 2019-11-04 12:57 | PN ---
Progress Note, Physician - Current Medication List Current Medications: Active Medications Acetaminophen (Ofirmev Injection -) 1,000 mg IVPB Q8H PRN PRN Reason: FEVER Last Admin: 10/29/19 12:44 Dose: 1,000 mg Amino Acids (Prosource No Carb Liquid Pkt) 30 ml PO BID@0800,1730 [facility] Last Admin: 11/04/19 08:03 Dose: 30 ml Amlodipine Besylate (Norvasc -) 2.5 mg PO DAILY [facility] Last Admin: 11/04/19 10:39 Dose: 2.5 mg Amoxicillin (Amoxicillin -) 1,000 mg PO BID [facility] Stop: 11/04/19 09:59 Last Admin: 11/04/19 10:39 Dose: Not Given Aspirin (Asa -) 81 mg PO DAILY [facility] Last Admin: 11/04/19 10:41 Dose: 81 mg Atorvastatin Calcium (Lipitor -) 20 mg PO HS [facility] Last Admin: 11/03/19 22:23 Dose: 20 mg Calcium Carbonate (Os-Jc 500mg -) 500 mg PO BID [facility] Last Admin: 11/04/19 10:41 Dose: 500 mg Cholecalciferol (Vitamin D3 -) 1,000 unit PO DAILY [facility] Last Admin: 11/04/19 10:40 Dose: Not Given Clarithromycin (Biaxin -) 500 mg PO BID [facility] Stop: 11/04/19 09:59 Last Admin: 11/04/19 10:39 Dose: 500 mg Cyanocobalamin (Vitamin B12 -) 300 mcg PO DAILY [facility] Last Admin: 11/04/19 12:18 Dose: 300 mcg Heparin Sodium (Porcine) (Heparin -) 5,000 unit SQ TID [facility] Last Admin: 11/04/19 06:18 Dose: 5,000 unit Fat Emulsion Intravenous (Intralipid -) 250 mls @ 20.833 mls/hr IV Q48H [facility] Last Admin: 11/03/19 22:28 Dose: 20.833 mls/hr Potassium Chloride 20 meq/ (Amino Acids) 1,010 mls @ 84 mls/hr IVPB Q12H [facility] Last Admin: 11/04/19 12:17 Dose: 84 mls/hr Lisinopril (Prinivil) 10 mg PO DAILY [facility] Last Admin: 11/04/19 10:49 Dose: 10 mg Multivitamins/Minerals (Certavite-Antioxidant Liquid) 15 ml PO DAILY [facility] Last Admin: 11/04/19 10:41 Dose: 15 ml Pantoprazole Sodium (Protonix Iv) 40 mg IVPUSH BID [facility] Last Admin: 11/04/19 10:38 Dose: 40 mg Prochlorperazine Edisylate (Compazine Injection -) 5 mg IVPB Q4H PRN PRN Reason: NAUSEA AND/OR VOMITING - Objective Vital Signs: Vital Signs Temperature 98.3 F 11/04/19 10:00 Pulse Rate 68 11/04/19 10:00 Respiratory Rate 20 11/04/19 10:00 Blood Pressure 142/67 11/04/19 10:00 O2 Sat by Pulse Oximetry (%) 95 11/04/19 09:00 Labs: CBC, BMP 11/04/19 06:40 11/04/19 06:40 INR, PTT INR 1.07 (0.83-1.09) 10/26/19 06:16 Problem List - Problems (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 Not eating adequately. Wound is clean , still draining seranguinous fluid from the wound. No sign of wound dehiscence. Potassium 2.2 after aggressive supplementaion. Abdomen is soft , not distended. Dressing changed. Albumin 2.2 gms. Patients diet being adjusted, having difficulty . Problems: Serosanguinous drainage from wound, Poor dietary intake, Hypokalemia. hypoalbuminemia. Carcinoma of stomach , tumor invading muscularis propria,' 06/24 lymph nodes positive , 2 gross. , largest 1.2 cm. [id number]. Disscussed with dietitian and the nurse regarding overall management.
--- NOTE | 2019-11-04 13:06 | PN ---
Progress Note, Physician - Current Medication List Current Medications: Active Medications Acetaminophen (Ofirmev Injection -) 1,000 mg IVPB Q8H PRN PRN Reason: FEVER Last Admin: 10/29/19 12:44 Dose: 1,000 mg Amino Acids (Prosource No Carb Liquid Pkt) 30 ml PO BID@0800,1730 [facility] Last Admin: 11/04/19 08:03 Dose: 30 ml Amlodipine Besylate (Norvasc -) 2.5 mg PO DAILY [facility] Last Admin: 11/04/19 10:39 Dose: 2.5 mg Amoxicillin (Amoxicillin -) 1,000 mg PO BID [facility] Stop: 11/04/19 09:59 Last Admin: 11/04/19 10:39 Dose: Not Given Aspirin (Asa -) 81 mg PO DAILY [facility] Last Admin: 11/04/19 10:41 Dose: 81 mg Atorvastatin Calcium (Lipitor -) 20 mg PO HS [facility] Last Admin: 11/03/19 22:23 Dose: 20 mg Calcium Carbonate (Os-Jc 500mg -) 500 mg PO BID [facility] Last Admin: 11/04/19 10:41 Dose: 500 mg Cholecalciferol (Vitamin D3 -) 1,000 unit PO DAILY [facility] Last Admin: 11/04/19 10:40 Dose: Not Given Clarithromycin (Biaxin -) 500 mg PO BID [facility] Stop: 11/04/19 09:59 Last Admin: 11/04/19 10:39 Dose: 500 mg Cyanocobalamin (Vitamin B12 -) 300 mcg PO DAILY [facility] Last Admin: 11/04/19 12:18 Dose: 300 mcg Heparin Sodium (Porcine) (Heparin -) 5,000 unit SQ TID [facility] Last Admin: 11/04/19 06:18 Dose: 5,000 unit Fat Emulsion Intravenous (Intralipid -) 250 mls @ 20.833 mls/hr IV Q48H [facility] Last Admin: 11/03/19 22:28 Dose: 20.833 mls/hr Potassium Chloride 20 meq/ (Amino Acids) 1,010 mls @ 84 mls/hr IVPB Q12H [facility] Last Admin: 11/04/19 12:17 Dose: 84 mls/hr Lisinopril (Prinivil) 10 mg PO DAILY [facility] Last Admin: 11/04/19 10:49 Dose: 10 mg Multivitamins/Minerals (Certavite-Antioxidant Liquid) 15 ml PO DAILY [facility] Last Admin: 11/04/19 10:41 Dose: 15 ml Pantoprazole Sodium (Protonix Iv) 40 mg IVPUSH BID [facility] Last Admin: 11/04/19 10:38 Dose: 40 mg Prochlorperazine Edisylate (Compazine Injection -) 5 mg IVPB Q4H PRN PRN Reason: NAUSEA AND/OR VOMITING - Objective Vital Signs: Vital Signs Temperature 98.3 F 11/04/19 10:00 Pulse Rate 68 11/04/19 10:00 Respiratory Rate 20 11/04/19 10:00 Blood Pressure 142/67 11/04/19 10:00 O2 Sat by Pulse Oximetry (%) 95 11/04/19 09:00 Labs: CBC, BMP 11/04/19 06:40 11/04/19 06:40 INR, PTT INR 1.07 (0.83-1.09) 10/26/19 06:16 Problem List - Problems (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
[2019-11-04] MEDS: ATORVASTATIN CA 20 MG TABLET (FP) PO SCH (22:16)
[2019-11-05] MEDS: HEPARIN NA (PORCINE) 5,000 UNITS/ML 1ML VIAL SQ SCH ×3 (06:21→21:43)
--- NOTE | 2019-11-05 08:19 | PN ---
Progress Note (short form) - Note Progress Note: Chief Complaint: Events noted, notes reviewed, sitting i a chair complaining of hiccups, denies any chest pain or dyspnea History of Present Illness: Seen and examined on telemetry. Events noted, notes reviewed, sitting i a chair complaining of hiccups, denies any chest pain or dyspnea - Current Medication List Current Medications Acetaminophen (Ofirmev Injection -) 1,000 mg IVPB Q8H PRN PRN Reason: FEVER Last Admin: 10/29/19 12:44 Dose: 1,000 mg Amino Acids (Prosource No Carb Liquid Pkt) 30 ml PO BID@0800,1730 [facility] Last Admin: 11/05/19 09:07 Dose: 30 ml Amlodipine Besylate (Norvasc -) 2.5 mg PO DAILY [facility] Last Admin: 11/05/19 09:07 Dose: 2.5 mg Amoxicillin (Amoxicillin -) 1,000 mg PO BID [facility] Stop: 11/04/19 09:59 Last Admin: 11/04/19 10:39 Dose: Not Given Aspirin (Asa -) 81 mg PO DAILY [facility] Last Admin: 11/05/19 09:08 Dose: 81 mg Atorvastatin Calcium (Lipitor -) 20 mg PO HS [facility] Last Admin: 11/04/19 22:16 Dose: 20 mg Calcium Carbonate (Os-Jc 500mg -) 500 mg PO BID [facility] Last Admin: 11/05/19 09:07 Dose: 500 mg Chlorpromazine HCl (Thorazine -) 25 mg PO QID [facility] Last Admin: 11/05/19 11:14 Dose: 25 mg Cholecalciferol (Vitamin D3 -) 1,000 unit PO DAILY [facility] Last Admin: 11/05/19 09:11 Dose: 1,000 unit Clarithromycin (Biaxin -) 500 mg PO BID [facility] Stop: 11/04/19 09:59 Last Admin: 11/04/19 10:39 Dose: 500 mg Cyanocobalamin (Vitamin B12 -) 300 mcg PO DAILY [facility] Last Admin: 11/05/19 09:08 Dose: 300 mcg Heparin Sodium (Porcine) (Heparin -) 5,000 unit SQ TID [facility] Last Admin: 11/05/19 06:21 Dose: 5,000 unit Fat Emulsion Intravenous (Intralipid -) 250 mls @ 20.833 mls/hr IV Q48H [facility] Last Admin: 11/03/19 22:28 Dose: 20.833 mls/hr Potassium Chloride 20 meq/ (Amino Acids) 1,010 mls @ 84 mls/hr IVPB Q12H [facility] Last Admin: 11/04/19 23:00 Dose: 84 mls/hr Lisinopril (Prinivil) 10 mg PO DAILY [facility] Last Admin: 11/05/19 09:07 Dose: 10 mg Multivitamins/Minerals (Certavite-Antioxidant Liquid) 15 ml PO DAILY [facility] Last Admin: 11/05/19 09:09 Dose: 15 ml Pantoprazole Sodium (Protonix Iv) 40 mg IVPUSH BID [facility] Last Admin: 11/05/19 09:08 Dose: 40 mg Prochlorperazine Edisylate (Compazine Injection -) 5 mg IVPB Q4H PRN PRN Reason: NAUSEA AND/OR VOMITING Review of Systems Constitutional: denies: Chills or Fever Cardiovascular: as noted above Respiratory: as noted above Gastrointestinal: denies: Nausea, Vomiting, Diarrhea, Constipation or Abdominal Pain, reports: Hiccups Genitourinary: denies: Dysuria Musculoskeletal: denies: Joint Pain Neurological: denies: Dizziness or Headache - Objective Vital Signs: Last Vital Signs Temp Pulse Resp BP Pulse Ox 97.6 F 56 L 20 156/73 98 11/05/19 06:00 11/05/19 06:00 11/05/19 06:00 11/05/19 06:00 11/04/19 21:00 Intake & Output 11/02/19 11/03/19 11/04/19 11/05/19 23:59 23:59 23:59 23:59 Intake Total 1790 2080 2328 1028 Output Total 650 200 Balance 1140 2080 2328 828 Weight 133 lb 4.5 oz 129 lb 6.4 oz 131 lb 6.4 oz 131 lb 4.8 oz Neck: Supple Negative JVD No Bruit Respiratory: Scattered Rhonchi Bilaterally Cardiovascular: S1 S2 Regular Rate Rhythm Gastrointestinal: Soft Benign Normal Bowel Sounds Ext: Negative Edema Labs: CBC, BMP 11/04/19 06:40 11/04/19 06:40 Hepatic Panel Total Bilirubin 0.5 mg/dL (0.2-1) 11/04/19 06:40 AST 25 U/L (15-37) 11/04/19 06:40 ALT 23 U/L (13-61) 11/04/19 06:40 Alkaline Phosphatase 231 U/L (45-117) H 11/04/19 06:40 Albumin 2.2 g/dl (3.4-5.0) L 11/04/19 06:40 INR, PTT INR 1.07 (0.83-1.09) 10/26/19 06:16 Assessment/Plan ASSESSMENT: 1. POD #11- post radical subtotal gastrectomy, omentectomy, gastrojejunostomy for Gastric Cancer 2. CAD with evidence of post operative NSTEMI angina pectoris 3. Diastolic LV dysfunction with clinical class 0 NYHA classification LV failure 4. Post acute blood loss- anemia 5. Sinus bradycardia, transient 2nd degree AV block post-op, since resolved 6. Hypertensive cardiovascular disease 7. Hypokalemia PLAN: 1. Avoid AV pao blocking agents given sinus bradycardia 2. Continue Norvasc 3. Continue Lisinopril 4. Continue Lipitor 5. Continue ASA 6. Plan for Pharmacologic Lexiscan MPI study in the future once clinically stable/fully recovered from the above noted procedure Christine Lucero M.D.
[2019-11-05 08:32] LABS: BASO % 0.8 % (0-2.0); EOS % 3.3 % (0-4.5); HEMATOCRIT 35.1 % (35.4-49); HEMOGLOBIN 10.5 GM/dL (11.7-16.9); LYMPH % 10.1 % (8-40); MCH 21.3 pg (25.7-33.7); MEAN CELL VOLUME 70.9 fl (80-96); MEAN PLT VOLUME 8.9 fl (7.5-11.1); MONO % 5.7 % (3.8-10.2); NEUT % 80.1 % (42.8-82.8); PLATELET COUNT 317 K/MM3 (134-434); RBC 4.95 M/mm3 (4.00-5.60); RDW 27.1 % (11.9-15.9); WHITE BLOOD COUNT 8.5 K/mm3 (4.0-10.0)
[2019-11-05] MEDS ORDERED: PT OWN MED DRAWER 7, Y5N ONE ×2 (09:03→19:26)
[2019-11-05 09:06] LABS: ALBUMIN 2.5 g/dl (3.4-5.0); BILIRUBIN,TOTAL 0.6 mg/dL (0.2-1); BLOOD UREA NITROGEN 20.7 mg/dL (7-18); CALCIUM 9.8 mg/dL (8.5-10.1); CREATININE 0.7 mg/dL (0.55-1.3); MAGNESIUM 1.8 mg/dL (1.8-2.4); POTASSIUM 3.4 mmol/L (3.5-5.1); TOT PROT 5.8 g/dl (6.4-8.2)
[2019-11-05] MEDS: AMINO ACIDS/PROTEIN HYDROLYS 30 ML LIQUID.PKT PO SCH ×2 (09:07→17:24)
[2019-11-05] MEDS: amLODIPine BESYLATE 2.5 MG TABLET (FP) PO SCH (09:07)
[2019-11-05] MEDS: LISINOPRIL 5 MG TABLET (FP) PO SCH (09:07)
[2019-11-05] MEDS: CALCIUM (OYSTER SHELL) 500 MG TABLET (FP) PO SCH ×2 (09:07→21:46)
[2019-11-05] MEDS: CYANOCOBALAMIN (VITAMIN B-12) 100 MCG TABLET PO SCH (09:08)
[2019-11-05] MEDS: ASPIRIN 81 MG CHEWABLE TABLETS PO SCH (09:08)
[2019-11-05] MEDS: PANTOPRAZOLE SODIUM 40 MG VIAL IVPUSH SCH ×2 (09:08→21:45)
[2019-11-05] MEDS: MULTIVIT-MINERALS ORAL LIQUID PO SCH (09:09)
[2019-11-05] MEDS: CHOLECALCIFEROL (VIT D3) 1,000 UNIT (25 MCG) TABLET PO SCH (09:11)
[2019-11-05] MEDS ORDERED: chlorproMAZINE HCL 25 MG TABLET PO SCH (10:00)
[2019-11-05] MEDS: chlorproMAZINE HCL 25 MG TABLET PO SCH ×4 (11:14→23:15)
--- NOTE | 2019-11-05 12:22 | PN ---
Physical Exam: SUBJECTIVE: Patient seen and examined at the bedside. reports hiccups that started overnight, having acid refux and belching. OBJECTIVE: start on thoraxine for h iccups. on protonix monitor intake and output on clinimax since 11/03/19 Patient is an 79 year telugu speaking male who had radical subtotal gastectomy , omentectomy, gastrojejunostomy for gastric cancer on 10/26/2019. Vital Signs Period Temp Pulse Resp BP Sys/Newman Pulse Ox Last 24 Hr 97.5 F-98.7 F 53-60 20-20 142-156/56-81 98 GENERAL: The patient is awake, alert, and fully oriented, in no acute distress. speaks telugu primarily HEAD: Normal with no signs of trauma. EYES: PERRL, extraocular movements intact, sclera anicteric, conjunctiva clear. No ptosis. ENT: Ears normal, nares patent, oropharynx clear without exudates NECK: Trachea midline, full range of motion, supple. LUNGS: Breath sounds equal, clear to auscultation bilaterally HEART: Regular rate and rhythm ABDOMEN: Soft, mild tender abdomen, +hyperactive bowel sounds EXTREMITIES: no edema. NEUROLOGICAL: Normal speech, gait not observed. PSYCH: Normal mood, normal affect. SKIN: abdominal dressing with mild sero sang drainage Laboratory Results - last 24 hr 11/05/19 11/05/19 08:10 08:10 WBC 8.5 RBC 4.95 Hgb 10.5 L Hct 35.1 L MCV 70.9 L MCH 21.3 L MCHC 30.0 L RDW 27.1 H Plt Count 317 D MPV 8.9 Absolute Neuts (auto) 6.8 Neutrophils % 80.1 Lymphocytes % 10.1 Monocytes % 5.7 Eosinophils % 3.3 Basophils % 0.8 Nucleated RBC % 0 Sodium 137 Potassium 3.4 L Chloride 108 H Carbon Dioxide 22 Anion Gap 8 BUN 20.7 H Creatinine 0.7 Est GFR (CKD-EPI)AfAm 103.30 Est GFR (CKD-EPI)NonAf 89.13 Random Glucose 137 H Calcium 9.8 Magnesium 1.8 Total Bilirubin 0.6 AST 25 ALT 25 Alkaline Phosphatase 231 H Total Protein 5.8 L Albumin 2.5 L Active Medications Generic Name Dose Route Start Last Admin Trade Name Freq PRN Reason Stop Dose Admin Acetaminophen 1,000 mg 10/28/19 03:39 10/29/19 12:44 Ofirmev Injection - IVPB 1,000 mg Q8H PRN Administration FEVER Amino Acids 30 ml 11/03/19 17:30 11/05/19 09:07 Prosource No Carb Liquid Pkt PO 30 ml BID@0800,1730 MEME Administration Amlodipine Besylate 2.5 mg 11/01/19 10:45 11/05/19 09:07 Norvasc - PO 2.5 mg DAILY MEME Administration Amoxicillin 1,000 mg 10/28/19 10:00 11/04/19 10:39 Amoxicillin - PO 11/04/19 09:59 Not Given BID MEME Aspirin 81 mg 11/02/19 10:00 11/05/19 09:08 Asa - PO 81 mg DAILY MEME Administration Atorvastatin Calcium 20 mg 11/01/19 22:00 11/04/19 22:16 Lipitor - PO 20 mg HS MEME Administration Calcium Carbonate 500 mg 11/03/19 12:15 11/05/19 09:07 Os-Jc 500mg - PO 500 mg BID MEME Administration Chlorpromazine HCl 25 mg 11/05/19 10:00 11/05/19 11:14 Thorazine - PO 25 mg QID MEME Administration Cholecalciferol 1,000 unit 11/03/19 12:15 11/05/19 09:11 Vitamin D3 - PO 1,000 unit DAILY MEME Administration Clarithromycin 500 mg 10/28/19 10:00 11/04/19 10:39 Biaxin - PO 11/04/19 09:59 500 mg BID MEME Administration Cyanocobalamin 300 mcg 11/03/19 12:15 11/05/19 09:08 Vitamin B12 - PO 300 mcg DAILY MEME Administration Heparin Sodium (Porcine) 5,000 unit 11/02/19 22:00 11/05/19 06:21 Heparin - SQ 5,000 unit TID MEME Administration Fat Emulsion Intravenous 250 mls @ 20.833 mls/hr 11/03/19 22:00 11/03/19 22: 28 Intralipid - IV 20.833 mls/hr Q48H MEME Administration Potassium Chloride 20 meq/ 1,010 mls @ 84 mls/hr 11/04/19 08:31 11/04/19 23: 00 Amino Acids IVPB 84 mls/hr Q12H MEME Administration Lisinopril 10 mg 11/04/19 10:00 11/05/19 09:07 Prinivil PO 10 mg DAILY MEME Administration Multivitamins/Minerals 15 ml 11/03/19 13:00 11/05/19 09:09 Certavite-Antioxidant Liquid PO 15 ml DAILY MEME Administration Pantoprazole Sodium 40 mg 11/02/19 22:00 11/05/19 09:08 Protonix Iv IVPUSH 40 mg BID MEME Administration Prochlorperazine Edisylate 5 mg 11/02/19 18:13 Compazine Injection - IVPB Q4H PRN NAUSEA AND/OR VOMITING ASSESSMENT/PLAN: Problem List - Problems (1) S/P subtotal gastrectomy Assessment/Plan: S/P radical subtotal gastectomy, omentectomy, gastrojejunostomy for gastric cancer Not tolerating diet currently, with nausea, and regurgitation of meals Surgical site c/d/i, abdominal dressing intact He is currently hemodynamically stable and afebrile. No leukocytosis. Continue with oral amoxacillin and biaxin Anemia improved Continue with IV protonix, zofran prn with monitoring of QTc interval, morphine IV for severe pain and IV tylenol for mild to moderate pain (2) Anemia Assessment/Plan: monitor hmg/hct has received venofer on this admission will defer iron supplements to avoid constipation Code(s): D64.9 - ANEMIA, UNSPECIFIED (3) Gastric carcinoma Code(s): C16.9 - MALIGNANT NEOPLASM OF STOMACH, UNSPECIFIED (4) Helicobacter pylori (H. pylori) infection Assessment/Plan: On treatment for H. pylori, monitor H&H, f/u pathology Code(s): A04.8 - OTHER SPECIFIED BACTERIAL INTESTINAL INFECTIONS (5) Hypertension Assessment/Plan: avoid AV pao blocking agents given sinus bradycardia, continue ASA 81 qd, Lipitor 20 qd, lisinopril 10 qd and Norvasc 2.5 qd with uptitration as tolerated Code(s): I10 - ESSENTIAL (PRIMARY) HYPERTENSION Qualifiers: Hypertension type: essential hypertension Qualified Code(s): I10 - Essential (primary) hypertension (6) Postoperative non-ST elevation myocardial infarction (NSTEMI) Assessment/Plan: stress test when more stable continue ASA 81mg and lisinopril. avoid beta blockers Code(s): CAQ2451 - (7) Hypokalemia Assessment/Plan: kcl with clinimax Code(s): E87.6 - HYPOKALEMIA (8) Very poor nutrition Assessment/Plan: post op, nutrition remains poor add clinimax and lipids every other day monitor for need of TPN if appetite remains poor monitor albumin Code(s): E63.9 - NUTRITIONAL DEFICIENCY, UNSPECIFIED Visit type - Emergency Visit Emergency Visit: Yes ED Registration Date: 10/12/19 Care time: The patient presented to the Emergency Department on the above date and was hospitalized for further evaluation of their emergent condition. - New Patient This patient is new to me today: No - Critical Care Critical Care patient: No - Discharge Referral Referred to [facility] Med P.C[facility] No
[2019-11-05] MEDS: POTASSIUM CHLORIDE 20 MEQ in AMINO ACIDS 4.25%/D5W 1,000 ML IVPB SCH (14:26)
[2019-11-05] MEDS: FAT EMULSIONS 250 ML IV SCH (21:43)
[2019-11-05] MEDS: ATORVASTATIN CA 20 MG TABLET (FP) PO SCH (21:44)
[2019-11-05 22:57] VITALS: BMI 23.4
[2019-11-06] MEDS: CALCIUM (OYSTER SHELL) 500 MG TABLET (FP) PO SCH ×3 (02:55→22:09)
[2019-11-06] MEDS: HEPARIN NA (PORCINE) 5,000 UNITS/ML 1ML VIAL SQ SCH ×3 (06:19→22:08)
[2019-11-06] MEDS: POTASSIUM CHLORIDE 20 MEQ in AMINO ACIDS 4.25%/D5W 1,000 ML IVPB SCH ×3 (06:20→22:09)
--- NOTE | 2019-11-06 07:55 | PN ---
Progress Note (short form) - Note Progress Note: Chief Complaint: Events noted, notes reviewed, sitting in a chair, denies any chest pain or dyspnea, complaining of incisional abdominal discomfort, hiccups resolved History of Present Illness: Seen and examined on telemetry. Events noted, notes reviewed, sitting in a chair , denies any chest pain or dyspnea, complaining of incisional abdominal discomfort, hiccups resolved - Current Medication List Current Medications Acetaminophen (Ofirmev Injection -) 1,000 mg IVPB Q8H PRN PRN Reason: FEVER Last Admin: 10/29/19 12:44 Dose: 1,000 mg Amino Acids (Prosource No Carb Liquid Pkt) 30 ml PO BID@0800,1730 [facility] Last Admin: 11/05/19 17:24 Dose: 30 ml Amlodipine Besylate (Norvasc -) 2.5 mg PO DAILY [facility] Last Admin: 11/05/19 09:07 Dose: 2.5 mg Amoxicillin (Amoxicillin -) 1,000 mg PO BID [facility] Stop: 11/04/19 09:59 Last Admin: 11/04/19 10:39 Dose: Not Given Aspirin (Asa -) 81 mg PO DAILY [facility] Last Admin: 11/05/19 09:08 Dose: 81 mg Atorvastatin Calcium (Lipitor -) 20 mg PO HS [facility] Last Admin: 11/05/19 21:44 Dose: 20 mg Calcium Carbonate (Os-Jc 500mg -) 500 mg PO BID [facility] Last Admin: 11/06/19 02:55 Dose: Not Given Chlorpromazine HCl (Thorazine -) 25 mg PO QID [facility] Last Admin: 11/05/19 23:15 Dose: Not Given Cholecalciferol (Vitamin D3 -) 1,000 unit PO DAILY [facility] Last Admin: 11/05/19 09:11 Dose: 1,000 unit Clarithromycin (Biaxin -) 500 mg PO BID [facility] Stop: 11/04/19 09:59 Last Admin: 11/04/19 10:39 Dose: 500 mg Cyanocobalamin (Vitamin B12 -) 300 mcg PO DAILY [facility] Last Admin: 11/05/19 09:08 Dose: 300 mcg Heparin Sodium (Porcine) (Heparin -) 5,000 unit SQ TID [facility] Last Admin: 11/06/19 06:19 Dose: Not Given Fat Emulsion Intravenous (Intralipid -) 250 mls @ 20.833 mls/hr IV Q48H [facility] Last Admin: 11/05/19 21:43 Dose: 20.833 mls/hr Potassium Chloride 20 meq/ (Amino Acids) 1,010 mls @ 84 mls/hr IVPB Q12H [facility] Last Admin: 11/06/19 06:20 Dose: 84 mls/hr Lisinopril (Prinivil) 10 mg PO DAILY [facility] Last Admin: 11/05/19 09:07 Dose: 10 mg Multivitamins/Minerals (Certavite-Antioxidant Liquid) 15 ml PO DAILY [facility] Last Admin: 11/05/19 09:09 Dose: 15 ml Pantoprazole Sodium (Protonix Iv) 40 mg IVPUSH BID [facility] Last Admin: 11/05/19 21:45 Dose: 40 mg Prochlorperazine Edisylate (Compazine Injection -) 5 mg IVPB Q4H PRN PRN Reason: NAUSEA AND/OR VOMITING Review of Systems Constitutional: denies: Chills or Fever Cardiovascular: as noted above Respiratory: as noted above Gastrointestinal: denies: Nausea, Vomiting, Diarrhea or Constipation reports Abdominal Pain Genitourinary: denies: Dysuria Musculoskeletal: denies: Joint Pain Neurological: denies: Dizziness or Headache - Objective Vital Signs: Last Vital Signs Temp Pulse Resp BP Pulse Ox 98.3 F 61 20 140/59 L 100 11/06/19 02:00 11/06/19 02:00 11/06/19 02:00 11/06/19 02:00 11/05/19 21:00 Intake & Output 11/03/19 11/04/19 11/05/19 11/06/19 23:59 23:59 23:59 23:59 Intake Total 2080 2328 1278 1160 Output Total 200 600 Balance 2080 2328 1078 560 Weight 129 lb 6.4 oz 131 lb 6.4 oz 131 lb 4.8 oz Neck: Supple Negative JVD No Bruit Respiratory: Scattered Rhonchi Bilaterally Cardiovascular: S1 S2 Regular Rate Rhythm Gastrointestinal: Soft Benign Normal Bowel Sounds Ext: Negative Edema Labs: CBC, BMP 11/06/19 07:50 11/06/19 07:50 CBC, BMP 11/05/19 08:10 11/05/19 08:10 INR, PTT INR 1.07 (0.83-1.09) 10/26/19 06:16 Hepatic Panel Total Bilirubin 0.6 mg/dL (0.2-1) 11/05/19 08:10 AST 25 U/L (15-37) 11/05/19 08:10 ALT 25 U/L (13-61) 11/05/19 08:10 Alkaline Phosphatase 231 U/L (45-117) H 11/05/19 08:10 Albumin 2.5 g/dl (3.4-5.0) L 11/05/19 08:10 Assessment/Plan ASSESSMENT: 1. POD #12- post radical subtotal gastrectomy, omentectomy, gastrojejunostomy for gastric Cancer 2. CAD with evidence of post operative NSTEMI angina pectoris 3. Diastolic LV dysfunction with clinical class 0 NYHA classification LV failure 4. Post acute blood loss- anemia 5. Sinus bradycardia, transient 2nd degree AV block post-op, since resolved 6. Hypertensive cardiovascular disease 7. Hypokalemia, persistent PLAN: 1. As outlined in the prior notes avoid AV pao blocking agents given sinus bradycardia 2. Continue Norvasc 3. Continue Lisinopril 4. Continue Lipitor 5. Continue ASA 6. Correction of Hypokalemia as per the primary team 7. Plan for Pharmacologic Lexiscan MPI study in the future once clinically stable/fully recovered from the above noted procedure Christine Lucero M.D.
[2019-11-06 08:11] LABS: BASO % 0.7 % (0-2.0); EOS % 1.8 % (0-4.5); HEMATOCRIT 31.3 % (35.4-49); HEMOGLOBIN 9.6 GM/dL (11.7-16.9); LYMPH % 4.7 % (8-40); MCH 21.4 pg (25.7-33.7); MCHC 30.5 g/dl (32.0-35.9); MEAN CELL VOLUME 70.2 fl (80-96); MEAN PLT VOLUME 9.4 fl (7.5-11.1); MONO % 4.6 % (3.8-10.2); NEUT % 88.2 % (42.8-82.8); PLATELET COUNT 247 K/MM3 (134-434); RBC 4.46 M/mm3 (4.00-5.60); RDW 27.4 % (11.9-15.9); WHITE BLOOD COUNT 8.7 K/mm3 (4.0-10.0)
[2019-11-06 08:42] LABS: ALBUMIN 2.3 g/dl (3.4-5.0); BILIRUBIN,TOTAL 0.5 mg/dL (0.2-1); BLOOD UREA NITROGEN 19.5 mg/dL (7-18); CALCIUM 9.8 mg/dL (8.5-10.1); CREATININE 0.6 mg/dL (0.55-1.3); MAGNESIUM 1.9 mg/dL (1.8-2.4); POTASSIUM 3.1 mmol/L (3.5-5.1); TOT PROT 5.2 g/dl (6.4-8.2)
[2019-11-06] MEDS ORDERED: PT OWN MED DRAWER 7, Y5N ONE ×2 (08:46→21:09)
[2019-11-06] MEDS ORDERED: POTASSIUM CHLORIDE ORAL LIQUID 20 MEQ/15 ML PO ONE (09:22)
[2019-11-06] MEDS: PANTOPRAZOLE SODIUM 40 MG VIAL IVPUSH SCH ×2 (10:02→22:09)
[2019-11-06] MEDS: AMINO ACIDS/PROTEIN HYDROLYS 30 ML LIQUID.PKT PO SCH ×2 (10:02→17:23)
[2019-11-06 10:14] LABS: ANISOCYTOSIS 3+; PLATELET ESTIMATE ADEQUATE
[2019-11-06] MEDS: LISINOPRIL 5 MG TABLET (FP) PO SCH (10:26)
[2019-11-06] MEDS: ASPIRIN 81 MG CHEWABLE TABLETS PO SCH (10:26)
[2019-11-06] MEDS: MULTIVIT-MINERALS ORAL LIQUID PO SCH (10:26)
[2019-11-06] MEDS: chlorproMAZINE HCL 25 MG TABLET PO SCH ×4 (10:27→22:10)
[2019-11-06] MEDS: CHOLECALCIFEROL (VIT D3) 1,000 UNIT (25 MCG) TABLET PO SCH (10:27)
[2019-11-06] MEDS: amLODIPine BESYLATE 2.5 MG TABLET (FP) PO SCH (10:27)
[2019-11-06] MEDS: CYANOCOBALAMIN (VITAMIN B-12) 100 MCG TABLET PO SCH (10:27)
[2019-11-06] MEDS ORDERED: KCL 10 MEQ IVPB 10 MEQ/100 ML INFUS.BAG IVPB SCH ×2 (11:00→17:45)
--- NOTE | 2019-11-06 13:21 | PN ---
Physical Exam: SUBJECTIVE: Patient seen and examined at the bedside. felt nausea after eating breakfast and vomited a large amount per RN. OBJECTIVE: keep npo for lunch, resume dinner as patient can tolerate, discussed eating slowly. hiccups resolved. repeat cmp now to assure K is stable after large vomiting episode earlier, will check mag also abdomen soft, non distended, non painful on palpation. dressing intact repeat abdominal kub 11/06/19 shows: persistence of mild distention of the gastric remnant in the LUQ. No SBO. Patient is an 79 year old male who traveled from [place] in July 2019 to visit family. He went to have a physical exam and was found to have a hmg of 5.3 , he was sent from his PMD office for symptomatic anemia. 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 He is s/p radical subtotal gastectomy, omentectomy, gastrojejunostomy for gastric cancer on 10/26/2019. Hematology/oncology following and patient to start chemotherapy/ rad. oncology once he recovers from surgery and healed postoperatively. Vital Signs Period Temp Pulse Resp BP Sys/Newman Pulse Ox Last 24 Hr 97.2 F-98.3 F 58-68 18-20 136-158/59-78 100 GENERAL: The patient is awake, alert, and fully oriented, in no acute distress. speaks peruvian primarily HEAD: Normal with no signs of trauma. EYES: PERRL, extraocular movements intact, sclera anicteric, conjunctiva clear. No ptosis. ENT: Ears normal, nares patent, oropharynx clear without exudates NECK: Trachea midline, full range of motion, supple. LUNGS: Breath sounds equal, clear to auscultation bilaterally HEART: Regular rate and rhythm ABDOMEN: Soft, non tender abdomen, + bowel sounds EXTREMITIES: no edema. NEUROLOGICAL: Normal speech, gait not observed. PSYCH: Normal mood, normal affect. SKIN: abdominal dressing with mild sero sang drainage Laboratory Results - last 24 hr 11/06/19 11/06/19 07:50 07:50 WBC 8.7 RBC 4.46 Hgb 9.6 L Hct 31.3 L MCV 70.2 L MCH 21.4 L MCHC 30.5 L RDW 27.4 H Plt Count 247 D MPV 9.4 Absolute Neuts (auto) 7.7 Neutrophils % 88.2 H Lymphocytes % 4.7 L D Monocytes % 4.6 Eosinophils % 1.8 Basophils % 0.7 Nucleated RBC % 0 Hypochromia 1+ Platelet Estimate Adequate Platelet Comment No clumping noted Polychromasia 1+ Anisocytosis 3+ Microcytosis 1+ Spherocytes 1+ Stomatocytes 1+ Sodium 136 Potassium 3.1 L Chloride 108 H Carbon Dioxide 22 Anion Gap 6 L BUN 19.5 H Creatinine 0.6 Est GFR (CKD-EPI)AfAm 110.06 Est GFR (CKD-EPI)NonAf 94.96 Random Glucose 148 H Calcium 9.8 Magnesium 1.9 Total Bilirubin 0.5 AST 29 ALT 25 Alkaline Phosphatase 207 H Total Protein 5.2 L Albumin 2.3 L Active Medications Generic Name Dose Route Start Last Admin Trade Name Freq PRN Reason Stop Dose Admin Acetaminophen 1,000 mg 10/28/19 03:39 10/29/19 12:44 Ofirmev Injection - IVPB 1,000 mg Q8H PRN Administration FEVER Amino Acids 30 ml 11/03/19 17:30 11/06/19 10:02 Prosource No Carb Liquid Pkt PO 30 ml BID@0800,1730 MEME Administration Amlodipine Besylate 2.5 mg 11/01/19 10:45 11/06/19 10:27 Norvasc - PO Not Given DAILY [facility] Amoxicillin 1,000 mg 10/28/19 10:00 11/04/19 10:39 Amoxicillin - PO 11/04/19 09:59 Not Given BID [facility] Aspirin 81 mg 11/02/19 10:00 11/06/19 10:26 Asa - PO Not Given DAILY [facility] Atorvastatin Calcium 20 mg 11/01/19 22:00 11/05/19 21:44 Lipitor - PO 20 mg HS MEME Administration Calcium Carbonate 500 mg 11/03/19 12:15 11/06/19 10:26 Os-Jc 500mg - PO Not Given BID [facility] Chlorpromazine HCl 25 mg 11/05/19 10:00 11/06/19 10:27 Thorazine - PO Not Given QID [facility] Cholecalciferol 1,000 unit 11/03/19 12:15 11/06/19 10:27 Vitamin D3 - PO Not Given DAILY [facility] Clarithromycin 500 mg 10/28/19 10:00 11/04/19 10:39 Biaxin - PO 11/04/19 09:59 500 mg BID MEME Administration Cyanocobalamin 300 mcg 11/03/19 12:15 11/06/19 10:27 Vitamin B12 - PO Not Given DAILY [facility] Heparin Sodium (Porcine) 5,000 unit 11/02/19 22:00 11/06/19 06:19 Heparin - SQ Not Given TID [facility] Fat Emulsion Intravenous 250 mls @ 20.833 mls/hr 11/03/19 22:00 11/05/19 21: 43 Intralipid - IV 20.833 mls/hr Q48H MEME Administration Potassium Chloride 20 meq/ 1,010 mls @ 84 mls/hr 11/04/19 08:31 11/06/19 06: 20 Amino Acids IVPB 84 mls/hr Q12H MEME Administration Lisinopril 10 mg 11/04/19 10:00 11/06/19 10:26 Prinivil PO Not Given DAILY [facility] Multivitamins/Minerals 15 ml 11/03/19 13:00 11/06/19 10:26 Certavite-Antioxidant Liquid PO Not Given DAILY [facility] Pantoprazole Sodium 40 mg 11/02/19 22:00 11/06/19 10:02 Protonix Iv IVPUSH 40 mg BID MEME Administration Prochlorperazine Edisylate 5 mg 11/02/19 18:13 Compazine Injection - IVPB Q4H PRN NAUSEA AND/OR VOMITING ASSESSMENT/PLAN: Problem List - Problems (1) S/P subtotal gastrectomy Assessment/Plan: S/P radical subtotal gastectomy, omentectomy, gastrojejunostomy for gastric cancer Not tolerating diet currently, with nausea, and regurgitation of meals Surgical site c/d/i, abdominal dressing intact He is currently hemodynamically stable and afebrile. No leukocytosis. Continue with oral amoxacillin and biaxin Anemia improved Continue with IV protonix, zofran prn with monitoring of QTc interval, morphine IV for severe pain and IV tylenol for mild to moderate pain (2) Anemia Assessment/Plan: monitor hmg/hct has received venofer on this admission will defer iron supplements to avoid constipation Code(s): D64.9 - ANEMIA, UNSPECIFIED (3) Gastric carcinoma Code(s): C16.9 - MALIGNANT NEOPLASM OF STOMACH, UNSPECIFIED (4) Helicobacter pylori (H. pylori) infection Assessment/Plan: On treatment for H. pylori, monitor H&H, f/u pathology Code(s): A04.8 - OTHER SPECIFIED BACTERIAL INTESTINAL INFECTIONS (5) Hypertension Assessment/Plan: avoid AV pao blocking agents given sinus bradycardia, continue ASA 81 qd, Lipitor 20 qd, lisinopril 10 qd and Norvasc 2.5 qd with uptitration as tolerated Code(s): I10 - ESSENTIAL (PRIMARY) HYPERTENSION Qualifiers: Hypertension type: essential hypertension Qualified Code(s): I10 - Essential (primary) hypertension (6) Postoperative non-ST elevation myocardial infarction (NSTEMI) Assessment/Plan: stress test when more stable continue ASA 81mg and lisinopril. avoid beta blockers Code(s): [id number] - (7) Hypokalemia Assessment/Plan: kcl with clinimax Code(s): E87.6 - HYPOKALEMIA (8) Very poor nutrition Assessment/Plan: post op, nutrition remains poor added clinimax and lipids every other day monitor for need of TPN if appetite remains poor will consult renal monitor albumin Code(s): E63.9 - NUTRITIONAL DEFICIENCY, UNSPECIFIED Visit type - Emergency Visit Emergency Visit: Yes ED Registration Date: 10/12/19 Care time: The patient presented to the Emergency Department on the above date and was hospitalized for further evaluation of their emergent condition. - New Patient This patient is new to me today: No - Critical Care Critical Care patient: No - Discharge Referral Referred to [facility] Med P[facility]C.: No
[2019-11-06 16:53] LABS: ALBUMIN 2.3 g/dl (3.4-5.0); BILIRUBIN,TOTAL 0.4 mg/dL (0.2-1); BLOOD UREA NITROGEN 19.5 mg/dL (7-18); CALCIUM 9.3 mg/dL (8.5-10.1); CREATININE 0.6 mg/dL (0.55-1.3); MAGNESIUM 1.5 mg/dL (1.8-2.4); POTASSIUM 3.3 mmol/L (3.5-5.1); TOT PROT 5.3 g/dl (6.4-8.2)
[2019-11-06] MEDS ORDERED: MAGNESIUM SULF 50% (8.12 MEQ/2 ML-1 GM VIAL) IVPB ONE (17:33)
[2019-11-06] MEDS: ATORVASTATIN CA 20 MG TABLET (FP) PO SCH (22:09)
[2019-11-07] MEDS: HEPARIN NA (PORCINE) 5,000 UNITS/ML 1ML VIAL SQ SCH ×3 (06:14→21:32)
--- NOTE | 2019-11-07 09:38 | PN ---
Progress Note, Physician History of Present Illness: s/p subtotal gastrectomy with improving post-op abdominal discomfort, UGI series shows passage of contrast into small bowel, not tolerating oral feeding with nausea and regurgitation, planned for gastrograffin study, no further AV block on telemetry. No SOB or CP, small sanguinous drainage upper pole of abd wound, no pus, having BM. - Current Medication List Current Medications: Active Medications Acetaminophen (Ofirmev Injection -) 1,000 mg IVPB Q8H PRN PRN Reason: FEVER Last Admin: 10/29/19 12:44 Dose: 1,000 mg Amino Acids (Prosource No Carb Liquid Pkt) 30 ml PO BID@0800,1730 [facility] Last Admin: 11/06/19 17:23 Dose: 30 ml Amlodipine Besylate (Norvasc -) 2.5 mg PO DAILY [facility] Last Admin: 11/06/19 10:27 Dose: Not Given Amoxicillin (Amoxicillin -) 1,000 mg PO BID [facility] Stop: 11/04/19 09:59 Last Admin: 11/04/19 10:39 Dose: Not Given Aspirin (Asa -) 81 mg PO DAILY [facility] Last Admin: 11/06/19 10:26 Dose: Not Given Atorvastatin Calcium (Lipitor -) 20 mg PO HS [facility] Last Admin: 11/06/19 22:09 Dose: 20 mg Calcium Carbonate (Os-Jc 500mg -) 500 mg PO BID [facility] Last Admin: 11/06/19 22:09 Dose: 500 mg Chlorpromazine HCl (Thorazine -) 25 mg PO QID [facility] Last Admin: 11/06/19 22:10 Dose: 25 mg Cholecalciferol (Vitamin D3 -) 1,000 unit PO DAILY [facility] Last Admin: 11/06/19 10:27 Dose: Not Given Clarithromycin (Biaxin -) 500 mg PO BID [facility] Stop: 11/04/19 09:59 Last Admin: 11/04/19 10:39 Dose: 500 mg Cyanocobalamin (Vitamin B12 -) 300 mcg PO DAILY [facility] Last Admin: 11/06/19 10:27 Dose: Not Given Heparin Sodium (Porcine) (Heparin -) 5,000 unit SQ TID [facility] Last Admin: 11/07/19 06:14 Dose: 5,000 unit Fat Emulsion Intravenous (Intralipid -) 250 mls @ 20.833 mls/hr IV Q48H [facility] Last Admin: 11/05/19 21:43 Dose: 20.833 mls/hr Potassium Chloride 20 meq/ (Amino Acids) 1,010 mls @ 84 mls/hr IVPB Q12H [facility] Last Admin: 11/06/19 22:09 Dose: 84 mls/hr Lisinopril (Prinivil) 10 mg PO DAILY [facility] Last Admin: 11/06/19 10:26 Dose: Not Given Multivitamins/Minerals (Certavite-Antioxidant Liquid) 15 ml PO DAILY [facility] Last Admin: 11/06/19 10:26 Dose: Not Given Pantoprazole Sodium (Protonix Iv) 40 mg IVPUSH BID [facility] Last Admin: 11/06/19 22:09 Dose: 40 mg Prochlorperazine Edisylate (Compazine Injection -) 5 mg IVPB Q4H PRN PRN Reason: NAUSEA AND/OR VOMITING - Objective Vital Signs: Vital Signs Temperature 98.1 F 11/07/19 05:40 Pulse Rate 71 11/07/19 05:40 Respiratory Rate 20 11/07/19 05:40 Blood Pressure 143/67 11/07/19 05:40 O2 Sat by Pulse Oximetry (%) 96 11/06/19 20:43 Constitutional: Yes: No Distress, Calm, Thin Neck: Yes: Supple Cardiovascular: Yes: Regular Rate and Rhythm Respiratory: Yes: Regular, Diminished Gastrointestinal: Yes: Soft, Hypoactive Bowel Sounds Edema: No Wound/Incision: Yes: Radha Intact Labs: CBC, BMP 11/06/19 07:50 11/06/19 15:45 INR, PTT INR 1.07 (0.83-1.09) 10/26/19 06:16 Problem List - Problems (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 pylori) infection Code(s): A04.8 - OTHER SPECIFIED BACTERIAL INTESTINAL INFECTIONS (6) Postoperative non-ST elevation myocardial infarction (NSTEMI) Code(s): [id number] - Assessment/Plan 10/31/2019 Echo: Normal LV size and fxn, LVEF 65-70%, normal RV size and fxn, mild MR, TR RVSP 29 mmHg, mod ao dilatation 10/24/2019 Echo: Normal LV size and fxn, LVEF 60-65%, grade II diastolic dysfunction, mild MR, TR RVSP 33 mmHg, mild NM 1. POD #13 - post radical subtotal gastrectomy, omentectomy, gastrojejunostomy for gastric Cancer 2. CAD with evidence of post operative NSTEMI angina pectoris 3. Diastolic LV dysfunction with clinical class 0 NYHA classification LV failure 4. Post acute blood loss- anemia 5. Sinus bradycardia, transient 2nd degree AV block post-op, since resolved 6. Hypertensive cardiovascular disease 7. Hypokalemia, persistent PLAN: 1. As outlined in the prior notes avoid AV pao blocking agents given sinus bradycardia 2. Continue Norvasc 2.5 qd 3. Continue Lisinopril 10 qd 4. Continue Lipitor 20 qd 5. Continue ASA 81 qd 6. Correction of Hypokalemia as per the primary team 7. Plan for Pharmacologic Lexiscan MPI study in the future once clinically stable/fully recovered from the above noted procedure 8. Complete empiric abx course 9. F/u gastrograffin study
--- NOTE | 2019-11-07 09:46 | PN ---
Physical Exam: SUBJECTIVE: Patient seen and examined at the bedside. tells me that he is nauseaous and attempts to eat, but when he does feels nauseous. this morning he had sips of coffee and two spoonfuls of applesauce, but does not want to eat more, feels as though he may vomit. denies chest pain. OBJECTIVE: Patient is an 79 year old male who traveled from [place] in July 2019 to visit family. He went to have a physical exam and was found to have a hmg of 5.3 , he was sent from his PMD office for symptomatic anemia. 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 He is s/p radical subtotal gastectomy, omentectomy, gastrojejunostomy for gastric cancer on 10/26/2019. Hematology/oncology following and patient to start chemotherapy/ rad. oncology once he recovers from surgery and healed postoperatively. Appetite since surgery, has been poor and has had a few vomiting episodes after attempting to eat. started on clinimax/lipids on 11/03/2019. concern for overall nutrition and hydration on current diet only, may need tpn, if deemed a candidate for it by surgery. Vital Signs Period Temp Pulse Resp BP Sys/Newman Pulse Ox Last 24 Hr 97.6 F-98.4 F 60-71 18-20 130-143/60-71 96 GENERAL: The patient is awake, alert, and fully oriented, in no acute distress. speaks czech primarily HEAD: Normal with no signs of trauma. EYES: PERRL, extraocular movements intact, sclera anicteric, conjunctiva clear. No ptosis. ENT: Ears normal, nares patent, oropharynx clear without exudates NECK: Trachea midline, full range of motion, supple. LUNGS: Breath sounds equal, clear to auscultation bilaterally HEART: Regular rate and rhythm ABDOMEN: Soft, non tender abdomen, + bowel sounds, had bm overnight, small EXTREMITIES: no edema. NEUROLOGICAL: Normal speech, gait not observed. PSYCH: Normal mood, normal affect. SKIN: abdominal dressing with mild sero sang drainage Laboratory Results - last 24 hr 11/06/19 11/06/19 07:50 15:45 Hypochromia 1+ Platelet Estimate Adequate Platelet Comment No clumping noted Polychromasia 1+ Anisocytosis 3+ Microcytosis 1+ Spherocytes 1+ Stomatocytes 1+ Sodium 138 Potassium 3.3 L Chloride 110 H Carbon Dioxide 21 Anion Gap 6 L BUN 19.5 H Creatinine 0.6 Est GFR (CKD-EPI)AfAm 110.06 Est GFR (CKD-EPI)NonAf 94.96 Random Glucose 128 H Calcium 9.3 Magnesium 1.5 L Total Bilirubin 0.4 AST 25 ALT 24 Alkaline Phosphatase 195 H Total Protein 5.3 L Albumin 2.3 L Active Medications Generic Name Dose Route Start Last Admin Trade Name Freq PRN Reason Stop Dose Admin Acetaminophen 1,000 mg 10/28/19 03:39 10/29/19 12:44 Ofirmev Injection - IVPB 1,000 mg Q8H PRN Administration FEVER Amino Acids 30 ml 11/03/19 17:30 11/06/19 17:23 Prosource No Carb Liquid Pkt PO 30 ml BID@0800,1730 [facility] Administration Amlodipine Besylate 2.5 mg 11/01/19 10:45 11/06/19 10:27 Norvasc - PO Not Given DAILY [facility] Amoxicillin 1,000 mg 10/28/19 10:00 11/04/19 10:39 Amoxicillin - PO 11/04/19 09:59 Not Given BID [facility] Aspirin 81 mg 11/02/19 10:00 11/06/19 10:26 Asa - PO Not Given DAILY [facility] Atorvastatin Calcium 20 mg 11/01/19 22:00 11/06/19 22:09 Lipitor - PO 20 mg HS [facility]E Administration Calcium Carbonate 500 mg 11/03/19 12:15 11/06/19 22:09 Os-Jc 500mg - PO 500 mg BID [facility]E Administration Chlorpromazine HCl 25 mg 11/05/19 10:00 11/06/19 22:10 Thorazine - PO 25 mg QID [facility]E Administration Cholecalciferol 1,000 unit 11/03/19 12:15 11/06/19 10:27 Vitamin D3 - PO Not Given DAILY [facility] Clarithromycin 500 mg 10/28/19 10:00 11/04/19 10:39 Biaxin - PO 11/04/19 09:59 500 mg BID [facility] Administration Cyanocobalamin 300 mcg 11/03/19 12:15 11/06/19 10:27 Vitamin B12 - PO Not Given DAILY [facility] Heparin Sodium (Porcine) 5,000 unit 11/02/19 22:00 11/07/19 06:14 Heparin - SQ 5,000 unit TID [facility] Administration Fat Emulsion Intravenous 250 mls @ 20.833 mls/hr 11/03/19 22:00 11/05/19 21: 43 Intralipid - IV 20.833 mls/hr Q48H [facility] Administration Potassium Chloride 20 meq/ 1,010 mls @ 84 mls/hr 11/04/19 08:31 11/06/19 22: 09 Amino Acids IVPB 84 mls/hr Q12H [facility] Administration Lisinopril 10 mg 11/04/19 10:00 11/06/19 10:26 Prinivil PO Not Given DAILY [facility] Multivitamins/Minerals 15 ml 11/03/19 13:00 11/06/19 10:26 Certavite-Antioxidant Liquid PO Not Given DAILY [facility] Pantoprazole Sodium 40 mg 11/02/19 22:00 11/06/19 22:09 Protonix Iv IVPUSH 40 mg BID [facility] Administration Prochlorperazine Edisylate 5 mg 11/02/19 18:13 Compazine Injection - IVPB Q4H PRN NAUSEA AND/OR VOMITING ASSESSMENT/PLAN: Problem List - Problems (1) S/P subtotal gastrectomy Assessment/Plan: S/P radical subtotal gastectomy, omentectomy, gastrojejunostomy for gastric cancer Not tolerating diet currently, with nausea, and regurgitation of meals Surgical site c/d/i, abdominal dressing intact He is currently hemodynamically stable and afebrile. No leukocytosis. Continue with oral amoxacillin and biaxin Anemia improved Continue with IV protonix, zofran prn with monitoring of QTc interval, morphine IV for severe pain and IV tylenol for mild to moderate pain (2) Anemia Assessment/Plan: monitor hmg/hct has received venofer on this admission will defer iron supplements to avoid constipation Code(s): D64.9 - ANEMIA, UNSPECIFIED (3) Gastric carcinoma Code(s): C16.9 - MALIGNANT NEOPLASM OF STOMACH, UNSPECIFIED (4) Helicobacter pylori (H. pylori) infection Assessment/Plan: On treatment for H. pylori, monitor H&H, f/u pathology Code(s): A04.8 - OTHER SPECIFIED BACTERIAL INTESTINAL INFECTIONS (5) Hypertension Assessment/Plan: avoid AV pao blocking agents given sinus bradycardia, continue ASA 81 qd, Lipitor 20 qd, lisinopril 10 qd and Norvasc 2.5 qd with uptitration as tolerated Code(s): I10 - ESSENTIAL (PRIMARY) HYPERTENSION Qualifiers: Hypertension type: essential hypertension Qualified Code(s): I10 - Essential (primary) hypertension (6) Postoperative non-ST elevation myocardial infarction (NSTEMI) Assessment/Plan: stress test when more stable continue ASA 81mg and lisinopril. avoid beta blockers Code(s): [id number] - (7) Hypokalemia Assessment/Plan: kcl with clinimax Code(s): E87.6 - HYPOKALEMIA (8) Very poor nutrition Assessment/Plan: post op, nutrition remains poor added clinimax and lipids every other day monitor for need of TPN if appetite remains poor will consult renal monitor albumin Code(s): E63.9 - NUTRITIONAL DEFICIENCY, UNSPECIFIED Visit type - Emergency Visit Emergency Visit: Yes ED Registration Date: 10/12/19 Care time: The patient presented to the Emergency Department on the above date and was hospitalized for further evaluation of their emergent condition. - New Patient This patient is new to me today: No - Critical Care Critical Care patient: No - Discharge Referral Referred to [facility] Med [facility] No
[2019-11-07] MEDS ORDERED: PT OWN MED DRAWER 7, Y5N ONE ×2 (09:53→10:14)
[2019-11-07] MEDS: CALCIUM (OYSTER SHELL) 500 MG TABLET (FP) PO SCH ×2 (09:56→21:33)
[2019-11-07] MEDS: LISINOPRIL 5 MG TABLET (FP) PO SCH (09:56)
[2019-11-07] MEDS: AMINO ACIDS/PROTEIN HYDROLYS 30 ML LIQUID.PKT PO SCH ×2 (09:56→18:17)
[2019-11-07] MEDS: ASPIRIN 81 MG CHEWABLE TABLETS PO SCH (09:56)
[2019-11-07] MEDS: MULTIVIT-MINERALS ORAL LIQUID PO SCH (09:56)
[2019-11-07] MEDS: amLODIPine BESYLATE 2.5 MG TABLET (FP) PO SCH (09:56)
[2019-11-07] MEDS: CHOLECALCIFEROL (VIT D3) 1,000 UNIT (25 MCG) TABLET PO SCH (09:56)
[2019-11-07] MEDS: chlorproMAZINE HCL 25 MG TABLET PO SCH ×5 (09:57→21:34)
[2019-11-07] MEDS: PANTOPRAZOLE SODIUM 40 MG VIAL IVPUSH SCH ×2 (09:57→21:33)
[2019-11-07] MEDS: POTASSIUM CHLORIDE 20 MEQ in AMINO ACIDS 4.25%/D5W 1,000 ML IVPB SCH ×3 (09:57→21:32)
[2019-11-07] MEDS: CYANOCOBALAMIN (VITAMIN B-12) 100 MCG TABLET PO SCH (09:57)
--- NOTE | 2019-11-07 10:40 | PN ---
Progress Note, Physician - Current Medication List Current Medications: Active Medications Acetaminophen (Ofirmev Injection -) 1,000 mg IVPB Q8H PRN PRN Reason: FEVER Last Admin: 10/29/19 12:44 Dose: 1,000 mg Amino Acids (Prosource No Carb Liquid Pkt) 30 ml PO BID@0800,1730 [facility] Last Admin: 11/07/19 09:56 Dose: 30 ml Amlodipine Besylate (Norvasc -) 2.5 mg PO DAILY [facility] Last Admin: 11/07/19 09:56 Dose: 2.5 mg Amoxicillin (Amoxicillin -) 1,000 mg PO BID [facility] Aspirin (Asa -) 81 mg PO DAILY [facility] Last Admin: 11/07/19 09:56 Dose: 81 mg Atorvastatin Calcium (Lipitor -) 20 mg PO HS [facility] Last Admin: 11/06/19 22:09 Dose: 20 mg Calcium Carbonate (Os-Jc 500mg -) 500 mg PO BID [facility] Last Admin: 11/07/19 09:56 Dose: 500 mg Chlorpromazine HCl (Thorazine -) 25 mg PO QID [facility] Last Admin: 11/07/19 09:59 Dose: 25 mg Cholecalciferol (Vitamin D3 -) 1,000 unit PO DAILY [facility] Last Admin: 11/07/19 09:56 Dose: 1,000 unit Clarithromycin (Biaxin -) 500 mg PO BID [facility] Cyanocobalamin (Vitamin B12 -) 300 mcg PO DAILY [facility] Last Admin: 11/07/19 09:57 Dose: 300 mcg Heparin Sodium (Porcine) (Heparin -) 5,000 unit SQ TID [facility] Last Admin: 11/07/19 06:14 Dose: 5,000 unit Fat Emulsion Intravenous (Intralipid -) 250 mls @ 20.833 mls/hr IV Q48H [facility] Last Admin: 11/05/19 21:43 Dose: 20.833 mls/hr Potassium Chloride 20 meq/ (Amino Acids) 1,010 mls @ 84 mls/hr IVPB Q12H [facility] Last Admin: 11/07/19 09:57 Dose: Not Given Lisinopril (Prinivil) 10 mg PO DAILY [facility] Last Admin: 11/07/19 09:56 Dose: 10 mg Multivitamins/Minerals (Certavite-Antioxidant Liquid) 15 ml PO DAILY [facility] Last Admin: 11/07/19 09:56 Dose: 15 ml Pantoprazole Sodium (Protonix Iv) 40 mg IVPUSH BID [facility] Last Admin: 11/07/19 09:57 Dose: 40 mg Prochlorperazine Edisylate (Compazine Injection -) 5 mg IVPB Q4H PRN PRN Reason: NAUSEA AND/OR VOMITING - Objective Vital Signs: Vital Signs Temperature 98.1 F 11/07/19 05:40 Pulse Rate 71 11/07/19 05:40 Respiratory Rate 20 11/07/19 05:40 Blood Pressure 143/67 11/07/19 05:40 O2 Sat by Pulse Oximetry (%) 96 11/06/19 20:43 Labs: CBC, BMP 11/06/19 07:50 11/06/19 15:45 INR, PTT INR 1.07 (0.83-1.09) 10/26/19 06:16 Problem List - Problems (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 Having vomiting of solid food. having bowel movements. Abdomen is soft , not distended, nottender. Wound is clean , minimal serous drainage frome wound. No sign of wound infection. Granulating. Abdominal X-ray was reviewed with radiologist , gastric remnant appears distended with food. Air seen throughout the large intestine , No free air Disscussed with radiologist, Will do gastrograffin upper g.i. series. WBC is normal.
--- NOTE | 2019-11-07 12:01 | PN ---
Progress Note, Physician - Current Medication List Current Medications: Active Medications Acetaminophen (Ofirmev Injection -) 1,000 mg IVPB Q8H PRN PRN Reason: FEVER Last Admin: 10/29/19 12:44 Dose: 1,000 mg Amino Acids (Prosource No Carb Liquid Pkt) 30 ml PO BID@0800,1730 [facility] Last Admin: 11/07/19 09:56 Dose: 30 ml Amlodipine Besylate (Norvasc -) 2.5 mg PO DAILY [facility] Last Admin: 11/07/19 09:56 Dose: 2.5 mg Amoxicillin (Amoxicillin -) 1,000 mg PO BID [facility] Aspirin (Asa -) 81 mg PO DAILY [facility] Last Admin: 11/07/19 09:56 Dose: 81 mg Atorvastatin Calcium (Lipitor -) 20 mg PO HS [facility] Last Admin: 11/06/19 22:09 Dose: 20 mg Calcium Carbonate (Os-Jc 500mg -) 500 mg PO BID [facility] Last Admin: 11/07/19 09:56 Dose: 500 mg Chlorpromazine HCl (Thorazine -) 25 mg PO QID [facility] Last Admin: 11/07/19 09:59 Dose: 25 mg Cholecalciferol (Vitamin D3 -) 1,000 unit PO DAILY [facility] Last Admin: 11/07/19 09:56 Dose: 1,000 unit Clarithromycin (Biaxin -) 500 mg PO BID [facility] Cyanocobalamin (Vitamin B12 -) 300 mcg PO DAILY [facility] Last Admin: 11/07/19 09:57 Dose: 300 mcg Heparin Sodium (Porcine) (Heparin -) 5,000 unit SQ TID [facility] Last Admin: 11/07/19 06:14 Dose: 5,000 unit Fat Emulsion Intravenous (Intralipid -) 250 mls @ 20.833 mls/hr IV Q48H [facility] Last Admin: 11/05/19 21:43 Dose: 20.833 mls/hr Potassium Chloride 20 meq/ (Amino Acids) 1,010 mls @ 84 mls/hr IVPB Q12H [facility] Last Admin: 11/07/19 09:57 Dose: Not Given Lisinopril (Prinivil) 10 mg PO DAILY [facility] Last Admin: 11/07/19 09:56 Dose: 10 mg Multivitamins/Minerals (Certavite-Antioxidant Liquid) 15 ml PO DAILY [facility] Last Admin: 11/07/19 09:56 Dose: 15 ml Pantoprazole Sodium (Protonix Iv) 40 mg IVPUSH BID [facility] Last Admin: 11/07/19 09:57 Dose: 40 mg Prochlorperazine Edisylate (Compazine Injection -) 5 mg IVPB Q4H PRN PRN Reason: NAUSEA AND/OR VOMITING - Objective Vital Signs: Vital Signs Temperature 98.1 F 11/07/19 05:40 Pulse Rate 71 11/07/19 05:40 Respiratory Rate 20 11/07/19 05:40 Blood Pressure 143/67 11/07/19 05:40 O2 Sat by Pulse Oximetry (%) 96 11/06/19 20:43 Labs: CBC, BMP 11/06/19 07:50 11/06/19 15:45 INR, PTT INR 1.07 (0.83-1.09) 10/26/19 06:16 Problem List - Problems (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 The remnant of stomach is distended, with very delayed passage of contrast into the intestine. ? Edema at the site of the anastamosis. NG tube placed. Expect the edema to subside with gastric emptying Patient and his son were explained. Problem : Distended stomach with delayed emptuning , ? anastamotic edema vs narrowing. There is no leak at the anastamosis. Will be followed by Dr. Colon.
[2019-11-07] MEDS: AMOXICILLIN 500 MG CAPSULE (FP) PO SCH ×2 (12:06→21:32)
[2019-11-07] MEDS: CLARITHROMYCIN 500 MG TABLET (UD) PO SCH ×2 (12:06→21:32)
[2019-11-07 14:40] LABS: BASO % 0.4 % (0-2.0); EOS % 1.3 % (0-4.5); HEMATOCRIT 32.5 % (35.4-49); HEMOGLOBIN 9.9 GM/dL (11.7-16.9); LYMPH % 5.3 % (8-40); MCH 21.5 pg (25.7-33.7); MCHC 30.4 g/dl (32.0-35.9); MEAN CELL VOLUME 70.8 fl (80-96); MEAN PLT VOLUME 9.6 fl (7.5-11.1); MONO % 7.4 % (3.8-10.2); NEUT % 85.6 % (42.8-82.8); PLATELET COUNT 219 K/MM3 (134-434); RBC 4.59 M/mm3 (4.00-5.60); RDW 27.8 % (11.9-15.9); WHITE BLOOD COUNT 8.2 K/mm3 (4.0-10.0)
[2019-11-07 14:50] LABS: ALBUMIN 2.4 g/dl (3.4-5.0); BILIRUBIN,TOTAL 0.7 mg/dL (0.2-1); BLOOD UREA NITROGEN 21.2 mg/dL (7-18); CALCIUM 10.1 mg/dL (8.5-10.1); CREATININE 0.7 mg/dL (0.55-1.3); POTASSIUM 3.3 mmol/L (3.5-5.1); TOT PROT 5.6 g/dl (6.4-8.2)
[2019-11-07] MEDS: KCL 10 MEQ IVPB 10 MEQ/100 ML INFUS.BAG IVPB SCH (16:09)
[2019-11-07] MEDS: ATORVASTATIN CA 20 MG TABLET (FP) PO SCH (21:32)
[2019-11-07] MEDS: FAT EMULSIONS 250 ML IV SCH (21:32)
[2019-11-08] MEDS: POTASSIUM CHLORIDE 20 MEQ in AMINO ACIDS 4.25%/D5W 1,000 ML IVPB SCH ×3 (05:22→21:00)
[2019-11-08] MEDS: HEPARIN NA (PORCINE) 5,000 UNITS/ML 1ML VIAL SQ SCH ×3 (05:22→21:58)
--- NOTE | 2019-11-08 07:50 | PN ---
Progress Note (short form) - Note Progress Note: Patient seen and examined NG tube drainage Denies any complaints AFVSS Cor: RSR, No murmurs, No gallops Lungs: Clear to P&A Abd: Soft, Normal bowel sounds, No organomegaly Ext:No significant edema Labs/Meds reviewed A/P Gastric ca H.Pylori Candidiasis Gastritis/esophagitis Anemia Plan: Gastric adenoca. Her2-+. H. pylori + CT c/a/p --m ild rt. hilar adenopathy/fatty liver/mass next to rt. adrenal 1.5cm ? 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 grade2, neg. margins, On clinimix/lipids NG tube drinage will follow post op. course
[2019-11-08 08:10] LABS: BASO % 0.4 % (0-2.0); EOS % 2.1 % (0-4.5); HEMATOCRIT 32.6 % (35.4-49); HEMOGLOBIN 10.2 GM/dL (11.7-16.9); MCH 21.8 pg (25.7-33.7); MCHC 31.3 g/dl (32.0-35.9); MEAN CELL VOLUME 69.6 fl (80-96); MEAN PLT VOLUME 8.9 fl (7.5-11.1); MONO % 7.7 % (3.8-10.2); NEUT % 83.8 % (42.8-82.8); PLATELET COUNT 282 K/MM3 (134-434); RBC 4.69 M/mm3 (4.00-5.60); RDW 27.5 % (11.9-15.9); WHITE BLOOD COUNT 9.7 K/mm3 (4.0-10.0)
[2019-11-08 08:32] LABS: ALBUMIN 2.3 g/dl (3.4-5.0); BILIRUBIN,TOTAL 0.4 mg/dL (0.2-1); CALCIUM 10.1 mg/dL (8.5-10.1); CREATININE 0.7 mg/dL (0.55-1.3); MAGNESIUM 1.8 mg/dL (1.8-2.4); POTASSIUM 3.6 mmol/L (3.5-5.1); TOT PROT 5.4 g/dl (6.4-8.2)
--- NOTE | 2019-11-08 11:05 | PN ---
Progress Note, Physician - Current Medication List Current Medications: Active Medications Acetaminophen (Ofirmev Injection -) 1,000 mg IVPB Q8H PRN PRN Reason: FEVER Last Admin: 10/29/19 12:44 Dose: 1,000 mg Amino Acids (Prosource No Carb Liquid Pkt) 30 ml PO BID@0800,1730 [facility] Last Admin: 11/07/19 18:17 Dose: Not Given Amlodipine Besylate (Norvasc -) 2.5 mg PO DAILY [facility] Last Admin: 11/07/19 09:56 Dose: 2.5 mg Amoxicillin (Amoxicillin -) 1,000 mg PO BID [facility] Last Admin: 11/07/19 21:32 Dose: Not Given Aspirin (Asa -) 81 mg PO DAILY [facility] Last Admin: 11/07/19 09:56 Dose: 81 mg Atorvastatin Calcium (Lipitor -) 20 mg PO HS [facility] Last Admin: 11/07/19 21:32 Dose: Not Given Calcium Carbonate (Os-Jc 500mg -) 500 mg PO BID [facility] Last Admin: 11/07/19 21:33 Dose: Not Given Chlorpromazine HCl (Thorazine -) 25 mg PO QID [facility] Last Admin: 11/07/19 21:34 Dose: Not Given Cholecalciferol (Vitamin D3 -) 1,000 unit PO DAILY [facility] Last Admin: 11/07/19 09:56 Dose: 1,000 unit Clarithromycin (Biaxin -) 500 mg PO BID [facility] Last Admin: 11/07/19 21:32 Dose: Not Given Cyanocobalamin (Vitamin B12 -) 300 mcg PO DAILY [facility] Last Admin: 11/07/19 09:57 Dose: 300 mcg Heparin Sodium (Porcine) (Heparin -) 5,000 unit SQ TID [facility] Last Admin: 11/08/19 05:22 Dose: 5,000 unit Fat Emulsion Intravenous (Intralipid -) 250 mls @ 20.833 mls/hr IV Q48H [facility] Last Admin: 11/07/19 21:32 Dose: 20.833 mls/hr Potassium Chloride 20 meq/ (Amino Acids) 1,010 mls @ 84 mls/hr IVPB Q12H [facility] Last Admin: 11/08/19 05:22 Dose: 84 mls/hr Lisinopril (Prinivil) 10 mg PO DAILY [facility] Last Admin: 11/07/19 09:56 Dose: 10 mg Multivitamins/Minerals (Certavite-Antioxidant Liquid) 15 ml PO DAILY [facility] Last Admin: 11/07/19 09:56 Dose: 15 ml Pantoprazole Sodium (Protonix Iv) 40 mg IVPUSH BID [facility] Last Admin: 11/07/19 21:33 Dose: 40 mg Prochlorperazine Edisylate (Compazine Injection -) 5 mg IVPB Q4H PRN PRN Reason: NAUSEA AND/OR VOMITING - Objective Vital Signs: Vital Signs Temperature 98.1 F 11/08/19 08:43 Pulse Rate 56 L 11/08/19 08:43 Respiratory Rate 20 11/08/19 08:43 Blood Pressure 140/63 11/08/19 08:43 O2 Sat by Pulse Oximetry (%) 96 11/07/19 21:00 Labs: CBC, BMP 11/08/19 07:50 11/08/19 07:50 INR, PTT INR 1.07 (0.83-1.09) 10/26/19 06:16 Problem List - Problems (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 Abdomen is soft , not tender. Bilious drainage from NG tube. Labs : normal. Dr. Kaiden Colon will be taking over the surgical care of this patient as of tomorrow. Administration aware. Efferent limb obstruction , ? edema vs stenosis.
--- NOTE | 2019-11-08 11:41 | PN ---
Progress Note, Physician Chief Complaint: Events noted Tolerating therapy History of Present Illness: Patient was seen and examined. Awake and alert. Chart was reviewed Denies chest pain, SOB or palpitations - Current Medication List Current Medications: Active Medications Acetaminophen (Ofirmev Injection -) 1,000 mg IVPB Q8H PRN PRN Reason: FEVER Last Admin: 10/29/19 12:44 Dose: 1,000 mg Amino Acids (Prosource No Carb Liquid Pkt) 30 ml PO BID@0800,1730 [facility] Last Admin: 11/07/19 18:17 Dose: Not Given Amlodipine Besylate (Norvasc -) 2.5 mg PO DAILY [facility] Last Admin: 11/07/19 09:56 Dose: 2.5 mg Amoxicillin (Amoxicillin -) 1,000 mg PO BID [facility] Last Admin: 11/07/19 21:32 Dose: Not Given Aspirin (Asa -) 81 mg PO DAILY [facility] Last Admin: 11/07/19 09:56 Dose: 81 mg Atorvastatin Calcium (Lipitor -) 20 mg PO HS [facility] Last Admin: 11/07/19 21:32 Dose: Not Given Calcium Carbonate (Os-Jc 500mg -) 500 mg PO BID [facility] Last Admin: 11/07/19 21:33 Dose: Not Given Chlorpromazine HCl (Thorazine -) 25 mg PO QID [facility] Last Admin: 11/07/19 21:34 Dose: Not Given Cholecalciferol (Vitamin D3 -) 1,000 unit PO DAILY [facility] Last Admin: 11/07/19 09:56 Dose: 1,000 unit Clarithromycin (Biaxin -) 500 mg PO BID [facility] Last Admin: 11/07/19 21:32 Dose: Not Given Cyanocobalamin (Vitamin B12 -) 300 mcg PO DAILY [facility] Last Admin: 11/07/19 09:57 Dose: 300 mcg Heparin Sodium (Porcine) (Heparin -) 5,000 unit SQ TID [facility] Last Admin: 11/08/19 05:22 Dose: 5,000 unit Fat Emulsion Intravenous (Intralipid -) 250 mls @ 20.833 mls/hr IV Q48H [facility] Last Admin: 11/07/19 21:32 Dose: 20.833 mls/hr Potassium Chloride 20 meq/ (Amino Acids) 1,010 mls @ 84 mls/hr IVPB Q12H [facility] Last Admin: 11/08/19 05:22 Dose: 84 mls/hr Lisinopril (Prinivil) 10 mg PO DAILY [facility] Last Admin: 11/07/19 09:56 Dose: 10 mg Multivitamins/Minerals (Certavite-Antioxidant Liquid) 15 ml PO DAILY [facility] Last Admin: 11/07/19 09:56 Dose: 15 ml Pantoprazole Sodium (Protonix Iv) 40 mg IVPUSH BID [facility] Last Admin: 11/07/19 21:33 Dose: 40 mg Prochlorperazine Edisylate (Compazine Injection -) 5 mg IVPB Q4H PRN PRN Reason: NAUSEA AND/OR VOMITING - Objective Vital Signs: Vital Signs Temperature 98.1 F 11/08/19 08:43 Pulse Rate 56 L 11/08/19 08:43 Respiratory Rate 20 11/08/19 09:00 Blood Pressure 140/63 11/08/19 08:43 O2 Sat by Pulse Oximetry (%) 96 11/08/19 09:00 Neck: Yes: Supple Cardiovascular: Yes: Regular Rate and Rhythm, S1, S2 Respiratory: Yes: Diminished Gastrointestinal: Yes: Other (Post op). No: Tenderness Edema: No Additional Findings/Remarks: - Review of Systems Constitutional: denies Chills. denies: Fever Cardiovascular: denies Shortness of Breath. denies: Chest Pain, Palpitations Respiratory: denies SOB. 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 Post radical subtotal gastrectomy, omentectomy, gastrojejunostomy for gastric Cancer 2. CAD with evidence of post operative NSTEMI angina pectoris 3. Diastolic LV dysfunction with clinical class 0 NYHA classification LV failure 4. Anemia 5. Sinus bradycardia, transient 2nd degree AV block post-op, since resolved 6. Hypertensive cardiovascular disease 7. Hypokalemia PLAN: 1. Avoid AV pao blocking agents given sinus bradycardia 2. Continue Norvasc 2.5 mg QD and Lisinopril 10 mg QD as tolerated 3. Continue Lipitor 20 mg QHS 4. Continue ASA 81 mg QD 5. Correction of Hypokalemia 6. Plan for Pharmacologic Lexiscan MPI study in the future once clinically stable 7. Empiric antibiotics 8. Surgery input noted Further plans are to follow Jose Burch MD
--- NOTE | 2019-11-08 11:48 | PN.GI ---
GI Progress Note Subjective: Called by Dr. Wu Patient began vomiting 2 days ago: 10/28: S/P subtotal gastrectomy with B II gastrojejunostomy 10/31: UGIS with stasis in gastric pouch with delayed opacification of small bowel 11/07: UGIS: Distended gastric pouch without flow of contrast into small bowel. F/U AXR after insertion of NGT revealed contrast in small bowel Has been having bilious output from NGT 11/08: AXR = no gastric distention, contrast in colon, NGT in stomach Patient denies abdominal pain - Objective Vital Signs: Vital Signs Temperature 98.1 F 11/08/19 08:43 Pulse Rate 56 L 11/08/19 08:43 Respiratory Rate 20 11/08/19 09:00 Blood Pressure 140/63 11/08/19 08:43 O2 Sat by Pulse Oximetry (%) 96 11/08/19 09:00 Constitutional: Calm Eyes: No: Sclera Icterus Cardiovascular: Yes: Regular Rate and Rhythm Respiratory: Yes: CTA Bilaterally Gastrointestinal Inspection: Yes: Other (surgical dressing in place in upper abdomen). No: Distention ...Auscultate: Yes: Normoactive Bowel Sounds ...Palpate: No: Tenderness ...Percussion: No: Tympanitic Edema: No (No LE edema) Neurological: Yes: Alert Labs: CBC, BMP 11/08/19 07:50 11/08/19 07:50 INR, PTT INR 1.07 (0.83-1.09) 10/26/19 06:16 Problem List - Problems (1) Gastric carcinoma Assessment/Plan: s/p subtotal colectomy with gastrojejunostomy, now with vomiting ? stricturing (however only 2 weeks out of surgery) / edema at the anastamosis Appears comfortable, no vomiting with NGT in place. gastric pouch decompressed Continued care per surgery. If symptoms not improving with conservative measures, advise transfer to tertiary care center for further evaluation and to see if endoscopic interventions would be of any benefit Code(s): C16.9 - MALIGNANT NEOPLASM OF STOMACH, UNSPECIFIED
--- NOTE | 2019-11-08 11:49 | PN ---
Progress Note, Physician - Current Medication List Current Medications: Active Medications Acetaminophen (Ofirmev Injection -) 1,000 mg IVPB Q8H PRN PRN Reason: FEVER Last Admin: 10/29/19 12:44 Dose: 1,000 mg Amino Acids (Prosource No Carb Liquid Pkt) 30 ml PO BID@0800,1730 [facility] Last Admin: 11/07/19 18:17 Dose: Not Given Amlodipine Besylate (Norvasc -) 2.5 mg PO DAILY [facility] Last Admin: 11/07/19 09:56 Dose: 2.5 mg Amoxicillin (Amoxicillin -) 1,000 mg PO BID [facility] Last Admin: 11/07/19 21:32 Dose: Not Given Aspirin (Asa -) 81 mg PO DAILY [facility] Last Admin: 11/07/19 09:56 Dose: 81 mg Atorvastatin Calcium (Lipitor -) 20 mg PO HS [facility] Last Admin: 11/07/19 21:32 Dose: Not Given Calcium Carbonate (Os-Jc 500mg -) 500 mg PO BID [facility] Last Admin: 11/07/19 21:33 Dose: Not Given Chlorpromazine HCl (Thorazine -) 25 mg PO QID [facility] Last Admin: 11/07/19 21:34 Dose: Not Given Cholecalciferol (Vitamin D3 -) 1,000 unit PO DAILY [facility] Last Admin: 11/07/19 09:56 Dose: 1,000 unit Clarithromycin (Biaxin -) 500 mg PO BID [facility] Last Admin: 11/07/19 21:32 Dose: Not Given Cyanocobalamin (Vitamin B12 -) 300 mcg PO DAILY [facility] Last Admin: 11/07/19 09:57 Dose: 300 mcg Heparin Sodium (Porcine) (Heparin -) 5,000 unit SQ TID [facility] Last Admin: 11/08/19 05:22 Dose: 5,000 unit Fat Emulsion Intravenous (Intralipid -) 250 mls @ 20.833 mls/hr IV Q48H [facility] Last Admin: 11/07/19 21:32 Dose: 20.833 mls/hr Potassium Chloride 20 meq/ (Amino Acids) 1,010 mls @ 84 mls/hr IVPB Q12H [facility] Last Admin: 11/08/19 05:22 Dose: 84 mls/hr Lisinopril (Prinivil) 10 mg PO DAILY [facility] Last Admin: 11/07/19 09:56 Dose: 10 mg Multivitamins/Minerals (Certavite-Antioxidant Liquid) 15 ml PO DAILY [facility] Last Admin: 11/07/19 09:56 Dose: 15 ml Pantoprazole Sodium (Protonix Iv) 40 mg IVPUSH BID [facility] Last Admin: 11/07/19 21:33 Dose: 40 mg Prochlorperazine Edisylate (Compazine Injection -) 5 mg IVPB Q4H PRN PRN Reason: NAUSEA AND/OR VOMITING - Objective Vital Signs: Vital Signs Temperature 98.1 F 11/08/19 08:43 Pulse Rate 56 L 11/08/19 08:43 Respiratory Rate 20 11/08/19 09:00 Blood Pressure 140/63 11/08/19 08:43 O2 Sat by Pulse Oximetry (%) 96 11/08/19 09:00 Labs: CBC, BMP 11/08/19 07:50 11/08/19 07:50 INR, PTT INR 1.07 (0.83-1.09) 10/26/19 06:16 Problem List - Problems (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 edema vs stricture. If does not open up consider dilation by Dr. Juve Mansfield. Go aware.
[2019-11-08] MEDS: PANTOPRAZOLE SODIUM 40 MG VIAL IVPUSH SCH ×2 (13:17→21:59)
--- NOTE | 2019-11-08 14:09 | PN ---
Physical Exam: SUBJECTIVE: Patient seen and examined at the bedside. in no acute distress. tolerating ngt, son at bedside. OBJECTIVE: Patient is an 79 year old male who traveled from [place] in July 2019 to visit family. He went to have a physical exam and was found to have a hmg of 5.3 , he was sent from his PMD office for symptomatic anemia. 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 He is s/p radical subtotal gastectomy, omentectomy, gastrojejunostomy for gastric cancer on 10/26/2019. Hematology/oncology following and patient to start chemotherapy/ rad. oncology once he recovers from surgery and healed postoperatively. Appetite since surgery, has been poor and has had a few vomiting episodes after attempting to eat. started on clinimax/lipids on 11/03/2019. concern for overall nutrition and hydration on current diet only, may need tpn, if deemed a candidate for it by surgery. for picc line for continuation of clinimax and intralipids day #6. may need tpn if continues to have prolonged npo. Vital Signs Period Temp Pulse Resp BP Sys/Newman Pulse Ox Last 24 Hr 98 F-98.8 F 56-65 20-20 125-147/63-76 96-96 GENERAL: The patient is awake, alert, and fully oriented, in no acute distress. speaks greenlandic primarily HEAD: Normal with no signs of trauma. EYES: PERRL, extraocular movements intact, sclera anicteric, conjunctiva clear. No ptosis. ENT: Ears normal, nares patent, oropharynx clear without exudates NECK: Trachea midline, full range of motion, supple. LUNGS: Breath sounds equal, clear to auscultation bilaterally HEART: Regular rate and rhythm ABDOMEN: Soft, non tender abdomen, + bowel sounds EXTREMITIES: no edema. NEUROLOGICAL: Normal speech, gait not observed. PSYCH: Normal mood, normal affect. SKIN: abdominal dressing with mild sero sang drainage, changed by surgery Laboratory Results - last 24 hr 11/07/19 11/07/19 11/08/19 13:32 13:32 07:50 WBC 8.2 9.7 RBC 4.59 4.69 Hgb 9.9 L 10.2 L Hct 32.5 L 32.6 L MCV 70.8 L 69.6 L MCH 21.5 L 21.8 L MCHC 30.4 L 31.3 L RDW 27.8 H 27.5 H Plt Count 219 282 D MPV 9.6 8.9 Absolute Neuts (auto) 7.0 8.1 H Neutrophils % 85.6 H 83.8 H Lymphocytes % 5.3 L 6.0 L Monocytes % 7.4 7.7 Eosinophils % 1.3 2.1 Basophils % 0.4 0.4 Nucleated RBC % 0 0 Sodium 136 Potassium 3.3 L Chloride 107 Carbon Dioxide 21 Anion Gap 7 L BUN 21.2 H Creatinine 0.7 Est GFR (CKD-EPI)AfAm 103.30 Est GFR (CKD-EPI)NonAf 89.13 Random Glucose 143 H Hemoglobin A1c % Calcium 10.1 Magnesium 2.0 Total Bilirubin 0.7 AST 21 ALT 23 Alkaline Phosphatase 198 H Total Protein 5.6 L Albumin 2.4 L 11/08/19 11/08/19 07:50 07:50 WBC RBC Hgb Hct MCV MCH MCHC RDW Plt Count MPV Absolute Neuts (auto) Neutrophils % Lymphocytes % Monocytes % Eosinophils % Basophils % Nucleated RBC % Sodium 136 Potassium 3.6 Chloride 108 H Carbon Dioxide 21 Anion Gap 7 L BUN 18.0 Creatinine 0.7 Est GFR (CKD-EPI)AfAm 103.30 Est GFR (CKD-EPI)NonAf 89.13 Random Glucose 132 H Hemoglobin A1c % 5.2 Calcium 10.1 Magnesium 1.8 Total Bilirubin 0.4 AST 21 ALT 21 Alkaline Phosphatase 185 H Total Protein 5.4 L Albumin 2.3 L Active Medications Generic Name Dose Route Start Last Admin Trade Name Freq PRN Reason Stop Dose Admin Acetaminophen 1,000 mg 10/28/19 03:39 10/29/19 12:44 Ofirmev Injection - IVPB 1,000 mg Q8H PRN Administration FEVER Amino Acids 30 ml 11/03/19 17:30 11/07/19 18:17 Prosource No Carb Liquid Pkt PO Not Given BID@0800,1730 [facility] Amlodipine Besylate 2.5 mg 11/01/19 10:45 11/07/19 09:56 Norvasc - PO 2.5 mg DAILY [facility] Administration Amoxicillin 1,000 mg 11/07/19 10:30 11/07/19 21:32 Amoxicillin - PO Not Given BID [facility] Aspirin 81 mg 11/02/19 10:00 11/07/19 09:56 Asa - PO 81 mg DAILY [facility] Administration Atorvastatin Calcium 20 mg 11/01/19 22:00 11/07/19 21:32 Lipitor - PO Not Given HS [facility] Calcium Carbonate 500 mg 11/03/19 12:15 11/07/19 21:33 Os-Jc 500mg - PO Not Given BID [facility] Chlorpromazine HCl 25 mg 11/05/19 10:00 11/07/19 21:34 Thorazine - PO Not Given QID [facility] Cholecalciferol 1,000 unit 11/03/19 12:15 11/07/19 09:56 Vitamin D3 - PO 1,000 unit DAILY [facility] Administration Clarithromycin 500 mg 11/07/19 10:30 11/07/19 21:32 Biaxin - PO Not Given BID [facility] Cyanocobalamin 300 mcg 11/03/19 12:15 11/07/19 09:57 Vitamin B12 - PO 300 mcg DAILY [facility] Administration Heparin Sodium (Porcine) 5,000 unit 11/02/19 22:00 11/08/19 05:22 Heparin - SQ 5,000 unit TID [facility] Administration Fat Emulsion Intravenous 250 mls @ 20.833 mls/hr 11/03/19 22:00 11/07/19 21: 32 Intralipid - IV 20.833 mls/hr Q48H [facility] Administration Potassium Chloride 20 meq/ 1,010 mls @ 84 mls/hr 11/04/19 08:31 11/08/19 08: 17 Amino Acids IVPB 84 mls/hr Q12H [facility] Administration Lisinopril 10 mg 11/04/19 10:00 11/07/19 09:56 Prinivil PO 10 mg DAILY [facility] Administration Multivitamins/Minerals 15 ml 11/03/19 13:00 11/07/19 09:56 Certavite-Antioxidant Liquid PO 15 ml DAILY [facility] Administration Pantoprazole Sodium 40 mg 11/02/19 22:00 11/08/19 13:17 Protonix Iv IVPUSH 40 mg BID [facility] Administration Prochlorperazine Edisylate 5 mg 11/02/19 18:13 Compazine Injection - IVPB Q4H PRN NAUSEA AND/OR VOMITING ASSESSMENT/PLAN: Problem List - Problems (1) S/P subtotal gastrectomy Assessment/Plan: S/P radical subtotal gastectomy, omentectomy, gastrojejunostomy for gastric cancer on 10/26/19 had upper gi series which shows distended gastric pouch, findings concerning for stricture at the gastrojejunostomy site made NPO by surgery and NGT inserted, currently has 300 cc of output on clinimax and lipids for poor po intake (2) Anemia Assessment/Plan: monitor hmg/hct has received venofer on this admission will defer iron supplements to avoid constipation Code(s): D64.9 - ANEMIA, UNSPECIFIED (3) Gastric carcinoma Assessment/Plan: plan is for chemo/rt once healed postop. Code(s): C16.9 - MALIGNANT NEOPLASM OF STOMACH, UNSPECIFIED (4) Helicobacter pylori (H. pylori) infection Assessment/Plan: On treatment for H. pylori, monitor H&H, f/u pathology Code(s): A04.8 - OTHER SPECIFIED BACTERIAL INTESTINAL INFECTIONS (5) Hypertension Assessment/Plan: avoid AV pao blocking agents given sinus bradycardia holding cardiac medications while npo, if bp elevated may need to be converted to IV (no beta blockers) Code(s): I10 - ESSENTIAL (PRIMARY) HYPERTENSION Qualifiers: Hypertension type: essential hypertension Qualified Code(s): I10 - Essential (primary) hypertension (6) Postoperative non-ST elevation myocardial infarction (NSTEMI) Assessment/Plan: stress test when more stable continue ASA 81mg and lisinopril when no longer npo avoid beta blockers Code(s): [id number] - (7) Hypokalemia Assessment/Plan: kcl with clinimax and lipids Code(s): E87.6 - HYPOKALEMIA (8) Very poor nutrition Assessment/Plan: post op, nutrition remains poor added clinimax and lipids every other day now NPO monitor albumin Code(s): E63.9 - NUTRITIONAL DEFICIENCY, UNSPECIFIED Visit type - Emergency Visit Emergency Visit: Yes ED Registration Date: 10/12/19 Care time: The patient presented to the Emergency Department on the above date and was hospitalized for further evaluation of their emergent condition. - New Patient This patient is new to me today: No - Critical Care Critical Care patient: No - Discharge Referral Referred to [facility] Med P.C.: No
[2019-11-08] MEDS: AMINO ACIDS/PROTEIN HYDROLYS 30 ML LIQUID.PKT PO SCH (17:38)
[2019-11-08] MEDS: CALCIUM (OYSTER SHELL) 500 MG TABLET (FP) PO SCH ×2 (17:39→21:59)
[2019-11-08] MEDS: CLARITHROMYCIN 500 MG TABLET (UD) PO SCH ×2 (17:39→21:58)
[2019-11-08] MEDS: AMOXICILLIN 500 MG CAPSULE (FP) PO SCH ×2 (17:39→21:58)
[2019-11-08] MEDS: amLODIPine BESYLATE 2.5 MG TABLET (FP) PO SCH (17:39)
[2019-11-08] MEDS: MULTIVIT-MINERALS ORAL LIQUID PO SCH (17:39)
[2019-11-08] MEDS: ASPIRIN 81 MG CHEWABLE TABLETS PO SCH (17:39)
[2019-11-08] MEDS: LISINOPRIL 5 MG TABLET (FP) PO SCH (17:39)
[2019-11-08] MEDS: CHOLECALCIFEROL (VIT D3) 1,000 UNIT (25 MCG) TABLET PO SCH (17:40)
[2019-11-08] MEDS: chlorproMAZINE HCL 25 MG TABLET PO SCH ×3 (17:40→22:03)
[2019-11-08] MEDS: CYANOCOBALAMIN (VITAMIN B-12) 100 MCG TABLET PO SCH (17:40)
[2019-11-08 18:19] LABS: ALBUMIN 2.3 g/dl (3.4-5.0); BILIRUBIN,TOTAL 0.5 mg/dL (0.2-1); BLOOD UREA NITROGEN 16.7 mg/dL (7-18); CALCIUM 10.1 mg/dL (8.5-10.1); CREATININE 0.6 mg/dL (0.55-1.3); MAGNESIUM 1.8 mg/dL (1.8-2.4); POTASSIUM 3.7 mmol/L (3.5-5.1); TOT PROT 5.4 g/dl (6.4-8.2)
[2019-11-08] MEDS: ATORVASTATIN CA 20 MG TABLET (FP) PO SCH (21:58)
[2019-11-09] MEDS: HEPARIN NA (PORCINE) 5,000 UNITS/ML 1ML VIAL SQ SCH ×3 (06:04→22:46)
--- NOTE | 2019-11-09 07:29 | PN ---
Progress Note (short form) - Note Progress Note: Chief Complaint: Events noted, notes reviewed, resting in bed NG tube in situ connected to suction, denies any chest pain or dyspnea History of Present Illness: Seen and examined on telemetry. Events noted, notes reviewed, resting in bed NG tube in situ connected to suction, denies any chest pain or dyspnea - Current Medication List Current Medications Acetaminophen (Ofirmev Injection -) 1,000 mg IVPB Q8H PRN PRN Reason: FEVER Last Admin: 10/29/19 12:44 Dose: 1,000 mg Amino Acids (Prosource No Carb Liquid Pkt) 30 ml PO BID@0800,1730 [facility] Last Admin: 11/08/19 17:38 Dose: Not Given Amlodipine Besylate (Norvasc -) 2.5 mg PO DAILY [facility] Last Admin: 11/08/19 17:39 Dose: Not Given Amoxicillin (Amoxicillin -) 1,000 mg PO BID [facility] Last Admin: 11/08/19 21:58 Dose: Not Given Aspirin (Asa -) 81 mg PO DAILY [facility] Last Admin: 11/08/19 17:39 Dose: Not Given Atorvastatin Calcium (Lipitor -) 20 mg PO HS [facility] Last Admin: 11/08/19 21:58 Dose: Not Given Calcium Carbonate (Os-Jc 500mg -) 500 mg PO BID [facility] Last Admin: 11/08/19 21:59 Dose: Not Given Chlorpromazine HCl (Thorazine -) 25 mg PO QID [facility] Last Admin: 11/08/19 22:03 Dose: Not Given Cholecalciferol (Vitamin D3 -) 1,000 unit PO DAILY [facility] Last Admin: 11/08/19 17:40 Dose: Not Given Clarithromycin (Biaxin -) 500 mg PO BID [facility] Last Admin: 11/08/19 21:58 Dose: Not Given Cyanocobalamin (Vitamin B12 -) 300 mcg PO DAILY [facility] Last Admin: 11/08/19 17:40 Dose: Not Given Heparin Sodium (Porcine) (Heparin -) 5,000 unit SQ TID [facility] Last Admin: 11/09/19 06:04 Dose: 5,000 unit Fat Emulsion Intravenous (Intralipid -) 250 mls @ 20.833 mls/hr IV Q48H [facility] Last Admin: 11/07/19 21:32 Dose: 20.833 mls/hr Potassium Chloride 20 meq/ (Amino Acids) 1,010 mls @ 84 mls/hr IVPB Q12H [facility] Last Admin: 11/08/19 21:00 Dose: 84 mls/hr Lisinopril (Prinivil) 10 mg PO DAILY [facility] Last Admin: 11/08/19 17:39 Dose: Not Given Multivitamins/Minerals (Certavite-Antioxidant Liquid) 15 ml PO DAILY [facility] Last Admin: 11/08/19 17:39 Dose: Not Given Pantoprazole Sodium (Protonix Iv) 40 mg IVPUSH BID [facility] Last Admin: 11/08/19 21:59 Dose: 40 mg Prochlorperazine Edisylate (Compazine Injection -) 5 mg IVPB Q4H PRN PRN Reason: NAUSEA AND/OR VOMITING Review of Systems Constitutional: denies: Chills or Fever Cardiovascular: as noted above Respiratory: as noted above Gastrointestinal: denies: Nausea, Vomiting, Diarrhea or Constipation reports Abdominal Pain Genitourinary: denies: Dysuria Musculoskeletal: denies: Joint Pain Neurological: denies: Dizziness or Headache - Objective Vital Signs: Last Vital Signs Temp Pulse Resp BP Pulse Ox 98.1 F 56 L 20 139/68 95 11/08/19 21:10 11/08/19 21:10 11/09/19 10:00 11/08/19 21:10 11/09/19 09:00 Neck: Supple Negative JVD No Bruit Respiratory: Scattered Rhonchi Bilaterally Cardiovascular: S1 S2 Regular Rate Rhythm Gastrointestinal: Soft Benign Normal Bowel Sounds Ext: Negative Edema Labs: CBC, BMP 11/09/19 13:00 11/09/19 13:00 Hepatic Panel Total Bilirubin 0.5 mg/dL (0.2-1) 11/09/19 13:00 AST 21 U/L (15-37) 11/09/19 13:00 ALT 22 U/L (13-61) 11/09/19 13:00 Alkaline Phosphatase 286 U/L (45-117) H 11/09/19 13:00 Albumin 2.3 g/dl (3.4-5.0) L 11/09/19 13:00 INR, PTT INR 1.07 (0.83-1.09) 10/26/19 06:16 Assessment/Plan ASSESSMENT: 1. POD #15- post subtotal gastrectomy, omentectomy, gastrojejunostomy for gastric Cancer, question gastric outlet obstruction 2. CAD with evidence of post operative NSTEMI angina pectoris 3. Diastolic LV dysfunction with clinical class 0 NYHA classification LV failure 4. Post acute blood loss- anemia 5. Sinus bradycardia, transient 2nd degree AV block post-op, since resolved 6. Hypertensive cardiovascular disease 7. Hypokalemia, resolved PLAN: 1. As outlined in the prior notes avoid AV pao blocking agents given sinus bradycardia 2. Continue Norvasc 3. Continue Lisinopril 4. Continue Lipitor 5. Continue ASA unless it is absolutely contraindicated 6. Further evaluation/intervention as per the primary gastrointestinal team and the primary surgeon 7. As outlined in the prior notes plan for Pharmacologic Lexiscan MPI study in the future once clinically stable/fully recovered from the above noted procedures Christine Lucero M.D.
[2019-11-09] MEDS: POTASSIUM CHLORIDE 20 MEQ in AMINO ACIDS 4.25%/D5W 1,000 ML IVPB SCH ×2 (08:40→23:00)
[2019-11-09] MEDS: PANTOPRAZOLE SODIUM 40 MG VIAL IVPUSH SCH ×2 (10:17→22:46)
--- NOTE | 2019-11-09 10:39 | PN ---
Physical Exam: SUBJECTIVE: Patient seen and examined at the bedside. per rn verbal report, patient pulled out his picc line overnight, no confusion noted. denies abdominal pain, no nausea or vomiting. OBJECTIVE: Patient is an 79 year old male who was sent by his PMD after being found to have a hmg of 5.3. 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 He is s/p radical subtotal gastectomy, omentectomy, gastrojejunostomy for gastric cancer on 10/26/2019. Heme/onc following and patient to start chemotherapy/rad. once he heals postoperatively. Appetite since surgery, has been poor and has had a few vomiting episodes after attempting to eat. started on clinimax/lipids on 11/03/2019. a barium series shows possible stricture at anastamosis site. He is now NPO s/p NGT placed on 11/07/2019. concern for overall nutrition and hydration on current diet only, may need tpn, if deemed a candidate for it by surgery. On clinimax and intralipids day #7. may need tpn if continues to have prolonged npo. ----- 24 hours picc placed yesterday, was pulled out by patient 925cc total output from NGT site (green bili drainage) Vital Signs Period Temp Pulse Resp BP Sys/Newman Pulse Ox Last 24 Hr 98.1 F-98.3 F 56-57 20-20 121-139/57-68 96 GENERAL: The patient is awake, alert, and fully oriented, in no acute distress. speaks hebrew primarily HEAD: Normal with no signs of trauma. EYES: PERRL, extraocular movements intact, sclera anicteric, conjunctiva clear. No ptosis. ENT: Ears normal, nares patent, oropharynx clear without exudates NECK: Trachea midline, full range of motion, supple. LUNGS: Breath sounds equal, clear to auscultation bilaterally HEART: Regular rate and rhythm ABDOMEN: Soft, non tender abdomen, + bowel sounds EXTREMITIES: no edema. NEUROLOGICAL: Normal speech, gait not observed. PSYCH: Normal mood, normal affect. SKIN: abdominal dressing changed, purulent/serosang drainage, two small round areas of wound dehiscence. changed today. Laboratory Results - last 24 hr 11/08/19 11/08/19 07:50 17:32 Sodium 135 L Potassium 3.7 Chloride 106 Carbon Dioxide 22 Anion Gap 7 L BUN 16.7 Creatinine 0.6 Est GFR (CKD-EPI)AfAm 110.06 Est GFR (CKD-EPI)NonAf 94.96 Random Glucose 127 H Hemoglobin A1c % 5.2 Calcium 10.1 Magnesium 1.8 Total Bilirubin 0.5 AST 17 ALT 18 Alkaline Phosphatase 203 H Total Protein 5.4 L Albumin 2.3 L Active Medications Generic Name Dose Route Start Last Admin Trade Name Freq PRN Reason Stop Dose Admin Acetaminophen 1,000 mg 10/28/19 03:39 10/29/19 12:44 Ofirmev Injection - IVPB 1,000 mg Q8H PRN Administration FEVER Amino Acids 30 ml 11/03/19 17:30 11/08/19 17:38 Prosource No Carb Liquid Pkt PO Not Given BID@0800,1730 [facility] Amlodipine Besylate 2.5 mg 11/01/19 10:45 11/08/19 17:39 Norvasc - PO Not Given DAILY [facility] Amoxicillin 1,000 mg 11/07/19 10:30 11/08/19 21:58 Amoxicillin - PO Not Given BID [facility] Aspirin 81 mg 11/02/19 10:00 11/08/19 17:39 Asa - PO Not Given DAILY [facility] Atorvastatin Calcium 20 mg 11/01/19 22:00 11/08/19 21:58 Lipitor - PO Not Given HS [facility] Calcium Carbonate 500 mg 11/03/19 12:15 11/08/19 21:59 Os-Jc 500mg - PO Not Given BID [facility] Chlorpromazine HCl 25 mg 11/05/19 10:00 11/08/19 22:03 Thorazine - PO Not Given QID [facility] Cholecalciferol 1,000 unit 11/03/19 12:15 11/08/19 17:40 Vitamin D3 - PO Not Given DAILY [facility] Clarithromycin 500 mg 11/07/19 10:30 11/08/19 21:58 Biaxin - PO Not Given BID [facility] Cyanocobalamin 300 mcg 11/03/19 12:15 11/08/19 17:40 Vitamin B12 - PO Not Given DAILY [facility] Heparin Sodium (Porcine) 5,000 unit 11/02/19 22:00 11/09/19 06:04 Heparin - SQ 5,000 unit TID [facility] Administration Fat Emulsion Intravenous 250 mls @ 20.833 mls/hr 11/03/19 22:00 11/07/19 21: 32 Intralipid - IV 20.833 mls/hr Q48H [facility] Administration Potassium Chloride 20 meq/ 1,010 mls @ 84 mls/hr 11/04/19 08:31 11/09/19 08: 40 Amino Acids IVPB 84 mls/hr Q12H [facility] Administration Lisinopril 10 mg 11/04/19 10:00 11/08/19 17:39 Prinivil PO Not Given DAILY [facility] Multivitamins/Minerals 15 ml 11/03/19 13:00 11/08/19 17:39 Certavite-Antioxidant Liquid PO Not Given DAILY [facility] Pantoprazole Sodium 40 mg 11/02/19 22:00 11/09/19 10:17 Protonix Iv IVPUSH 40 mg BID [facility] Administration Prochlorperazine Edisylate 5 mg 11/02/19 18:13 Compazine Injection - IVPB Q4H PRN NAUSEA AND/OR VOMITING ASSESSMENT/PLAN: Problem List - Problems (1) S/P subtotal gastrectomy Assessment/Plan: S/P radical subtotal gastectomy, omentectomy, gastrojejunostomy for gastric cancer on 10/26/19 had upper gi series which shows distended gastric pouch, findings concerning for stricture at the gastrojejunostomy site made NPO by surgery and NGT inserted on 11/07, currently has 925 cc of output on clinimax and lipids for poor po intake monitor electrolytes (2) Anemia Assessment/Plan: monitor hmg/hct has received venofer on this admission will defer iron supplements to avoid constipation Code(s): D64.9 - ANEMIA, UNSPECIFIED (3) Gastric carcinoma Assessment/Plan: plan is for chemo/rt once healed postop. Code(s): C16.9 - MALIGNANT NEOPLASM OF STOMACH, UNSPECIFIED (4) Helicobacter pylori (H. pylori) infection Assessment/Plan: On treatment for H. pylori, however now NPO Code(s): A04.8 - OTHER SPECIFIED BACTERIAL INTESTINAL INFECTIONS (5) Hypertension Assessment/Plan: avoid AV pao blocking agents given sinus bradycardia holding cardiac medications while npo, if bp elevated may need to be converted to IV (no beta blockers) Code(s): I10 - ESSENTIAL (PRIMARY) HYPERTENSION Qualifiers: Hypertension type: essential hypertension Qualified Code(s): I10 - Essential (primary) hypertension (6) Postoperative non-ST elevation myocardial infarction (NSTEMI) Assessment/Plan: stress test when more stable continue ASA 81mg and lisinopril when no longer npo avoid beta blockers Code(s): [id number] - (7) Hypokalemia Assessment/Plan: kcl with clinimax and lipids Code(s): E87.6 - HYPOKALEMIA (8) Very poor nutrition Assessment/Plan: post op, nutrition remains very poor added clinimax and lipids every other day now NPO monitor albumin Code(s): E63.9 - NUTRITIONAL DEFICIENCY, UNSPECIFIED (9) DVT prophylaxis Assessment/Plan: on heparin tid Code(s): Z29.9 - ENCOUNTER FOR PROPHYLACTIC MEASURES, UNSPECIFIED (10) Prophylactic measure Assessment/Plan: fen npo on lipids every other day and clinimax with kcl monitor electrolytes daily, including mag poor nutrition, dietary following Code(s): Z29.9 - ENCOUNTER FOR PROPHYLACTIC MEASURES, UNSPECIFIED Visit type - Emergency Visit Emergency Visit: Yes ED Registration Date: 10/12/19 Care time: The patient presented to the Emergency Department on the above date and was hospitalized for further evaluation of their emergent condition. - New Patient This patient is new to me today: No - Critical Care Critical Care patient: No - Discharge Referral Referred to [facility] Med P.C.: No
--- NOTE | 2019-11-09 13:04 | PN.GI ---
GI Progress Note Subjective: 400cc output from NGT from last night. About 850cc reported from day and second shift supervisor yesterday No abdominal pain Family present at bedside His son explains that his father has been compaining of seeing things on the manriquze and seeing spiders on his face - Objective Vital Signs: Vital Signs Temperature 98.1 F 11/08/19 21:10 Pulse Rate 56 L 11/08/19 21:10 Respiratory Rate 20 11/09/19 10:00 Blood Pressure 139/68 11/08/19 21:10 O2 Sat by Pulse Oximetry (%) 95 11/09/19 09:00 Constitutional: Calm Cardiovascular: Yes: Bradycardia Respiratory: Yes: CTA Bilaterally Gastrointestinal Inspection: Yes: Other (dressed surgical site). No: Distention ...Auscultate: Yes: Normoactive Bowel Sounds Edema: No (No LE edema) Neurological: Yes: Alert Labs: CBC, BMP 11/08/19 07:50 11/08/19 17:32 INR, PTT INR 1.07 (0.83-1.09) 10/26/19 06:16 Problem List - Problems (1) Gastric carcinoma Assessment/Plan: s/p subtotal colectomy with gastrojejunostomy, now with vomiting s/p NGT ? stricturing (however only 2 weeks out of surgery) / edema at the efferent loop of the gastroenteric anastamosis Appears comfortable, no vomiting with NGT in place. gastric pouch decompressed on AXR yesterday Continued care per surgery. Ordered AXR for today. If not improving with conservative measures, advise transfer to tertiary care center for further evaluation and to see if further surgical / endoscopic interventions warranted. Surgical follow-up. If prolonged NPO, consider renal evaluation and initiation of TPN. Would defer to surgery. patient with hallucinations. advised El's nurse, who will contacting primary team. Code(s): C16.9 - MALIGNANT NEOPLASM OF STOMACH, UNSPECIFIED
[2019-11-09 13:09] LABS: BASO % 0.5 % (0-2.0); EOS % 3.3 % (0-4.5); HEMATOCRIT 33.6 % (35.4-49); HEMOGLOBIN 10.3 GM/dL (11.7-16.9); LYMPH % 8.8 % (8-40); MCH 21.6 pg (25.7-33.7); MCHC 30.5 g/dl (32.0-35.9); MEAN CELL VOLUME 70.8 fl (80-96); MEAN PLT VOLUME 9.4 fl (7.5-11.1); MONO % 9.1 % (3.8-10.2); NEUT % 78.3 % (42.8-82.8); PLATELET COUNT 303 K/MM3 (134-434); RBC 4.75 M/mm3 (4.00-5.60); RDW 27.7 % (11.9-15.9); WHITE BLOOD COUNT 6.6 K/mm3 (4.0-10.0)
[2019-11-09 13:53] LABS: ALBUMIN 2.3 g/dl (3.4-5.0); BILIRUBIN,TOTAL 0.5 mg/dL (0.2-1); BLOOD UREA NITROGEN 20.2 mg/dL (7-18); CALCIUM 10.2 mg/dL (8.5-10.1); CREATININE 0.7 mg/dL (0.55-1.3); MAGNESIUM 1.7 mg/dL (1.8-2.4); POTASSIUM 3.6 mmol/L (3.5-5.1); TOT PROT 5.6 g/dl (6.4-8.2)
[2019-11-09] MEDS ORDERED: MAGNESIUM SULF 50% (8.12 MEQ/2 ML-1 GM VIAL) IVPB ONE (15:00)
[2019-11-09 15:27] LABS: ANISOCYTOSIS 2+; MACROCYTOSIS 0; PLATELET ESTIMATE NORMAL; ROULEAU 2+
[2019-11-09 16:05] LABS: URINE APPEARANCE CLEAR; URINE BILIRUBIN NEGATIVE (NEGATIVE); URINE COLOR YELLOW; URINE GLUCOSE (UA) NEGATIVE (NEGATIVE); URINE KETONE NEGATIVE (NEGATIVE); URINE LEUK ESTERASE NEGATIVE (NEGATIVE); URINE NITRITE NEGATIVE (NEGATIVE); URINE PROTEIN NEGATIVE (NEGATIVE); URINE UROBILINOGEN 0.2 mg/dL (0.2-1.0)
--- NOTE | 2019-11-09 16:29 | PN ---
Progress Note, Physician History of Present Illness: AWAKE, CONFUSED IN BED AFEBRILE NGT IN PLACE WBC WNL - Current Medication List Current Medications: Active Medications Acetaminophen (Ofirmev Injection -) 1,000 mg IVPB Q8H PRN PRN Reason: FEVER Last Admin: 10/29/19 12:44 Dose: 1,000 mg Amino Acids (Prosource No Carb Liquid Pkt) 30 ml PO BID@0800,1730 [facility] Last Admin: 11/08/19 17:38 Dose: Not Given Amlodipine Besylate (Norvasc -) 2.5 mg PO DAILY [facility] Last Admin: 11/08/19 17:39 Dose: Not Given Amoxicillin (Amoxicillin -) 1,000 mg PO BID [facility] Last Admin: 11/08/19 21:58 Dose: Not Given Aspirin (Asa -) 81 mg PO DAILY [facility] Last Admin: 11/08/19 17:39 Dose: Not Given Atorvastatin Calcium (Lipitor -) 20 mg PO HS [facility] Last Admin: 11/08/19 21:58 Dose: Not Given Calcium Carbonate (Os-Jc 500mg -) 500 mg PO BID [facility] Last Admin: 11/08/19 21:59 Dose: Not Given Chlorpromazine HCl (Thorazine -) 25 mg PO QID [facility] Last Admin: 11/08/19 22:03 Dose: Not Given Cholecalciferol (Vitamin D3 -) 1,000 unit PO DAILY [facility] Last Admin: 11/08/19 17:40 Dose: Not Given Clarithromycin (Biaxin -) 500 mg PO BID [facility] Last Admin: 11/08/19 21:58 Dose: Not Given Cyanocobalamin (Vitamin B12 -) 300 mcg PO DAILY [facility] Last Admin: 11/08/19 17:40 Dose: Not Given Heparin Sodium (Porcine) (Heparin -) 5,000 unit SQ TID [facility] Last Admin: 11/09/19 14:52 Dose: 5,000 unit Fat Emulsion Intravenous (Intralipid -) 250 mls @ 20.833 mls/hr IV Q48H [facility] Last Admin: 11/07/19 21:32 Dose: 20.833 mls/hr Potassium Chloride 20 meq/ (Amino Acids) 1,010 mls @ 84 mls/hr IVPB Q12H [facility] Last Admin: 11/09/19 08:40 Dose: 84 mls/hr Lisinopril (Prinivil) 10 mg PO DAILY [facility] Last Admin: 11/08/19 17:39 Dose: Not Given Multivitamins/Minerals (Certavite-Antioxidant Liquid) 15 ml PO DAILY [facility] Last Admin: 11/08/19 17:39 Dose: Not Given Pantoprazole Sodium (Protonix Iv) 40 mg IVPUSH BID [facility] Last Admin: 11/09/19 10:17 Dose: 40 mg Prochlorperazine Edisylate (Compazine Injection -) 5 mg IVPB Q4H PRN PRN Reason: NAUSEA AND/OR VOMITING - Objective Vital Signs: Vital Signs Temperature 98.1 F 11/08/19 21:10 Pulse Rate 56 L 11/08/19 21:10 Respiratory Rate 11/09/19 10:00 Blood Pressure 139/68 11/08/19 21:10 O2 Sat by Pulse Oximetry (%) 95 11/09/19 09:00 Constitutional: Yes: No Distress Cardiovascular: Yes: Regular Rate and Rhythm, S1, S2 Respiratory: Yes: Diminished Gastrointestinal: Yes: Normal Bowel Sounds, Soft, Other (SURGICAL WOUND INTACT WITH PARTIAL DEHISCENCE NO WOUND DRAINAGE) Labs: CBC, BMP 11/09/19 13:00 11/09/19 13:00 INR, PTT INR 1.07 (0.83-1.09) 10/26/19 06:16 Assessment/Plan GASTRIC ADENOCARCINOMA POST OP GASRECTOMY LEUKOCYTOSIS RESOLVED OBSERVE OFF ANTIBIOTICS LOCAL WOUND CARE
--- NOTE | 2019-11-09 18:40 | PN ---
Progress Note, Physician Chief Complaint: gastric ca History of Present Illness: Patient is 14 days post-op Continues to have bilious NGT drainage (250/12h) Denies abdominal pain Had episodes of confusion and visual hallucinations today CT head negative for acute intracranial pathology - Current Medication List Current Medications: Active Medications Acetaminophen (Ofirmev Injection -) 1,000 mg IVPB Q8H PRN PRN Reason: FEVER Last Admin: 10/29/19 12:44 Dose: 1,000 mg Amino Acids (Prosource No Carb Liquid Pkt) 30 ml PO BID@0800,1730 [facility] Last Admin: 11/08/19 17:38 Dose: Not Given Amlodipine Besylate (Norvasc -) 2.5 mg PO DAILY [facility] Last Admin: 11/08/19 17:39 Dose: Not Given Amoxicillin (Amoxicillin -) 1,000 mg PO BID [facility] Last Admin: 11/08/19 21:58 Dose: Not Given Aspirin (Asa -) 81 mg PO DAILY [facility] Last Admin: 11/08/19 17:39 Dose: Not Given Atorvastatin Calcium (Lipitor -) 20 mg PO HS [facility] Last Admin: 11/08/19 21:58 Dose: Not Given Calcium Carbonate (Os-Jc 500mg -) 500 mg PO BID [facility] Last Admin: 11/08/19 21:59 Dose: Not Given Chlorpromazine HCl (Thorazine -) 25 mg PO QID [facility] Last Admin: 11/08/19 22:03 Dose: Not Given Cholecalciferol (Vitamin D3 -) 1,000 unit PO DAILY [facility] Last Admin: 11/08/19 17:40 Dose: Not Given Clarithromycin (Biaxin -) 500 mg PO BID [facility] Last Admin: 11/08/19 21:58 Dose: Not Given Cyanocobalamin (Vitamin B12 -) 300 mcg PO DAILY [facility] Last Admin: 11/08/19 17:40 Dose: Not Given Heparin Sodium (Porcine) (Heparin -) 5,000 unit SQ TID [facility] Last Admin: 11/09/19 14:52 Dose: 5,000 unit Fat Emulsion Intravenous (Intralipid -) 250 mls @ 20.833 mls/hr IV Q48H [facility] Last Admin: 11/07/19 21:32 Dose: 20.833 mls/hr Potassium Chloride 20 meq/ (Amino Acids) 1,010 mls @ 84 mls/hr IVPB Q12H [facility] Last Admin: 11/09/19 08:40 Dose: 84 mls/hr Lisinopril (Prinivil) 10 mg PO DAILY [facility] Last Admin: 11/08/19 17:39 Dose: Not Given Multivitamins/Minerals (Certavite-Antioxidant Liquid) 15 ml PO DAILY [facility] Last Admin: 11/08/19 17:39 Dose: Not Given Pantoprazole Sodium (Protonix Iv) 40 mg IVPUSH BID [facility] Last Admin: 11/09/19 10:17 Dose: 40 mg Prochlorperazine Edisylate (Compazine Injection -) 5 mg IVPB Q4H PRN PRN Reason: NAUSEA AND/OR VOMITING - Objective Vital Signs: Vital Signs Temperature 97.9 F 11/09/19 18:00 Pulse Rate 58 L 11/09/19 18:00 Respiratory Rate 11/09/19 18:00 Blood Pressure 142/72 11/09/19 18:00 O2 Sat by Pulse Oximetry (%) 95 11/09/19 14:00 Constitutional: Yes: No Distress Eyes: Yes: Conjunctiva Clear HENT: Yes: Normocephalic Neck: Yes: Supple Cardiovascular: Yes: Regular Rate and Rhythm Respiratory: Yes: CTA Bilaterally Gastrointestinal: Yes: Soft, Distention (mild), Other (NGT in place with bilous drainage) ...Rectal Exam: Yes: Deferred (midline wound intact with 2 areas of skin opening draining minimal serous fluid) Labs: CBC, BMP 11/09/19 13:00 11/09/19 13:00 INR, PTT INR 1.07 (0.83-1.09) 10/26/19 06:16 Problem List - Problems (1) Gastric carcinoma Assessment/Plan: R/O post gastrectomy efferent loop syndrome Agree with referral to tertiary care center for possible endoscopic or surgical management Continue NGT decompression and parenteral nutrition Medical team for management of delirium Problems reviewed: Yes Code(s): C16.9 - MALIGNANT NEOPLASM OF STOMACH, UNSPECIFIED
[2019-11-09] MEDS: CLARITHROMYCIN 500 MG TABLET (UD) PO SCH (22:45)
[2019-11-09] MEDS: AMOXICILLIN 500 MG CAPSULE (FP) PO SCH (22:45)
[2019-11-09] MEDS: ATORVASTATIN CA 20 MG TABLET (FP) PO SCH (22:46)
[2019-11-09] MEDS: FAT EMULSIONS 250 ML IV SCH (22:46)
[2019-11-09] MEDS: CALCIUM (OYSTER SHELL) 500 MG TABLET (FP) PO SCH (22:46)
[2019-11-09] MEDS: chlorproMAZINE HCL 25 MG TABLET PO SCH (22:46)
[2019-11-10] MEDS: HEPARIN NA (PORCINE) 5,000 UNITS/ML 1ML VIAL SQ SCH ×2 (05:28→14:40)
[2019-11-10 06:21] LABS: BASO % 0.7 % (0-2.0); EOS % 3.6 % (0-4.5); HEMATOCRIT 34.5 % (35.4-49); HEMOGLOBIN 10.7 GM/dL (11.7-16.9); LYMPH % 8.8 % (8-40); MCH 21.7 pg (25.7-33.7); MONO % 8.2 % (3.8-10.2); NEUT % 78.7 % (42.8-82.8); PLATELET COUNT 373 K/MM3 (134-434); RBC 4.93 M/mm3 (4.00-5.60); RDW 27.2 % (11.9-15.9); WHITE BLOOD COUNT 7.5 K/mm3 (4.0-10.0)
[2019-11-10 07:07] LABS: ALBUMIN 2.6 g/dl (3.4-5.0); BILIRUBIN,TOTAL 0.4 mg/dL (0.2-1); BLOOD UREA NITROGEN 19.8 mg/dL (7-18); CALCIUM 10.2 mg/dL (8.5-10.1); CREATININE 0.7 mg/dL (0.55-1.3); MAGNESIUM 2.1 mg/dL (1.8-2.4); POTASSIUM 3.8 mmol/L (3.5-5.1); TOT PROT 6.1 g/dl (6.4-8.2)
[2019-11-10] MEDS: POTASSIUM CHLORIDE 20 MEQ in AMINO ACIDS 4.25%/D5W 1,000 ML IVPB SCH (08:35)
--- NOTE | 2019-11-10 08:57 | CONSULT ---
Consult - text type - Consultation Consultation Note: Neurology CONSULT REQUEST: AMS HISTORY OF PRESENT ILLNESS: 79 y/o male with PMH of HTN presented to the ED with shortness of breath on exertion for the last 3 months in addition, was found to have a hemoglobin level of 5.3 on routine labs done at his PCP office- endoscopy was done showing mass in the gastric antrum, biopsy results consistent with adenocarcinoma. Patient with complicated course with subtotal colectomy with gastrojejunostomy, now with vomiting s/p NGT, ? stricturing per GI ?edema at the efferent loop of the gastroenteric anastamosis. This AM not vomiting with NGT in place. Being considered for transfer to tertiary care center for further evaluation and to see if further surgical / endoscopic interventions warranted. Consulted for mental status this patient with reported hallucinations although during my evaluation this morning did not verbalize any hallucinations. He remains confused and does not immediately realize that he is in the hospital. Seen at bedside with nurse who is Cam[place]onian-speaking and provided translation. The patient was able to tell us the month. Was calm and cooperative. CT head has been completed and reviewed them without any acute changes. Past Medical History Cardiovascular: Yes: HTN - Smoking History Smoking history: Never smoked - Alcohol/Substance Use Hx Alcohol Use: No Family: HTN Active Medications Acetaminophen (Ofirmev Injection -) 1,000 mg IVPB Q8H PRN PRN Reason: FEVER Last Admin: 10/29/19 12:44 Dose: 1,000 mg Amino Acids (Prosource No Carb Liquid Pkt) 30 ml PO BID@0800,1730 [facility] Last Admin: 11/08/19 17:38 Dose: Not Given Amlodipine Besylate (Norvasc -) 2.5 mg PO DAILY [facility] Last Admin: 11/08/19 17:39 Dose: Not Given Amoxicillin (Amoxicillin -) 1,000 mg PO BID [facility] Last Admin: 11/09/19 22:45 Dose: Not Given Aspirin (Asa -) 81 mg PO DAILY [facility] Last Admin: 11/08/19 17:39 Dose: Not Given Atorvastatin Calcium (Lipitor -) 20 mg PO HS [facility] Last Admin: 11/09/19 22:46 Dose: Not Given Calcium Carbonate (Os-Jc 500mg -) 500 mg PO BID [facility] Last Admin: 11/09/19 22:46 Dose: Not Given Chlorpromazine HCl (Thorazine -) 25 mg PO QID [facility] Last Admin: 11/09/19 22:46 Dose: Not Given Cholecalciferol (Vitamin D3 -) 1,000 unit PO DAILY [facility] Last Admin: 11/08/19 17:40 Dose: Not Given Clarithromycin (Biaxin -) 500 mg PO BID [facility] Last Admin: 11/09/19 22:45 Dose: Not Given Cyanocobalamin (Vitamin B12 -) 300 mcg PO DAILY [facility] Last Admin: 11/08/19 17:40 Dose: Not Given Heparin Sodium (Porcine) (Heparin -) 5,000 unit SQ TID [facility] Last Admin: 11/10/19 05:28 Dose: 5,000 unit Fat Emulsion Intravenous (Intralipid -) 250 mls @ 20.833 mls/hr IV Q48H [facility] Last Admin: 11/09/19 22:46 Dose: 20.833 mls/hr Potassium Chloride 20 meq/ (Amino Acids) 1,010 mls @ 84 mls/hr IVPB Q12H [facility] Last Admin: 11/09/19 23:00 Dose: 84 mls/hr Lisinopril (Prinivil) 10 mg PO DAILY [facility] Last Admin: 11/08/19 17:39 Dose: Not Given Multivitamins/Minerals (Certavite-Antioxidant Liquid) 15 ml PO DAILY [facility] Last Admin: 11/08/19 17:39 Dose: Not Given Pantoprazole Sodium (Protonix Iv) 40 mg IVPUSH BID [facility] Last Admin: 11/09/19 22:46 Dose: 40 mg Prochlorperazine Edisylate (Compazine Injection -) 5 mg IVPB Q4H PRN PRN Reason: NAUSEA AND/OR VOMITING REVIEW OF SYSTEMS: CONSTITUTIONAL: Absent: fever, chills, diaphoresis, generalized weakness, malaise, loss of appetite, weight change HEENT: Absent: rhinorrhea, nasal congestion, throat pain, throat swelling, difficulty swallowing, mouth swelling, ear pain, eye pain, visual changes CARDIOVASCULAR: Absent: chest pain, syncope, palpitations, irregular heart rate, lightheadedness , peripheral edema RESPIRATORY: Present: shortness of breath Absent: cough, , dyspnea with exertion, orthopnea, wheezing, stridor, hemoptysis GASTROINTESTINAL: Absent: abdominal pain, abdominal distension, nausea, vomiting, diarrhea, constipation, hematochezia GENITOURINARY: Absent: dysuria, frequency, urgency, hesitancy, hematuria, flank pain, genital pain MUSCULOSKELETAL: Absent: myalgia, arthralgia, joint swelling, back pain, neck pain SKIN: Absent: rash, itching, pallor HEMATOLOGIC/IMMUNOLOGIC: Absent: easy bleeding, easy bruising, lymphadenopathy, frequent infections ENDOCRINE: Absent: unexplained weight gain, unexplained weight loss, heat intolerance, cold intolerance NEUROLOGIC: Absent: headache, focal weakness or paresthesias, dizziness, unsteady gait, seizure, mental status changes, bladder or bowel incontinence PSYCHIATRIC: Absent: anxiety, depression, suicidal or homicidal ideation, hallucinations. PHYSICAL EXAMINATION Vital Signs Period Temp Pulse Resp BP Sys/Newman Pulse Ox Last 24 Hr 97.3 F-98.1 F 55-67 18-20 135-156/70-88 95-95 GENERAL: Awake, alert, and fully oriented, in no acute distress. EYES: PEERLA; EOMI; no scleral icterus . NECK: no JVD; no lympha LUNGS: slight crackles at the LLB ; no rales/rhonchi or wheezing appreciated HEART: Regular rate and rhythm, normal S1 and S2 without murmur, rub or gallop. ABDOMEN: soft; NT/ND +BS in all 4 quadrants MUSCULOSKELETAL: Normal range of motion at all joints. No bony deformities or tenderness. No CVA tenderness. EXTREMITIES: warm; well-perfused no clubbing/cyanosis or edema NEUROLOGICAL: Cranial nerves II-XII intact. Normal speech. Normal gait. PSYCHIATRIC: Cooperative. Good eye contact. Appropriate mood and affect. SKIN: Warm, dry, normal turgor, no rashes or lesions noted. CBCD WBC 7.5 K/mm3 (4.0-10.0) 11/10/19 06:00 RBC 4.93 M/mm3 (4.00-5.60) 11/10/19 06:00 Hgb 10.7 GM/dL (11.7-16.9) L 11/10/19 06:00 Hct 34.5 % (35.4-49) L 11/10/19 06:00 MCV 70.0 fl (80-96) L 11/10/19 06:00 MCHC 31.0 g/dl (32.0-35.9) L 11/10/19 06:00 RDW 27.2 % (11.9-15.9) H 11/10/19 06:00 Plt Count 373 K/MM3 (134-434) D 11/10/19 06:00 MPV 9.0 fl (7.5-11.1) 11/10/19 06:00 CMP Sodium 135 mmol/L (136-145) L 11/10/19 06:00 Potassium 3.8 mmol/L (3.5-5.1) 11/10/19 06:00 Chloride 106 mmol/L (98-107) 11/10/19 06:00 Carbon Dioxide 21 mmol/L (21-32) 11/10/19 06:00 Anion Gap 7 MMOL/L (8-16) L 11/10/19 06:00 BUN 19.8 mg/dL (7-18) H 11/10/19 06:00 Creatinine 0.7 mg/dL (0.55-1.3) 11/10/19 06:00 Random Glucose 120 mg/dL (74-106) H 11/10/19 06:00 Calcium 10.2 mg/dL (8.5-10.1) H 11/10/19 06:00 Total Bilirubin 0.4 mg/dL (0.2-1) 11/10/19 06:00 AST 27 U/L (15-37) 11/10/19 06:00 ALT 22 U/L (13-61) 11/10/19 06:00 Alkaline Phosphatase 392 U/L (45-117) H 11/10/19 06:00 Total Protein 6.1 g/dl (6.4-8.2) L 11/10/19 06:00 Albumin 2.6 g/dl (3.4-5.0) L 11/10/19 06:00 CARDIAC ENZYMES Creatine Kinase 36 U/L (26-308) 10/31/19 06:00 Troponin I 9.11 ng/ml (0.00-0.05) H* 10/31/19 06:00 ASSESSMENT/PLAN: 79 y/o male with PMH of HTN presented to the ED with shortness of breath on exertion for the last 3 months in addition, was found to have a hemoglobin level of 5.3 on routine labs done at his PCP office- endoscopy was done showing mass in the gastric antrum, biopsy results consistent with adenocarcinoma. Patient with complicated course with subtotal colectomy with gastrojejunostomy, now with vomiting s/p NGT, ? stricturing per GI ?edema at the efferent loop of the gastroenteric anastamosis. This AM not vomiting with NGT in place. Being considered for transfer to tertiary care center for further evaluation and to see if further surgical / endoscopic interventions warranted. Consulted for mental status this patient with reported hallucinations although during my evaluation this morning did not verbalize any hallucinations. He remains confused and does not immediately realize that he is in the hospital. Seen at bedside with nurse who is Cam[place]onian-speaking and provided translation. The patient was able to tell us the month. Was calm and cooperative. CT head has been completed and reviewed them without any acute changes. Reviewed notes from hospitalist, GI, medical team. Behaviorally seems stable though if further hallucinations or delusions, would consider consulting psychiatry who may be able to provide appropriate medication for symptoms. Would continue medical optimization, monitor blood pressure, maintain normotensive range. Follow-up GI recommendations, monitor anemia and transfusions as needed. adequate hydration recommended. Continue reorientation patient during daytime and in evening if ing.
--- NOTE | 2019-11-10 09:50 | PN ---
Progress Note, Physician History of Present Illness: Patient is 16 days post-op and continues to have bilious NGT drainage (250/12h) without abdominal pain CT head negative for acute intracranial pathology - Current Medication List Current Medications: Active Medications Acetaminophen (Ofirmev Injection -) 1,000 mg IVPB Q8H PRN PRN Reason: FEVER Last Admin: 10/29/19 12:44 Dose: 1,000 mg Amino Acids (Prosource No Carb Liquid Pkt) 30 ml PO BID@0800,1730 [facility] Last Admin: 11/08/19 17:38 Dose: Not Given Amlodipine Besylate (Norvasc -) 2.5 mg PO DAILY [facility] Last Admin: 11/08/19 17:39 Dose: Not Given Amoxicillin (Amoxicillin -) 1,000 mg PO BID [facility] Last Admin: 11/09/19 22:45 Dose: Not Given Aspirin (Asa -) 81 mg PO DAILY [facility] Last Admin: 11/08/19 17:39 Dose: Not Given Atorvastatin Calcium (Lipitor -) 20 mg PO HS [facility] Last Admin: 11/09/19 22:46 Dose: Not Given Calcium Carbonate (Os-Jc 500mg -) 500 mg PO BID [facility] Last Admin: 11/09/19 22:46 Dose: Not Given Chlorpromazine HCl (Thorazine -) 25 mg PO QID [facility] Last Admin: 11/09/19 22:46 Dose: Not Given Cholecalciferol (Vitamin D3 -) 1,000 unit PO DAILY [facility] Last Admin: 11/08/19 17:40 Dose: Not Given Clarithromycin (Biaxin -) 500 mg PO BID [facility] Last Admin: 11/09/19 22:45 Dose: Not Given Cyanocobalamin (Vitamin B12 -) 300 mcg PO DAILY [facility] Last Admin: 11/08/19 17:40 Dose: Not Given Heparin Sodium (Porcine) (Heparin -) 5,000 unit SQ TID [facility] Last Admin: 11/10/19 05:28 Dose: 5,000 unit Fat Emulsion Intravenous (Intralipid -) 250 mls @ 20.833 mls/hr IV Q48H [facility] Last Admin: 11/09/19 22:46 Dose: 20.833 mls/hr Potassium Chloride 20 meq/ (Amino Acids) 1,010 mls @ 84 mls/hr IVPB Q12H [facility] Last Admin: 11/09/19 23:00 Dose: 84 mls/hr Lisinopril (Prinivil) 10 mg PO DAILY [facility] Last Admin: 11/08/19 17:39 Dose: Not Given Multivitamins/Minerals (Certavite-Antioxidant Liquid) 15 ml PO DAILY [facility] Last Admin: 11/08/19 17:39 Dose: Not Given Pantoprazole Sodium (Protonix Iv) 40 mg IVPUSH BID [facility] Last Admin: 11/09/19 22:46 Dose: 40 mg Prochlorperazine Edisylate (Compazine Injection -) 5 mg IVPB Q4H PRN PRN Reason: NAUSEA AND/OR VOMITING - Objective Vital Signs: Vital Signs Temperature 98 F 11/10/19 09:00 Pulse Rate 62 11/10/19 09:00 Respiratory Rate 20 11/10/19 09:00 Blood Pressure 151/77 11/10/19 09:00 O2 Sat by Pulse Oximetry (%) 96 11/10/19 09:00 Constitutional: Yes: No Distress, Calm, Thin Neck: Yes: Supple Cardiovascular: Yes: Regular Rate and Rhythm Respiratory: Yes: Regular, Diminished Gastrointestinal: Yes: Soft, Hypoactive Bowel Sounds Edema: No Labs: CBC, BMP 11/10/19 06:00 11/10/19 06:00 INR, PTT INR 1.07 (0.83-1.09) 10/26/19 06:16 Problem List - Problems (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 pylori) infection Code(s): A04.8 - OTHER SPECIFIED BACTERIAL INTESTINAL INFECTIONS (6) Postoperative non-ST elevation myocardial infarction (NSTEMI) Code(s): [id number] - Assessment/Plan 11/07/2019 UGI: Concerning for stricture at gastrojejunostomy site 10/31/2019 Echo: Normal LV size and fxn, LVEF 65-70%, normal RV size and fxn, mild MR, TR RVSP 29 mmHg, mod ao dilatation 10/24/2019 Echo: Normal LV size and fxn, LVEF 60-65%, grade II diastolic dysfunction, mild MR, TR RVSP 33 mmHg, mild MO 1. POD #16- post subtotal gastrectomy, omentectomy, gastrojejunostomy for gastric Cancer, R/O post gastrectomy efferent loop syndrome 2. CAD with evidence of post operative NSTEMI angina pectoris 3. Diastolic LV dysfunction with clinical class 0 NYHA classification LV failure 4. Post acute blood loss- anemia 5. Sinus bradycardia, transient 2nd degree AV block post-op, since resolved 6. Hypertensive cardiovascular disease 7. Hypokalemia, resolved PLAN: 1. As outlined in the prior notes avoid AV pao blocking agents given sinus bradycardia 2. Continue Norvasc 2.5 qd 3. Continue Lisinopril 10 qd 4. Continue Lipitor 20 qd 5. Continue ASA 81 qd 6. Plan for referral to tertiary care center for possible endoscopic or surgical management, continue NGT decompression and parenteral nutrition 7. As outlined in the prior notes plan for Pharmacologic Lexiscan MPI study in the future once clinically stable/fully recovered from the above noted procedures
[2019-11-10] MEDS: AMINO ACIDS/PROTEIN HYDROLYS 30 ML LIQUID.PKT PO SCH ×3 (10:00→17:04)
[2019-11-10] MEDS: ASPIRIN 81 MG CHEWABLE TABLETS PO SCH (10:01)
[2019-11-10] MEDS: MULTIVIT-MINERALS ORAL LIQUID PO SCH (10:01)
[2019-11-10] MEDS: CLARITHROMYCIN 500 MG TABLET (UD) PO SCH (10:01)
[2019-11-10] MEDS: amLODIPine BESYLATE 2.5 MG TABLET (FP) PO SCH (10:01)
[2019-11-10] MEDS: AMOXICILLIN 500 MG CAPSULE (FP) PO SCH (10:01)
[2019-11-10] MEDS: chlorproMAZINE HCL 25 MG TABLET PO SCH ×2 (10:02→14:37)
[2019-11-10] MEDS: CYANOCOBALAMIN (VITAMIN B-12) 100 MCG TABLET PO SCH ×2 (10:02→10:03)
[2019-11-10] MEDS: LISINOPRIL 5 MG TABLET (FP) PO SCH (10:02)
[2019-11-10] MEDS: CALCIUM (OYSTER SHELL) 500 MG TABLET (FP) PO SCH (10:02)
[2019-11-10] MEDS: CHOLECALCIFEROL (VIT D3) 1,000 UNIT (25 MCG) TABLET PO SCH (10:03)
[2019-11-10] MEDS: PANTOPRAZOLE SODIUM 40 MG VIAL IVPUSH SCH (10:04)
--- NOTE | 2019-11-10 10:25 | PN ---
Physical Exam: SUBJECTIVE: Patient seen and examined at the bedside. confused, facial symmetry. repetitive. seen by neuro OBJECTIVE: Patient is an 79 year old male with a past medical history of hypertension who presents to the ED on 10/12/19 with symptomatic anemia. Sent from PMD office after being found to have a hmg of 5.3. During hospital stay an EGD was done on 10/17/19 which showed mass on gastrin antrum, biopsies performed. duodenal mucosa showed no abnormalties. He is s/p radical subtotal gastectomy, omentectomy, gastrojejunostomy for gastric cancer on 10/26/2019. During surgery , pateint went bradycardic in the 20s 30s and was found to have 2nd degree av block and a post op NSTEMI, troponins peaked at 9, and av 2nd degree block now resolved. on norvac, lisinopril, lipitor asa, holding bb 2/2 to bradycardia in the 60s. Appetite since surgery, has been poor and has had a few vomiting episodes after attempting to eat. started on clinimax/lipids on 11/03/2019. A barium series done 11/07/19 shows possible stricture at anastamosis site and patient not showing signs of improvement with ngt. repeat abd xray remains unchanged. it was recommended by surgery and gi that [facility] service of Dr. Mansfield. Reason for transfer would be possible dilation with Dr. Juve Mansfield. He is NPO s/p NGT placed on 11/07/2019. Heme/onc following and patient to start chemotherapy/rad. once he heals postoperatively. concern for overall nutrition and hydration on current diet only, may need tpn , if deemed a candidate for it by surgery. On clinimax and intralipids day #8. may need tpn if continues to have prolonged npo. ----- picc placed, was pulled out by patient, episodes of confusion/delirium. head ct negative. pathology report reviewed. cardiology: post operative NSTEMI angina pectoris and transian 2nd degree av block post op, since resolved echo: Diastolic LV dysfunction with clinical class 0 NYHA classification LV failure Continue Norvasc, lisinopril, lipitor, asa. pharmacologic lexiscan once clinically stable and fully recovers Vital Signs Period Temp Pulse Resp BP Sys/Newman Pulse Ox Last 24 Hr 97.3 F-98.1 F 55-67 18-20 135-156/70-88 95-96 GENERAL: The patient is awake, alert, confused. following commands. head ct negative. on bed alarm for safety. HEAD: Normal with no signs of trauma. head ct negative. EYES: PERRL, extraocular movements intact, sclera anicteric, conjunctiva clear. No ptosis. ENT: Ears normal, nares patent, oropharynx clear without exudates NECK: Trachea midline, full range of motion, supple. LUNGS: Breath sounds equal, clear to auscultation bilaterally HEART: Regular rate and rhythm ABDOMEN: Soft, non tender abdomen, hypoactive bowel sounds EXTREMITIES: no edema. NEUROLOGICAL: Normal speech, gait not observed. PSYCH: Normal mood, normal affect. SKIN: abdominal dressing changed, purulent/serosang drainage, two small round areas of wound dehiscence. changed dressing overnight. Laboratory Results - last 24 hr 11/09/19 11/09/19 11/09/19 13:00 13:00 13:30 WBC 6.6 RBC 4.75 Hgb 10.3 L Hct 33.6 L MCV 70.8 L MCH 21.6 L MCHC 30.5 L RDW 27.7 H Plt Count 303 MPV 9.4 Absolute Neuts (auto) 5.2 Neutrophils % 78.3 Lymphocytes % 8.8 D Monocytes % 9.1 Eosinophils % 3.3 Basophils % 0.5 Nucleated RBC % 0 Hypochromia 1+ Platelet Estimate Normal Polychromasia 1+ Poikilocytosis 1+ Basophilic Stippling 1+ Anisocytosis 2+ Microcytosis 2+ Macrocytosis 0 Rouleaux 2+ Sodium 134 L Potassium 3.6 Chloride 104 Carbon Dioxide 24 Anion Gap 5 L BUN 20.2 H Creatinine 0.7 Est GFR (CKD-EPI)AfAm 103.30 Est GFR (CKD-EPI)NonAf 89.13 POC Glucometer Random Glucose 120 H Lactic Acid 0.7 Calcium 10.2 H Magnesium 1.7 L Total Bilirubin 0.5 AST 21 ALT 22 Alkaline Phosphatase 286 H Total Protein 5.6 L Albumin 2.3 L Urine Color Urine Appearance Urine pH Ur Specific [place] Urine Protein Urine Glucose (UA) Urine Ketones Urine Blood Urine Nitrite Urine Bilirubin Urine Urobilinogen Ur Leukocyte Esterase 01/01/20 01/01/20 01/02/20 15:30 17:01 06:00 WBC 7.5 RBC 4.93 Hgb 10.7 L Hct 34.5 L MCV 70.0 L MCH 21.7 L MCHC 31.0 L RDW 27.2 H Plt Count 373 D MPV 9.0 Absolute Neuts (auto) 5.9 Neutrophils % 78.7 Lymphocytes % 8.8 Monocytes % 8.2 Eosinophils % 3.6 Basophils % 0.7 Nucleated RBC % 0 Hypochromia Platelet Estimate Polychromasia Poikilocytosis Basophilic Stippling Anisocytosis Microcytosis Macrocytosis Rouleaux Sodium Potassium Chloride Carbon Dioxide Anion Gap BUN Creatinine Est GFR (CKD-EPI)AfAm Est GFR (CKD-EPI)NonAf POC Glucometer 147 Random Glucose Lactic Acid Calcium Magnesium Total Bilirubin AST ALT Alkaline Phosphatase Total Protein Albumin Urine Color Yellow Urine Appearance Clear Urine pH 6.0 Ur Specific [place] 1.012 Urine Protein Negative Urine Glucose (UA) Negative Urine Ketones Negative Urine Blood Negative Urine Nitrite Negative Urine Bilirubin Negative Urine Urobilinogen 0.2 Ur Leukocyte Esterase Negative 11/10/19 06:00 WBC RBC Hgb Hct MCV MCH MCHC RDW Plt Count MPV Absolute Neuts (auto) Neutrophils % Lymphocytes % Monocytes % Eosinophils % Basophils % Nucleated RBC % Hypochromia Platelet Estimate Polychromasia Poikilocytosis Basophilic Stippling Anisocytosis Microcytosis Macrocytosis Rouleaux Sodium 135 L Potassium 3.8 Chloride 106 Carbon Dioxide 21 Anion Gap 7 L BUN 19.8 H Creatinine 0.7 Est GFR (CKD-EPI)AfAm 103.30 Est GFR (CKD-EPI)NonAf 89.13 POC Glucometer Random Glucose 120 H Lactic Acid Calcium 10.2 H Magnesium 2.1 Total Bilirubin 0.4 AST 27 ALT 22 Alkaline Phosphatase 392 H Total Protein 6.1 L Albumin 2.6 L Urine Color Urine Appearance Urine pH Ur Specific [place] Urine Protein Urine Glucose (UA) Urine Ketones Urine Blood Urine Nitrite Urine Bilirubin Urine Urobilinogen Ur Leukocyte Esterase Active Medications Generic Name Dose Route Start Last Admin Trade Name Freq PRN Reason Stop Dose Admin Acetaminophen 1,000 mg 10/28/19 03:39 10/29/19 12:44 Ofirmev Injection - IVPB 1,000 mg Q8H PRN Administration FEVER Amino Acids 30 ml 11/03/19 17:30 11/10/19 10:02 Prosource No Carb Liquid Pkt PO Not Given BID@0800,1730 [facility] Amlodipine Besylate 2.5 mg 11/01/19 10:45 11/10/19 10:01 Norvasc - PO Not Given DAILY [facility] Amoxicillin 1,000 mg 11/07/19 10:30 11/10/19 10:01 Amoxicillin - PO Not Given BID [facility] Aspirin 81 mg 11/02/19 10:00 11/10/19 10:01 Asa - PO Not Given DAILY [facility] Atorvastatin Calcium 20 mg 11/01/19 22:00 11/09/19 22:46 Lipitor - PO Not Given HS [facility]E Calcium Carbonate 500 mg 11/03/19 12:15 11/10/19 10:02 Os-Jc 500mg - PO Not Given BID [facility] Chlorpromazine HCl 25 mg 11/05/19 10:00 11/10/19 10:02 Thorazine - PO Not Given QID [facility] Cholecalciferol 1,000 unit 11/03/19 12:15 11/10/19 10:03 Vitamin D3 - PO Not Given DAILY [facility] Clarithromycin 500 mg 11/07/19 10:30 11/10/19 10:01 Biaxin - PO Not Given BID [facility] Cyanocobalamin 300 mcg 11/03/19 12:15 11/10/19 10:03 Vitamin B12 - PO Not Given DAILY [facility] Heparin Sodium (Porcine) 5,000 unit 11/02/19 22:00 11/10/19 05:28 Heparin - SQ 5,000 unit TID MEME Administration Fat Emulsion Intravenous 250 mls @ 20.833 mls/hr 11/03/19 22:00 11/09/19 22: 46 Intralipid - IV 20.833 mls/hr Q48H [facility] Administration Potassium Chloride 20 meq/ 1,010 mls @ 84 mls/hr 11/04/19 08:31 11/10/19 08: 35 Amino Acids IVPB 84 mls/hr Q12H [facility] Administration Lisinopril 10 mg 11/04/19 10:00 11/10/19 10:02 Prinivil PO Not Given DAILY [facility] Multivitamins/Minerals 15 ml 11/03/19 13:00 11/10/19 10:01 Certavite-Antioxidant Liquid PO Not Given DAILY [facility] Pantoprazole Sodium 40 mg 11/02/19 22:00 11/10/19 10:04 Protonix Iv IVPUSH 40 mg BID [facility] Administration Prochlorperazine Edisylate 5 mg 11/02/19 18:13 Compazine Injection - IVPB Q4H PRN NAUSEA AND/OR VOMITING ASSESSMENT/PLAN: Problem List - Problems (1) S/P subtotal gastrectomy Assessment/Plan: S/P radical subtotal gastectomy, omentectomy, gastrojejunostomy for gastric cancer on 10/26/19 had upper gi series which shows distended gastric pouch, findings concerning for stricture at the gastrojejunostomy site made NPO by surgery and NGT inserted on 11/07, on ngt on clinimax and lipids for poor po intake monitor electrolytes (2) Anemia Assessment/Plan: monitor hmg/hct has received venofer on this admission will defer iron supplements to avoid constipation Code(s): D64.9 - ANEMIA, UNSPECIFIED (3) Gastric carcinoma Assessment/Plan: plan is for chemo/rt once healed postop. Code(s): C16.9 - MALIGNANT NEOPLASM OF STOMACH, UNSPECIFIED (4) Helicobacter pylori (H. pylori) infection Assessment/Plan: On treatment for H. pylori, however now NPO Code(s): A04.8 - OTHER SPECIFIED BACTERIAL INTESTINAL INFECTIONS (5) Hypertension Assessment/Plan: avoid AV pao blocking agents given sinus bradycardia holding cardiac medications while npo, if bp elevated may need to be converted to IV (no beta blockers) Code(s): I10 - ESSENTIAL (PRIMARY) HYPERTENSION Qualifiers: Hypertension type: essential hypertension Qualified Code(s): I10 - Essential (primary) hypertension (6) Postoperative non-ST elevation myocardial infarction (NSTEMI) Assessment/Plan: stress test when more stable continue ASA 81mg and lisinopril when no longer npo avoid beta blockers Code(s): [id number] - (7) Hypokalemia Assessment/Plan: kcl with clinimax and lipids Code(s): E87.6 - HYPOKALEMIA (8) Very poor nutrition Assessment/Plan: post op, nutrition remains very poor added clinimax and lipids every other day now NPO monitor albumin will need TPN if continues to be NPO Code(s): E63.9 - NUTRITIONAL DEFICIENCY, UNSPECIFIED (9) DVT prophylaxis Assessment/Plan: on heparin tid Code(s): Z29.9 - ENCOUNTER FOR PROPHYLACTIC MEASURES, UNSPECIFIED (10) Prophylactic measure Assessment/Plan: fen npo on lipids every other day and clinimax with kcl monitor electrolytes daily, including mag poor nutrition, dietary following Code(s): Z29.9 - ENCOUNTER FOR PROPHYLACTIC MEASURES, UNSPECIFIED Visit type - Emergency Visit Emergency Visit: Yes ED Registration Date: 10/12/19 Care time: The patient presented to the Emergency Department on the above date and was hospitalized for further evaluation of their emergent condition. - New Patient This patient is new to me today: No - Critical Care Critical Care patient: No - Discharge Referral Referred to [facility] No
--- NOTE | 2019-11-10 15:27 | DS ---
Physical Exam: SUBJECTIVE: Patient seen and examined, patient for transfer to [facility]. Accepting physician is Dr. Juve Reyna. OBJECTIVE: Patient is an 79 year old male with a past medical history of hypertension who presents to the ED on 10/12/19 with symptomatic anemia. Sent from PMD office after being found to have a hmg of 5.3. During hospital stay an EGD was done on 10/17/19 which showed mass on gastrin antrum, biopsies performed. duodenal mucosa showed no abnormalties. He is s/p radical subtotal gastectomy, omentectomy, gastrojejunostomy for gastric cancer on 10/26/2019. During surgery , pateint went bradycardic in the 20s 30s and was found to have 2nd degree av block and a post op NSTEMI, troponins peaked at 9, and av 2nd degree block now resolved. on norvac, lisinopril, lipitor asa, holding bb 2/2 to bradycardia in the 60s. Appetite since surgery, has been poor and has had a few vomiting episodes after attempting to eat. started on clinimax/lipids on 11/03/2019. A barium series done 11/07/19 shows possible stricture at anastamosis site and patient not showing signs of improvement with ngt. repeat abd xray remains unchanged. it was recommended by surgery and gi that patient be transferred [facility] under the service of Dr. Reyna. Reason for transfer would be possible dilation with Dr. Juve Reyna. He is NPO s/p NGT placed on 11/07/2019. Heme/onc following and patient to start chemotherapy/rad. once he heals postoperatively. concern for overall nutrition and hydration on current diet only, may need tpn , if deemed a candidate for it by surgery. On clinimax and intralipids day #8. may need tpn if continues to have prolonged npo. ----- picc placed, was pulled out by patient, episodes of confusion/delirium. head ct negative. pathology report reviewed. cardiology: post operative NSTEMI angina pectoris and transian 2nd degree av block post op, since resolved echo: Diastolic LV dysfunction with clinical class 0 NYHA classification LV failure Continue Norvasc, lisinopril, lipitor, asa. pharmacologic lexiscan once clinically stable and fully recovers Vital Signs Period Temp Pulse Resp BP Sys/Newman Pulse Ox Last 24 Hr 97.3 F-98.1 F 56-67 18-20 135-151/70-88 95-96 PHYSICAL EXAM GENERAL: The patient is awake, alert, confused. following commands. head ct negative. on bed alarm for safety. HEAD: Normal with no signs of trauma. head ct negative. EYES: PERRL, extraocular movements intact, sclera anicteric, conjunctiva clear. No ptosis. ENT: Ears normal, nares patent, oropharynx clear without exudates NECK: Trachea midline, full range of motion, supple. LUNGS: Breath sounds equal, clear to auscultation bilaterally HEART: Regular rate and rhythm ABDOMEN: Soft, non tender abdomen, hypoactive bowel sounds EXTREMITIES: no edema. NEUROLOGICAL: Normal speech, gait not observed. PSYCH: Normal mood, normal affect. SKIN: abdominal dressing changed, purulent/serosang drainage, two small round areas of wound dehiscence. changed dressing overnight. LABS Laboratory Results - last 24 hr 11/09/19 11/09/19 11/09/19 13:00 15:30 17:01 WBC RBC Hgb Hct MCV MCH MCHC RDW Plt Count MPV Absolute Neuts (auto) Neutrophils % Lymphocytes % Monocytes % Eosinophils % Basophils % Nucleated RBC % Hypochromia 1+ Platelet Estimate Normal Polychromasia 1+ Poikilocytosis 1+ Basophilic Stippling 1+ Anisocytosis 2+ Microcytosis 2+ Macrocytosis 0 Rouleaux 2+ Sodium Potassium Chloride Carbon Dioxide Anion Gap BUN Creatinine Est GFR (CKD-EPI)AfAm Est GFR (CKD-EPI)NonAf POC Glucometer 147 Random Glucose Calcium Magnesium Total Bilirubin AST ALT Alkaline Phosphatase Total Protein Albumin Urine Color Yellow Urine Appearance Clear Urine pH 6.0 Ur Specific [place] 1.012 Urine Protein Negative Urine Glucose (UA) Negative Urine Ketones Negative Urine Blood Negative Urine Nitrite Negative Urine Bilirubin Negative Urine Urobilinogen 0.2 Ur Leukocyte Esterase Negative 11/10/19 11/10/19 06:00 06:00 WBC 7.5 RBC 4.93 Hgb 10.7 L Hct 34.5 L MCV 70.0 L MCH 21.7 L MCHC 31.0 L RDW 27.2 H Plt Count 373 D MPV 9.0 Absolute Neuts (auto) 5.9 Neutrophils % 78.7 Lymphocytes % 8.8 Monocytes % 8.2 Eosinophils % 3.6 Basophils % 0.7 Nucleated RBC % 0 Hypochromia Platelet Estimate Polychromasia Poikilocytosis Basophilic Stippling Anisocytosis Microcytosis Macrocytosis Rouleaux Sodium 135 L Potassium 3.8 Chloride 106 Carbon Dioxide 21 Anion Gap 7 L BUN 19.8 H Creatinine 0.7 Est GFR (CKD-EPI)AfAm 103.30 Est GFR (CKD-EPI)NonAf 89.13 POC Glucometer Random Glucose 120 H Calcium 10.2 H Magnesium 2.1 Total Bilirubin 0.4 AST 27 ALT 22 Alkaline Phosphatase 392 H Total Protein 6.1 L Albumin 2.6 L Urine Color Urine Appearance Urine pH Ur Specific [place] Urine Protein Urine Glucose (UA) Urine Ketones Urine Blood Urine Nitrite Urine Bilirubin Urine Urobilinogen Ur Leukocyte Esterase HOSPITAL COURSE: Date of Admission:10/12/19 Date of Discharge: 11/10/19 Minutes to complete discharge: 60 Discharge Summary Problems reviewed: Yes Reason For Visit: SECONDARY ANEMIA Current Active Problems Anemia (Acute) Aortic root dilatation (Acute) DVT prophylaxis (Acute) Gastric carcinoma (Acute) Helicobacter pylori (H. pylori) infection (Acute) Hyperlipemia (Acute) Hypertension (Acute) Hypokalemia (Acute) Hypokalemia (Acute) Postoperative non-ST elevation myocardial infarction (NSTEMI) (Acute) Pre-operative cardiovascular examination, bradycardia (Acute) Prophylactic measure (Acute) Prophylactic measure (Acute) S/P subtotal gastrectomy (Acute) Very poor nutrition (Acute) Condition: Guarded - Instructions Diet, Activity, Other Instructions: TRANSFER TO [facility] ACCEPTING PHYSICIAN: DR JUVE REYNA Disposition: TRANSFER ACUTE CARE/OTHER HOSP - Home Medications Comprehensive Discharge Medication List: Ambulatory Orders Acetaminophen Injection [Ofirmev Injection -] 1,000 mg IVPB Q8H PRN vial Amino Acids/Protein Hydrolys [Prosource No Carb Liquid Pkt] 30 ml PO BID@0800, 1730 packet 11/10/19 Amoxicillin - [Amoxicillin 500mg Capsule -] 1,000 mg PO BID capsule 11/10/19 Aspirin [ASA -] 81 mg PO DAILY tab.chew 11/10/19 Atorvastatin Ca [Lipitor] 20 mg PO HS tablet 11/10/19 Calcium ([place]) [Os-Jc 500MG -] 500 mg PO BID tablet 11/10/19 Chlorpromazine [Thorazine -] 25 mg PO QID tablet 11/10/19 Cholecalciferol (Vitamin D3) [Vitamin D3 -] 1,000 unit PO DAILY tab 11/10/19 Clarithromycin [Biaxin -] 500 mg PO BID tablet 11/10/19 Cyanocobalamin [Vitamin B12 -] 300 mcg PO DAILY tablet 11/10/19 Heparin - 5,000 unit SQ TID vial 11/10/19 Lisinopril [Prinivil] 10 mg PO DAILY tablet 11/10/19 Multivit-Minerals [Certavite-Antioxidant Liquid] 15 ml PO DAILY cup 11/10/19 Pantoprazole Sodium [Protonix IV] 40 mg IVPUSH BID vial 11/10/19 Potassium Chloride [KCl -] 20 meq IVPB Q12H vial 11/10/19 Prochlorperazine Injection [Compazine Injection -] 5 mg IVPB Q4H PRN vial 11/10 Problem List - Problems (1) S/P subtotal gastrectomy Assessment/Plan: S/P radical subtotal gastectomy, omentectomy, gastrojejunostomy for gastric cancer on 10/26/19 had upper gi series which shows distended gastric pouch, findings concerning for stricture at the gastrojejunostomy site made NPO by surgery and NGT inserted on 11/07, on ngt on clinimax and lipids for poor po intake monitor electrolytes (2) Anemia Assessment/Plan: monitor hmg/hct has received venofer on this admission will defer iron supplements to avoid constipation Code(s): D64.9 - ANEMIA, UNSPECIFIED (3) Gastric carcinoma Assessment/Plan: plan is for chemo/rt once healed postop. Code(s): C16.9 - MALIGNANT NEOPLASM OF STOMACH, UNSPECIFIED (4) Helicobacter pylori (H. pylori) infection Assessment/Plan: On treatment for H. pylori, however now NPO Code(s): A04.8 - OTHER SPECIFIED BACTERIAL INTESTINAL INFECTIONS (5) Hypertension Assessment/Plan: avoid AV pao blocking agents given sinus bradycardia holding cardiac medications while npo, if bp elevated may need to be converted to IV (no beta blockers) Code(s): I10 - ESSENTIAL (PRIMARY) HYPERTENSION Qualifiers: Hypertension type: essential hypertension Qualified Code(s): I10 - Essential (primary) hypertension (6) Postoperative non-ST elevation myocardial infarction (NSTEMI) Assessment/Plan: stress test when more stable continue ASA 81mg and lisinopril when no longer npo avoid beta blockers Code(s): [id number] - (7) Hypokalemia Assessment/Plan: kcl with clinimax and lipids Code(s): E87.6 - HYPOKALEMIA (8) Very poor nutrition Assessment/Plan: post op, nutrition remains very poor added clinimax and lipids every other day now NPO monitor albumin will need TPN if continues to be NPO Code(s): E63.9 - NUTRITIONAL DEFICIENCY, UNSPECIFIED (9) DVT prophylaxis Assessment/Plan: on heparin tid Code(s): Z29.9 - ENCOUNTER FOR PROPHYLACTIC MEASURES, UNSPECIFIED (10) Prophylactic measure Assessment/Plan: fen npo on lipids every other day and clinimax with kcl monitor electrolytes daily, including mag poor nutrition, dietary following Code(s): Z29.9 - ENCOUNTER FOR PROPHYLACTIC MEASURES, UNSPECIFIED This patient is new to me today: Yes Date on this admission: 11/10/19 Emergency Visit: No Critical Care patient: No - Discharge Referral Referred to [facility] Med [facility].C.: No
[2019-11-10 15:30] VITALS: BP 150/67; PULSE 60; TEMP 97.8
== END 2019-11-10 17:07 | disposition short-term general hospital (02) | DRG 220 ==
LOC: JER 16:18 → JERBED 18:47 → J7W 10-13 17:11 → JICU 10-24 14:46 → J4W 10-27 21:46
PROVIDERS: ADMIT Internal Medicine; ATTEND Nurse Practitioner Family
PROC: 0D160ZA Bypass Stomach to Jejunum, Open Approach (ICD-10-PCS; 2019-10-26)
PROC: 0DTU0ZZ Resection of Omentum, Open Approach (ICD-10-PCS; 2019-10-26)
PROC: 0DB58ZX Excision of Esophagus, Via Natural or Artificial Opening Endoscopic, Diagnostic (ICD-10-PCS; 2019-10-26)
PROC: 0DB68ZX Excision of Stomach, Via Natural or Artificial Opening Endoscopic, Diagnostic (ICD-10-PCS; 2019-10-26)
PROC: 30233N1 Transfusion of Nonautologous Red Blood Cells into Peripheral Vein, Percutaneous Approach (ICD-10-PCS; 2019-10-26)
PROC: 02HV33Z Insertion of Infusion Device into Superior Vena Cava, Percutaneous Approach (ICD-10-PCS; 2019-10-26)
PROC: B548ZZA Ultrasonography of Superior Vena Cava, Guidance (ICD-10-PCS; 2019-10-26)
PROC: 0DB60ZZ Excision of Stomach, Open Approach (ICD-10-PCS; principal; 2019-10-26 12:00)
DX: C16.3 Malignant neoplasm of pyloric antrum (principal); I21.4 Non-ST elevation (NSTEMI) myocardial infarction; I97.191 Other postprocedural cardiac functional disturbances following other surgery; E43 Unspecified severe protein-calorie malnutrition; B37.81 Candidal esophagitis; I44.1 Atrioventricular block, second degree; E87.0 Hyperosmolality and hypernatremia; E88.09 Other disorders of plasma-protein metabolism, not elsewhere classified; E86.0 Dehydration; D62 Acute posthemorrhagic anemia; D50.9 Iron deficiency anemia, unspecified; E87.6 Hypokalemia; I77.810 Thoracic aortic ectasia; D64.9 Anemia, unspecified; I10 Essential (primary) hypertension; I45.10 Unspecified right bundle-branch block; K29.60 Other gastritis without bleeding; B96.81 Helicobacter pylori [H. pylori] as the cause of diseases classified elsewhere; R00.1 Bradycardia, unspecified; Y83.8 Other surgical procedures as the cause of abnormal reaction of the patient, or of later complication, without mention of misadventure at the time of the procedure; I25.10 Atherosclerotic heart disease of native coronary artery without angina pectoris; Z68.21 Body mass index [BMI] 21.0-21.9, adult
CPT/HCPCS: 36415; 36430; 36511; 36569; 70450-TC; 71045-TC-FY; 71260-TC; 74018-TC-FY; 74019-TC-FY; 74021-TC-FY; 74177-TC; 74240-TC-FY; 74247-TC-FY; 77001-TC-FY; 78306-TC; 80048; 80053; 80061; 81003; 82272; 82378; 82550; 82553; 82607; 82746; 82962; 82977; 83036; 83540; 83550; 83605; 83721; 83735; 84100; 84132; 84153; 84443; 84484; 85025; 85027; 85610; 85730; 86850; 86900; 86901; 86922; 87040; 87086; 88305-TC; 88309-TC; 88341-TC; 90670; 93005; 93010; 93306-TC; 97116-GP; 97161-GP; 99285-25; A9503; C1751; J0131; J1644; J7030; P9038; P9058; Q9967

== ENCOUNTER 2020-01-11 13:00 | Inpatient (IN) | payer OTHER ==
[2020-01-11 13:15] VITALS: BMI 17.3
--- NOTE | 2020-01-11 14:10 | PDOC ---
History of Present Illness - General Chief Complaint: Weakness Stated Complaint: SENT BY DOC Time Seen by Provider: 01/11/20 13:45 - History of Present Illness Initial Comments: 01/11/20 13:48 79 yo M PMH HTN, HLD, recent admission to the ED on 10/12/19 for symptomatic anemia, EGD on 10/17/19 which showed mass on gastric antrum, s/p radical subtotal gastrectomy, omentectomy, gastrojejunostomy for gastric cancer on 10/26/2019, c/b 2nd degree AV block during surgery and a post op NSTEMI, poor appetite since surgery w/ barium series 11/07/19 showing stricture at anastamosis s/p dilation at [facility], plan for chemo/radiation but not started yet, sent from PCP for reported hyperkalemia. Reportedly had routine labs drawn on Thursday, received call today stating elevated potassium. Patient endorses generalized weakness and poor appetite, denies any other complaints. Specifically denies CP, SOB, N/V. Son present, does not have any information to add. Per PCP Sanjuanita Perez, he did not send the patient and had not heard about the labs. Past History - Past Medical History Allergies/Adverse Reactions: Allergies Allergy/AdvReac Type Severity Reaction Status Date / Time No Known Allergies Allergy Verified 01/11/20 13:15 Home Medications: Ambulatory Orders Bisacodyl 10 mg PO DAILY PRN 01/11/20 Famotidine 20 mg PO BID 01/11/20 Ferrous Sulfate [Slow Release Iron] 140 mg PO DAILY 01/11/20 Mirtazapine 15 mg PO DAILY 01/11/20 Omeprazole 20 mg PO DAILY 01/11/20 Sennosides/Docusate Sodium [Senna-S Tablet] 2 tab PO DAILY PRN 01/11/20 Anemia: Yes COPD: No Diabetes: No HTN: Yes (not on meds) - Surgical History Abdominal Surgery: Yes - Immunization History Immunization Up to Date: Yes - Psycho Social/Smoking Cessation Hx Smoking History: Never smoked Have you smoked in the past 12 months: No Information on smoking cessation initiated: No Hx Alcohol Use: No Drug/Substance Use Hx: No Review of Systems - Review of Systems Comments:: 01/11/20 15:51 GENERAL/CONSTITUTIONAL: endorses generalized weakness and loss of appetite. Denies fever, chills, diaphoresis, malaise, weight change HEAD, EYES, EARS, NOSE AND THROAT: denies rhinorrhea, nasal congestion, throat pain, throat swelling, difficulty swallowing, mouth swelling, ear pain, eye pain, visual changes NEUROLOGIC: denies headache, focal weakness or paresthesias, dizziness, unsteady gait, seizure, mental status changes, bladder or bowel incontinence CARDIOVASCULAR: denies chest pain, syncope, palpitations, irregular heart rate, lightheadedness, peripheral edema RESPIRATORY: denies cough, shortness of breath, dyspnea with exertion, orthopnea, wheezing, stridor, hemoptysis GASTROINTESTINAL: denies abdominal pain, abdominal distension, nausea, vomiting, diarrhea, constipation, melena, hematochezia GENITOURINARY: denies dysuria, frequency, urgency, hesitancy, hematuria, flank pain, genital pain MUSCULOSKELETAL: denies myalgia, arthralgia, joint swelling, back pain, neck pain SKIN: denies rash, itching, pallor HEMATOLOGIC/IMMUNOLOGIC: denies easy bleeding, easy bruising, lymphadenopathy, frequent infections ENDOCRINE: denies unexplained weight gain, unexplained weight loss, heat intolerance, cold intolerance PSYCHIATRIC: denies anxiety, depression, suicidal or homicidal ideation, hallucinations *Physical Exam - Vital Signs Last Vital Signs Temp Pulse Resp BP Pulse Ox 97.4 F L 91 H 18 136/71 98 01/11/20 13:11 01/11/20 13:11 01/11/20 13:11 01/11/20 13:11 01/11/20 13:11 - Physical Exam 01/11/20 15:52 Gen: cachectic, NAD Neuro: AAOX4, CN II-XII intact, FTN intact, EOMI, PERRLA, 5/5 strength, SILT HEENT: atraumatic, normocephalic, dry mucous membranes Neck: trachea midline, supple CV: regular rate, regular rhythm, no murmurs, rubs, or gallops Pulm: CTA b/l, no wheezing Abd: soft, non-distended, non-tender, midline well-healed vertical scar MSK: full ROM, intact pulses Extr: no edema, no deformities Skin: warm, dry ED Treatment Course - LABORATORY CBC & Chemistry Diagram: 01/11/20 14:18 01/11/20 14:18 Medical Decision Making - Medical Decision Making 01/11/20 14:44 EKG normal sinus at 69 bpm, RBBB and LAFB, with new T wave flattening in V2 and T wave inversion in V3 compared to prior. [place] 164, QRS 114, QTc 435. No peaked T waves or specific signs of hyperK, so will hold off on calcium gluconate. 01/11/20 15:29 Patient with Na of 158, consistent with free water deficit of 2.9L. Cr 1.6 from baseline of 0.8, has LYDIA. Ca elevated above 11.8. K 3.8. Also has trop of 0.4. To correct at rate of 0.5 mEq/l/hr with LR, rate is 415 mL/hr. Considering patient has asymptomatic hypernatremia, will consider lower rate. Will call nephro and cardiology for recs. Will admit to med/surg. Discharge - Discharge Information Problems reviewed: Yes Clinical Impression/Diagnosis: Hypernatremia, LYDIA (acute kidney injury), Elevated troponin - Admission Yes - Follow up/Referral Referrals: Sanjuanita Perez MD [Primary Care Provider] - - Patient Discharge Instructions - Post Discharge Activity
[2020-01-11 14:29] LABS: BASO % 0.4 % (0-2.0); EOS % 0.4 % (0-4.5); HEMATOCRIT 41.7 % (35.4-49); HEMOGLOBIN 12.2 GM/dL (11.7-16.9); LYMPH % 13.3 % (8-40); MCH 22.5 pg (25.7-33.7); MCHC 29.4 g/dl (32.0-35.9); MEAN CELL VOLUME 76.6 fl (80-96); MONO % 8.3 % (3.8-10.2); NEUT % 77.6 % (42.8-82.8); PLATELET COUNT 168 K/MM3 (134-434); RBC 5.44 M/mm3 (4.00-5.60); RDW 24.3 % (11.9-15.9)
[2020-01-11 14:42] LABS: INR 1.01 (0.83-1.09); PROTHROMBIN TIME (PATIENT) 11.9 SEC (9.7-13.0)
[2020-01-11 14:45] LABS: ACTIVATED PTT 33.1 SECONDS (25.2-36.5)
[2020-01-11 15:07] LABS: BILIRUBIN,TOTAL 0.9 mg/dL (0.2-1); BLOOD UREA NITROGEN 32.2 mg/dL (7-18); CALCIUM 11.8 mg/dL (8.5-10.1); CREATININE 1.6 mg/dL (0.55-1.3); POTASSIUM 3.8 mmol/L (3.5-5.1); TOT PROT 7.9 g/dl (6.4-8.2)
[2020-01-11 15:10] LABS: ANISOCYTOSIS 1+; MACROCYTOSIS 0; PLATELET ESTIMATE NORMAL
[2020-01-11] MEDS ORDERED: LACTATED RINGERS SOLUTION 1,000 ML/1,000 ML INFUS.BAG IV SCH (15:45)
--- NOTE | 2020-01-11 15:51 | PDOC ---
Documentation entered by Leanna Pérez SCRIBE, acting as scribe for Aaron Tim MD. Aaron Tim MD: This documentation has been prepared by the Elisa conley Adrianna, SCRIBE, under my direction and personally reviewed by me in its entirety. I confirm that the documentation accurately reflects all work, treatment, procedures, and medical decision making performed by me. Attending Attestation - Resident Resident Name: Andrea Hernandez - [facility] HPI: The patient is an 79 year old male, with a significant PMH of HTN, HLD, anemia, gastric antrum mass, gastric cancer (s/p radical subtotal gastrectomy, omentectomy, gastrojejunostomy), 2nd degree AV block during surgery, post-op NSTEMI, poor barium series on 11/07/19 showing stricture at anastomosis (s/p dilation at [facility]), presents with hyperkalemia. Patient had labs drawn 2 days ago, and was found to have an elevated potassium. He was advised to come to the ED for evaluation. He denies any complaints at this time. Allergies: NKA, NKDA Surgical History: s/p radical subtotal gastrectomy, omentectomy, gastrojejunostomy Social History: No toxic habits PCP: Dr. Perez - Physicial Exam PE: 01/11/20 15:49 Patient is awake and alert, frail appearing, in no significant distress normocephalic, atraumatic PERRLA, EOMI conjunctiva are pink Mucous membranes are dry no JVD CTA RRR Poor skin turgor - Medical Decision Making 01/11/20 15:50 79-year-old male with history of multiple abdominal surgeries, presents with signs and symptoms of dehydration and failure to thrive. Patient is cachectic, afebrile, nontoxic-appearing. CBC reveals elevated hemoglobin hematocrit consistent with hemoconcentration;CMP reveals moderate hypernatremia associated with LYDIA. Will judiciously hydrate. Will admit. 01/11/20 15:51
--- NOTE | 2020-01-11 17:03 | HP ---
PCP: Dr. Wilkinson HISTORY OF PRESENT ILLNESS: This is a 79 y/o M with a PMHx of HTN, HLD, recent admission to the ED on 10/12/19 for symptomatic anemia, EGD on 10/17/19 which showed mass on gastric antrum, s/p radical subtotal gastrectomy, omentectomy, gastrojejunostomy for gastric cancer on 10/26/2019, c/b 2nd degree AV block during surgery and a post op NSTEMI, poor appetite since surgery w/ barium series 11/07/19 showing stricture at anastamosis s/p dilation at [facility], plan for chemo/radiation but not started yet, sent from Dr. Watters (oncologist at [facility]) for reported hypernatremia. Reportedly had routine labs drawn on Thursday, received call today stating elevated sodium. Patient's son largely provided history; stating he had been c/o generalized weakness/poor appetite, associated with visual hallucinations that are chronic for him. Pt sees spiders and other people that are not there. Notes he has been constipated lately as well as nauseous and vomiting but this is not acute issues its all been since the surgery. Denies using a vitamin supplement or seeing a carton forming machine helper outside the hospital. He lives with his son and states he gets full after just 8 oz of food. He denies CP, SOB, abdominal pain, bladder complaints, or numbness in his extremities. ER course was notable for: (1) CXR done, trop 0.4, Na- 158 (2) EKG showing normal sinus rhythm at 69 bpm, RBBB and LAFB, with new T wave flattening in V2 and T wave inversion in V3 compared to prior. OR 164, QRS 114, QTc 435 (3) Cr- 1.6, Ca- 11.8 Recent Travel: denies PAST SURGICAL HISTORY: Social History: Smoking: denies Alcohol:denies Drugs: denies Allergies No Known Allergies Allergy (Verified 01/11/20 13:15) HOME MEDICATIONS: Home Medications Medication Instructions Recorded Bisacodyl 10 mg PO DAILY PRN 01/11/20 Famotidine 20 mg PO BID 01/11/20 Ferrous Sulfate [Slow Release Iron] 140 mg PO DAILY 01/11/20 Mirtazapine 15 mg PO DAILY 01/11/20 Omeprazole 20 mg PO DAILY 01/11/20 Sennosides/Docusate Sodium 2 tab PO DAILY PRN 01/11/20 [Senna-S Tablet] REVIEW OF SYSTEMS Negative except above PHYSICAL EXAMINATION Vital Signs - 24 hr 01/11/20 13:11 Temperature 97.4 F L Pulse Rate 91 H Respiratory 18 Rate Blood Pressure 136/71 O2 Sat by Pulse 98 Oximetry (%) GENERAL: Awake, alert, and fully oriented, in no acute distress. Cachectic in appearance LUNGS: Breath sounds equal, clear to auscultation bilaterally. No wheezes, and no crackles. No accessory muscle use. HEART: Regular rate and rhythm, normal S1 and S2 without murmur, rub or gallop. ABDOMEN: Soft, nontender, not distended, normoactive bowel sounds, no guarding, no rebound, scar from incision site where gastrectomy occurred. MUSCULOSKELETAL: decreased muscle mass LOWER EXTREMITIES: 2+ pulses, warm, well-perfused. No calf tenderness. No peripheral edema. NEUROLOGICAL: Cranial nerves II-XII intact. Normal speech. Normal gait. SKIN: Warm, dry, poor skin turgor, no rashes or lesions noted, decreased capillary refill. Laboratory Results - last 24 hr 01/11/20 01/11/20 01/11/20 14:18 14:18 14:18 WBC 6.0 RBC 5.44 Hgb 12.2 Hct 41.7 D MCV 76.6 L MCH 22.5 L MCHC 29.4 L RDW 24.3 H Plt Count 168 D MPV 10.0 D Absolute Neuts (auto) 4.7 Neutrophils % 77.6 Lymphocytes % 13.3 D Monocytes % 8.3 Eosinophils % 0.4 D Basophils % 0.4 Nucleated RBC % 0 Hypochromia 1+ Platelet Estimate Normal Polychromasia 1+ Poikilocytosis 1+ Anisocytosis 1+ Microcytosis 1+ Macrocytosis 0 PT with INR INR PTT (Actin FS) Sodium 158 H Potassium 3.8 Chloride 124 H Carbon Dioxide 29 Anion Gap 5 L BUN 32.2 H Creatinine 1.6 H Est GFR (CKD-EPI)AfAm 46.47 Est GFR (CKD-EPI)NonAf 40.09 Random Glucose 142 H Calcium 11.8 H Total Bilirubin 0.9 AST 37 ALT 29 Alkaline Phosphatase 215 H Creatine Kinase 26 Troponin I 0.40 H Total Protein 7.9 Albumin 3.0 L ASSESSMENT/PLAN: This is a 79 y/o M with a PMHx of HTN, HLD, recent admission to the ED on 10/12/19 for symptomatic anemia, EGD on 10/17/19 which showed mass on gastric antrum, s/p radical subtotal gastrectomy, omentectomy, gastrojejunostomy for gastric cancer on 10/26/2019, c/b 2nd degree AV block during surgery and a post op NSTEMI, poor appetite since surgery w/ barium series 11/07/19 showing stricture at anastamosis s/p dilation at [facility], plan for chemo/radiation but not started yet, sent from Dr. Watters (oncologist at [facility]) for reported hypernatremia. #Hypernatremia 2/2 poor oral hydration - Free H20 deficit 2.9 L - IV LR 100/hr no more than 0.5meq/hr - carton forming machine helper consult - renal consulted (Dr. Dhillon)- will await recs - rpt BMP for 8pm if same order rpt for 12 AM if decreased then can wait til am #LYDIA likely pre-renal 2/2 poor PO fluid intake - renal sono to assess for hydro - urine Na, urine Cr - Calculate FeNa - IV Lr 100/hr #Tropinemia likely 2/2 poor renal clearance - EKG showing EKG showing normal sinus rhythm at 69 bpm, RBBB and LAFB, with new T wave flattening in V2 and T wave inversion in V3 compared to prior. OR 164, QRS 114, QTc 435 - rpt trop sent for 8 pm night team to f/u - cardio consulted ([facility]) will await recommendations but likely troponemia 2/2 poor renal clearance. - Echo 10/27- EF 65-70% PASP >29, impaired LV relaxation likely given pt's age. #Poor caloric intake - carton forming machine helper consulted for bariatric diet given gastrectomy hx - ensure - mirtazapine not helping for pts appetite per pts son may s/w psych for better remedy - GI consulted (Dr. Lara) for possible PEG tube for care home nutrition - KUB ordered to assess for fecal impaction - multivitamins #Constipation - fleet enema, senna, dulcolax - stopped iron - KUB to assess for retained stool #Depression - pt states mirtazapine not helpful, may s/w psych regarding increasing dose given renal dysfunction. - will assess in AM medication pt may be started on to help with his depression and appetite. PPX: GI- protonix 20 PO DVT - Heparin 5KTID Dispo: admit to [facility] Visit type - Emergency Visit Emergency Visit: Yes ED Registration Date: 01/11/20 Care time: The patient presented to the Emergency Department on the above date and was hospitalized for further evaluation of their emergent condition. - New Patient This patient is new to me today: Yes Date on this admission: 01/11/20 - Critical Care Critical Care patient: No ATTENDING PHYSICIAN STATEMENT I saw and evaluated the patient. I reviewed the resident's note and discussed the case with the resident. I agree with the resident's findings and plan as documented. SUBJECTIVE: OBJECTIVE: ASSESSMENT AND PLAN:
[2020-01-11] MEDS ORDERED: BISACODYL 5 MG TABLET.DR (FP) PO PRN (17:34)
[2020-01-11] MEDS ORDERED: SENNOSIDES/DOCUSATE COMBO (SENNA PLUS) TABLET (UD) PO PRN (17:34)
--- NOTE | 2020-01-11 18:05 | PN ---
Teaching Attending Note Name of Resident: Phong Armenta ATTENDING PHYSICIAN STATEMENT I saw and evaluated the patient. I reviewed the resident's note and discussed the case with the resident. I agree with the resident's findings and plan as documented. SUBJECTIVE: HISTORY OF PRESENT ILLNESS: This is a 79 y/o M with a PMHx of HTN, HLD, recent admission to the ED on 10/12/19 for symptomatic anemia, EGD on 10/17/19 which showed mass on gastric antrum, s/p radical subtotal gastrectomy, omentectomy, gastrojejunostomy for gastric cancer on 10/26/2019, c/b 2nd degree AV block during surgery and a post op NSTEMI, poor appetite since surgery w/ barium series 11/07/19 showing stricture at anastamosis s/p dilation at [facility], plan for chemo/radiation but not started yet, sent from Dr. Watters (oncologist at [facility]) for reported hypernatremia. Reportedly had routine labs drawn on Thursday, received call today stating elevated sodium. Patient's son largely provided history; stating he had been c/o generalized weakness/poor appetite, associated with visual hallucinations that are chronic for him. Pt sees spiders and other people that are not there. Notes he has been constipated lately as well as nauseous and vomiting but this is not acute issues its all been since the surgery. Denies using a vitamin supplement or seeing a plugging machine operator outside the hospital. He lives with his son and states he gets full after just 8 oz of food. He denies CP, SOB, abdominal pain, bladder complaints, or numbness in his extremities. history mostly taken with the help of the son, and c/o pt being depressed, bc moved here from [place] recently, and wants to go back, appears very depressed at times, and wants to go back and live in [place] country, no si, no hi, sometimes sees spiders, and no alcohol, and no drugs, no opioids, OBJECTIVE: o/e is comfortable, nad alert , awake, oriented to self, and place, not to time, vss neck supple, no jvd cvs s1/s2/0 chest ctab abd soft nt no bs+, with longtudnal scar in the epigastric area and ext no c/c/e neuro non focal ASSESSMENT AND PLAN: 79 ro male with pmh of the htn, hld, and gastric cancer, s/p,gaterectomy, and gastrojejunostomy and then stricture at the anastomosis site, [facility] on 12[facility], and has been eating very litle, and generalized weakness, and wt loss, ,Hypernatremia 2/2 poor oral hydration - Free H20 deficit 2.9 L - IV LR 100/hr no more than 0.5meq/hr - renal consulted (Dr. Dhillon)- will await recs - check repeat bmp, LYDIA likely pre-renal 2/2 poor PO fluid intake - iv hydration and check repeat, #Tropinemia likely 2/2 poor renal clearance - EKG showing EKG showing normal sinus rhythm at 69 bpm, RBBB and LAFB, with new T wave flattening in V2 and T wave inversion in V3 compared to prior. ID 164 , QRS 114, QTc 435 - check serials of the cardiac markers, and will see the cardiology, Poor caloric intake po supplements, and encourage po fluids, - ensure - mirtazapine not helping for pts appetite per pts son may s/w psych for better remedy - GI consulted (Dr. Lara) for possible PEG tube for [facility] nutrition constipated, and will get fleet enema, - multivitamins pt with depression, and sometimes with visual hallucinations, no si, no hi, will continue remeron, and will fu with psych evaluation
[2020-01-11] MEDS ORDERED: SODIUM PHOSPHATE/NA BIPHOS 133 ML ENEMA PR ONE (18:28)
--- NOTE | 2020-01-11 19:46 | CON.GI ---
Consult Consult Specialty:: Gastroenterology Reason for Consultation:: Poor po intake, dehydration - History of Present Illness History of Present Illness: 79yo male h/o gastric adenocarcinoma diagnosed 10/2019 s/p subtotal gastrectomy and gastrojejunostomy (bilroth II) with anastomotic stricture s/p dilation at [facility], ex lap/GARRICK/GJ revision/parker en y reconstruction (11/2019) presenting with poor po intake and hypernatremia. Pt son present, translates during evaluation, reports pt has had poor po intake since diagnosis of gastric ca. Pt had obstructive symptoms after initial gastrectomy/gastrojejunostomy in 10/2019, was transferred to [facility] and underwent EGD on 11/11/[address] Mansfield revealing some edema/erythema at anastomosis however able to traverse, then due to persisting symptoms and NG output, had repeat EGD on 11/16/19 revealing stenosed appearing GJ s/p balloon dilation to 18mm. Symptoms persisted requiring ex lap, GARRICK, GJ revision and parker en y reconstruction by Dr. Calderon on 11/11/19. Pt son states pt had improved overall following surgical revision however appetite has remained poor with poor po intake though has not been following dietary recommendations or consuming supplements. Denies dysphagia or abdominal pain however does report fullness and occasional nausea mostly when eating larger amounts with occasional episode of vomiting. Pts son also feels his mood has been depressed. Notes constipation, denies blood in stools. Pt was seen by oncology on 01/09/20 and advised ED evaluation due to hypernatremia. - History Source History Provided By: Patient, Family Member, Medical Record - Past Medical History Cardio/Vascular: Yes: HTN - Alcohol/Substance Use Hx Alcohol Use: No - Smoking History Smoking history: Never smoked Have you smoked in the past 12 months: No Home Medications - Allergies Allergies/Adverse Reactions: Allergies Allergy/AdvReac Type Severity Reaction Status Date / Time No Known Allergies Allergy Verified 01/11/20 13:15 - Home Medications Home Medications: Ambulatory Orders Bisacodyl 10 mg PO DAILY PRN 01/11/20 Famotidine 20 mg PO BID 01/11/20 Ferrous Sulfate [Slow Release Iron] 140 mg PO DAILY 01/11/20 Mirtazapine 15 mg PO DAILY 01/11/20 Omeprazole 20 mg PO DAILY 01/11/20 Sennosides/Docusate Sodium [Senna-S Tablet] 2 tab PO DAILY PRN 01/11/20 Review of Systems - Review of Systems Constitutional: reports: Loss of Appetite, Weakness Cardiovascular: reports: No Symptoms Physical Exam-GI Vital Signs: Vital Signs Temperature 97.4 F L 01/11/20 13:11 Pulse Rate 70 01/11/20 17:38 Respiratory Rate 18 01/11/20 17:38 Blood Pressure 136/78 01/11/20 17:38 O2 Sat by Pulse Oximetry (%) 100 01/11/20 17:38 Cardiovascular: Yes: WNL, Regular Rate and Rhythm Respiratory: Yes: WNL, Regular, CTA Bilaterally ...Palpate: Yes: Other (Abd soft, nontender, nondistended, +midline well healed abdominal incisional scar) Labs: CBC, BMP 01/11/20 14:18 01/11/20 14:18 INR, PTT INR 1.01 (0.83-1.09) 01/11/20 14:18 Problem List - Problems (1) Poor appetite Assessment/Plan: 79yo male h/o gastric adenocarcinoma diagnosed 10/2018 s/p subtotal gastrectomy and gastrojejunostomy (bilroth II) with anastomotic stricture s/p dilation at [facility], ex lap/GARRICK/GJ revision/parker en y reconstruction (11/2019) presenting with poor po intake and hypernatremia. Poor appetite, post op dietary noncompliance and psychosocial component are likely contributing factors. -Recommend IVF per primary team and correction of electrolyte abnormalities -Renal consultation pending -Diet as tolerated, emphasized small frequent meals in addition to protein supplements -Nutrition consult for further recommendations -Consider UGI series to re-evaluate anatomy/patency though limited po intake likely multifactorial -Continued goals of care of discussion as pts son states he does not want to pursue aggressive measures at this time Attempted to contact primary team, await call back Code(s): R63.0 - ANOREXIA
[2020-01-12] MEDS ORDERED: LORazepam 2 MG/ML SDV VIAL IM ONE ×2 (01:13→03:30)
[2020-01-12] MEDS ORDERED: LORazepam 2 MG/ML SDV VIAL ONE (03:39)
[2020-01-12] MEDS ORDERED: SODIUM CHLORIDE 0.45% 1,000 ML IV SCH ×2 (04:55→07:33)
[2020-01-12 07:07] LABS: ALBUMIN 2.7 g/dl (3.4-5.0); BILIRUBIN,TOTAL 1.1 mg/dL (0.2-1); CALCIUM 11.4 mg/dL (8.5-10.1); CREATININE 1.6 mg/dL (0.55-1.3); MAGNESIUM 2.6 mg/dL (1.8-2.4); PHOSPHOROUS 2.2 mg/dL (2.5-4.9); POTASSIUM 3.5 mmol/L (3.5-5.1)
[2020-01-12] MEDS: HEPARIN NA (PORCINE) 5,000 UNITS/ML 1ML VIAL SQ SCH ×4 (07:29→18:30)
[2020-01-12] MEDS ORDERED: NAPH,MB-DB/K PH,MBDB POWDER PACKET PO ONE (07:44)
[2020-01-12] MEDS ORDERED: DEXTROSE 5%-WATER 500 ML PVC-FREE INFUS.BAG IV SCH (07:45)
[2020-01-12] MEDS ORDERED: DEXTROSE 5%-WATER - 1,000 ML IV SCH (08:00)
[2020-01-12 08:33] LABS: BASO % 0.2 % (0-2.0); EOS % 0.1 % (0-4.5); HEMATOCRIT 38.6 % (35.4-49); HEMOGLOBIN 11.4 GM/dL (11.7-16.9); LYMPH % 11.1 % (8-40); MCH 22.9 pg (25.7-33.7); MCHC 29.4 g/dl (32.0-35.9); MEAN CELL VOLUME 77.6 fl (80-96); MEAN PLT VOLUME 10.9 fl (7.5-11.1); MONO % 5.9 % (3.8-10.2); NEUT % 82.7 % (42.8-82.8); PLATELET COUNT 174 K/MM3 (134-434); RBC 4.97 M/mm3 (4.00-5.60); RDW 24.3 % (11.9-15.9); WHITE BLOOD COUNT 10.4 K/mm3 (4.0-10.0)
[2020-01-12 09:14] LABS: PLATELET ESTIMATE NORMAL
--- NOTE | 2020-01-12 09:30 | CON.CARD ---
Consult Consult Specialty:: Cardiology Referred by:: Hospitalist Medicine Reason for Consultation:: CAD h/o NV with demand ischemic injury - History of Present Illness Chief Complaint: Lethargy History of Present Illness: 79yo male h/o bleeding gastric adenocarcinoma diagnosed 10/2019 s/p subtotal gastrectomy and gastrojejunostomy (bilroth II) with anastomotic stricture s/p dilation at [facility], ex lap/GARRICK/GJ revision/parker en y reconstruction (11/2019) presenting with poor po intake, lethargy and hypernatremia. Pt son present, translates during evaluation, reports pt has had poor po intake since diagnosis of gastric ca. Pt had obstructive symptoms after initial gastrectomy/gastrojejunostomy in 10/2019, was transferred to [facility] and underwent EGD on 11/11/[address] Mansfield revealing some edema/erythema at anastomosis however able to traverse, then due to persisting symptoms and NG output, had repeat EGD on 11/16/19 revealing stenosed appearing GJ s/p balloon dilation to 18mm. Symptoms persisted requiring ex lap, GARRICK, GJ revision and parker en y reconstruction by Dr. Calderon on 11/11/19. Pt's son states pt had improved overall following surgical revision however appetite has remained poor with poor po intake though has not been following dietary recommendations or consuming supplements. Denies dysphagia or abdominal pain however does report fullness and occasional nausea mostly when eating larger amounts with occasional episode of vomiting. Pts son also feels his mood has been depressed. Notes constipation, denies blood in stools. Pt was seen by oncology on 01/09/20 and advised ED evaluation due to hypernatremia and lethargy. - History Source History Provided By: Family Member Limitations to Obtaining History: Clinical Condition - Past Medical History Cardio/Vascular: Yes: HTN - Alcohol/Substance Use Hx Alcohol Use: No - Smoking History Smoking history: Never smoked Have you smoked in the past 12 months: No Home Medications - Allergies Allergies/Adverse Reactions: Allergies Allergy/AdvReac Type Severity Reaction Status Date / Time No Known Allergies Allergy Verified 01/11/20 13:15 - Home Medications Home Medications: Ambulatory Orders Bisacodyl 10 mg PO DAILY PRN 01/11/20 Famotidine 20 mg PO BID 01/11/20 Ferrous Sulfate [Slow Release Iron] 140 mg PO DAILY 01/11/20 Mirtazapine 15 mg PO DAILY 01/11/20 Omeprazole 20 mg PO DAILY 01/11/20 Sennosides/Docusate Sodium [Senna-S Tablet] 2 tab PO DAILY PRN 01/11/20 Review of Systems - Review of Systems Constitutional: reports: Lethargy, Loss of Appetite Vital Signs: Vital Signs Temperature 98.6 F 01/12/20 06:00 Pulse Rate 92 H 01/12/20 06:00 Respiratory Rate 18 01/12/20 06:00 Blood Pressure 138/55 L 01/12/20 06:00 O2 Sat by Pulse Oximetry (%) 99 01/11/20 21:05 Constitutional: Yes: No Distress, Calm, Thin Neck: Yes: Supple Respiratory: Yes: Regular, CTA Bilaterally Gastrointestinal: Yes: Soft, Hypoactive Bowel Sounds Cardiovascular: Yes: Regular Rate and Rhythm JVD: No Carotid Bruit: No Heart Sounds: Yes: S1, S2 Murmur: Yes: Systolic Murmur, Grade 1 Edema: No - Other Data Labs, Other Data: CBC, BMP 01/12/20 05:18 01/12/20 05:18 INR, PTT INR 1.01 (0.83-1.09) 01/11/20 14:18 Troponin, BNP 01/11/20 01/11/20 01/12/20 14:18 18:09 05:18 Troponin I 0.40 H 0.38 H 0.50 H Troponin, BNP 01/11/20 01/11/20 01/12/20 14:18 18:09 05:18 Troponin I 0.40 H 0.38 H 0.50 H NSR @ 69 RBBB, LAFB Echo: Report Reviewed Ejection Fraction %: LVEF > or = 40 % Imaging - Results Chest X-ray: Report Reviewed (NAD) X-ray: Report Reviewed (No fecal compaction or constipation) Problem List - Problems (1) Coronary artery disease Code(s): I25.10 - ATHSCL HEART DISEASE OF [place] CORONARY ARTERY W/O ANG PCTRS Qualifiers: Coronary Disease-Associated Artery/Lesion type: [place] artery [place] vs. transplanted heart: [place] heart Associated angina: without angina Qualified Code(s): I25.10 - Atherosclerotic heart disease of [place] coronary artery without angina pectoris (2) Demand ischemia Code(s): I24.8 - OTHER FORMS OF ACUTE ISCHEMIC HEART DISEASE (3) LYDIA (acute kidney injury) Code(s): N17.9 - ACUTE KIDNEY FAILURE, UNSPECIFIED (4) Elevated troponin Code(s): R79.89 - OTHER SPECIFIED ABNORMAL FINDINGS OF BLOOD CHEMISTRY (5) Hypernatremia Code(s): E87.0 - HYPEROSMOLALITY AND HYPERNATREMIA (6) Poor appetite Code(s): R63.0 - ANOREXIA (7) Gastric carcinoma Code(s): C16.9 - MALIGNANT NEOPLASM OF STOMACH, UNSPECIFIED (8) Hyperlipemia Code(s): E78.5 - HYPERLIPIDEMIA, UNSPECIFIED Qualifiers: Hyperlipidemia type: pure hypercholesterolemia Qualified Code(s): E78.00 - Pure hypercholesterolemia, unspecified; E78.0 - Pure hypercholesterolemia (9) Hypertension Code(s): I10 - ESSENTIAL (PRIMARY) HYPERTENSION Qualifiers: Hypertension type: essential hypertension Qualified Code(s): I10 - Essential (primary) hypertension (11) Very poor nutrition Code(s): E63.9 - NUTRITIONAL DEFICIENCY, UNSPECIFIED Assessment/Plan 11/07/2019 UGI: Concerning for stricture at gastrojejunostomy site 10/31/2019 Echo: Normal LV size and fxn, LVEF 65-70%, normal RV size and fxn,mild MR, TR RVSP 29 mmHg, mod ao dilatation 10/24/2019 Echo: Normal LV size and fxn, LVEF 60-65%, grade II diastolic dysfunction, mild MR, TR RVSP 33 mmHg, mild NV 1. Gastric adenocarcinoma diagnosed 10/2018 s/p subtotal gastrectomy and gastrojejunostomy (bilroth II) with anastomotic stricture s/p dilation at [facility], ex lap/GARRICK/GJ revision/pakrer en y reconstruction (11/2019) 2. Hypernatremia and anorexia 3. LYDIA pre-renal 4. CAD with h/o post operative NSTEMI now with demand ischemic injury 5. Diastolic LV dysfunction with clinical class 0 NYHA classification LV failure 6. Post acute blood loss- anemia 7. Sinus bradycardia, transient 2nd degree AV block post-op, since resolved 8. Hypertensive cardiovascular disease 9. Hypokalemia, resolved PLAN: 1. IVF and correction of electrolyte abnormalities 2. Trend trops to document peak 3. As outlined in the prior notes avoid AV pao blocking agents given sinus bradycardia 4. Resume Norvasc 2.5 qd, Lipitor 20 qd, ASA 81 qd once oral intake re- established, hold lisinopril 10 qd pending renal recovery 5. Renal input, diet as tolerated, emphasized small frequent meals in addition to protein supplements 6. Consider UGI series to re-evaluate anatomy/patency though limited po intake likely multifactorial 7. As outlined in the prior notes plan for Pharmacologic Lexiscan MPI study in the future once clinically stable/fully recovered from the above noted procedures 8. Continued goals of care of discussion as pts son states he does not want to pursue aggressive measures at this time 9. Thank you for consultative opportunity
[2020-01-12] MEDS: MULTIVITAMINS (DAILY MVI) TABLET (FP) PO SCH (11:53)
[2020-01-12] MEDS: MIRTAZAPINE 15 MG TABLET (FP) PO SCH (11:53)
[2020-01-12] MEDS: PANTOPRAZOLE 20 MG TABLET PO SCH (11:53)
--- NOTE | 2020-01-12 13:51 | PN ---
Physical Exam: SUBJECTIVE: Patient seen and examined. Na 161 pt agitated hallucinating overnight refusing blood draw and restraints susbequently placed. No other complaints or fevers, chills, abd pain, sob, bowel/bladder complaints. OBJECTIVE: Vital Signs Period Temp Pulse Resp BP Sys/Newman Pulse Ox Last 24 Hr 97.7 F-98.6 F 70-92 18-18 111-143/55-78 99-100 GENERAL: The patient is ao X 2 person and age, mildly agitated. LUNGS: Breath sounds equal, clear to auscultation bilaterally, no wheezes, no crackles, no accessory muscle use. HEART: Regular rate and rhythm, S1, S2 without murmur, rub or gallop. ABDOMEN: Soft, nontender, nondistended. cachectic, hypoactive BS's. EXTREMITIES: 2+ pulses, warm, well-perfused, no edema. NEUROLOGICAL: Cranial nerves II through XII grossly intact. difficult to assess pt unable to complete neuro exam due to poor compliance. PSYCH: depressed mood, hallucinates and agitated, with restraints on. SKIN: Warm, dry, normal turgor, no rashes or lesions noted Laboratory Results - last 24 hr 01/11/20 01/11/20 01/11/20 14:18 14:18 14:18 WBC 6.0 RBC 5.44 Hgb 12.2 Hct 41.7 D MCV 76.6 L MCH 22.5 L MCHC 29.4 L RDW 24.3 H Plt Count 168 D MPV 10.0 D Absolute Neuts (auto) 4.7 Neutrophils % 77.6 Lymphocytes % 13.3 D Monocytes % 8.3 Eosinophils % 0.4 D Basophils % 0.4 Nucleated RBC % 0 Hypochromia 1+ Platelet Estimate Normal Platelet Comment Polychromasia 1+ Poikilocytosis 1+ Anisocytosis 1+ Microcytosis 1+ Macrocytosis 0 PT with INR INR PTT (Actin FS) Sodium 158 H Potassium 3.8 Chloride 124 H Carbon Dioxide 29 Anion Gap 5 L BUN 32.2 H Creatinine 1.6 H Est GFR (CKD-EPI)AfAm 46.47 Est GFR (CKD-EPI)NonAf 40.09 Random Glucose 142 H Calcium 11.8 H Phosphorus Magnesium Total Bilirubin 0.9 AST 37 ALT 29 Alkaline Phosphatase 215 H Creatine Kinase 26 Troponin I 0.40 H Total Protein 7.9 Albumin 3.0 L Prealbumin Vitamin B12 Serum Folate 01/11/20 01/11/20 01/12/20 14:18 18:09 05:18 WBC 10.4 H RBC 4.97 Hgb 11.4 L Hct 38.6 MCV 77.6 L MCH 22.9 L MCHC 29.4 L RDW 24.3 H Plt Count 174 MPV 10.9 Absolute Neuts (auto) 8.6 H Neutrophils % 82.7 Lymphocytes % 11.1 Monocytes % 5.9 Eosinophils % 0.1 Basophils % 0.2 Nucleated RBC % 0 Hypochromia Platelet Estimate Normal Platelet Comment Present Polychromasia Poikilocytosis Anisocytosis Microcytosis Macrocytosis PT with INR 11.90 INR 1.01 PTT (Actin FS) 33.1 Sodium Potassium Chloride Carbon Dioxide Anion Gap BUN Creatinine Est GFR (CKD-EPI)AfAm Est GFR (CKD-EPI)NonAf Random Glucose Calcium Phosphorus Magnesium Total Bilirubin AST ALT Alkaline Phosphatase Creatine Kinase Troponin I 0.38 H Total Protein Albumin Prealbumin Vitamin B12 Serum Folate 01/12/20 01/12/20 01/12/20 05:18 05:18 05:18 WBC RBC Hgb Hct MCV MCH MCHC RDW Plt Count MPV Absolute Neuts (auto) Neutrophils % Lymphocytes % Monocytes % Eosinophils % Basophils % Nucleated RBC % Hypochromia Platelet Estimate Platelet Comment Polychromasia Poikilocytosis Anisocytosis Microcytosis Macrocytosis PT with INR INR PTT (Actin FS) Sodium 161 H* Potassium 3.5 Chloride 130 H Carbon Dioxide 29 Anion Gap 3 L BUN 27.0 H Creatinine 1.6 H Est GFR (CKD-EPI)AfAm 46.47 Est GFR (CKD-EPI)NonAf 40.09 Random Glucose 116 H Calcium 11.4 H Phosphorus 2.2 L Magnesium 2.6 H Total Bilirubin 1.1 H AST 28 ALT 24 Alkaline Phosphatase 189 H Creatine Kinase Troponin I 0.50 H Total Protein 7.0 Albumin 2.7 L Prealbumin 9.7 L Vitamin B12 233 Serum Folate 19 H Active Medications Generic Name Dose Route Start Last Admin Trade Name Freq PRN Reason Stop Dose Admin Bisacodyl 10 mg 01/11/20 17:34 Dulcolax - PO DAILY PRN CONSTIPATION Heparin Sodium (Porcine) 5,000 unit 01/11/20 18:00 01/12/20 12:47 Heparin - SQ Not Given Q8H-IV MEME Dextrose 1,000 mls @ 75 mls/hr 01/12/20 08:00 01/12/20 09:46 D5w - IV 75 mls/hr ASDIR MEME Administration Mirtazapine 15 mg 01/12/20 10:00 01/12/20 11:53 Remeron - PO 15 mg DAILY MEME Administration Multivitamins/Minerals/Vitamin C 1 tab 01/12/20 10:00 01/12/20 11:53 Tab-A-Vit - PO 1 tab DAILY MEME Administration Pantoprazole Sodium 20 mg 01/12/20 10:00 01/12/20 11:53 Protonix - PO 20 mg DAILY MEME Administration Senna/Docusate Sodium 2 tablet 01/11/20 17:34 Pericolace - PO DAILY PRN CONSTIPATION ASSESSMENT/PLAN: This is a 79 y/o M with a PMHx of HTN, HLD, recent admission to the ED on 10/12/19 for symptomatic anemia, EGD on 10/17/19 which showed mass on gastric antrum, s/p radical subtotal gastrectomy, omentectomy, gastrojejunostomy for gastric cancer on 10/26/2019, c/b 2nd degree AV block during surgery and a post op NSTEMI, poor appetite since surgery w/ barium series 11/07/19 showing stricture at anastamosis s/p dilation at [facility], plan for chemo/radiation but not started yet, sent from Dr. Watters (oncologist at [facility]) for reported hypernatremia. #Hypernatremia 2/2 poor oral hydration - Free H20 deficit 3.3 L - IV 75/hr d5w no more than 0.5meq/hr 8-12/24 hrs - manager business banking consult await recs - renal consulted (Dr. Dhillon)- will await recs - rpt BMP for 12 pm pending if decreased then will continue fluids #LYDIA likely pre-renal 2/2 poor PO fluid intake - renal sono to assess for hydro - urine Na, urine Cr - Calculate FeNa - adjusted fluids to 75/hr D5W given hypernatremia has worsened on LR. #Hypercalcemia - hx of cancer, dehydrated - likely will correct after fluids - order Pth, vitamin D #Tropinemia likely 2/2 poor renal clearance - EKG showing EKG showing normal sinus rhythm at 69 bpm, RBBB and LAFB, with new T wave flattening in V2 and T wave inversion in V3 compared to prior. MS 164, QRS 114, QTc 435 - rpt trop increased so another rpt sent and ekg. - cardio consulted ([facility]) will await recommendations but likely troponemia 2/2 poor renal clearance. Family goals of care must be discussed to assess what intervention they would prefer and dnr/dni status etc. Will s/w son as soon as amenable. - Echo 10/27- EF 65-70% PASP >29, impaired LV relaxation likely given pt's age. - 3 trops elevated uptrending with new st depression v3 likely demand vs poor clearance, spoke with cardio who wants rpt trop in AM and no further mgmt or acs mgmt. #Poor caloric intake - manager business banking consulted for bariatric diet given gastrectomy hx - ensure - mirtazapine not helping for pts appetite per pts son may s/w psych for better remedy - GI consulted (Dr. Peralta) to assess - KUB negative for fecal impaction - multivitamins - HOB elevation with asp precautions - palliative consult, will assess goals of care with pt's son (Lloyd). - thin liquid diet per barium swallow Alisameenakshi cook #Constipation - fleet enema, senna, dulcolax - stopped iron - KUB negative for assess for retained stool #Depression - pt states mirtazapine not helpful, may s/w psych regarding increasing dose given renal dysfunction. - will assess in AM medication pt may be started on to help with his depression and appetite. PPX: GI- protonix 20 PO DVT - Heparin 5KTID Dispo: admit to [facility] Visit type - Emergency Visit Emergency Visit: Yes ED Registration Date: 01/11/20 Care time: The patient presented to the Emergency Department on the above date and was hospitalized for further evaluation of their emergent condition. - New Patient This patient is new to me today: Yes Date on this admission: 01/13/20 - Critical Care Critical Care patient: No - Discharge Referral Referred to [facility] Med P.C.: No ATTENDING PHYSICIAN STATEMENT I saw and evaluated the patient. I reviewed the resident's note and discussed the case with the resident. I agree with the resident's findings and plan as documented. SUBJECTIVE: OBJECTIVE: ASSESSMENT AND PLAN:
[2020-01-12 13:58] LABS: BLOOD UREA NITROGEN 26.3 mg/dL (7-18); CALCIUM 11.3 mg/dL (8.5-10.1); CREATININE 1.5 mg/dL (0.55-1.3); POTASSIUM 3.6 mmol/L (3.5-5.1)
--- NOTE | 2020-01-12 13:58 | EKG ---
Test Reason : Blood Pressure : / mmHG Vent. Rate : 084 BPM Atrial Rate : 084 BPM P-R Int : 160 ms QRS Dur : 114 ms QT Int : 390 ms P-R-T Axes : 049 -66 -10 degrees QTc Int : 460 ms NORMAL SINUS RHYTHM RIGHT BUNDLE BRANCH BLOCK LEFT ANTERIOR FASCICULAR BLOCK BIFASCICULAR BLOCK ABNORMAL ECG WHEN COMPARED WITH ECG OF 11-JAN-2020 14:19, ST NOW DEPRESSED IN ANTERIOR LEADS Confirmed by TIFFANY STONE MD ([id number]) on 01/12/2020 1:57:44 PM Referred By: MIRNA MARTINEZ Confirmed By:TIFFANY STONE MD
--- NOTE | 2020-01-12 14:04 | EKG ---
Test Reason : Blood Pressure : / mmHG Vent. Rate : 069 BPM Atrial Rate : 069 BPM P-R Int : 164 ms QRS Dur : 114 ms QT Int : 406 ms P-R-T Axes : 042 -78 -30 degrees QTc Int : 435 ms NORMAL SINUS RHYTHM RIGHT BUNDLE BRANCH BLOCK LEFT ANTERIOR FASCICULAR BLOCK BIFASCICULAR BLOCK ABNORMAL ECG WHEN COMPARED WITH ECG OF 28-OCT-2019 23:24, NO SIGNIFICANT CHANGE WAS FOUND Confirmed by TIFFANY STONE MD ([id number]) on 01/12/2020 2:03:53 PM Referred By: Confirmed By:TIFFANY STONE MD
--- NOTE | 2020-01-12 14:14 | PN ---
Progress Note, Physician History of Present Illness: 79 y/o M with a PMHx of HTN, HLD, recent admission to the ED on 10/12/19 for symp tomatic anemia, EGD on 10/17/19 which showed mass on gastric antrum and Gastric adenocarcinoma diagnosed 10/2018 s/p subtotal gastrectomy and gastrojejunostomy (bilroth II) with anastomotic stricture s/p dilation at [facility], ex lap/GARRICK/GJ revision/parker en y reconstruction (11/2019). Course was complicated by 2nd deg AVB & post -op NSTEMI. Subsequently 11/07/19 patient had poor ap petite and barium series showed stricture at anastamosis s/p dilation at [facility]. Patient was sent here by oncologist for hypernatremia. Today Patient is - cachectic, but calm laying in bed. No grimacing during physical exam. No other significant events other than BM seem improved from prior. - Current Medication List Current Medications: Active Medications Bisacodyl (Dulcolax -) 10 mg PO DAILY PRN PRN Reason: CONSTIPATION Heparin Sodium (Porcine) (Heparin -) 5,000 unit SQ Q8H-IV [facility] Last Admin: 01/12/20 12:47 Dose: Not Given Documented by: Dextrose (D5w -) 1,000 mls @ 75 mls/hr IV ASDIR [facility] Last Admin: 01/12/20 09:46 Dose: 75 mls/hr Documented by: Mirtazapine (Remeron -) 15 mg PO DAILY [facility] Last Admin: 01/12/20 11:53 Dose: 15 mg Documented by: Multivitamins/Minerals/Vitamin C (Tab-A-Vit -) 1 tab PO DAILY [facility] Last Admin: 01/12/20 11:53 Dose: 1 tab Documented by: Pantoprazole Sodium (Protonix -) 20 mg PO DAILY [facility] Last Admin: 01/12/20 11:53 Dose: 20 mg Documented by: Senna/Docusate Sodium (Pericolace -) 2 tablet PO DAILY PRN PRN Reason: CONSTIPATION - Objective Vital Signs: Vital Signs Temperature 98.6 F 01/12/20 06:00 Pulse Rate 92 H 01/12/20 06:00 Respiratory Rate 18 01/12/20 06:00 Blood Pressure 138/55 L 01/12/20 06:00 O2 Sat by Pulse Oximetry (%) 99 03/04/20 21:05 Constitutional: Yes: Cachectic Cardiovascular: Yes: WNL Respiratory: Yes: WNL Gastrointestinal: Yes: WNL, Normal Bowel Sounds, Soft Labs: CBC, BMP 01/12/20 05:18 01/12/20 12:00 INR, PTT INR 1.01 (0.83-1.09) 01/11/20 14:18 Impression/Plan Impression/Plan: 1-Hypernatermia with poor PO intake-likely multifactorial r/o structural cause in the setting of Gastric adenocarcinoma diagnosed 10/2018 s/p subtotal gastrectomy and gastrojejunostomy (bilroth II) with anastomotic stricture s/p dilation at [facility], ex lap/GARRICK/GJ revision/parker en y reconstruction (11/2019) GI consult appreciate recommendations-pending UGI series Renal consult IV D5W 75cc/hr monitor BMP q 8-12 hourly avoid correcting >0.5mEq/L/h 2. Hypernatremia IVF as above Renal consult 3. LYDIA pre-renal in the setting of poor appetite multifactorial Creatinine trend- stable at 1.6 Trend BUN/Creatinine and Na Urine Electrolytes Renal U/S unremarkable 4.Poor Oral intake with advanced dementia and hx of Gastric adenocarcinoma [employer] consulted Needs assistance for feeding HOB >30 degree elevation to avoid aspiration PEG tube consideration- discuss with family GOC On Mirtazapine Monitor F/S to avoid hypoglycemia MVM daily 5. CAD with h/o post operative NSTEMI now with demand ischemic injury/Hypertensive cardiovascular disease Cardiology consulted-recommendations appreciated Trend troponin peak along with EKG GOC discussion with family 6. Diastolic LV dysfunction Echo 10/27- EF 65-70% PASP >29, impaired LV relaxation Cardiology on board Clinically dehydrated 7. Constipation Received fleet enema , senna dulcolax Monitor BM D/C iron 8. Sinus bradycardia, transient 2nd degree AV block [id number] Avoid AVN blocking agents 9. Post acute blood loss- anemia Monitor H/H (stable trend) No evidence of active bleeding 10. Depression Psych evaluation 11. HTN/HLD Stable off medications 12. DVT Px- heparin 5000 units TID GI Px- protonix 20 mg PO daily Dispo- discuss with family GOC and advanced directive Palliative consult Visit type - Emergency Visit Emergency Visit: Yes ED Registration Date: 03/04/20 Care time: The patient presented to the Emergency Department on the above date and was hospitalized for further evaluation of their emergent condition. - New Patient This patient is new to me today: Yes Date on this admission: 01/12/20 - Critical Care Critical Care patient: No - Discharge Referral Referred to [facility] Med P.C.: Yes
--- NOTE | 2020-01-12 14:41 | CONSULT ---
Consult Consult Specialty:: Nephrology Reason for Consultation:: hypernatremia - History of Present Illness Chief Complaint: sent in for hypernatremia History of Present Illness: Pt is an 79 year old male with pmhx of htn, hld, anemia, subtotal gastrectomy, gastric cancer, 2nd degree av-block who was sent in from heme/onc for hypernatremia. He was found to be in renal failure and to have an elevated sodium. He is a poor historian and unable to give much history. Pt had been generally weak and has had poor PO intake. He was started on LR with little i mprovement in his sodium. He is not eating much and usually gets full after about having 8 oz of food. - History Source History Provided By: Patient - Past Medical History Cardio/Vascular: Yes: HTN Heme/Onc: Yes: Other (gastric cancer) - Alcohol/Substance Use Hx Alcohol Use: No - Smoking History Smoking history: Never smoked Have you smoked in the past 12 months: No Home Medications - Allergies Allergies/Adverse Reactions: Allergies Allergy/AdvReac Type Severity Reaction Status Date / Time No Known Allergies Allergy Verified 01/11/20 13:15 - Home Medications Home Medications: Ambulatory Orders Bisacodyl 5 mg PO DAILY 01/11/20 Famotidine 20 mg PO BID 01/11/20 Ferrous Sulfate [Slow Release Iron] 140 mg PO DAILY 01/11/20 Mirtazapine 15 mg PO DAILY 01/11/20 Omeprazole 20 mg PO DAILY 01/11/20 Sennosides/Docusate Sodium [Senna-S Tablet] 2 tab PO DAILY 01/11/20 Ferrous Sulfate 45 mg PO DAILY 01/12/20 Ondansetron HCl [Zofran] 1 tab PO DAILY PRN 01/12/20 Family Medical History Family History: Unable to Obtain Review of Systems Unable to obtain ROS, reason: pt confused Physical Exam Vital Signs: Vital Signs Temperature 98.6 F 01/12/20 06:00 Pulse Rate 92 H 01/12/20 06:00 Respiratory Rate 18 01/12/20 06:00 Blood Pressure 138/55 L 01/12/20 06:00 O2 Sat by Pulse Oximetry (%) 99 01/11/20 21:05 Constitutional: Yes: Calm Eyes: Yes: Conjunctiva Clear HENT: Yes: Atraumatic Neck: Yes: Supple Cardiovascular: Yes: S1, S2 Respiratory: Yes: CTA Bilaterally Gastrointestinal: Yes: Soft Renal/: Yes: WNL Musculoskeletal: Yes: WNL Integumentary: Yes: WNL Neurological: Yes: Oriented, Confusion Psychiatric: Yes: Oriented Labs: CBC, BMP 01/12/20 05:18 01/12/20 12:00 Imaging - Results Ultrasound: Report Reviewed Assessment/Plan Current Medications Generic Name Dose Route Start Last Admin Trade Name Freq PRN Reason Stop Dose Admin Bisacodyl 10 mg 01/11/20 17:34 Dulcolax - PO DAILY PRN CONSTIPATION Heparin Sodium (Porcine) 5,000 unit 01/11/20 18:00 01/12/20 12:47 Heparin - SQ Not Given Q8H-IV MEME Dextrose 1,000 mls @ 75 mls/hr 01/12/20 08:00 01/12/20 09:46 D5w - IV 75 mls/hr ASDIR MMEE Administration Mirtazapine 15 mg 01/12/20 10:00 01/12/20 11:53 Remeron - PO 15 mg DAILY MEME Administration Multivitamins/Minerals/Vitamin C 1 tab 01/12/20 10:00 01/12/20 11:53 Tab-A-Vit - PO 1 tab DAILY MEME Administration Pantoprazole Sodium 20 mg 01/12/20 10:00 01/12/20 11:53 Protonix - PO 20 mg DAILY MEME Administration Senna/Docusate Sodium 2 tablet 01/11/20 17:34 Pericolace - PO DAILY PRN CONSTIPATION Impression 1. hypernatremia 2. uti 3. gastric cancer 4. 2nd degree av block 5. htn 6. hld 7. LYDIA Plan - pt had a total free water deficit of 3.3 liters - it will take about 1.2 liters of free water to get him from 158 to 150 - cont to monitor sodium, avoid overcorrecting - renal function starting to improve - cont fluids and monitor consumer product advisor - check urine lytes and consumer product advisor to calc fena - lydia and hypernatremia likely secondary to decreased po intake - encourage free water intake
[2020-01-12] MEDS: DEXTROSE 5%-WATER - 1,000 ML IV SCH (15:00)
--- NOTE | 2020-01-12 15:08 | CONSULT ---
Admitting History and Physical - Primary Care Physician PCP: Phong Armenta - Admission History of Present Illness: Per EMR- 79yo male h/o gastric adenocarcinoma diagnosed 10/2018 s/p subtotal gastrectomy and gastrojejunostomy (bilroth II) with anastomotic stricture s/p dilation at [facility], ex lap/GARRICK/GJ revision/parker en y reconstruction (11/2019) presenting with poor po intake and hypernatremia. Poor appetite, post op dietary noncompliance and psychosocial component are likely contributing factors He is not eating much and usually gets full after about having 8 oz of food. In EMR, pt was confused with hallucination in November 2019. Family reports he got better and was verbal and oriented, until 1 week ago wheen PO intake was poor. Selected Entries 01/12/20 01/12/20 01/12/20 03:50 06:00 11:02 Breakfast 25% Lunch Temperature 97.7 F 98.6 F 01/12/20 14:00 Breakfast Lunch 0 Temperature 98.0 F Laboratory Tests 01/11/20 01/12/20 14:18 05:18 WBC 6.0 10.4 H Pt on Dys chopped/nectar Nephrology-hypercalcemia- can be secondary to dehydration vs malignancy, will check pth This is my first consult with this pt Laboratory Tests 01/11/20 01/12/20 01/12/20 14:18 05:18 05:18 WBC 6.0 10.4 H Sodium 161 H* BUN 27.0 H Creatinine 1.6 H Calcium 11.4 H 01/12/20 12:00 WBC Sodium 158 H BUN 26.3 H Creatinine 1.5 H Calcium 11.3 H History Source: Family Member, Medical Record Limitations to Obtaining History: Clinical Condition ([place], tangengial statements), Poor Historian - Past Medical History Cardiovascular: Yes: HTN Heme/Onc: Yes: Other (gastric cancer) - Smoking History Smoking history: Never smoked Have you smoked in the past 12 months: No - Alcohol/Substance Use Hx Alcohol Use: No History - Admission Reason For Visit: SENT BY DOC - Diagnostics X-ray: Report Reviewed - General Mental Status: Awake and Alert, Vague, Confused Attention: Mild Impairment, Moderate Impairment Ability to Follow Directions: Poor Head/Neck Control: Fair - Hearing Hearing: Functional Hearing: Normal Speech Evaluation - Communication Primary Language: MACEDONIAN Communication: Yes: Language Barrier (verbalizes but tangential, inappropriate to task, speaks in sentences,) Oral Expression Ability: Yes: Moderate Impairment - Speech Production Intelligibility: Yes: Mildly Impaired - Speech Characteristics Voice Loudness: Normal Voice Pitch: Yes: Normal Voice Phonatory-based Quality: Yes: Normal Speech Pattern: Impaired Speech Clarity: < 75% Nasal Resonance: Normal Articulation: Yes: Imprecise - Language/Auditory Comprehension Follows: Yes: 1 Stage Simple Commands (simple inconsistent) Observation: Able to respond to yes/no queries: No, Comprehends Conversational Speech: Yes (simple, inconsistent) - Swallow Evaluation/Bedside Assessment Current Nutritional Intake: Dysphagia Minced, Green Textured Liquids Oral Secretions: Yes: WFL, Dryness Dentition: Yes: Adequate Facial Symmetry at Rest: Symmetrical Facial Symmetry on Retraction: Symmetrical Against Resistance Opening: Weak Against Resistance Closing: Weak Pucker Lips: Weak Smile: Weak Lingual Movement: Symmetric, Reduced Protrusion Lingual Speed of Movement: Reduced Lingual Movement Strgth Against Opposition: Reduced Laryngeal Elevation: Impaired Laryngeal Movement: Labored,delay initiation Rate of Intake: Slow/Holding Bolus Size: Small Labial Seal: Impaired Bilaterally (weak) Oral Prep Time: Increased A-P Transit: Impaired Pocketing: Present Bilaterally Coughing/Throat Clear: No Change in Voice: No Recommendations - Speech Evaluation, Impression/Plan Impression: Confused, delerious, verbal but tangential statements, unrelated to questions or the environment. Articulation imprecise. r/o encephalopathy, hypercalcemia,. Holds puree on tongue, unable to coordinate and transfer with delayed swallow. Tolerated 2 mainor HN, well straw, with verbal directives to suck/swallow. Seemed to get full easily, possibly with delayed esoph emptying. UGI pending. With small amounts given, and then allowed to rest a min or two, he then accepted more. - Dysphagia Impressions/Plan Swallowing Skills: Impaired *Silent aspiration: cannot be R/O at bedside Dysphagia Treatment Plan: Chin Tuck/Down, Trial Feedings, Safe Rate, Elevate HOB during feed Recommendations: Other (pending GI series/esophagram. Coordinates/tolerates liquid via straw better than puree.) - Recommendations Medication Administration: Crushed with applesauce (in liquid) Liquids: Thin Liquids Supplement: Other (2 mainor HN 4 times daily.)
[2020-01-12 19:15] LABS: HYALINE CASTS 9 /lpf (0-8); PH,URINE 6.5 (5.0-8.0); URINE APPEARANCE CLEAR; URINE BACTERIA 3.9 /hpf (NEGATIVE); URINE BILIRUBIN NEGATIVE (NEGATIVE); URINE COLOR YELLOW; URINE GLUCOSE (UA) NEGATIVE (NEGATIVE); URINE KETONE NEGATIVE (NEGATIVE); URINE LEUK ESTERASE TRACE (NEGATIVE); URINE NITRITE NEGATIVE (NEGATIVE); URINE PROTEIN TRACE (NEGATIVE); URINE RBC 1 /hpf (0-4); URINE WBC 5 /hpf (0-5)
--- NOTE | 2020-01-12 20:00 | PN ---
Progress Note (short form) - Note Progress Note: Read last progress note from primary team. Mr. El Phelps cannot have a PEG tube placed given recent surgery.
[2020-01-12 20:05] LABS: BLOOD UREA NITROGEN 26.2 mg/dL (7-18); CALCIUM 11.2 mg/dL (8.5-10.1); CREATININE 1.5 mg/dL (0.55-1.3); POTASSIUM 3.3 mmol/L (3.5-5.1)
[2020-01-13] MEDS: HEPARIN NA (PORCINE) 5,000 UNITS/ML 1ML VIAL SQ SCH ×3 (02:55→21:58)
[2020-01-13] MEDS: DEXTROSE 5%-WATER - 1,000 ML IV SCH (02:55)
[2020-01-13] MEDS: KCL 10 MEQ IVPB 10 MEQ/100 ML INFUS.BAG IVPB SCH ×3 (06:51→12:59)
[2020-01-13 07:28] LABS: ALBUMIN 2.5 g/dl (3.4-5.0); BILIRUBIN,TOTAL 1.1 mg/dL (0.2-1); BLOOD UREA NITROGEN 21.1 mg/dL (7-18); CALCIUM 11.2 mg/dL (8.5-10.1); CREATININE 1.4 mg/dL (0.55-1.3); POTASSIUM 3.2 mmol/L (3.5-5.1); TOT PROT 6.7 g/dl (6.4-8.2)
--- NOTE | 2020-01-13 09:38 | PN ---
Progress Note (short form) - Note Progress Note: No cardiac events; Hemodynamically stable; Trop 0.5>>0.7 Vital Signs Temp 98.8 F 01/13/20 09:20 Pulse 97 H 01/13/20 09:20 Resp 18 01/13/20 09:20 BP 122/75 01/13/20 09:20 Pulse Ox 98 01/12/20 21:00 Intake & Output 01/12/20 01/12/20 01/13/20 11:59 23:59 11:59 Intake Total 250 900 715 Balance 250 900 715 Weight 98 lb Intake: IV 600 715 D5w - 1,000 ml @ 65 mls/ 715 hr IV ASDIR MEME Rx#: [id number] D5w - 1,000 ml @ 75 mls/ 600 hr IV ASDIR MEME Rx#: [id number] Oral 250 300 Other: Voiding Method Incontinent Incontinent # Unmeasured Voids Void 1 2 Bowel Movement No Height 5 ft 3 in Body Mass Index (BMI) 17.3 CBC, BMP 01/12/20 05:18 01/13/20 05:25 Current Medications Bisacodyl (Dulcolax -) 10 mg PO DAILY PRN PRN Reason: CONSTIPATION Heparin Sodium (Porcine) (Heparin -) 5,000 unit SQ Q8H-IV [facility] Last Admin: 01/13/20 02:55 Dose: 5,000 unit Documented by: Dextrose (D5w -) 1,000 mls @ 65 mls/hr IV ASDIR [facility] Last Admin: 01/13/20 02:55 Dose: 65 mls/hr Documented by: Potassium Chloride (Potassium Chloride 10 Meq Premix Ivpb -) 10 meq in 100 mls @ 100 mls/hr IVPB Q60M [facility] Stop: 01/13/20 09:44 Last Admin: 01/13/20 06:51 Dose: 100 mls/hr Documented by: Mirtazapine (Remeron -) 15 mg PO DAILY [facility] Last Admin: 01/12/20 11:53 Dose: 15 mg Documented by: Multivitamins/Minerals/Vitamin C (Tab-A-Vit -) 1 tab PO DAILY [facility] Last Admin: 01/12/20 11:53 Dose: 1 tab Documented by: Pantoprazole Sodium (Protonix -) 20 mg PO DAILY [facility] Last Admin: 01/12/20 11:53 Dose: 20 mg Documented by: Senna/Docusate Sodium (Pericolace -) 2 tablet PO DAILY PRN PRN Reason: CONSTIPATION Assessment: 11/07/2019 UGI: Concerning for stricture at gastrojejunostomy site 10/31/2019 Echo: Normal LV size and fxn, LVEF 65-70%, normal RV size and fxn,mild MR, TR RVSP 29 mmHg, mod ao dilatation 10/24/2019 Echo: Normal LV size and fxn, LVEF 60-65%, grade II diastolic dysfunction, mild MR, TR RVSP 33 mmHg, mild TX 1. Gastric adenocarcinoma diagnosed 10/2018 s/p subtotal gastrectomy and gastrojejunostomy (bilroth II) with anastomotic stricture s/p dilation at [facility], ex lap/GARRICK/GJ revision/parker en y reconstruction (11/2019) 2. Hypernatremia and anorexia 3. LYDIA pre-renal 4. CAD with h/o post operative NSTEMI now with demand ischemic injury 5. Diastolic LV dysfunction with clinical class 0 NYHA classification LV failure 6. Post acute blood loss- anemia 7. Sinus bradycardia, transient 2nd degree AV block post-op, since resolved 8. Hypertensive cardiovascular disease 9. Hypokalemia, resolved PLAN: -. Trend trops to document peak: 0.5>.0.71: limited 2D Echo for wall motion, EF . As outlined in the prior notes avoid AV pao blocking agents given sinus bradycardia . Resume Norvasc 2.5 qd, Lipitor 20 qd, ASA 81 qd once oral intake re- established, hold lisinopril 10 qd pending renal recovery . As outlined in the prior notes plan for Pharmacologic Lexiscan MPI study in the future once clinically stable/fully recovered from the above noted procedures . Continued goals of care of discussion as pts son states he does not want to pursue aggressive measures at this time -Undelying metabolic disorders as per primary team
--- NOTE | 2020-01-13 11:12 | PN ---
Progress Note, Physician History of Present Illness: 79 y/o M with a PMHx of HTN, HLD, recent admission to the ED on 10/12/19 for sym ptomatic anemia, EGD on 10/17/19 which showed mass on gastric antrum and Gastric adenocarcinoma diagnosed 10/2018 s/p subtotal gastrectomy and gastrojejunostomy (bilroth II) with anastomotic stricture s/p dilation at [facility], ex lap/GARRICK/GJ revision/parker en y reconstruction (11/2019). Course was complicated by 2nd deg AVB & post -op NSTEMI. Subsequently 11/07/19 patient had poor appetite and barium series showed stricture at anastamosis s/p dilation at [facility]. Patient was sent here by oncologist for hypernatremia. Today: Patient off unit to UGIseries - Current Medication List Current Medications: Active Medications Bisacodyl (Dulcolax -) 10 mg PO DAILY PRN PRN Reason: CONSTIPATION Heparin Sodium (Porcine) (Heparin -) 5,000 unit SQ Q8H-IV [facility] Last Admin: 01/13/20 02:55 Dose: 5,000 unit Documented by: Dextrose (D5w -) 1,000 mls @ 65 mls/hr IV ASDIR [facility] Last Admin: 01/13/20 02:55 Dose: 65 mls/hr Documented by: Mirtazapine (Remeron -) 15 mg PO DAILY [facility] Last Admin: 01/12/20 11:53 Dose: 15 mg Documented by: Multivitamins/Minerals/Vitamin C (Tab-A-Vit -) 1 tab PO DAILY [facility] Last Admin: 01/12/20 11:53 Dose: 1 tab Documented by: Pantoprazole Sodium (Protonix -) 20 mg PO DAILY [facility] Last Admin: 01/12/20 11:53 Dose: 20 mg Documented by: Senna/Docusate Sodium (Pericolace -) 2 tablet PO DAILY PRN PRN Reason: CONSTIPATION - Objective Vital Signs: Vital Signs Temperature 98.8 F 01/13/20 09:20 Pulse Rate 97 H 01/13/20 09:20 Respiratory Rate 18 01/13/20 09:20 Blood Pressure 122/75 01/13/20 09:20 O2 Sat by Pulse Oximetry (%) 98 01/12/20 21:00 Labs: CBC, BMP 01/12/20 05:18 01/13/20 05:25 INR, PTT INR 1.01 (0.83-1.09) 01/11/20 14:18 Impression/Plan Impression/Plan: 1-Hypernatermia with poor PO intake-likely multifactorial r/o structural cause in the setting of Gastric adenocarcinoma diagnosed 10/2018 s/p subtotal gastrectomy and gastrojejunostomy (bilroth II) with anastomotic stricture s/p dilation at [facility], ex lap/GARRICK/GJ revision/parker en y reconstruction (11/2019) GI consult appreciate recommendations-pending UGI series Renal consult IV D5W 75cc/hr monitor BMP q 4-6 hourly avoid correcting >0.5mEq/L/h 2-Cholestatic pattern of LFT RUQ U/S CBC GI 3. Hypernatremia IVF as above Na downtrending to 155 today Renal consulted 4. LYDIA pre-renal in the setting of poor appetite multifactorial Creatinine trend- stable at 1.6 Trend BUN/Creatinine and Na Urine Electrolytes Renal U/S unremarkable 5.Poor Oral intake with Severe protein-calorie malnutrition in the setting of advanced dementia and hx of Gastric adenocarcinoma Business Librarian consulted Needs assistance for feeding HOB >30 degree elevation to avoid aspiration PEG tube consideration not feasible due to anatomy - discuss with family GOC On Mirtazapine Monitor F/S to avoid hypoglycemia MVM daily 6. CAD with h/o post operative NSTEMI now with demand ischemic injury/Hypertensive cardiovascular disease Cardiology consulted-recommendations appreciated Trend troponin peak along with EKG (0.7 ) GOC discussion with family 7. Diastolic LV dysfunction Echo 10/27- EF 65-70% PASP >29, impaired LV relaxation Cardiology on board Clinically dehydrated 8. Constipation Received fleet enema , senna dulcolax Monitor BM D/C iron 8. Sinus bradycardia, transient 2nd degree AV block [id number] Avoid AVN blocking agents 9. Post acute blood loss- anemia Monitor H/H (stable trend) No evidence of active bleeding 10. Depression Psych evaluation 11. HTN/HLD Stable off medications 12. DVT Px- heparin 5000 units TID GI Px- protonix 20 mg PO daily Dispo- discuss with family GOC and advanced directive-->Family plans to take him to [place] but does not want aggressive measures Palliative consult Visit type - Emergency Visit Emergency Visit: Yes ED Registration Date: 01/11/20 Care time: The patient presented to the Emergency Department on the above date and was hospitalized for further evaluation of their emergent condition. - New Patient This patient is new to me today: No - Critical Care Critical Care patient: No - Discharge Referral Referred to [facility] No
--- NOTE | 2020-01-13 11:24 | ECHO ---
Name: CRISTÓBAL KEYSINO Exam:Adult Echocardiogram Study Date: 01/13/2020 10:52 AM Age: 79 yrs Reason For Study: limited echo wall motion Height: 63 in Weight: 98 lb BSA: 1.4 m2 MMode/2D Measurements & Calculations LVOT diam: 2.0 cm LVLd ap4: 7.6 cm EDV(MOD-sp4): 67.0 ml LVLs ap4: 6.8 cm ESV(MOD-sp4): 36.0 ml SV(MOD-sp4): 31.0 ml Doppler Measurements & Calculations MV E max william: 41.5 cm/sec Ao V2 max: 129.2 cm/sec MV A max william: 71.1 cm/sec Ao max P.7 mmHg MV E/A: 0.58 MV dec time: 0.19 sec HENRY(V,D): 3.3 cm2 LV V1 max P.8 mmHg Med Peak E' William: 3.7 cm/sec LV V1 max: 130.8 cm/sec Med E/e': 11.1 Lat Peak E' William: 7.9 cm/sec Lat E/e': 5.3 Procedure The study was technically difficult with many images being suboptimal in quality. Left Ventricle Although wall motion is not well seen, left ventricular systolic function is grossly normal. Ejection Fraction = 60-65%. The transmitral spectral Doppler flow pattern is suggestive of impaired LV relaxation. Maria Luisa onal wall motion abnormalities cannot be excluded due to limited visualization. Right Ventricle The right ventricle is grossly normal size. The right ventricular systolic function is grossly normal . Atria Normal left and right atrial size and function. Mitral Valve The mitral valve is normal in structure and function. There is trace to mild mitral regurgitation. Tricuspid Valve The tricuspid valve is normal in structure and function. There is mild tricuspid regurgitation. Aortic Valve The aortic valve opens well. No hemodynamically significant valvular aortic stenosis. Pulmonic Valve The pulmonic valve is not well seen, but is grossly normal. There is no pulmonic valvular stenosis. Great Vessels The aortic root is normal size. Mildly dillated ascending aorta. Pericardium/Pleura There is no pericardial effusion. Interpretation Summary The study was technically difficult with many images being suboptimal in quality. Regional wall motion abnormalities cannot be excluded due to limited visualization. Although wall motion is not well seen, left ventricular systolic function is grossly normal. Ejection Fraction = 60-65%. The transmitral spectral Doppler flow pattern is suggestive of impaired LV relaxation. There is trace to mild mitral regurgitation. There is mild tricuspid regurgitation. There is no pericardial effusion. Mildly dillated ascending aorta. MD Toscano *Antonio 01/13/2020 11:24 AM
--- NOTE | 2020-01-13 12:51 | PN ---
Physical Exam: SUBJECTIVE: Patient seen and examined at bedside. He is barely able to open his eyes and agitated. Not alert or oriented. Not responsive to commands. OBJECTIVE: Vital Signs Period Temp Pulse Resp BP Sys/Newman Pulse Ox Last 24 Hr 97.9 F-98.8 F 72-105 18-18 122-144/69-91 98 GENERAL: The patient is not alert or oriented today, barely wanting to open his eyes, agitated but per nurse pt did not sleep much last night. LUNGS: Breath sounds equal, clear to auscultation bilaterally, no wheezes, no crackles, no accessory muscle use. HEART: Regular rate and rhythm, S1, S2 without murmur, rub or gallop. ABDOMEN: Soft, nontender, nondistended. cachectic, hypoactive BS's. EXTREMITIES: 2+ pulses, warm, well-perfused, no edema. NEUROLOGICAL: Cranial nerves II through XII grossly intact. difficult to assess pt unable to complete neuro exam due to poor compliance. PSYCH: depressed mood, hallucinates and agitated, with restraints on. SKIN: Warm, dry, normal turgor, no rashes or lesions noted Laboratory Results - last 24 hr 01/12/20 01/12/20 01/12/20 12:00 18:00 18:00 Sodium 158 H Potassium 3.6 Chloride 127 H Carbon Dioxide 26 Anion Gap 5 L BUN 26.3 H Creatinine 1.5 H Est GFR (CKD-EPI)AfAm 50.24 Est GFR (CKD-EPI)NonAf 43.35 Random Glucose 137 H Calcium 11.3 H Total Bilirubin AST ALT Alkaline Phosphatase Troponin I Total Protein Albumin Vitamin D Level Urine Color Yellow Urine Appearance Clear Urine pH 6.5 Ur Specific [place] 1.020 Urine Protein Trace Urine Glucose (UA) Negative Urine Ketones Negative Urine Blood Negative Urine Nitrite Negative Urine Bilirubin Negative Urine Urobilinogen 1.0 Ur Leukocyte Esterase Trace Urine WBC (Auto) 5 Urine RBC (Auto) 1 Urine Casts (Auto) 9 U Epithel Cells (Auto) 2.0 Urine Bacteria (Auto) 3.9 Urine Osmolality 561 Ur Random Creatinine Ur Random Sodium 47 Ur Random Potassium 56.0 Ur Random Chloride 59 L 01/12/20 01/12/20 01/12/20 18:00 18:55 18:55 Sodium 158 H Potassium 3.3 L Chloride 126 H Carbon Dioxide 27 Anion Gap 4 L BUN 26.2 H Creatinine 1.5 H Est GFR (CKD-EPI)AfAm 50.24 Est GFR (CKD-EPI)NonAf 43.35 Random Glucose 146 H Calcium 11.2 H Total Bilirubin AST ALT Alkaline Phosphatase Troponin I Total Protein Albumin Vitamin D Level 21.3 L Urine Color Urine Appearance Urine pH Ur Specific [place] Urine Protein Urine Glucose (UA) Urine Ketones Urine Blood Urine Nitrite Urine Bilirubin Urine Urobilinogen Ur Leukocyte Esterase Urine WBC (Auto) Urine RBC (Auto) Urine Casts (Auto) U Epithel Cells (Auto) Urine Bacteria (Auto) Urine Osmolality Ur Random Creatinine 135.0 Ur Random Sodium Ur Random Potassium Ur Random Chloride 01/13/20 05:25 Sodium 155 H Potassium 3.2 L Chloride 123 H Carbon Dioxide 28 Anion Gap 4 L BUN 21.1 H Creatinine 1.4 H Est GFR (CKD-EPI)AfAm 54.61 Est GFR (CKD-EPI)NonAf 47.12 Random Glucose 138 H Calcium 11.2 H Total Bilirubin 1.1 H AST 154 H ALT 103 H Alkaline Phosphatase 223 H Troponin I 0.71 H* Total Protein 6.7 Albumin 2.5 L Vitamin D Level Urine Color Urine Appearance Urine pH Ur Specific [place] Urine Protein Urine Glucose (UA) Urine Ketones Urine Blood Urine Nitrite Urine Bilirubin Urine Urobilinogen Ur Leukocyte Esterase Urine WBC (Auto) Urine RBC (Auto) Urine Casts (Auto) U Epithel Cells (Auto) Urine Bacteria (Auto) Urine Osmolality Ur Random Creatinine Ur Random Sodium Ur Random Potassium Ur Random Chloride Active Medications Generic Name Dose Route Start Last Admin Trade Name Freq PRN Reason Stop Dose Admin Bisacodyl 10 mg 01/11/20 17:34 Dulcolax - PO DAILY PRN CONSTIPATION Heparin Sodium (Porcine) 5,000 unit 01/11/20 18:00 01/13/20 02:55 Heparin - SQ 5,000 unit Q8H-IV MEME Administration Dextrose 1,000 mls @ 65 mls/hr 01/12/20 14:50 01/13/20 02:55 D5w - IV 65 mls/hr ASDIR MEME Administration Mirtazapine 15 mg 01/12/20 10:00 01/12/20 11:53 Remeron - PO 15 mg DAILY MEME Administration Multivitamins/Minerals/Vitamin C 1 tab 01/12/20 10:00 01/12/20 11:53 Tab-A-Vit - PO 1 tab DAILY MEME Administration Pantoprazole Sodium 20 mg 01/12/20 10:00 01/12/20 11:53 Protonix - PO 20 mg DAILY MEME Administration Senna/Docusate Sodium 2 tablet 01/11/20 17:34 Pericolace - PO DAILY PRN CONSTIPATION ASSESSMENT/PLAN: This is a 79 y/o M with a PMHx of HTN, HLD, recent admission to the ED on 10/12/19 for symptomatic anemia, EGD on 10/17/19 which showed mass on gastric antrum, s/p 10/2018 s/p subtotal gastrectomy and gastrojejunostomy (bilroth II) with anastomotic stricture s/p dilation at [facility], ex lap/GARRICK/GJ revision/parker en y reconstruction (11/2019). Course was complicated by 2nd deg AVB & post -op NSTEMI. Subsequently 11/07/19 patient had poor appetite and barium series showed stricture at anastamosis s/p dilation at [facility]. Patient was sent here by oncologist for hypernatremia. poor appetite since surgery w/ barium series 11/07/19 showing stricture at anastamosis s/p dilation at [facility], plan for chemo/radiation but not started yet, sent from Dr. Watters (oncologist at [facility]) for reported hypernatremia. #Hypernatremia 2/2 poor oral hydration - Free H20 deficit 3.3 L - IV 75/hr d5w no more than 0.5meq/hr 8-12/24 hrs - program production specialist consult await recs - renal consulted (Dr. Dhillon)- will await recs - rpt BMP this AM decreased to 155 so will continue the fluids at the same rate. #LYDIA likely pre-renal 2/2 poor PO fluid intake - renal sono to assess for hydro - urine Na, urine Cr - Calculate FeNa - adjusted fluids to 75/hr D5W given hypernatremia has worsened on LR. #Hypercalcemia - hx of cancer, dehydrated - likely will correct after fluids - order Pth, vitamin D #Tropinemia likely 2/2 poor renal clearance - EKG showing EKG showing normal sinus rhythm at 69 bpm, RBBB and LAFB, with new T wave flattening in V2 and T wave inversion in V3 compared to prior. MO 164, QRS 114, QTc 435 - rpt trop increased so another rpt sent and ekg. - cardio consulted ([facility]) will await recommendations but likely troponemia 2/2 poor renal clearance. Family goals of care must be discussed to assess what intervention they would prefer and dnr/dni status etc. Will s/w son as soon as amenable. - Echo 10/27- EF 65-70% PASP >29, impaired LV relaxation likely given pt's age. - 3 trops elevated uptrending with new st depression v3 likely demand vs poor clearance, rpt trop increased more and echo- study suboptimal in quality imp aired LV relaxation, EF 60-65%. Family would not like any aggressive measures, but would like myocardial perfusion imaging study when cx stable. #Poor caloric intake - program production specialist consulted for bariatric diet given gastrectomy hx - ensure - mirtazapine not helping for pts appetite per pts son may s/w psych for better remedy - GI consulted (Dr. Peralta) to assess - KUB negative for fecal impaction - multivitamins - HOB elevation with asp precautions - palliative consult, will assess goals of care with pt's son (Lloyd). - thin liquid diet per barium swallow Alisa cook #Constipation - fleet enema, senna, dulcolax - stopped iron - KUB negative for assess for retained stool #Depression - pt states mirtazapine not helpful, may s/w psych regarding increasing dose given renal dysfunction. - will assess in AM medication pt may be started on to help with his depression and appetite. PPX: GI- protonix 20 PO DVT - Heparin [id number] Dispo: admit [facility] ATTENDING PHYSICIAN STATEMENT I saw and evaluated the patient. I reviewed the resident's note and discussed the case with the resident. I agree with the resident's findings and plan as documented. SUBJECTIVE: OBJECTIVE: ASSESSMENT AND PLAN:
[2020-01-13] MEDS: PANTOPRAZOLE 20 MG TABLET PO SCH (13:13)
[2020-01-13] MEDS: MULTIVITAMINS (DAILY MVI) TABLET (FP) PO SCH (13:13)
[2020-01-13] MEDS: MIRTAZAPINE 15 MG TABLET (FP) PO SCH (13:13)
[2020-01-13 13:36] LABS: BASO % 0.3 % (0-2.0); HEMATOCRIT 31.4 % (35.4-49); HEMOGLOBIN 9.6 GM/dL (11.7-16.9); LYMPH % 6.8 % (8-40); MCH 22.8 pg (25.7-33.7); MCHC 30.5 g/dl (32.0-35.9); MEAN CELL VOLUME 74.6 fl (80-96); MEAN PLT VOLUME 10.6 fl (7.5-11.1); MONO % 4.9 % (3.8-10.2); PLATELET COUNT 116 K/MM3 (134-434); RBC 4.21 M/mm3 (4.00-5.60); RDW 23.3 % (11.9-15.9); WHITE BLOOD COUNT 10.1 K/mm3 (4.0-10.0)
[2020-01-13] MEDS ORDERED: KCL 10 MEQ IVPB 10 MEQ/100 ML INFUS.BAG IVPB SCH ×2 (13:45→14:15)
[2020-01-13 13:53] LABS: BLOOD UREA NITROGEN 18.4 mg/dL (7-18); CALCIUM 10.2 mg/dL (8.5-10.1); CREATININE 1.3 mg/dL (0.55-1.3); POTASSIUM 3.3 mmol/L (3.5-5.1)
[2020-01-13] MEDS ORDERED: POTASSIUM CHLORIDE ORAL LIQUID 20 MEQ/15 ML PO ONE (14:00)
[2020-01-13] MEDS ORDERED: POTASSIUM CHLORIDE TABS 20 MEQ TABLET.ER (FP) PO ONE (14:00)
--- NOTE | 2020-01-13 14:11 | PN ---
Progress Note, Physician History of Present Illness: Pt seen and examined at bedside. He is lethargic today. Family are at bedside. PO intake remains poor. - Current Medication List Current Medications: Active Medications Bisacodyl (Dulcolax -) 10 mg PO DAILY PRN PRN Reason: CONSTIPATION Heparin Sodium (Porcine) (Heparin -) 5,000 unit SQ TID [facility] Dextrose (D5w -) 1,000 mls @ 65 mls/hr IV ASDIR [facility] Last Admin: 01/13/20 02:55 Dose: 65 mls/hr Documented by: Mirtazapine (Remeron -) 15 mg PO DAILY [facility] Last Admin: 01/13/20 13:13 Dose: 15 mg Documented by: Multivitamins/Minerals/Vitamin C (Tab-A-Vit -) 1 tab PO DAILY [facility] Last Admin: 01/13/20 13:13 Dose: 1 tab Documented by: Pantoprazole Sodium (Protonix -) 20 mg PO DAILY [facility] Last Admin: 01/13/20 13:13 Dose: 20 mg Documented by: Senna/Docusate Sodium (Pericolace -) 2 tablet PO DAILY PRN PRN Reason: CONSTIPATION - Objective Vital Signs: Vital Signs Temperature 98.8 F 01/13/20 09:20 Pulse Rate 97 H 01/13/20 09:20 Respiratory Rate 18 01/13/20 09:20 Blood Pressure 122/75 01/13/20 09:20 O2 Sat by Pulse Oximetry (%) 98 01/12/20 21:00 Constitutional: Yes: Calm Eyes: Yes: Conjunctiva Clear HENT: Yes: Atraumatic Neck: Yes: Supple Cardiovascular: Yes: S1, S2 Respiratory: Yes: CTA Bilaterally Gastrointestinal: Yes: Normal Bowel Sounds, Soft Genitourinary: Yes: Incontinence Musculoskeletal: Yes: Muscle Weakness Edema: No Neurological: Yes: Lethargy Labs: CBC, BMP 01/13/20 12:50 01/13/20 12:50 INR, PTT INR 1.01 (0.83-1.09) 01/11/20 14:18 Assessment/Plan Current Medications Generic Name Dose Route Start Last Admin Trade Name Freq PRN Reason Stop Dose Admin Bisacodyl 10 mg 01/11/20 17:34 Dulcolax - PO DAILY PRN CONSTIPATION Heparin Sodium (Porcine) 5,000 unit 01/13/20 22:00 Heparin - SQ TID [facility] Dextrose 1,000 mls @ 65 mls/hr 01/12/20 14:50 01/13/20 02:55 D5w - IV 65 mls/hr ASDIR [facility] Administration Mirtazapine 15 mg 01/12/20 10:00 01/13/20 13:13 Remeron - PO 15 mg DAILY [facility] Administration Multivitamins/Minerals/Vitamin C 1 tab 01/12/20 10:00 01/13/20 13:13 Tab-A-Vit - PO 1 tab DAILY [facility] Administration Pantoprazole Sodium 20 mg 01/12/20 10:00 01/13/20 13:13 Protonix - PO 20 mg DAILY [facility] Administration Senna/Docusate Sodium 2 tablet 01/11/20 17:34 Pericolace - PO DAILY PRN CONSTIPATION Impression 1. hypernatremia 2. uti 3. gastric cancer 4. 2nd degree av block 5. htn 6. hld 7. LYDIA 8. hypercalcemia 9. hypokalemia Plan - sodium improving - replace potassium - check mag - increase rate of d5w - encourage po intake - cont to monitor sodium, avoid overcorrecting - renal function improving - calcium improving
[2020-01-13] MEDS ORDERED: DEXTROSE 5%-WATER - 1,000 ML with POTASSIUM CHLORIDE 10 MEQ IVPB SCH (14:12)
--- NOTE | 2020-01-13 15:46 | PN ---
Progress Note, COIL CONNECTOR REPAIRER - Note Progress Note: Selected Entries 01/12/20 01/12/20 01/12/20 03:50 06:00 10:00 Breakfast Lunch Temperature 97.7 F 98.6 F 98.5 F 01/12/20 01/12/20 01/12/20 11:02 14:00 18:00 Breakfast 25% Lunch 0 Temperature 98.0 F 97.9 F 01/12/20 01/13/20 01/13/20 22:50 02:56 09:20 Breakfast Lunch Temperature 98.0 F 98.0 F 98.8 F 01/13/20 14:00 Breakfast Lunch NPO Temperature 98.3 F Laboratory Tests 01/12/20 01/13/20 05:18 12:50 WBC 10.4 H 10.1 H Attempted 2 mainor hn, but too sleepy to take nuch. Defer until more alert
[2020-01-13] MEDS: POTASSIUM CHLORIDE 10 MEQ in DEXTROSE 5%-WATER - 1,000 ML IVPB SCH (20:35)
[2020-01-14] MEDS: HEPARIN NA (PORCINE) 5,000 UNITS/ML 1ML VIAL SQ SCH ×3 (06:10→21:56)
[2020-01-14 07:16] LABS: ALBUMIN 2.1 g/dl (3.4-5.0); BILIRUBIN,TOTAL 1.2 mg/dL (0.2-1); BLOOD UREA NITROGEN 22.1 mg/dL (7-18); CREATININE 1.2 mg/dL (0.55-1.3); MAGNESIUM 2.3 mg/dL (1.8-2.4); POTASSIUM 4.2 mmol/L (3.5-5.1); TOT PROT 5.9 g/dl (6.4-8.2)
[2020-01-14] MEDS: POTASSIUM CHLORIDE 10 MEQ in DEXTROSE 5%-WATER - 1,000 ML IVPB SCH ×2 (08:00→19:44)
[2020-01-14] MEDS: PANTOPRAZOLE 20 MG TABLET PO SCH (08:59)
[2020-01-14] MEDS: MULTIVITAMINS (DAILY MVI) TABLET (FP) PO SCH (08:59)
[2020-01-14] MEDS: MIRTAZAPINE 15 MG TABLET (FP) PO SCH (08:59)
--- NOTE | 2020-01-14 10:54 | PN ---
Progress Note, Physician History of Present Illness: Pt seen and examined at bedside. He is awake and more interactive than yesterday. - Current Medication List Current Medications: Active Medications Bisacodyl (Dulcolax -) 10 mg PO DAILY PRN PRN Reason: CONSTIPATION Heparin Sodium (Porcine) (Heparin -) 5,000 unit SQ TID [facility] Last Admin: 01/14/20 06:10 Dose: 5,000 unit Documented by: Potassium Chloride 10 meq/ (Dextrose) 1,005 mls @ 100 mls/hr IVPB ASDIR [facility] Last Admin: 01/14/20 08:00 Dose: 100 mls/hr Documented by: Mirtazapine (Remeron -) 15 mg PO DAILY [facility] Last Admin: 01/14/20 08:59 Dose: 15 mg Documented by: Multivitamins/Minerals/Vitamin C (Tab-A-Vit -) 1 tab PO DAILY [facility] Last Admin: 01/14/20 08:59 Dose: 1 tab Documented by: Pantoprazole Sodium (Protonix -) 20 mg PO DAILY [facility] Last Admin: 01/14/20 08:59 Dose: 20 mg Documented by: Senna/Docusate Sodium (Pericolace -) 2 tablet PO DAILY PRN PRN Reason: CONSTIPATION - Objective Vital Signs: Vital Signs Temperature 98.8 F 01/14/20 07:57 Pulse Rate 68 01/14/20 07:57 Respiratory Rate 18 01/14/20 07:57 Blood Pressure 134/77 01/14/20 07:57 O2 Sat by Pulse Oximetry (%) 97 01/13/20 20:54 Constitutional: Yes: Calm Eyes: Yes: Conjunctiva Clear HENT: Yes: Atraumatic Neck: Yes: Supple Cardiovascular: Yes: S1, S2 Respiratory: Yes: CTA Bilaterally Gastrointestinal: Yes: Soft Musculoskeletal: Yes: WNL Edema: No Neurological: Yes: Confusion Labs: CBC, BMP 01/13/20 12:50 01/14/20 05:20 INR, PTT INR 1.01 (0.83-1.09) 01/11/20 14:18 Assessment/Plan Current Medications Generic Name Dose Route Start Last Admin Trade Name Freq PRN Reason Stop Dose Admin Bisacodyl 10 mg 01/11/20 17:34 Dulcolax - PO DAILY PRN CONSTIPATION Heparin Sodium (Porcine) 5,000 unit 01/13/20 22:00 01/14/20 06:10 Heparin - SQ 5,000 unit TID [facility] Administration Potassium Chloride 10 meq/ 1,005 mls @ 100 mls/hr 01/13/20 18:51 01/14/20 08:00 Dextrose IVPB 100 mls/hr ASDIR [facility] Administration Mirtazapine 15 mg 01/12/20 10:00 01/14/20 08:59 Remeron - PO 15 mg DAILY [facility] Administration Multivitamins/Minerals/Vitamin C 1 tab 01/12/20 10:00 01/14/20 08:59 Tab-A-Vit - PO 1 tab DAILY [facility] Administration Pantoprazole Sodium 20 mg 01/12/20 10:00 01/14/20 08:59 Protonix - PO 20 mg DAILY [facility] Administration Senna/Docusate Sodium 2 tablet 01/11/20 17:34 Pericolace - PO DAILY PRN CONSTIPATION Laboratory Tests 01/14/20 05:20 Sodium 150 H Potassium 4.2 Magnesium 2.3 Impression 1. hypernatremia 2. uti 3. gastric cancer 4. 2nd degree av block 5. htn 6. hld 7. LYDIA 8. hypercalcemia 9. hypokalemia Plan - cont fluids - cont d5w - sodium improving - potassium improved - calcium improving as well - pth pending - cont to monitor sodium, avoid overcorrecting
--- NOTE | 2020-01-14 11:15 | PN ---
Progress Note (short form) - Note Progress Note: [place] Note: No cardiac events; Hemodynamically stable; Trop 0.5>>0.7 Vital Signs Temperature 98.8 F 01/14/20 07:57 Pulse Rate 68 01/14/20 07:57 Respiratory Rate 18 01/14/20 07:57 Blood Pressure 134/77 01/14/20 07:57 O2 Sat by Pulse Oximetry (%) 97 01/13/20 20:54 CBC, BMP 01/13/20 12:50 01/14/20 05:20 Assessment: 11/07/2019 UGI: Concerning for stricture at gastrojejunostomy site 10/31/2019 Echo: Normal LV size and fxn, LVEF 65-70%, normal RV size and fxn,mild MR, TR RVSP 29 mmHg, mod ao dilatation 10/24/2019 Echo: Normal LV size and fxn, LVEF 60-65%, grade II diastolic dysfunction, mild MR, TR RVSP 33 mmHg, mild TN 1. 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 Hypernatremia and anorexia 3. LYDIA pre-renal 4. CAD with h/o post operative NSTEMI now with demand ischemic injury 5. Diastolic LV dysfunction with clinical class 0 NYHA classification LV failure 6. Post acute blood loss- anemia 7. Sinus bradycardia, transient 2nd degree AV block post-op, since resolved 8. Hypertensive cardiovascular disease 9. Hypokalemia, resolved PLAN: -. Echo: grossly no wall motion abnormality, normal EF; tropnin increase due to microinjury/demand . As outlined in the prior notes avoid AV pao blocking agents given sinus bradycardia . Resume Norvasc 2.5 qd, Lipitor 20 qd, ASA 81 qd once oral intake re- established, hold lisinopril 10 qd pending renal recovery . As outlined in the prior notes plan for Pharmacologic Lexiscan MPI study in the future once clinically stable/fully recovered from the above noted procedures . Continued goals of care of discussion as pts son states he does not want to pursue aggressive measures at this time -Undelying metabolic disorders as per primary team
--- NOTE | 2020-01-14 14:55 | PN ---
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 Course was complicated by 2nd deg AVB & post -op NSTEMI. Subsequently 11/07/19 patient had poor appetite and barium series showed stricture at anastamosis s/p dilation at [facility]. Patient was sent by oncologist for hypernatremia. Today: Patient seen and examined at bedside in [facility] Minimally verbal at baseline Family doesnt want aggressive measures , want to transfer him to [place]. Patient had febrile episode, UGI series wasnt able to complete due to not drinking contrast, RUQ was completed and LFT are trending down. - Current Medication List Current Medications: Active Medications Bisacodyl (Dulcolax -) 10 mg PO DAILY PRN PRN Reason: CONSTIPATION Heparin Sodium (Porcine) (Heparin -) 5,000 unit SQ TID [facility] Last Admin: 01/14/20 14:46 Dose: 5,000 unit Documented by: Potassium Chloride 10 meq/ (Dextrose) 1,005 mls @ 100 mls/hr IVPB ASDIR [facility] Last Admin: 01/14/20 08:00 Dose: 100 mls/hr Documented by: Mirtazapine (Remeron -) 15 mg PO DAILY [facility] Last Admin: 01/14/20 08:59 Dose: 15 mg Documented by: Multivitamins/Minerals/Vitamin C (Tab-A-Vit -) 1 tab PO DAILY [facility] Last Admin: 01/14/20 08:59 Dose: 1 tab Documented by: Pantoprazole Sodium (Protonix -) 20 mg PO DAILY [facility] Last Admin: 01/14/20 08:59 Dose: 20 mg Documented by: Senna/Docusate Sodium (Pericolace -) 2 tablet PO DAILY PRN PRN Reason: CONSTIPATION - Objective Vital Signs: Vital Signs Temperature 102.1 F H 01/14/20 14:10 Pulse Rate 98 H 01/14/20 14:10 Respiratory Rate 18 01/14/20 14:10 Blood Pressure 102/48 L 01/14/20 14:10 O2 Sat by Pulse Oximetry (%) 98 01/14/20 09:00 Labs: CBC, BMP 01/13/20 12:50 01/14/20 05:20 INR, PTT INR 1.01 (0.83-1.09) 01/11/20 14:18 Impression/Plan Impression/Plan: 1-Hypernatermia with poor PO intake-likely multifactorial r/o structural cause in the setting of 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 Hypernatremia IVF as above Na downtrending to 150 today Renal consulted 4. LYDIA pre-renal in the setting of poor appetite multifactorial Creatinine trend- stable at 1.6 Trend BUN/Creatinine and Na Urine Electrolytes Renal U/S unremarkable 5.Poor Oral intake with Severe protein-calorie malnutrition in the setting of advanced dementia and hx of Gastric adenocarcinoma Umbrella Frame Maker consulted Needs assistance for feeding HOB >30 degree elevation to avoid aspiration PEG tube consideration not feasible due to anatomy - discuss with family GOC On Mirtazapine Monitor F/S to avoid hypoglycemia MVM daily 6. CAD with h/o post operative NSTEMI now with demand ischemic injury/Hypertensive cardiovascular disease Cardiology consulted-recommendations appreciated Trend troponin peak along with EKG (0.7 ) GOC discussion with family 7. Diastolic LV dysfunction Echo 10/27- EF 65-70% PASP >29, impaired LV relaxation Cardiology on board Clinically dehydrated 8. Constipation Received fleet enema , senna dulcolax Monitor BM D/C iron 8. Sinus bradycardia, transient 2nd degree AV block [id number] Avoid AVN blocking agents 9. Post acute blood loss- anemia Monitor H/H (stable trend) No evidence of active bleeding 10. Depression Psych evaluation 11. HTN/HLD Stable off medications 12. DVT Px- heparin 5000 units TID GI Px- protonix 20 mg PO daily Dispo- discuss with family GOC and advanced directive-->Family plans to take him to [place] but does not want aggressive measures Palliative consult Visit type - Emergency Visit Emergency Visit: Yes ED Registration Date: 01/11/20 Care time: The patient presented to the Emergency Department on the above date and was hospitalized for further evaluation of their emergent condition. - New Patient This patient is new to me today: No - Critical Care Critical Care patient: No - Discharge Referral Referred to [facility] Med P.C.: No
[2020-01-14] MEDS: ACETAMINOPHEN 325 MG TABLET (FP) PO PRN (15:27)
[2020-01-14] MEDS ORDERED: VANCOMYCIN 1 GM in D5W (PRE-DOCKED) 1,000 MG/250 ML IVPB ONE (15:45)
[2020-01-14] MEDS ORDERED: CEFEPIME HCL/D5W 1 GM/50 ML BAG IVPB ONE (15:46)
[2020-01-14 16:26] LABS: BASO % 0.1 % (0-2.0); EOS % 0.1 % (0-4.5); HEMATOCRIT 29.1 % (35.4-49); HEMOGLOBIN 8.8 GM/dL (11.7-16.9); LYMPH % 4.4 % (8-40); MCH 22.9 pg (25.7-33.7); MCHC 30.3 g/dl (32.0-35.9); MEAN CELL VOLUME 75.7 fl (80-96); MEAN PLT VOLUME 10.8 fl (7.5-11.1); MONO % 3.6 % (3.8-10.2); NEUT % 91.8 % (42.8-82.8); PLATELET COUNT 105 K/MM3 (134-434); RBC 3.85 M/mm3 (4.00-5.60); RDW 22.2 % (11.9-15.9); WHITE BLOOD COUNT 11.3 K/mm3 (4.0-10.0)
[2020-01-14] MEDS ORDERED: CEFEPIME 1 GM in DEXTROSE 5%-WATER - 50 ML IVPB ONE (16:30)
[2020-01-14] MEDS ORDERED: CEFEPIME HCL 1 GM VIAL (RESTRICTED TO ID) ONE (16:48)
[2020-01-14] MEDS ORDERED: DEXTROSE 5%-WATER - 50 ML IVPB ONE (16:48)
[2020-01-14 16:57] LABS: ALBUMIN 2.1 g/dl (3.4-5.0); BILIRUBIN,TOTAL 0.6 mg/dL (0.2-1); BLOOD UREA NITROGEN 21.9 mg/dL (7-18); CALCIUM 10.7 mg/dL (8.5-10.1); CREATININE 1.6 mg/dL (0.55-1.3); POTASSIUM 4.1 mmol/L (3.5-5.1); TOT PROT 5.6 g/dl (6.4-8.2)
[2020-01-14 17:55] LABS: ANISOCYTOSIS 3+; MACROCYTOSIS 1+
[2020-01-14] MEDS ORDERED: SODIUM CHLORIDE 0.45% 500 ML IV SCH (22:15)
[2020-01-15] MEDS: POTASSIUM CHLORIDE 10 MEQ in DEXTROSE 5%-WATER - 1,000 ML IVPB SCH (00:08)
[2020-01-15] MEDS: HEPARIN NA (PORCINE) 5,000 UNITS/ML 1ML VIAL SQ SCH ×3 (05:54→22:56)
[2020-01-15] MEDS ORDERED: LACTATED RINGERS SOLUTION 1,000 ML/1,000 ML INFUS.BAG IV STA (07:20)
[2020-01-15 07:21] LABS: ALBUMIN 1.9 g/dl (3.4-5.0); BILIRUBIN,TOTAL 0.7 mg/dL (0.2-1); BLOOD UREA NITROGEN 24.4 mg/dL (7-18); CREATININE 1.3 mg/dL (0.55-1.3); TOT PROT 5.4 g/dl (6.4-8.2)
--- NOTE | 2020-01-15 07:24 | PN ---
Physical Exam: SUBJECTIVE: Patient seen and examined at bedside. Pt found to be hypotensive overnight, although repeat BP this AM was 119/59. Per nurse, pt had 350cc or urinary retention but was able to avoid freely. 102.1 fever yesterday. Per nurse, no acute events overnight. Pt does endorse any symptomatic complaints at this time. OBJECTIVE: Vital Signs Period Temp Pulse Resp BP Sys/Newman Pulse Ox Last 24 Hr 97.6 F-102.1 F 50-98 18-18 85-134/48-77 98-98 GENERAL: Pleasant, Divehi-speaking male. NAD. Answering questions appropriately. Awake and alert. Cachectic, temporal wasting, prominent bony clavicular prominences. LUNGS: CTA B/L. No wheezes noted. HEART: Regular rate and rhythm, S1, S2 without murmur, rub or gallop. ABDOMEN: Soft, nontender, nondistended. cachectic, hypoactive BS's. EXTREMITIES: 2+ pulses, warm, well-perfused, no edema. NEUROLOGICAL: Cranial nerves II through XII grossly intact. SKIN: Warm, dry, normal turgor, no rashes or lesions noted CBC, BMP 01/15/20 05:40 01/15/20 05:40 Active Medications Acetaminophen (Tylenol -) 650 mg PO Q8H PRN PRN Reason: FEVER Last Admin: 01/14/20 15:27 Dose: 650 mg Documented by: Bisacodyl (Dulcolax -) 10 mg PO DAILY PRN PRN Reason: CONSTIPATION Heparin Sodium (Porcine) (Heparin -) 5,000 unit SQ TID [facility] Last Admin: 01/15/20 05:54 Dose: 5,000 unit Documented by: Sodium Chloride (1/2 Normal Saline) 1,000 mls @ 100 mls/hr IV ASDIR [facility] Mirtazapine (Remeron -) 15 mg PO DAILY [facility] Last Admin: 01/15/20 10:35 Dose: 15 mg Documented by: Multivitamins/Minerals/Vitamin C (Tab-A-Vit -) 1 tab PO DAILY [facility] Last Admin: 01/15/20 10:35 Dose: 1 tab Documented by: Pantoprazole Sodium (Protonix -) 20 mg PO DAILY [facility] Last Admin: 01/15/20 10:35 Dose: 20 mg Documented by: Senna/Docusate Sodium (Pericolace -) 2 tablet PO DAILY PRN PRN Reason: CONSTIPATION ASSESSMENT/PLAN: 79 y/o M with a PMHx of HTN, HLD, recent admission to the ED on 10/12/19 for symptomatic anemia, EGD on 10/17/19 which showed mass on gastric antrum, s/p 10/2018 s/p subtotal gastrectomy and gastrojejunostomy (bilroth II) with anastomotic stricture s/p dilation at [facility], ex lap/GARRICK/GJ revision/parker en y reconstruction (11/2019). Course was complicated by 2nd deg AVB & post -op NSTEMI. Subsequently 11/07/19 patient had poor appetite and barium series showed stricture at anastamosis s/p dilation at [facility]. Patient was sent here by oncologist for hypernatremia. Has hx of poor appetite since surgery w/ barium series 11/07/19 showing stricture at anastamosis s/p dilation at [facility], plan for chemo/radiation but not started yet, sent from Dr. Watters (oncologist at [facility]) for reported hypernatremia. #Hypernatremia; likely multifactorial in setting poor PO intake due to recent ga stric surgeries/gastric adenocarcinoma -Resolved. Na 141 today -Per GI, UGI series recommended however pt unable to tolerate PO contrast -Encourage PO hydration; currently on FLD -Switched D5 to 1/2 NS @ 63 -Nephro consulted; cont to monitor Na. Consider Clinimix if PO intake remains poor. #LYDIA; likely pre-renal 2/2 poor PO intake. -Cr improved 1.6 --> 1.3 today; cont to trend BMP -Renal sono showed neg for hydro #Transaminitis; cholestatic pattern. Now normalizing. -Liver sono showed fatty liver vs. hepatocellular disease; no gallstones -GI consulted -Cont to trend LFTs #Hypercalcemia/Hyperphosphatemia; improving. -hx of cancer, dehydrated -Cont Phoslo -PTH pending #Tropinemia; likely 2/2 demand ischemia w/ hx of CAD/post-op NSTEMI -Echo suboptimal in quality, EF 60-65%, impaired LV relaxation, trace to mild MR, mild TR, mildly dilated ascending aorta -Per cardio, recommend pharmacologic lexiscan MPI study. Will re-discuss with caleb mckinley if they would want this study to be done once medically stable #Anorexia; s/p multiple gastric surgeries, esophageal stricture s/p dilatation -Per dietary recs, FLD -GI consulted; not candidate for PEG due to abnormal anatomy s/p subtotal gastrectomy and gastrojejunostomy (bilroth II) with anastomotic stricture s/p di lation at [facility], ex lap/GARRICK/GJ revision/parker en y reconstruction (11/2019) -Cont Remeron for appetite stimulant effects, MVI -HOB elevation with asp precautions -Palliative consult, will assess goals of care with pt's son (Lloyd). #HTN; BP stable. #Constipation; Cont home meds: Dulcolax 10 QD PRN, Senna/Docusae 2 tab QD #Depression; Cont home med: Remeron 15 QD PPX GI: Protonix 20 PO DVT:SQH FEN -/ NS @ 63 -recheck lytes in AM (Na, K, Mg, Phos) -FLD Dispo -Cont to monitor on med-surg -Discussion was made by the residential building inspector during the beginning of admission regarding goals of care. As per this discussion, pt's son, Lloyd would like his father to be treated in the hospital enough to be medically stable to travel back to [place] where he can spend his final days there. In the event of a cardiac arrest or hemodynamic instability, Lloyd expressed that he wants full code so that his father could survive long enough to be able to fly back to [place]. Ongoing discussions regarding goal of care are warranted given guarded prognosis of this patient. Visit type - Emergency Visit Emergency Visit: Yes ED Registration Date: 01/11/20 Care time: The patient presented to the Emergency Department on the above date and was hospitalized for further evaluation of their emergent condition. - New Patient This patient is new to me today: No - Critical Care Critical Care patient: No ATTENDING PHYSICIAN STATEMENT I saw and evaluated the patient. I reviewed the resident's note and discussed the case with the resident. I agree with the resident's findings and plan as documented. SUBJECTIVE: OBJECTIVE: ASSESSMENT AND PLAN:
[2020-01-15 08:02] LABS: HEMATOCRIT 29.2 % (35.4-49); HEMOGLOBIN 8.9 GM/dL (11.7-16.9); MCH 23.1 pg (25.7-33.7); MCHC 30.4 g/dl (32.0-35.9); MEAN CELL VOLUME 75.9 fl (80-96); MEAN PLT VOLUME 11.5 fl (7.5-11.1); RBC 3.84 M/mm3 (4.00-5.60); RDW 22.2 % (11.9-15.9); WHITE BLOOD COUNT 7.5 K/mm3 (4.0-10.0)
[2020-01-15 08:57] LABS: PLATELET COUNT 102 K/MM3 (134-434)
[2020-01-15] MEDS ORDERED: SODIUM CHLORIDE 0.45% 1,000 ML IV SCH (09:45)
[2020-01-15] MEDS: MIRTAZAPINE 15 MG TABLET (FP) PO SCH (10:35)
[2020-01-15] MEDS: MULTIVITAMINS (DAILY MVI) TABLET (FP) PO SCH (10:35)
[2020-01-15] MEDS: PANTOPRAZOLE 20 MG TABLET PO SCH (10:35)
--- NOTE | 2020-01-15 11:18 | PN ---
Progress Note (short form) - Note Progress Note: [place] Note: No cardiac events; Hemodynamically stable; Vital Signs Temperature 98.8 F 01/15/20 09:39 Pulse Rate 69 01/15/20 09:39 Respiratory Rate 18 01/15/20 09:39 Blood Pressure 119/59 L 01/15/20 09:39 O2 Sat by Pulse Oximetry (%) 98 01/14/20 21:00 CBC, BMP 01/15/20 05:40 01/15/20 05:40 Assessment: 11/07/2019 UGI: Concerning for stricture at gastrojejunostomy site 10/31/2019 Echo: Normal LV size and fxn, LVEF 65-70%, normal RV size and fxn,mild MR, TR RVSP 29 mmHg, mod ao dilatation 10/24/2019 Echo: Normal LV size and fxn, LVEF 60-65%, grade II diastolic dysfunction, mild MR, TR RVSP 33 mmHg, mild [place] 1. 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 Hypernatremia and anorexia 3. LYDIA pre-renal 4. CAD with h/o post operative NSTEMI now with demand ischemic injury 5. Diastolic LV dysfunction with clinical class 0 NYHA classification LV failure 6. Post acute blood loss- anemia 7. Sinus bradycardia, transient 2nd degree AV block post-op, since resolved 8. Hypertensive cardiovascular disease 9. Hypokalemia, resolved PLAN: Same: -. Echo: grossly no wall motion abnormality, normal EF; tropnin increase due to microinjury/demand . As outlined in the prior notes avoid AV pao blocking agents given sinus bradycardia . Resume Norvasc 2.5 qd, Lipitor 20 qd, ASA 81 qd once oral intake re- established, hold lisinopril 10 qd pending renal recovery . As outlined in the prior notes plan for Pharmacologic Lexiscan MPI study in the future once clinically stable/fully recovered from the above noted procedures . Continued goals of care of discussion as pts son states he does not want to pursue aggressive measures at this time -Undelying metabolic disorders as per primary team
--- NOTE | 2020-01-15 11:41 | PN ---
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 Course was complicated by 2nd deg AVB & post -op NSTEMI. Patient was sent by oncologist and admitted for hypernatremia-now resolved. Now working up febrile episode ID on board Today: Patient seen and examined at bedside in [facility] Patient is improved today he is conversing in Belarusian appropriately and replies to questions. Family doesnt want aggressive measures & want to transfer him to [place]. Patient had febrile episode,although he denies any coughing, dysuria, frequency urgency fevers or chills. - Current Medication List Current Medications: Active Medications Acetaminophen (Tylenol -) 650 mg PO Q8H PRN PRN Reason: FEVER Last Admin: 01/14/20 15:27 Dose: 650 mg Documented by: Bisacodyl (Dulcolax -) 10 mg PO DAILY PRN PRN Reason: CONSTIPATION Heparin Sodium (Porcine) (Heparin -) 5,000 unit SQ TID [facility] Last Admin: 01/15/20 05:54 Dose: 5,000 unit Documented by: Sodium Chloride (1/2 Normal Saline) 1,000 mls @ 100 mls/hr IV ASDIR [facility] Mirtazapine (Remeron -) 15 mg PO DAILY [facility] Last Admin: 01/15/20 10:35 Dose: 15 mg Documented by: Multivitamins/Minerals/Vitamin C (Tab-A-Vit -) 1 tab PO DAILY [facility] Last Admin: 01/15/20 10:35 Dose: 1 tab Documented by: Pantoprazole Sodium (Protonix -) 20 mg PO DAILY [facility] Last Admin: 01/15/20 10:35 Dose: 20 mg Documented by: Senna/Docusate Sodium (Pericolace -) 2 tablet PO DAILY PRN PRN Reason: CONSTIPATION - Objective Vital Signs: Vital Signs Temperature 98.8 F 01/15/20 09:39 Pulse Rate 69 01/15/20 09:39 Respiratory Rate 18 01/15/20 09:39 Blood Pressure 119/59 L 01/15/20 09:39 O2 Sat by Pulse Oximetry (%) 98 01/14/20 21:00 Labs: CBC, BMP 01/15/20 05:40 01/15/20 05:40 INR, PTT INR 1.01 (0.83-1.09) 01/11/20 14:18 Impression/Plan Impression/Plan: 1-Hypernatermia with poor PO intake-likely multifactorial in the setting of Gastric adenocarcinoma diagnosed 10/2018 s/p subtotal gastrectomy and gastrojejunostomy (bilroth II) with anastomotic stricture s/p dilation at [facility], ex lap/GARRICK/GJ revision/parker en y reconstruction (11/2019) GI consult appreciate recommendations-UGI Series unable to perform as he did not drink contrast Renal consulted IV D5W 100cc/hr changed to 1/2 NS as Na now 145 BMP daily now that Na normalized 2-Febrile episode Asymptomatic CXR- Clear Septic workup BCx, U/A ID consulted as pt has extended hospital stay will likely need broad spec abx Vanc and cefepime initiated 2-Cholestatic pattern of LFT-downtrending RUQ U/S- Fatty liver no gallstones GI on board Trend LFT 3. Hypernatremia -Improving IVF as above 1/2 NS Na downtrending to 145 Renal consulted 4. LYDIA pre-renal in the setting of poor appetite multifactorial-Improving Creatinine trend- 1.6 -->1.3 Trend BUN/Creatinine and Na Urine Electrolytes Renal U/S unremarkable 5.Poor Oral intake with Severe protein-calorie malnutrition in the setting of advanced dementia and hx of Gastric adenocarcinoma Retail Sales Specialist consulted Needs assistance for feeding PO intake improved from few days ago HOB >30 degree elevation to avoid aspiration PEG tube consideration not feasible due to anatomy - discuss with family GOC On Mirtazapine Monitor F/S to avoid hypoglycemia MVM daily 6. CAD with h/o post operative NSTEMI now with demand ischemic injury/Hypertensive cardiovascular disease Cardiology consulted-recommendations appreciated Trend troponin peak along with EKG (0.7 ) GOC discussion with family 7. Diastolic LV dysfunction Echo 10/27- EF 65-70% PASP >29, impaired LV relaxation Cardiology on board Stable 8. Constipation Received fleet enema , senna dulcolax Monitor BM D/C iron 8. Sinus bradycardia, transient 2nd degree AV block [id number] Avoid AVN blocking agents 9. Post acute blood loss- anemia Monitor H/H (stable trend) No evidence of active bleeding 10. Depression Mirtazapine 11. HTN/HLD Hold in light of B/P Stable off medications 12. DVT Px- heparin 5000 units TID GI Px- protonix 20 mg PO daily Dispo- discuss with family GOC and advanced directive-->Family plans to take him to [place] but does not want aggressive measures Palliative consult Visit type - Emergency Visit Emergency Visit: Yes ED Registration Date: 01/11/20 Care time: The patient presented to the Emergency Department on the above date and was hospitalized for further evaluation of their emergent condition. - New Patient This patient is new to me today: No - Critical Care Critical Care patient: No - Discharge Referral Referred to [facility] Med [facility] No
[2020-01-15] MEDS: ACETAMINOPHEN 325 MG TABLET (FP) PO PRN (12:59)
--- NOTE | 2020-01-15 15:12 | CON.ID ---
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 Course was complicated by 2nd deg AVB & post -op NSTEMI. Patient was sent by oncologist and admitted for hypernatremia-now resolved. Now working up febrile episode ID on board - Past Medical History Cardio/Vascular: Yes: HTN - Alcohol/Substance Use Hx Alcohol Use: No - Smoking History Smoking history: Never smoked Have you smoked in the past 12 months: No Home Medications - Allergies Allergies/Adverse Reactions: Allergies Allergy/AdvReac Type Severity Reaction Status Date / Time No Known Allergies Allergy Verified 01/11/20 13:15 - Home Medications Home Medications: Ambulatory Orders Bisacodyl 5 mg PO DAILY 01/11/20 Famotidine 20 mg PO BID 01/11/20 Ferrous Sulfate [Slow Release Iron] 140 mg PO DAILY 01/11/20 Mirtazapine 15 mg PO DAILY 01/11/20 Omeprazole 20 mg PO DAILY 01/11/20 Sennosides/Docusate Sodium [Senna-S Tablet] 2 tab PO DAILY 01/11/20 Ferrous Sulfate 45 mg PO DAILY 01/12/20 Ondansetron HCl [Zofran] 1 tab PO DAILY PRN 01/12/20 Physical Exam Vital Signs: Vital Signs Temperature 102.3 F H 01/15/20 14:44 Pulse Rate 83 01/15/20 14:44 Respiratory Rate 18 01/15/20 14:44 Blood Pressure 97/48 L 01/15/20 14:44 O2 Sat by Pulse Oximetry (%) 98 01/14/20 21:00 Labs: CBC, BMP 01/15/20 05:40 01/15/20 05:40
[2020-01-15] MEDS ORDERED: CEFEPIME HCL 1 GM VIAL (RESTRICTED TO ID) ONE (15:55)
[2020-01-15] MEDS ORDERED: DEXTROSE 5%-WATER - 50 ML IVPB ONE (15:55)
--- NOTE | 2020-01-15 15:59 | PN ---
Progress Note, Physician History of Present Illness: Pt seen and examined at bedside. He appears agitated. - Current Medication List Current Medications: Active Medications Acetaminophen (Tylenol -) 650 mg PO Q8H PRN PRN Reason: FEVER Last Admin: 01/15/20 12:59 Dose: 650 mg Documented by: Bisacodyl (Dulcolax -) 10 mg PO DAILY PRN PRN Reason: CONSTIPATION Heparin Sodium (Porcine) (Heparin -) 5,000 unit SQ TID [facility] Last Admin: 01/15/20 14:29 Dose: 5,000 unit Documented by: Sodium Chloride (1/2 Normal Saline) 1,000 mls @ 100 mls/hr IV ASDIR [facility] Last Admin: 01/15/20 13:23 Dose: 100 mls/hr Documented by: Cefepime HCl (Maxipime 1 Gm Premix Ivpb) 1 gm in 50 mls @ 100 mls/hr IVPB Q8H- IV [facility]; Protocol Cefepime HCl 1 gm/ Dextrose 50 mls @ 100 mls/hr IVPB ONCE ONE; Protocol Stop: 01/15/20 16:29 Mirtazapine (Remeron -) 15 mg PO DAILY [facility] Last Admin: 01/15/20 10:35 Dose: 15 mg Documented by: Multivitamins/Minerals/Vitamin C (Tab-A-Vit -) 1 tab PO DAILY [facility] Last Admin: 01/15/20 10:35 Dose: 1 tab Documented by: Pantoprazole Sodium (Protonix -) 20 mg PO DAILY [facility] Last Admin: 01/15/20 10:35 Dose: 20 mg Documented by: Senna/Docusate Sodium (Pericolace -) 2 tablet PO DAILY PRN PRN Reason: CONSTIPATION - Objective Vital Signs: Vital Signs Temperature 102.3 F H 01/15/20 14:44 Pulse Rate 83 01/15/20 14:44 Respiratory Rate 18 01/15/20 14:44 Blood Pressure 97/48 L 01/15/20 14:44 O2 Sat by Pulse Oximetry (%) 98 01/14/20 21:00 Constitutional: Yes: Anxious HENT: Yes: Atraumatic Cardiovascular: Yes: S1, S2 Respiratory: Yes: CTA Bilaterally Gastrointestinal: Yes: Soft Genitourinary: Yes: WNL Musculoskeletal: Yes: WNL Extremities: Yes: WNL Edema: No Integumentary: Yes: WNL Neurological: Yes: Confusion Psychiatric: Yes: Agitated Labs: CBC, BMP 01/15/20 05:40 01/15/20 05:40 INR, PTT INR 1.01 (0.83-1.09) 01/11/20 14:18 Assessment/Plan Current Medications Generic Name Dose Route Start Last Admin Trade Name Dwightq PRN Reason Stop Dose Admin Acetaminophen 650 mg 01/14/20 15:20 01/15/20 12:59 Tylenol - PO 650 mg Q8H PRN Administration FEVER Bisacodyl 10 mg 01/11/20 17:34 Dulcolax - PO DAILY PRN CONSTIPATION Heparin Sodium (Porcine) 5,000 unit 01/13/20 22:00 01/15/20 14:29 Heparin - SQ 5,000 unit TID [facility] Administration Sodium Chloride 1,000 mls @ 100 mls/hr 01/15/20 09:45 01/15/20 13:23 1/2 Normal Saline IV 100 mls/hr ASDIR [facility] Administration Cefepime HCl 1 gm in 50 mls @ 100 mls/hr 01/15/20 15:15 Maxipime 1 Gm Premix Ivpb IVPB Q8H-IV [facility] Protocol Cefepime HCl 1 gm/ Dextrose 50 mls @ 100 mls/hr 01/15/20 16:00 01/15/20 15:56 IVPB 01/15/20 16:29 100 mls/hr ONCE ONE Administration Protocol Mirtazapine 15 mg 01/12/20 10:00 01/15/20 10:35 Remeron - PO 15 mg DAILY [facility] Administration Multivitamins/Minerals/Vitamin C 1 tab 01/12/20 10:00 01/15/20 10:35 Tab-A-Vit - PO 1 tab DAILY [facility] Administration Pantoprazole Sodium 20 mg 01/12/20 10:00 01/15/20 10:35 Protonix - PO 20 mg DAILY [facility] Administration Senna/Docusate Sodium 2 tablet 01/11/20 17:34 Pericolace - PO DAILY PRN CONSTIPATION Impression 1. hypernatremia 2. uti 3. gastric cancer 4. 2nd degree av block 5. htn 6. hld 7. LYDIA 8. hypercalcemia 9. hypokalemia Plan - sodium is improved - can decrease rate of fluids - repeat labs in am - can evaluate for clinimix if po intake is poor - calcium improving - potassium improved
[2020-01-15] MEDS ORDERED: CEFEPIME 1 GM in DEXTROSE 5%-WATER - 50 ML IVPB ONE (16:00)
[2020-01-15] MEDS: SODIUM CHLORIDE 0.45% 1,000 ML IV SCH (16:59)
[2020-01-15] MEDS: CEFEPIME 1 GM in DEXTROSE 5%-WATER - 50 ML IVPB SCH (17:39)
[2020-01-15 23:58] LABS: EPI CELLS 5.7 /HPF (0-5/HPF); HYALINE CASTS 16 /lpf (0-8); PH,URINE 6.5 (5.0-8.0); URINE APPEARANCE CLEAR; URINE BACTERIA 2.7 /hpf (NEGATIVE); URINE BILIRUBIN NEGATIVE (NEGATIVE); URINE COLOR YELLOW; URINE GLUCOSE (UA) NEGATIVE (NEGATIVE); URINE KETONE TRACE (NEGATIVE); URINE LEUK ESTERASE 1+ (NEGATIVE); URINE NITRITE NEGATIVE (NEGATIVE); URINE PROTEIN TRACE (NEGATIVE); URINE RBC 2 /hpf (0-4); URINE WBC 24 /hpf (0-5)
[2020-01-16] MEDS ORDERED: DEXTROSE 5%-WATER - 50 ML IVPB ONE ×3 (01:52→16:33)
[2020-01-16] MEDS ORDERED: CEFEPIME HCL 1 GM VIAL (RESTRICTED TO ID) ONE ×3 (01:52→16:33)
[2020-01-16] MEDS: CEFEPIME 1 GM in DEXTROSE 5%-WATER - 50 ML IVPB SCH ×3 (01:56→17:56)
[2020-01-16] MEDS: SODIUM CHLORIDE 0.45% 1,000 ML IV SCH ×2 (01:57→17:56)
[2020-01-16] MEDS: HEPARIN NA (PORCINE) 5,000 UNITS/ML 1ML VIAL SQ SCH (06:14)
[2020-01-16 06:40] LABS: HEMATOCRIT 28.2 % (35.4-49); HEMOGLOBIN 8.6 GM/dL (11.7-16.9); MCHC 30.6 g/dl (32.0-35.9); MEAN CELL VOLUME 75.2 fl (80-96); MEAN PLT VOLUME 10.4 fl (7.5-11.1); PLATELET COUNT 89 K/MM3 (134-434); RBC 3.74 M/mm3 (4.00-5.60); RDW 22.3 % (11.9-15.9); WHITE BLOOD COUNT 7.6 K/mm3 (4.0-10.0)
[2020-01-16 07:00] LABS: ALBUMIN 1.8 g/dl (3.4-5.0); BILIRUBIN,TOTAL 0.6 mg/dL (0.2-1); BLOOD UREA NITROGEN 20.5 mg/dL (7-18); CALCIUM 9.4 mg/dL (8.5-10.1); CREATININE 1.1 mg/dL (0.55-1.3); MAGNESIUM 1.9 mg/dL (1.8-2.4); PHOSPHOROUS 1.7 mg/dL (2.5-4.9); POTASSIUM 3.7 mmol/L (3.5-5.1); TOT PROT 5.2 g/dl (6.4-8.2)
[2020-01-16] MEDS ORDERED: POTASSIUM PHOSPHATE 30 MM in DEXTROSE 5%-WATER - 250 ML IVPB ONE (09:00)
--- NOTE | 2020-01-16 10:21 | PN ---
Progress Note, CREOSOTING ENGINEER - Note Progress Note: Selected Entries 01/14/20 01/14/20 01/14/20 01:57 05:54 07:57 Breakfast Lunch Supper Temperature 98.0 F 97.9 F 98.8 F 01/14/20 01/14/20 01/14/20 14:05 14:10 17:00 Breakfast Lunch Supper Temperature 102.1 F H 102.1 F H 100.3 F H 01/14/20 01/14/20 01/14/20 18:00 20:33 22:00 Breakfast Lunch Supper 25% Temperature 99.4 F 97.9 F 01/15/20 01/15/20 01/15/20 01:41 06:00 08:15 Breakfast Lunch Supper Temperature 97.6 F 97.9 F 98.8 F 01/15/20 01/15/20 01/15/20 09:39 09:52 12:45 Breakfast 25% Lunch 25% Supper Temperature 98.8 F 102.6 F H 01/15/20 01/15/20 01/15/20 14:33 14:44 16:03 Breakfast Lunch Supper Temperature 99.8 F H 99.6 F 99.4 F 01/15/20 01/15/20 01/15/20 18:00 22:00 22:44 Breakfast Lunch Supper 25% Temperature 98.6 F 97.9 F 01/16/20 01/16/20 01/16/20 02:09 06:00 08:54 Breakfast Lunch Supper Temperature 98.2 F 98.3 F 97.9 F Laboratory Tests 01/13/20 01/14/20 01/15/20 12:50 15:45 05:40 WBC 10.1 H 11.3 H 7.5 01/16/20 05:50 WBC 7.6 CXR (-) Tolerating diet, more alert, confused
--- NOTE | 2020-01-16 10:39 | PN ---
Progress Note, Physician History of Present Illness: Sensorium improved, still with poor appetite. - Current Medication List Current Medications: Active Medications Acetaminophen (Tylenol -) 650 mg PO Q8H PRN PRN Reason: FEVER Last Admin: 01/15/20 12:59 Dose: 650 mg Documented by: Bisacodyl (Dulcolax -) 10 mg PO DAILY PRN PRN Reason: CONSTIPATION Cefepime HCl 1 gm/ Dextrose 50 mls @ 100 mls/hr IVPB Q8H-IV [facility]; Protocol Last Admin: 01/16/20 01:56 Dose: 100 mls/hr Documented by: Sodium Chloride (1/2 Normal Saline) 1,000 mls @ 63 mls/hr IV ASDIR [facility] Last Admin: 01/16/20 01:57 Dose: 63 mls/hr Documented by: Potassium Phosphate 30 mm/ (Dextrose) 260 mls @ 43.333 mls/hr IVPB ONCE ONE Stop: 01/16/20 14:59 Mirtazapine (Remeron -) 15 mg PO DAILY [facility] Last Admin: 01/15/20 10:35 Dose: 15 mg Documented by: Multivitamins/Minerals/Vitamin C (Tab-A-Vit -) 1 tab PO DAILY [facility] Last Admin: 01/15/20 10:35 Dose: 1 tab Documented by: Pantoprazole Sodium (Protonix -) 20 mg PO DAILY [facility] Last Admin: 01/15/20 10:35 Dose: 20 mg Documented by: Senna/Docusate Sodium (Pericolace -) 2 tablet PO DAILY PRN PRN Reason: CONSTIPATION - Objective Vital Signs: Vital Signs Temperature 97.9 F 01/16/20 08:54 Pulse Rate 65 01/16/20 08:54 Respiratory Rate 16 01/16/20 08:54 Blood Pressure 111/65 01/16/20 08:54 O2 Sat by Pulse Oximetry (%) 96 01/15/20 21:00 Constitutional: Yes: No Distress, Calm, Thin Neck: Yes: Supple Cardiovascular: Yes: Regular Rate and Rhythm Respiratory: Yes: Regular, Diminished Gastrointestinal: Yes: Soft, Hypoactive Bowel Sounds Edema: No Labs: CBC, BMP 01/16/20 05:50 01/16/20 05:50 INR, PTT INR 1.01 (0.83-1.09) 01/11/20 14:18 - ....Imaging EKG: Report Reviewed (Tele: NSR) Problem List - Problems (1) Coronary artery disease Code(s): I25.10 - ATHSCL HEART DISEASE OF [place] CORONARY ARTERY W/O ANG PCTRS Qualifiers: Coronary Disease-Associated Artery/Lesion type: [place] artery [place] vs. transplanted heart: [place] heart Associated angina: without angina Qualified Code(s): I25.10 - Atherosclerotic heart disease of [place] coronary artery without angina pectoris (2) Demand ischemia Code(s): I24.8 - OTHER FORMS OF ACUTE ISCHEMIC HEART DISEASE (3) LYDIA (acute kidney injury) Code(s): N17.9 - ACUTE KIDNEY FAILURE, UNSPECIFIED (4) Elevated troponin Code(s): R79.89 - OTHER SPECIFIED ABNORMAL FINDINGS OF BLOOD CHEMISTRY (5) Hypernatremia Code(s): E87.0 - HYPEROSMOLALITY AND HYPERNATREMIA (6) Poor appetite Code(s): R63.0 - ANOREXIA (7) Gastric carcinoma Code(s): C16.9 - MALIGNANT NEOPLASM OF STOMACH, UNSPECIFIED (8) Hyperlipemia Code(s): E78.5 - HYPERLIPIDEMIA, UNSPECIFIED Qualifiers: Hyperlipidemia type: pure hypercholesterolemia Qualified Code(s): E78.00 - Pure hypercholesterolemia, unspecified; E78.0 - Pure hypercholesterolemia (9) Hypertension Code(s): I10 - ESSENTIAL (PRIMARY) HYPERTENSION Qualifiers: Hypertension type: essential hypertension Qualified Code(s): I10 - Essential (primary) hypertension (11) Very poor nutrition Code(s): E63.9 - NUTRITIONAL DEFICIENCY, UNSPECIFIED Assessment/Plan 11/07/2019 UGI: Concerning for stricture at gastrojejunostomy site 10/31/2019 Echo: Normal LV size and fxn, LVEF 65-70%, normal RV size and fxn,mild MR, TR RVSP 29 mmHg, mod ao dilatation 10/24/2019 Echo: Normal LV size and fxn, LVEF 60-65%, grade II diastolic dysfunction, mild MR, TR RVSP 33 mmHg, mild ID 1. Gastric adenocarcinoma diagnosed 10/2018 s/p subtotal gastrectomy and gastrojejunostomy (bilroth II) with anastomotic stricture s/p dilation at [facility], ex lap/GARRICK/GJ revision/parker en y reconstruction (11/2019) 2. Hypernatremia and anorexia improving 3. LYDIA pre-renal improving 4. CAD with h/o post operative NSTEMI now with demand ischemic injury 5. Diastolic LV dysfunction with clinical class 0 NYHA classification LV failure 6. Post acute blood loss- anemia 7. Sinus bradycardia, transient 2nd degree AV block post-op, since resolved 8. Hypertensive cardiovascular disease 9. Hypokalemia, resolved PLAN: 1. IVF and correction of electrolyte abnormalities 2. Trend trops to document peak 3. As outlined in the prior notes avoid AV pao blocking agents given sinus bradycardia 4. Resume Norvasc 2.5 qd, Lipitor 20 qd, ASA 81 qd once oral intake re- established, hold lisinopril 10 qd pending renal recovery 5. Renal input, diet as tolerated, emphasized small frequent meals in addition to protein supplements 6. Did not tolerate UGI series to re-evaluate anatomy/patency though limited po intake likely multifactorial 7. Pts family states he does not want to pursue aggressive measures, palliative care
[2020-01-16] MEDS: PANTOPRAZOLE 20 MG TABLET PO SCH (11:11)
[2020-01-16] MEDS: MIRTAZAPINE 15 MG TABLET (FP) PO SCH (11:11)
[2020-01-16] MEDS: MULTIVITAMINS (DAILY MVI) TABLET (FP) PO SCH (11:11)
--- NOTE | 2020-01-16 12:55 | PN ---
Physical Exam: SUBJECTIVE: Patient seen and examined at the bedside. Was not answering all questions appropriately and appeared confused. Did not complain of pain. OBJECTIVE: Vital Signs Period Temp Pulse Resp BP Sys/Newman Pulse Ox Last 24 Hr 97.9 F-99.8 F 55-83 16-18 89-111/46-65 96-96 GENERAL: The patient is awake, alert, and confused. Not answering all questions appropriately but does follow commands appropriately. Pashto speaking. Cachectic. EYES: PERRL, extraocular movements intact, conjunctiva clear. ENT: Oropharynx clear without exudates, dry mucous membranes. LUNGS: Breath sounds equal, clear to auscultation bilaterally, no wheezes, no crackles, no accessory muscle use. HEART: Regular rate and rhythm, S1, S2 without murmur. ABDOMEN: Soft, nontender, nondistended, normoactive bowel sounds, no guarding, no rebound, no masses. EXTREMITIES: 2+ pulses, warm, well-perfused, no edema. SKIN: Warm, dry, normal turgor, no rashes or lesions noted Laboratory Results - last 24 hr 01/15/20 01/16/20 01/16/20 23:47 05:50 05:50 WBC 7.6 RBC 3.74 L Hgb 8.6 L Hct 28.2 L MCV 75.2 L MCH 23.0 L MCHC 30.6 L RDW 22.3 H Plt Count 89 L MPV 10.4 Sodium 140 Potassium 3.7 Chloride 111 H Carbon Dioxide 24 Anion Gap 5 L BUN 20.5 H Creatinine 1.1 Est GFR (CKD-EPI)AfAm 73.09 Est GFR (CKD-EPI)NonAf 63.07 Random Glucose 88 Calcium 9.4 Phosphorus 1.7 L Magnesium 1.9 Total Bilirubin 0.6 AST 34 ALT 46 Alkaline Phosphatase 169 H Total Protein 5.2 L Albumin 1.8 L Urine Color Yellow Urine Appearance Clear Urine pH 6.5 Ur Specific [place] 1.021 Urine Protein Trace Urine Glucose (UA) Negative Urine Ketones Trace H Urine Blood Negative Urine Nitrite Negative Urine Bilirubin Negative Urine Urobilinogen 1.0 Ur Leukocyte Esterase 1+ H Urine WBC (Auto) 24 Urine RBC (Auto) 2 Urine Casts (Auto) 16 U Epithel Cells (Auto) 5.7 U Sm Round Cell (Auto) None Urine Bacteria (Auto) 2.7 Active Medications Generic Name Dose Route Start Last Admin Trade Name Freq PRN Reason Stop Dose Admin Acetaminophen 650 mg 01/14/20 15:20 01/15/20 12:59 Tylenol - PO 650 mg Q8H PRN Administration FEVER Bisacodyl 10 mg 01/11/20 17:34 Dulcolax - PO DAILY PRN CONSTIPATION Cefepime HCl 1 gm/ Dextrose 50 mls @ 100 mls/hr 01/15/20 17:00 01/16/20 11:11 IVPB 100 mls/hr Q8H-IV [facility] Administration Protocol Sodium Chloride 1,000 mls @ 63 mls/hr 01/15/20 15:59 01/16/20 01:57 1/2 Normal Saline IV 63 mls/hr ASDIR [facility] Administration Potassium Phosphate 30 mm/ 260 mls @ 43.333 mls/hr 01/16/20 09:00 01/16/20 11:40 Dextrose IVPB 01/16/20 14:59 43.333 mls/hr ONCE ONE Administration 30 MM/6 HR Mirtazapine 15 mg 01/12/20 10:00 01/16/20 11:11 Remeron - PO 15 mg DAILY [facility] Administration Multivitamins/Minerals/Vitamin C 1 tab 01/12/20 10:00 01/16/20 11:11 Tab-A-Vit - PO 1 tab DAILY [facility] Administration Pantoprazole Sodium 20 mg 01/12/20 10:00 01/16/20 11:11 Protonix - PO 20 mg DAILY [facility] Administration Senna/Docusate Sodium 2 tablet 01/11/20 17:34 Pericolace - PO DAILY PRN CONSTIPATION ASSESSMENT/PLAN: Stevenson Phelps is an 79 year old male with a past medical history of HTN, HLD, recent admission to the ED on 10/12/19 for symptomatic anemia, EGD on 10/17/19 which showed mass on gastric antrum, s/p 10/2018 s/p subtotal gastrectomy and gastrojejunostomy (bilroth II) with anastomotic stricture s/p dilation at [facility], ex lap/GARRICK/GJ revision/parker en y reconstruction (11/2019). Course was complicated by 2nd deg AVB & post -op NSTEMI. Subsequently 11/07/19 patient had poor appetite and barium series showed stricture at anastamosis s/p dilation at [facility]. Patient was sent here by oncologist for hypernatremia. Has hx of poor appetite since surgery w/ barium series 11/07/19 showing stricture at anastamosis s/p dilation at [facility], plan for chemo/radiation but not started yet, sent from Dr. Watters (oncologist at [facility]) for reported hypernatremia. Hypernatremia - likely multifactorial in setting poor PO intake due to recent gastric surgeries/gastric adenocarcinoma - Resolved. Na 140 today - Per GI, UGI series recommended however pt unable to tolerate PO contrast - Encourage PO hydration - 1/2 NS @ 63 - Nephro consulted; cont to monitor Na. Consider Clinimix if PO intake remains poor. Fevers - cefepime 1gm q8h - ID consulted, recs appreciated - UA negative for infection - CXR without infiltrate - possibly related to underlying malignancy - blood cultures negative LYDIA - likely pre-renal 2/2 poor PO intake. - CRE improved, today 1.1 - Renal sono showed neg for hydro Thrombocytopenia - decreased since admission - possible in the setting of infection vs malignancy - hold heparin Transaminitis - Liver sono showed fatty liver vs. hepatocellular disease; no gallstones - GI consulted - improved Hypercalcemia - hx of cancer, dehydrated - PTH pending Tropinemia - likely 2/2 demand ischemia w/ hx of CAD/post-op NSTEMI - Echo suboptimal in quality, EF 60-65%, impaired LV relaxation, trace to mild MR, mild TR, mildly dilated ascending aorta - Per cardio, recommend pharmacologic lexiscan MPI study Anorexia - s/p multiple gastric surgeries, esophageal stricture s/p dilatation - Per dietary recs, FLD - GI consulted; not candidate for PEG due to abnormal anatomy s/p subtotal gastrectomy and gastrojejunostomy (bilroth II) with anastomotic stricture s/p dilation at [facility], ex lap/GARRICK/GJ revision/parker en y reconstruction (11/2019) - upper GI series ordered - Cont Remeron for appetite stimulant effects, MVI - HOB elevation with asp precautions HTN - stable Constipation - Cont home meds: Dulcolax 10 QD PRN, Senna/Docusae 2 tab QD Depression - Cont home med: Remeron 15 QD DVT PPx - SCDs FEN - 1/2 NS @ 63 - continue to monitor electrolytes and replete as necessary. hypophosphatemia noted and repleting - full liquid diet Dispo - continue to monitor on telemetry - Discussion was made by the resident services coordinator during the beginning of admission regarding goals of care. As per this discussion, pt's son, Lloyd would like his father to be treated in the hospital enough to be medically stable to travel back to [place] where he can spend his final days there. - DNR/DNI Visit type - Emergency Visit Emergency Visit: Yes ED Registration Date: 01/11/20 Care time: The patient presented to the Emergency Department on the above date and was hospitalized for further evaluation of their emergent condition. - New Patient This patient is new to me today: Yes Date on this admission: 01/16/20 - Critical Care Critical Care patient: No
--- NOTE | 2020-01-16 13:21 | PN ---
Progress Note, Physician History of Present Illness: improving patient in restraints - Current Medication List Current Medications: Active Medications Acetaminophen (Tylenol -) 650 mg PO Q8H PRN PRN Reason: FEVER Last Admin: 01/15/20 12:59 Dose: 650 mg Documented by: Bisacodyl (Dulcolax -) 10 mg PO DAILY PRN PRN Reason: CONSTIPATION Heparin Sodium (Porcine) (Heparin -) 5,000 unit SQ BID [facility] Cefepime HCl 1 gm/ Dextrose 50 mls @ 100 mls/hr IVPB Q8H-IV MEME; Protocol Last Admin: 01/16/20 11:11 Dose: 100 mls/hr Documented by: Sodium Chloride (1/2 Normal Saline) 1,000 mls @ 63 mls/hr IV ASDIR [facility] Last Admin: 01/16/20 01:57 Dose: 63 mls/hr Documented by: Potassium Phosphate 30 mm/ (Dextrose) 260 mls @ 43.333 mls/hr IVPB ONCE ONE Stop: 01/16/20 14:59 Last Admin: 01/16/20 11:40 Dose: 43.333 mls/hr Documented by: Mirtazapine (Remeron -) 15 mg PO DAILY [facility] Last Admin: 01/16/20 11:11 Dose: 15 mg Documented by: Multivitamins/Minerals/Vitamin C (Tab-A-Vit -) 1 tab PO DAILY [facility] Last Admin: 01/16/20 11:11 Dose: 1 tab Documented by: Pantoprazole Sodium (Protonix -) 20 mg PO DAILY [facility] Last Admin: 01/16/20 11:11 Dose: 20 mg Documented by: Senna/Docusate Sodium (Pericolace -) 2 tablet PO DAILY PRN PRN Reason: CONSTIPATION - Objective Vital Signs: Vital Signs Temperature 97.9 F 01/16/20 08:54 Pulse Rate 65 01/16/20 08:54 Respiratory Rate 16 01/16/20 08:54 Blood Pressure 111/65 01/16/20 08:54 O2 Sat by Pulse Oximetry (%) 96 01/16/20 10:00 Constitutional: Yes: Calm, Other Cardiovascular: Yes: S1, S2 Respiratory: Yes: Regular, CTA Bilaterally Gastrointestinal: Yes: Normal Bowel Sounds, Soft Musculoskeletal: Yes: WNL Extremities: Yes: Other Neurological: Yes: Alert Psychiatric: Yes: Alert Labs: CBC, BMP 01/16/20 05:50 01/16/20 05:50 INR, PTT INR 1.01 (0.83-1.09) 01/11/20 14:18 Assessment/Plan 79 y/o M with a PMHx of HTN, HLD, recent admission to the ED on 10/12/19 for symptomatic anemia, EGD on 10/17/19 which showed mass on gastric antrum, s/p 10/2018 s/p subtotal gastrectomy and gastrojejunostomy (bilroth II) with anastom otic stricture s/p dilation at [facility], ex lap/GARRICK/GJ revision/parker en y reconstruction (11/2019). Course was complicated by 2nd deg AVB & post -op NSTEMI. Subsequently 11/07/19 patient had poor appetite and barium series showed stricture at anastamosis s/p dilation at [facility]. Patient was sent here by oncologist for hypernatremia. poor appetite since surgery w/ barium series 11/07/19 showing stricture at anastamosis s/p dilation at [facility], plan for chemo/radiation but not started yet, sent from Dr. Watters (oncologist at [facility]) for reported hypernatremia. sepsis roxie hypercalcemia fever constipation depression plan continue abx rest as per the team
--- NOTE | 2020-01-16 14:13 | PN ---
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 Course was complicated by 2nd deg AVB & post -op NSTEMI. Patient was sent by oncologist and admitted for hypernatremia-now resolved. Hospital course complicated with febrile episode ID on board ( on cefepime 01/13-TD) Today: Patient seen and examined at bedside in [facility] Family doesnt want aggressive measures & want to transfer him to [place]. Patient had febrile episode 01/14 ,although he denies any coughing, dysuria, frequency urgency fevers or chills. - Current Medication List Current Medications: Active Medications Acetaminophen (Tylenol -) 650 mg PO Q8H PRN PRN Reason: FEVER Last Admin: 01/15/20 12:59 Dose: 650 mg Documented by: Bisacodyl (Dulcolax -) 10 mg PO DAILY PRN PRN Reason: CONSTIPATION Cefepime HCl 1 gm/ Dextrose 50 mls @ 100 mls/hr IVPB Q8H-IV MEME; Protocol Last Admin: 01/16/20 11:11 Dose: 100 mls/hr Documented by: Sodium Chloride (1/2 Normal Saline) 1,000 mls @ 63 mls/hr IV ASDIR [facility] Last Admin: 01/16/20 01:57 Dose: 63 mls/hr Documented by: Potassium Phosphate 30 mm/ (Dextrose) 260 mls @ 43.333 mls/hr IVPB ONCE ONE Stop: 01/16/20 14:59 Last Admin: 01/16/20 11:40 Dose: 43.333 mls/hr Documented by: Mirtazapine (Remeron -) 15 mg PO DAILY [facility] Last Admin: 01/16/20 11:11 Dose: 15 mg Documented by: Multivitamins/Minerals/Vitamin C (Tab-A-Vit -) 1 tab PO DAILY [facility] Last Admin: 01/16/20 11:11 Dose: 1 tab Documented by: Pantoprazole Sodium (Protonix -) 20 mg PO DAILY [facility] Last Admin: 01/16/20 11:11 Dose: 20 mg Documented by: Senna/Docusate Sodium (Pericolace -) 2 tablet PO DAILY PRN PRN Reason: CONSTIPATION - Objective Vital Signs: Vital Signs Temperature 97.9 F 01/16/20 08:54 Pulse Rate 65 01/16/20 08:54 Respiratory Rate 16 01/16/20 08:54 Blood Pressure 111/65 01/16/20 08:54 O2 Sat by Pulse Oximetry (%) 96 01/16/20 10:00 Constitutional: Yes: Calm, Cachectic Cardiovascular: Yes: WNL Respiratory: Yes: WNL Gastrointestinal: Yes: WNL, Normal Bowel Sounds Labs: CBC, BMP 01/16/20 05:50 01/16/20 05:50 INR, PTT INR 1.01 (0.83-1.09) 01/11/20 14:18 Impression/Plan Impression/Plan: 1-Hypernatermia with poor PO intake-likely multifactorial in the setting of Gastric adenocarcinoma diagnosed 10/2018 s/p subtotal gastrectomy and gastrojejunostomy (bilroth II) with anastomotic stricture s/p dilation at [facility], ex lap/GARRICK/GJ revision/parker en y reconstruction (11/2019) GI consult appreciate recommendations-UGI Series unable to perform as he did not drink contrast Renal consulted IV 1/2 NS BMP daily now that Na normalizedI HPB>30 and assisted feeding 2-Febrile episode Asymptomatic CXR- No infiltrates Septic workup [id number] On cefepime since 01/13 Keep IVF in light of poor PO intake as above 3- Thrombocytopenia 4T- 2/4 Platelet 89 (174 on admission) D/C Heparin Send Hep C , HIV Send AbPF4 Trend daily Currently no s/sx of active bleed-monitor 2-Cholestatic pattern of LFT-downtrending AST -34 ALT 46 ALP 169 -->Improving RUQ U/S- Fatty liver no gallstones GI on board Trend LFT 3. Hypernatremia -Resolved IVF as above 1/2 NS Na 140 Renal on board 4. LYDIA pre-renal in the setting of poor appetite multifactorial-Improving Creatinine trend- 1.6 -->1.3-->1.1 Trend BUN/Creatinine and Na Urine Electrolytes Renal U/S unremarkable 5.Poor Oral intake with Severe protein-calorie malnutrition in the setting of advanced dementia and hx of Gastric adenocarcinoma Bankruptcy Manager consulted Needs assistance for feeding PO intake improved from few days ago HOB >30 degree elevation to avoid aspiration PEG tube consideration not feasible due to anatomy - discuss with family GOC On Mirtazapine Monitor F/S to avoid hypoglycemia MVM daily 6. CAD with h/o post operative NSTEMI now with demand ischemic injury/Hypertensive cardiovascular disease Cardiology consulted-recommendations appreciated Trend troponin peak along with EKG (0.7 ) GOC discussion with family 7. Diastolic LV dysfunction Echo 10/27- EF 65-70% PASP >29, impaired LV relaxation Cardiology on board Stable 8. Constipation Received fleet enema , senna dulcolax Monitor BM D/C iron 8. Sinus bradycardia, transient 2nd degree AV block [id number] Avoid AVN blocking agents 9. Post acute blood loss- anemia Monitor H/H (stable trend) No evidence of active bleeding 10. Depression Mirtazapine 11. HTN/HLD Hold in light of B/P Stable off medications 12.Supportive DVT Px- heparin 5000 units TID-held d/2 thrombocytopenia GI Px- protonix 20 mg PO daily Dispo- discuss with family GOC and advanced directive now DNR/DNI -->Family plans to take him to [place] / does not want aggressive measures Visit type - Emergency Visit Emergency Visit: Yes ED Registration Date: 01/11/20 Care time: The patient presented to the Emergency Department on the above date and was hospitalized for further evaluation of their emergent condition. - New Patient This patient is new to me today: No - Critical Care Critical Care patient: No - Discharge Referral Referred to [facility] Med P.C.: No
--- NOTE | 2020-01-16 15:41 | PN ---
Progress Note, Physician History of Present Illness: Pt seen and examined at bedside. He is awake but confused. - Current Medication List Current Medications: Active Medications Acetaminophen (Tylenol -) 650 mg PO Q8H PRN PRN Reason: FEVER Last Admin: 01/15/20 12:59 Dose: 650 mg Documented by: Bisacodyl (Dulcolax -) 10 mg PO DAILY PRN PRN Reason: CONSTIPATION Cefepime HCl 1 gm/ Dextrose 50 mls @ 100 mls/hr IVPB Q8H-IV MEME; Protocol Last Admin: 01/16/20 11:11 Dose: 100 mls/hr Documented by: Sodium Chloride (1/2 Normal Saline) 1,000 mls @ 63 mls/hr IV ASDIR [facility] Last Admin: 01/16/20 01:57 Dose: 63 mls/hr Documented by: Mirtazapine (Remeron -) 15 mg PO DAILY [facility] Last Admin: 01/16/20 11:11 Dose: 15 mg Documented by: Multivitamins/Minerals/Vitamin C (Tab-A-Vit -) 1 tab PO DAILY [facility] Last Admin: 01/16/20 11:11 Dose: 1 tab Documented by: Pantoprazole Sodium (Protonix -) 20 mg PO DAILY [facility] Last Admin: 01/16/20 11:11 Dose: 20 mg Documented by: Senna/Docusate Sodium (Pericolace -) 2 tablet PO DAILY PRN PRN Reason: CONSTIPATION - Objective Vital Signs: Vital Signs Temperature 98.4 F 01/16/20 14:00 Pulse Rate 52 L 01/16/20 14:00 Respiratory Rate 16 01/16/20 14:00 Blood Pressure 109/58 L 01/16/20 14:00 O2 Sat by Pulse Oximetry (%) 96 01/16/20 10:00 Constitutional: Yes: Calm Eyes: Yes: Conjunctiva Clear HENT: Yes: Atraumatic Neck: Yes: Supple Cardiovascular: Yes: S1, S2 Respiratory: Yes: CTA Bilaterally Gastrointestinal: Yes: Soft Genitourinary: Yes: Incontinence Musculoskeletal: Yes: WNL Edema: No Integumentary: Yes: WNL Neurological: Yes: Confusion Labs: CBC, BMP 01/16/20 05:50 01/16/20 05:50 INR, PTT INR 1.01 (0.83-1.09) 01/11/20 14:18 Assessment/Plan Current Medications Generic Name Dose Route Start Last Admin Trade Name Rodrigo PRN Reason Stop Dose Admin Acetaminophen 650 mg 01/14/20 15:20 01/15/20 12:59 Tylenol - PO 650 mg Q8H PRN Administration FEVER Bisacodyl 10 mg 01/11/20 17:34 Dulcolax - PO DAILY PRN CONSTIPATION Cefepime HCl 1 gm/ Dextrose 50 mls @ 100 mls/hr 01/15/20 17:00 01/16/20 11:11 IVPB 100 mls/hr Q8H-IV MEME Administration Protocol Sodium Chloride 1,000 mls @ 63 mls/hr 01/15/20 15:59 01/16/20 01:57 1/2 Normal Saline IV 63 mls/hr ASDIR [facility]E Administration Mirtazapine 15 mg 01/12/20 10:00 01/16/20 11:11 Remeron - PO 15 mg DAILY [facility] Administration Multivitamins/Minerals/Vitamin C 1 tab 01/12/20 10:00 01/16/20 11:11 Tab-A-Vit - PO 1 tab DAILY [facility]E Administration Pantoprazole Sodium 20 mg 01/12/20 10:00 01/16/20 11:11 Protonix - PO 20 mg DAILY [facility]E Administration Senna/Docusate Sodium 2 tablet 01/11/20 17:34 Pericolace - PO DAILY PRN CONSTIPATION Impression 1. hypernatremia 2. uti 3. gastric cancer 4. 2nd degree av block 5. htn 6. hld 7. ROXIE 8. hypercalcemia 9. hypokalemia Plan - renal function improving, roxie in part from pre-renal disease - cont fluids for now - sodium stable - encourage po intake - repeat labs in am
[2020-01-16] MEDS ORDERED: HEPARIN NA (PORCINE) 5,000 UNITS/ML 1ML VIAL SQ SCH (22:00)
[2020-01-17] MEDS ORDERED: CEFEPIME HCL 1 GM VIAL (RESTRICTED TO ID) ONE ×3 (01:40→17:30)
[2020-01-17] MEDS ORDERED: DEXTROSE 5%-WATER - 50 ML IVPB ONE ×3 (01:40→17:30)
[2020-01-17] MEDS: CEFEPIME 1 GM in DEXTROSE 5%-WATER - 50 ML IVPB SCH ×3 (01:54→17:43)
[2020-01-17] MEDS: SODIUM CHLORIDE 0.45% 1,000 ML IV SCH (06:00)
[2020-01-17 06:40] LABS: BASO % 0.2 % (0-2.0); EOS % 0.9 % (0-4.5); HEMATOCRIT 30.2 % (35.4-49); HEMOGLOBIN 9.4 GM/dL (11.7-16.9); LYMPH % 8.6 % (8-40); MCHC 31.2 g/dl (32.0-35.9); MEAN CELL VOLUME 73.8 fl (80-96); MEAN PLT VOLUME 9.6 fl (7.5-11.1); MONO % 4.9 % (3.8-10.2); NEUT % 85.4 % (42.8-82.8); PLATELET COUNT 123 K/MM3 (134-434); RBC 4.09 M/mm3 (4.00-5.60); RDW 22.6 % (11.9-15.9)
[2020-01-17 07:13] LABS: BILIRUBIN,TOTAL 0.5 mg/dL (0.2-1); BLOOD UREA NITROGEN 13.9 mg/dL (7-18); CALCIUM 10.2 mg/dL (8.5-10.1); MAGNESIUM 2.1 mg/dL (1.8-2.4); PHOSPHOROUS 1.9 mg/dL (2.5-4.9); POTASSIUM 3.5 mmol/L (3.5-5.1); TOT PROT 6.1 g/dl (6.4-8.2)
[2020-01-17] MEDS ORDERED: POTASSIUM PHOSPHATE 30 MM in SODIUM CHLORIDE 500 ML IVPB ONE (09:00)
[2020-01-17] MEDS: MULTIVITAMINS (DAILY MVI) TABLET (FP) PO SCH (09:21)
[2020-01-17] MEDS: PANTOPRAZOLE 20 MG TABLET PO SCH (09:22)
[2020-01-17] MEDS: MIRTAZAPINE 15 MG TABLET (FP) PO SCH (09:22)
[2020-01-17] MEDS ORDERED: PT OWN MED DRAWER 7, Y5N ONE (09:56)
--- NOTE | 2020-01-17 10:53 | PN ---
Progress Note (short form) - Note Progress Note: Chief Complaint: Events noted, notes reviewed, resting in bed, confused and disoriented- family members at the bedside including his son, denies any chest pain or dyspnea History of Present Illness: Seen and examined on telemetry. Events noted, notes reviewed, resting in bed, confused and disoriented- family members at the bedside including his son, denies any chest pain or dyspnea - Current Medication List Current Medications Acetaminophen (Tylenol -) 650 mg PO Q8H PRN PRN Reason: FEVER Last Admin: 01/15/20 12:59 Dose: 650 mg Documented by: Bisacodyl (Dulcolax -) 10 mg PO DAILY PRN PRN Reason: CONSTIPATION Cefepime HCl 1 gm/ Dextrose 50 mls @ 100 mls/hr IVPB Q8H-IV MEME; Protocol Last Admin: 01/17/20 09:21 Dose: 100 mls/hr Documented by: Sodium Chloride (1/2 Normal Saline) 1,000 mls @ 63 mls/hr IV ASDIR [facility] Last Admin: 01/17/20 06:00 Dose: 63 mls/hr Documented by: Potassium Phosphate 30 mm/ (Sodium Chloride) 510 mls @ 62.5 mls/hr IVPB ONCE ONE Stop: 01/17/20 17:09 Mirtazapine (Remeron -) 15 mg PO DAILY [facility] Last Admin: 01/17/20 09:22 Dose: 15 mg Documented by: Multivitamins/Minerals/Vitamin C (Tab-A-Vit -) 1 tab PO DAILY [facility] Last Admin: 01/17/20 09:21 Dose: 1 tab Documented by: Pantoprazole Sodium (Protonix -) 20 mg PO DAILY [facility] Last Admin: 01/17/20 09:22 Dose: 20 mg Documented by: Senna/Docusate Sodium (Pericolace -) 2 tablet PO DAILY PRN PRN Reason: CONSTIPATION Review of Systems Constitutional: denies: Chills or Fever Cardiovascular: as noted above Respiratory: denies: Cough Gastrointestinal: denies: Nausea, Vomiting, Diarrhea or Constipation reports Abdominal Pain Genitourinary: denies: Dysuria Musculoskeletal: denies: Joint Pain Neurological: denies: Dizziness or Headache - Objective Vital Signs: Last Vital Signs Temp Pulse Resp BP Pulse Ox 98.8 F 70 18 128/90 96 01/17/20 08:43 01/17/20 08:43 01/17/20 08:43 01/17/20 08:43 01/16/20 21:00 Intake & Output 01/14/20 01/15/20 01/16/20 01/17/20 22:59 23:59 23:59 23:59 Intake Total 1090 750 Balance 1090 750 Neck: Supple Negative JVD No Bruit Respiratory: Scattered Rhonchi Bilaterally Cardiovascular: S1 S2 Regular Rate Rhythm Gastrointestinal: Soft Benign Normal Bowel Sounds Ext: Negative Edema Labs: CBC, BMP 01/17/20 06:00 01/17/20 06:00 Hepatic Panel Total Bilirubin 0.5 mg/dL (0.2-1) 01/17/20 06:00 AST 37 U/L (15-37) 01/17/20 06:00 ALT 45 U/L (13-61) 01/17/20 06:00 Alkaline Phosphatase 208 U/L (45-117) H 01/17/20 06:00 Albumin 2.0 g/dl (3.4-5.0) L 01/17/20 06:00 INR, PTT INR 1.01 (0.83-1.09) 01/11/20 14:18 Assessment/Plan ASSESSMENT: 1. Gastric adeno-carcinoma post subtotal gastrectomy, omentectomy, gastrojejunostomy, anastomotic stricture post dilatation, post exploratory laparotomy/lysis of adhesions/gastrojejunostomy revision Porter-en-Y reconstruction 2. CAD with evidence of post operative NSTEMI angina pectoris 3. Diastolic LV dysfunction with clinical class 0 NYHA classification LV failure 4. Post acute blood loss- anemia 5. Sinus bradycardia, transient 2nd degree AV block post-op, since resolved 6. Hypertensive cardiovascular disease 7. Hypernatremia, resolved 8. Hypokalemia, resolved 9. Anemia and thrombocytopenia PLAN: 1. As outlined in the prior notes avoid AV pao blocking agents given sinus bradycardia 2. Recommend resumption of Norvasc, Hemodynamics permitting 3. Recommend resumption of Lisinopril, Hemodynamics permitting and once renal function at baseline 4. Defer reinitiation of Lipitor therapy considering his overall status 5. Defer reinitiation of ASA therapy considering the above-noted anemia/thromb ocytopenia and his overall status 6. Consideration for palliative care as outlined in yesterday's Cardiology note Christine Lucero M.D.
--- NOTE | 2020-01-17 12:02 | PN ---
Progress Note, REPORTS ANALYSIS MANAGER - Note Progress Note: Selected Entries 01/14/20 01/14/20 01/14/20 01:57 05:54 07:57 Breakfast Lunch Supper Temperature 98.0 F 97.9 F 98.8 F 01/14/20 01/14/20 01/14/20 14:05 14:10 17:00 Breakfast Lunch Supper Temperature 102.1 F H 102.1 F H 100.3 F H 01/14/20 01/14/20 01/14/20 18:00 20:33 22:00 Breakfast Lunch Supper 25% Temperature 99.4 F 97.9 F 01/15/20 01/15/20 01/15/20 01:41 06:00 08:15 Breakfast Lunch Supper Temperature 97.6 F 97.9 F 98.8 F 01/15/20 01/15/20 01/15/20 09:39 09:52 12:45 Breakfast 25% Lunch 25% Supper Temperature 98.8 F 102.6 F H 01/15/20 01/15/20 01/15/20 14:33 14:44 16:03 Breakfast Lunch Supper Temperature 99.8 F H 99.6 F 99.4 F 01/15/20 01/15/20 01/15/20 18:00 22:00 22:44 Breakfast Lunch Supper 25% Temperature 98.6 F 97.9 F 01/16/20 01/16/20 01/16/20 02:09 06:00 08:54 Breakfast Lunch Supper Temperature 98.2 F 98.3 F 97.9 F Laboratory Tests 01/13/20 01/14/20 01/15/20 12:50 15:45 05:40 WBC 10.1 H 11.3 H 7.5 01/16/20 05:50 WBC 7.6 CXR (-) Tolerating diet, sleepy, confused, restrained. Palliative care appreciated
--- NOTE | 2020-01-17 12:35 | PN ---
Progress Note, Physician History of Present Illness: stable no new issues - Current Medication List Current Medications: Active Medications Acetaminophen (Tylenol -) 650 mg PO Q8H PRN PRN Reason: FEVER Last Admin: 01/15/20 12:59 Dose: 650 mg Documented by: Bisacodyl (Dulcolax -) 10 mg PO DAILY PRN PRN Reason: CONSTIPATION Cefepime HCl 1 gm/ Dextrose 50 mls @ 100 mls/hr IVPB Q8H-IV MEME; Protocol Last Admin: 01/17/20 09:21 Dose: 100 mls/hr Documented by: Sodium Chloride (1/2 Normal Saline) 1,000 mls @ 63 mls/hr IV ASDIR [facility] Last Admin: 01/17/20 06:00 Dose: 63 mls/hr Documented by: Potassium Phosphate 30 mm/ (Sodium Chloride) 510 mls @ 62.5 mls/hr IVPB ONCE ONE Stop: 01/17/20 17:09 Mirtazapine (Remeron -) 15 mg PO DAILY [facility] Last Admin: 01/17/20 09:22 Dose: 15 mg Documented by: Multivitamins/Minerals/Vitamin C (Tab-A-Vit -) 1 tab PO DAILY [facility] Last Admin: 01/17/20 09:21 Dose: 1 tab Documented by: Pantoprazole Sodium (Protonix -) 20 mg PO DAILY [facility] Last Admin: 01/17/20 09:22 Dose: 20 mg Documented by: Senna/Docusate Sodium (Pericolace -) 2 tablet PO DAILY PRN PRN Reason: CONSTIPATION - Objective Vital Signs: Vital Signs Temperature 98.8 F 01/17/20 08:43 Pulse Rate 70 01/17/20 08:43 Respiratory Rate 18 01/17/20 08:43 Blood Pressure 128/90 01/17/20 08:43 O2 Sat by Pulse Oximetry (%) 96 01/16/20 21:00 Constitutional: Yes: No Distress, Calm Cardiovascular: Yes: S1, S2 Respiratory: Yes: Regular, CTA Bilaterally Gastrointestinal: Yes: Normal Bowel Sounds, Soft Musculoskeletal: Yes: WNL Extremities: Yes: WNL Neurological: Yes: Alert, Oriented Psychiatric: Yes: Alert, Oriented Labs: CBC, BMP 01/17/20 06:00 01/17/20 06:00 INR, PTT INR 1.01 (0.83-1.09) 01/11/20 14:18 Assessment/Plan 79 y/o M with a PMHx of HTN, HLD, recent admission to the ED on 10/12/19 for symptomatic anemia, EGD on 10/17/19 which showed mass on gastric antrum, s/p 10/2018 s/p subtotal gastrectomy and gastrojejunostomy (bilroth II) with anastomotic stricture s/p dilation at [facility], ex lap/GARRICK/GJ revision/parker en y reconstruction (11/2019). Course was complicated by 2nd deg AVB & post -op NSTEMI. Subsequently 11/07/19 patient had poor appetite and barium series showed stricture at anastamosis s/p dilation at [facility]. Patient was sent here by oncologist for hypernatremia. poor appetite since surgery w/ barium series 11/07/19 showing stricture at anastamosis s/p dilation at [facility], plan for chemo/radiation but not started yet, sent from Dr. Watters (oncologist at [facility]) for reported hypernatremia. sepsis roxie hypercalcemia fever constipation depression plan continue abx rest as per the team
--- NOTE | 2020-01-17 13:07 | PN ---
Teaching Attending Note Name of Resident: Brendan Mansfield ATTENDING PHYSICIAN STATEMENT I saw and evaluated the patient. I reviewed the resident's note and discussed the case with the resident. I agree with the resident's findings and plan as documented. SUBJECTIVE: Feeling well, no complaints. No fever/chills. Moderate oral intake of fluids. No nausea/vomiting. OBJECTIVE: Afebrile, Hemodynamically Stable. Last Vital Signs Temp Pulse Resp BP Pulse Ox 98.8 F 70 18 128/90 96 01/17/20 08:43 01/17/20 08:43 01/17/20 08:43 01/17/20 08:43 01/16/20 21:00 HEENT - Atraumatic, Normocephalic. Cachectic. Heart - S1, S2, RRR Lungs - clear to auscultation Abdomen - Soft, non-tender. Bowel Sounds normal. Extremities - no edema, no calf tenderness. Neuro - AAO x 2. Tone/Power normal. Laboratory Results - last 24 hr 01/17/20 01/17/20 01/17/20 06:00 06:00 07:50 WBC 6.0 RBC 4.09 Hgb 9.4 L Hct 30.2 L MCV 73.8 L MCH 23.0 L MCHC 31.2 L RDW 22.6 H Plt Count 123 L D MPV 9.6 Absolute Neuts (auto) 5.1 Neutrophils % 85.4 H Lymphocytes % 8.6 D Monocytes % 4.9 Eosinophils % 0.9 D Basophils % 0.2 Nucleated RBC % 0 Sodium 142 Potassium 3.5 Chloride 112 H Carbon Dioxide 24 Anion Gap 6 L BUN 13.9 Creatinine 1.0 Est GFR (CKD-EPI)AfAm 82.02 Est GFR (CKD-EPI)NonAf 70.77 Random Glucose 115 H Calcium 10.2 H Phosphorus 1.9 L Magnesium 2.1 Total Bilirubin 0.5 AST 37 ALT 45 Alkaline Phosphatase 208 H Total Protein 6.1 L Albumin 2.0 L HIV Ag/Ab Combo Qual Negative Current Medications Generic Name Dose Route Start Last Admin Trade Name Freq PRN Reason Stop Dose Admin Acetaminophen 650 mg 01/14/20 15:20 01/15/20 12:59 Tylenol - PO 650 mg Q8H PRN Administration FEVER Bisacodyl 10 mg 01/11/20 17:34 Dulcolax - PO DAILY PRN CONSTIPATION Cefepime HCl 1 gm/ Dextrose 50 mls @ 100 mls/hr 01/15/20 17:00 01/17/20 09:21 IVPB 100 mls/hr Q8H-IV MEME Administration Protocol Sodium Chloride 1,000 mls @ 63 mls/hr 01/15/20 15:59 01/17/20 06:00 1/2 Normal Saline IV 63 mls/hr ASDIR MEME Administration Potassium Phosphate 30 mm/ 510 mls @ 62.5 mls/hr 01/17/20 09:00 Sodium Chloride IVPB 01/17/20 17:09 ONCE ONE Mirtazapine 15 mg 01/12/20 10:00 01/17/20 09:22 Remeron - PO 15 mg DAILY MEME Administration Multivitamins/Minerals/Vitamin C 1 tab 01/12/20 10:00 01/17/20 09:21 Tab-A-Vit - PO 1 tab DAILY MEME Administration Pantoprazole Sodium 20 mg 01/12/20 10:00 01/17/20 09:22 Protonix - PO 20 mg DAILY MEME Administration Senna/Docusate Sodium 2 tablet 01/11/20 17:34 Pericolace - PO DAILY PRN CONSTIPATION Home Medications Medication Instructions Recorded Bisacodyl 5 mg PO DAILY 01/11/20 Famotidine 20 mg PO BID 01/11/20 Ferrous Sulfate [Slow Release Iron] 140 mg PO DAILY 01/11/20 Mirtazapine 15 mg PO DAILY 01/11/20 Omeprazole 20 mg PO DAILY 01/11/20 Sennosides/Docusate Sodium 2 tab PO DAILY 01/11/20 [Senna-S Tablet] Ferrous Sulfate 45 mg PO DAILY 01/12/20 Ondansetron HCl [Zofran] 1 tab PO DAILY PRN 01/12/20 ASSESSMENT/PLAN: 79 year old male with history of HTN, HLD, 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 He developed febrile episode 01/14, since resolved. 1. Hypernatremia sec to dehydration - resolved. Continue to encourage oral hydration with free water. 2. Failure to thrive secondary to poor oral intake in setting of Gastric adenocarcinoma diagnosed 10/2018 s/p subtotal gastrectomy and gastrojejunostomy (bilroth II) with anastomotic stricture s/p dilation at [facility], ex lap/GARRICK/GJ revision/parker en y reconstruction (11/2019). Family wishes are to return to [place] for palliative care. See by GI - not a candidate for PEG. Encourage oral intake with ensure supplementation. Nutrition recommendations appreciated. 3. Febrile episode - no clear source. CXR - no infiltrate Septic work-up negative Received 5 days of Cefepime - discussed with Dr. Khan, cleared for discharge without any further Abx. 4. Thrombocytopenia, consumptive sec to fever, now improving. No bruising/petechiae. Out-patient monitoring. Hematology/Oncology follow up. 5. LYDIA sec to Dehydration - resolved. Maintain/encourage adequate oral intake. Renal US unremarkable. 6. CAD s/p NSTEMI now with demand ischemia with mild Troponin elevation. Seen by Cardiology. 7. Chronic Diastolic HF, no evidence of decompensation. Seen by Cardiology. 8. Sinus Bradycardia, transient 2nd degree AV block [id number] - avoid AV pao blocking agents as per Cardiology. 9. HTN - anti-hypertensive meds held. 10. Depression - continue Mirtazapine 11. Hypophosphatemia - repleted. DVT Px - Heparin SQ held due to Thrombocytopenia. Dispo - Home. DNR/DNI. Family wants patient to travel back to [place] for Palliative/End of Life care.
--- NOTE | 2020-01-17 13:41 | DS ---
Physical Exam: SUBJECTIVE: Patient seen and examined at the bedside. Stated he is feeling well. Denied any acute complaints of fever, chills, cp, sob, palpitations, cough, abd pain, n/v/c/d, headaches, dizziness, lightheadedness. OBJECTIVE: Vital Signs Period Temp Pulse Resp BP Sys/Newman Pulse Ox Last 24 Hr 98.0 F-98.8 F 52-70 16-18 106-128/54-90 96 PHYSICAL EXAM GENERAL: The patient is awake, alert, and confused. Not answering all questions appropriately but does follow commands appropriately. Jamaican speaking. Cachectic. EYES: PERRL, extraocular movements intact, conjunctiva clear. ENT: Oropharynx clear without exudates, dry mucous membranes. LUNGS: Breath sounds equal, clear to auscultation bilaterally, no wheezes, no crackles, no accessory muscle use. HEART: Regular rate and rhythm, S1, S2 without murmur. ABDOMEN: Soft, nontender, nondistended, normoactive bowel sounds, no guarding, no rebound, no masses. EXTREMITIES: 2+ pulses, warm, well-perfused, no edema. SKIN: Warm, dry, normal turgor, no rashes or lesions noted LABS Laboratory Results - last 24 hr 01/17/20 01/17/20 01/17/20 06:00 06:00 07:50 WBC 6.0 RBC 4.09 Hgb 9.4 L Hct 30.2 L MCV 73.8 L MCH 23.0 L MCHC 31.2 L RDW 22.6 H Plt Count 123 L D MPV 9.6 Absolute Neuts (auto) 5.1 Neutrophils % 85.4 H Lymphocytes % 8.6 D Monocytes % 4.9 Eosinophils % 0.9 D Basophils % 0.2 Nucleated RBC % 0 Sodium 142 Potassium 3.5 Chloride 112 H Carbon Dioxide 24 Anion Gap 6 L BUN 13.9 Creatinine 1.0 Est GFR (CKD-EPI)AfAm 82.02 Est GFR (CKD-EPI)NonAf 70.77 Random Glucose 115 H Calcium 10.2 H Phosphorus 1.9 L Magnesium 2.1 Total Bilirubin 0.5 AST 37 ALT 45 Alkaline Phosphatase 208 H Total Protein 6.1 L Albumin 2.0 L HIV Ag/Ab Combo Qual Negative HOSPITAL COURSE: Stevenson Phelps is an 79 year old male with a past medical history of HTN, HLD, recent admission to the ED on 10/12/19 for symptomatic anemia, EGD on 10/17/19 which showed mass on gastric antrum, s/p 10/2018 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 Course was complicated by 2nd deg AVB & post -op NSTEMI. Subsequently 11/07/19 patient had poor appetite and barium series showed stricture at anastamosis s/p dilation at [facility]. Has hx of poor appetite since surgery w/ barium series 11/07/19 showing stricture at anastamosis s/p dilation at [facility], plan for chemo/radi ation but not started yet, sent from Dr. Watters (oncologist at [facility]) for reported hypernatremia. Patient was admitted with hypernatremia 158 which was treated with fluid hydration with D5 and 1/2NS which improved to 142 by day of discharged. Patient had poor PO intake due to recent gastric surgeries. Attempted UGI series however patient was unable to fully tolerate PO contrast. Supplemented diet with Ensure. Was seen by GI who noted the patient was not a candidate for PEG. Had fevers while admitted with no apparent source and treated with antibiotics which were stopped by day of discharge. Had LYDIA on admission likely due to dehydration from poor PO intake which was resolving by day of discharge with IV fluids. 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 Had transaminitis on admission which resolved, RUQ U/S noted a fatty liver vs hepatocellular disease which the patient was recommended to follow up outpatient with gastroenterology. Had tropinemia which was likely duye to demand ischemia. Echo noted EF 60-65%, impaired LV relaxation, trace to mild MR, mild TR, mildly dilated ascending aorta. Was advised to avoid beta lisa meds. Patient was recommended to follow up with cardiology outpatient. Had thrombocytopenia which had resolved after heparin prophylaxis was held. Was recommended to have repeat CBC 2 daysw after discharge. Was seen by speech and swallow and recommended have HOB elevated while eating, meds crushed in applesauce, eat slowly, chew thoroughly, swallow completely before taking next bite. Was recommended to follow up with his PCP, bilingual research interviewer, counterintelligence specialist, brokerage purchase and sale clerk, and oncologist. Patient was discharged in stable medical condition. Date of Admission:01/11/20 Date of Discharge: 01/17/20 Minutes to complete discharge: 35 Discharge Summary Problems reviewed: Yes Reason For Visit: SENT BY DOC Current Active Problems Coronary artery disease (Chronic) Poor appetite (Chronic) Condition: Stable - Instructions Diet, Activity, Other Instructions: You were admitted for elevated sodium in your blood for which you were given fluids. Your sodium level returned to normal. You had fevers for which you were given antibiotics and your fevers improved. You had an ultrasound of your kidneys which show a cyst on your kidneys. You were also noted to have a left buttock granuloma and fatty liver. You are advised to follow up with your primary care physician and counterintelligence specialist for these findings. You are advised to have a upper GI series (x-ray of the esophagus with contrast mater ial) when you can tolerate to drink more of the contrast to evaluate if you have any swallowing difficulties. While admitted you had an echocardiogram (ultrasound of the heart) which showed some impairments in the relaxation of the heart, some valve abnormalities, and dilated aorta. You are advised to follow up with a bilingual research interviewer for these findings. MEDICATIONS Continue to take all of your home medications as prescribed. REFERRALS Please follow up with your primary care physician, Dr. Perez, within 1 week. Please follow up with the bilingual research interviewer, Dr. Sevilla, within 2 weeks. Please follow up with the counterintelligence specialist, Dr. Gunn, within 2 weeks. Please follow up with the brokerage purchase and sale clerk, Dr. Dhillon, within 2 weeks. Please follow up with your oncologist, Dr. Watters, within 2 weeks. SPECIAL INSTRUCTIONS Please have repeat bloodwork with your primary care provider on Thursday to measure your platelets and blood count as well as phophorous levels. When you take your medication, have them crushed and put into sauce so you can take them easier. Make sure when you eat you take small bites, chew thoroughly, swallow completely before taking another bite. Eat slowly. Elevated your head when you eat. Avoid beta lisa medications such as labetatalol, carvedilol, metoprolol. Stay well hydrated, drink plenty of fluids, and supplement your diet with Ensure. If you have any further symptoms of chest pain, shortness of breath, headaches, dizziness, lightheadedness, fevers, or any other general feelings of unwellness, please call 911 or go to your nearest emergency room. Referrals: Zunilda Gunn MD [Staff Physician] - 2 Weeks Sanjuanita Perez MD [Primary Care Provider] - 1 Week Victor Manuel Dhillon MD [Staff Physician] - Rajat Sevilla MD [Staff Physician] - 2 Weeks Disposition: HOME - Home Medications Comprehensive Discharge Medication List: Ambulatory Orders Bisacodyl 5 mg PO DAILY 01/11/20 Famotidine 20 mg PO BID 01/11/20 Mirtazapine 15 mg PO DAILY 01/11/20 Omeprazole 20 mg PO DAILY 01/11/20 Sennosides/Docusate Sodium [Senna-S Tablet] 2 tab PO DAILY 01/11/20 Ferrous Sulfate 45 mg PO DAILY 01/12/20 Ondansetron HCl [Zofran] 1 tab PO DAILY PRN 01/12/20 Problem List - Problems (1) Coronary artery disease Code(s): I25.10 - ATHSCL HEART DISEASE OF [place] CORONARY ARTERY W/O ANG PCTRS Qualifiers: Coronary Disease-Associated Artery/Lesion type: [place] artery [place] vs. transplanted heart: [place] heart Associated angina: without angina Qualified Code(s): I25.10 - Atherosclerotic heart disease of [place] coronary artery without angina pectoris (2) Poor appetite Code(s): R63.0 - ANOREXIA (3) LYDIA (acute kidney injury) Code(s): N17.9 - ACUTE KIDNEY FAILURE, UNSPECIFIED (4) Demand ischemia Code(s): I24.8 - OTHER FORMS OF ACUTE ISCHEMIC HEART DISEASE (5) Elevated troponin Code(s): R79.89 - OTHER SPECIFIED ABNORMAL FINDINGS OF BLOOD CHEMISTRY (6) Hypernatremia Code(s): E87.0 - HYPEROSMOLALITY AND HYPERNATREMIA (7) Anemia Code(s): D64.9 - ANEMIA, UNSPECIFIED (8) Aortic root dilatation Code(s): I77.810 - THORACIC AORTIC ECTASIA (9) Gastric carcinoma Code(s): C16.9 - MALIGNANT NEOPLASM OF STOMACH, UNSPECIFIED (10) Hyperlipemia Code(s): E78.5 - HYPERLIPIDEMIA, UNSPECIFIED Qualifiers: Hyperlipidemia type: pure hypercholesterolemia Qualified Code(s): E78.00 - Pure hypercholesterolemia, unspecified; E78.0 - Pure hypercholesterolemia (11) Hypertension Code(s): I10 - ESSENTIAL (PRIMARY) HYPERTENSION Qualifiers: Hypertension type: essential hypertension Qualified Code(s): I10 - Essential (primary) hypertension (13) Very poor nutrition Code(s): E63.9 - NUTRITIONAL DEFICIENCY, UNSPECIFIED This patient is new to me today: No Emergency Visit: Yes ED Registration Date: 01/11/20 Care time: The patient presented to the Emergency Department on the above date and was hospitalized for further evaluation of their emergent condition. Critical Care patient: No - Discharge Referral Referred to [facility] Med P.C.: No
--- NOTE | 2020-01-17 14:23 | PN ---
Progress Note, Physician History of Present Illness: Pt seen and examined at bedside. He appears comfortable. - Current Medication List Current Medications: Active Medications Acetaminophen (Tylenol -) 650 mg PO Q8H PRN PRN Reason: FEVER Last Admin: 01/15/20 12:59 Dose: 650 mg Documented by: Bisacodyl (Dulcolax -) 10 mg PO DAILY PRN PRN Reason: CONSTIPATION Cefepime HCl 1 gm/ Dextrose 50 mls @ 100 mls/hr IVPB Q8H-IV MEME; Protocol Last Admin: 01/17/20 09:21 Dose: 100 mls/hr Documented by: Sodium Chloride (1/2 Normal Saline) 1,000 mls @ 63 mls/hr IV ASDIR MEME Last Admin: 01/17/20 06:00 Dose: 63 mls/hr Documented by: Potassium Phosphate 30 mm/ (Sodium Chloride) 510 mls @ 62.5 mls/hr IVPB ONCE ONE Stop: 01/17/20 17:09 Mirtazapine (Remeron -) 15 mg PO DAILY [facility] Last Admin: 01/17/20 09:22 Dose: 15 mg Documented by: Multivitamins/Minerals/Vitamin C (Tab-A-Vit -) 1 tab PO DAILY [facility] Last Admin: 01/17/20 09:21 Dose: 1 tab Documented by: Pantoprazole Sodium (Protonix -) 20 mg PO DAILY [facility] Last Admin: 01/17/20 09:22 Dose: 20 mg Documented by: Senna/Docusate Sodium (Pericolace -) 2 tablet PO DAILY PRN PRN Reason: CONSTIPATION - Objective Vital Signs: Vital Signs Temperature 98.8 F 01/17/20 08:43 Pulse Rate 70 01/17/20 08:43 Respiratory Rate 18 01/17/20 08:43 Blood Pressure 128/90 01/17/20 08:43 O2 Sat by Pulse Oximetry (%) 96 01/16/20 21:00 Constitutional: Yes: Calm Eyes: Yes: Conjunctiva Clear HENT: Yes: Atraumatic Cardiovascular: Yes: S1, S2 Respiratory: Yes: CTA Bilaterally Gastrointestinal: Yes: Soft Genitourinary: Yes: Incontinence Musculoskeletal: Yes: Muscle Weakness Edema: No Neurological: Yes: Oriented Psychiatric: Yes: Oriented Labs: CBC, BMP 01/17/20 06:00 01/17/20 06:00 INR, PTT INR 1.01 (0.83-1.09) 01/11/20 14:18 Assessment/Plan Current Medications Generic Name Dose Route Start Last Admin Trade Name Rodrigo PRN Reason Stop Dose Admin Acetaminophen 650 mg 01/14/20 15:20 01/15/20 12:59 Tylenol - PO 650 mg Q8H PRN Administration FEVER Bisacodyl 10 mg 01/11/20 17:34 Dulcolax - PO DAILY PRN CONSTIPATION Cefepime HCl 1 gm/ Dextrose 50 mls @ 100 mls/hr 01/15/20 17:00 01/17/20 09:21 IVPB 100 mls/hr Q8H-IV MEME Administration Protocol Sodium Chloride 1,000 mls @ 63 mls/hr 01/15/20 15:59 01/17/20 06:00 1/2 Normal Saline IV 63 mls/hr ASDIR MEME Administration Potassium Phosphate 30 mm/ 510 mls @ 62.5 mls/hr 01/17/20 09:00 01/17/20 14:10 Sodium Chloride IVPB 01/17/20 17:09 62.5 mls/hr ONCE ONE Administration Mirtazapine 15 mg 01/12/20 10:00 01/17/20 09:22 Remeron - PO 15 mg DAILY MEME Administration Multivitamins/Minerals/Vitamin C 1 tab 01/12/20 10:00 01/17/20 09:21 Tab-A-Vit - PO 1 tab DAILY MEME Administration Pantoprazole Sodium 20 mg 01/12/20 10:00 01/17/20 09:22 Protonix - PO 20 mg DAILY MEME Administration Senna/Docusate Sodium 2 tablet 01/11/20 17:34 Pericolace - PO DAILY PRN CONSTIPATION Impression 1. hypernatremia 2. uti 3. gastric cancer 4. 2nd degree av block 5. htn 6. hld 7. LYDIA 8. hypercalcemia 9. hypokalemia Plan - cont fluids for now - pt will be going home palliative care - encourage PO intake - discussed with medical team
[2020-01-17 18:07] LABS: PARATHYROID HORM INTACT 154 pg/mL (15-65)
[2020-01-18] MEDS ORDERED: DEXTROSE 5%-WATER - 50 ML IVPB ONE ×2 (01:13→09:38)
[2020-01-18] MEDS ORDERED: CEFEPIME HCL 1 GM VIAL (RESTRICTED TO ID) ONE ×3 (01:13→09:38)
[2020-01-18] MEDS: CEFEPIME 1 GM in DEXTROSE 5%-WATER - 50 ML IVPB SCH ×2 (01:18→10:25)
[2020-01-18 09:26] LABS: BLOOD UREA NITROGEN 10.8 mg/dL (7-18); CALCIUM 10.3 mg/dL (8.5-10.1); CREATININE 0.8 mg/dL (0.55-1.3); MAGNESIUM 2.3 mg/dL (1.8-2.4); PHOSPHOROUS 2.3 mg/dL (2.5-4.9); POTASSIUM 3.8 mmol/L (3.5-5.1)
[2020-01-18] MEDS ORDERED: NAPH,MB-DB/K PH,MBDB POWDER PACKET PO ONE (09:28)
[2020-01-18] MEDS: MULTIVITAMINS (DAILY MVI) TABLET (FP) PO SCH (10:25)
[2020-01-18] MEDS: PANTOPRAZOLE 20 MG TABLET PO SCH (10:25)
[2020-01-18] MEDS: MIRTAZAPINE 15 MG TABLET (FP) PO SCH (10:25)
--- NOTE | 2020-01-18 10:58 | PN ---
Progress Note, Physician History of Present Illness: Lethargic yet arousable, still with poor appetite. - Current Medication List Current Medications: Active Medications Acetaminophen (Tylenol -) 650 mg PO Q8H PRN PRN Reason: FEVER Last Admin: 01/15/20 12:59 Dose: 650 mg Documented by: Bisacodyl (Dulcolax -) 10 mg PO DAILY PRN PRN Reason: CONSTIPATION Sodium Chloride (1/2 Normal Saline) 1,000 mls @ 63 mls/hr IV ASDIR [facility] Last Admin: 01/17/20 06:00 Dose: 63 mls/hr Documented by: Mirtazapine (Remeron -) 15 mg PO DAILY [facility] Last Admin: 01/18/20 10:25 Dose: 15 mg Documented by: Multivitamins/Minerals/Vitamin C (Tab-A-Vit -) 1 tab PO DAILY [facility] Last Admin: 01/18/20 10:25 Dose: 1 tab Documented by: Pantoprazole Sodium (Protonix -) 20 mg PO DAILY [facility] Last Admin: 01/18/20 10:25 Dose: 20 mg Documented by: Senna/Docusate Sodium (Pericolace -) 2 tablet PO DAILY PRN PRN Reason: CONSTIPATION - Objective Vital Signs: Vital Signs Temperature 97.9 F 01/18/20 10:00 Pulse Rate 82 01/18/20 10:00 Respiratory Rate 18 01/18/20 10:00 Blood Pressure 125/75 01/18/20 10:00 O2 Sat by Pulse Oximetry (%) 99 01/17/20 21:00 Constitutional: Yes: No Distress, Calm, Cachectic, Thin Neck: Yes: Supple Cardiovascular: Yes: Regular Rate and Rhythm Respiratory: Yes: Regular, CTA Bilaterally Gastrointestinal: Yes: Soft, Hypoactive Bowel Sounds Edema: No Labs: CBC, BMP 01/17/20 06:00 01/18/20 08:15 INR, PTT INR 1.01 (0.83-1.09) 01/11/20 14:18 - ....Imaging EKG: Report Reviewed (Tele: NSR) Problem List - Problems (1) Coronary artery disease Code(s): I25.10 - ATHSCL HEART DISEASE OF [place] CORONARY ARTERY W/O ANG PCTRS Qualifiers: Coronary Disease-Associated Artery/Lesion type: [place] artery [place] vs. transplanted heart: [place] heart Associated angina: without angina Qualified Code(s): I25.10 - Atherosclerotic heart disease of [place] coronary artery without angina pectoris (2) Demand ischemia Code(s): I24.8 - OTHER FORMS OF ACUTE ISCHEMIC HEART DISEASE (3) Elevated troponin Code(s): R79.89 - OTHER SPECIFIED ABNORMAL FINDINGS OF BLOOD CHEMISTRY (4) Poor appetite Code(s): R63.0 - ANOREXIA (5) Gastric carcinoma Code(s): C16.9 - MALIGNANT NEOPLASM OF STOMACH, UNSPECIFIED (6) Hyperlipemia Code(s): E78.5 - HYPERLIPIDEMIA, UNSPECIFIED Qualifiers: Hyperlipidemia type: pure hypercholesterolemia Qualified Code(s): E78.00 - Pure hypercholesterolemia, unspecified; E78.0 - Pure hypercholesterolemia (7) Hypertension Code(s): I10 - ESSENTIAL (PRIMARY) HYPERTENSION Qualifiers: Hypertension type: essential hypertension Qualified Code(s): I10 - Ess ential (primary) hypertension (9) Very poor nutrition Code(s): E63.9 - NUTRITIONAL DEFICIENCY, UNSPECIFIED Assessment/Plan 11/07/2019 UGI: Concerning for stricture at gastrojejunostomy site 10/31/2019 Echo: Normal LV size and fxn, LVEF 65-70%, normal RV size and fxn,mild MR, TR RVSP 29 mmHg, mod ao dilatation 10/24/2019 Echo: Normal LV size and fxn, LVEF 60-65%, grade II diastolic dysfunction, mild MR, TR RVSP 33 mmHg, mild RI 1. 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 Hypernatremia and anorexia improving 3. LYDIA pre-renal improving 4. CAD with h/o post operative NSTEMI now with demand ischemic injury 5. Diastolic LV dysfunction with clinical class 0 NYHA classification LV failure 6. Post acute blood loss- anemia 7. Sinus bradycardia, transient 2nd degree AV block post-op, since resolved 8. Hypertensive cardiovascular disease 9. Hypokalemia, resolved PLAN: 1. IVF and correction of electrolyte abnormalities 2. Trend trops to document peak 3. As outlined in the prior notes avoid AV pao blocking agents given sinus b radycardia 4. Resume Norvasc 2.5 qd as oral intake re-established, resume lisinopril 10 qd with renal recovery 5. Renal input, diet as tolerated, emphasized small frequent meals in addition to protein supplements 6. Did not tolerate UGI series to re-evaluate anatomy/patency though limited po intake likely multifactorial 7. Pts family states he does not want to pursue aggressive measures, palliative care
--- NOTE | 2020-01-18 11:45 | PN ---
Physical Exam: SUBJECTIVE: Patient seen and examined at the bedside. Stated that he is feeling well. Denies cp, sob, abd pain, n/v/c/d, fever, chills, headaches, dizziness, lightheadedness. OBJECTIVE: Vital Signs Period Temp Pulse Resp BP Sys/Newman Pulse Ox Last 24 Hr 97.6 F-98.9 F 63-82 18-18 113-144/58-77 99 GENERAL: The patient is awake, alert, and confused. Not answering all questions appropriately but does follow commands appropriately. [place] speaking. Cachectic. EYES: PERRL, extraocular movements intact, conjunctiva clear. ENT: Oropharynx clear without exudates, dry mucous membranes. LUNGS: Breath sounds equal, clear to auscultation bilaterally, no wheezes, no crackles, no accessory muscle use. HEART: Regular rate and rhythm, S1, S2 without murmur. ABDOMEN: Soft, nontender, nondistended, normoactive bowel sounds, no guarding, no rebound, no masses. EXTREMITIES: 2+ pulses, warm, well-perfused, no edema. SKIN: Warm, dry, normal turgor, no rashes or lesions noted Laboratory Results - last 24 hr 01/13/20 01/17/20 01/18/20 05:25 07:50 08:15 Sodium 143 Potassium 3.8 Chloride 113 H Carbon Dioxide 21 Anion Gap 8 BUN 10.8 Creatinine 0.8 Est GFR (CKD-EPI)AfAm 97.78 Est GFR (CKD-EPI)NonAf 84.37 Random Glucose 101 Calcium TNP 10.3 H Phosphorus 2.3 L Magnesium 2.3 PTH Intact 154 H PTH Intact Intraop 0 m Hep C Ab Diagnostic <0.1 Active Medications Generic Name Dose Route Start Last Admin Trade Name Freq PRN Reason Stop Dose Admin Acetaminophen 650 mg 01/14/20 15:20 01/15/20 12:59 Tylenol - PO 650 mg Q8H PRN Administration FEVER Amlodipine Besylate 2.5 mg 01/19/20 10:00 Norvasc - PO DAILY MEME Bisacodyl 10 mg 01/11/20 17:34 Dulcolax - PO DAILY PRN CONSTIPATION Sodium Chloride 1,000 mls @ 63 mls/hr 01/15/20 15:59 01/17/20 06:00 1/2 Normal Saline IV 63 mls/hr ASDIR MEME Administration Mirtazapine 15 mg 01/12/20 10:00 01/18/20 10:25 Remeron - PO 15 mg DAILY MEME Administration Multivitamins/Minerals/Vitamin C 1 tab 01/12/20 10:00 01/18/20 10:25 Tab-A-Vit - PO 1 tab DAILY MEME Administration Pantoprazole Sodium 20 mg 01/12/20 10:00 01/18/20 10:25 Protonix - PO 20 mg DAILY MEME Administration Senna/Docusate Sodium 2 tablet 01/11/20 17:34 Pericolace - PO DAILY PRN CONSTIPATION ASSESSMENT/PLAN: Patient remains stable for discharge to home. Discharge plan remains as previously. No changes to plan. Problem List - Problems (1) Coronary artery disease Code(s): I25.10 - ATHSCL HEART DISEASE OF [place] CORONARY ARTERY W/O ANG PCTRS Qualifiers: Coronary Disease-Associated Artery/Lesion type: [place] artery [place] vs. transplanted heart: [place] heart Associated angina: without angina Qualified Code(s): I25.10 - Atherosclerotic heart disease of [place] coronary artery without angina pectoris (2) Poor appetite Code(s): R63.0 - ANOREXIA (3) LYDIA (acute kidney injury) Code(s): N17.9 - ACUTE KIDNEY FAILURE, UNSPECIFIED (4) Demand ischemia Code(s): I24.8 - OTHER FORMS OF ACUTE ISCHEMIC HEART DISEASE (5) Elevated troponin Code(s): R79.89 - OTHER SPECIFIED ABNORMAL FINDINGS OF BLOOD CHEMISTRY (6) Hypernatremia Code(s): E87.0 - HYPEROSMOLALITY AND HYPERNATREMIA (7) Anemia Code(s): D64.9 - ANEMIA, UNSPECIFIED (8) Aortic root dilatation Code(s): I77.810 - THORACIC AORTIC ECTASIA (9) Gastric carcinoma Code(s): C16.9 - MALIGNANT NEOPLASM OF STOMACH, UNSPECIFIED (10) Hyperlipemia Code(s): E78.5 - HYPERLIPIDEMIA, UNSPECIFIED Qualifiers: Hyperlipidemia type: pure hypercholesterolemia Qualified Code(s): E78.00 - Pure hypercholesterolemia, unspecified; E78.0 - Pure hypercholesterolemia (11) Hypertension Code(s): I10 - ESSENTIAL (PRIMARY) HYPERTENSION Qualifiers: Hypertension type: essential hypertension Qualified Code(s): I10 - Essential (primary) hypertension (13) Very poor nutrition Code(s): E63.9 - NUTRITIONAL DEFICIENCY, UNSPECIFIED Visit type - Emergency Visit Emergency Visit: Yes ED Registration Date: 01/11/20 Care time: The patient presented to the Emergency Department on the above date and was hospitalized for further evaluation of their emergent condition. - New Patient This patient is new to me today: No - Critical Care Critical Care patient: No
--- NOTE | 2020-01-18 12:40 | PN ---
Progress Note, Physician History of Present Illness: Pt seen and examined at bedside. He is awake but confused. - Current Medication List Current Medications: Active Medications Acetaminophen (Tylenol -) 650 mg PO Q8H PRN PRN Reason: FEVER Last Admin: 01/15/20 12:59 Dose: 650 mg Documented by: Amlodipine Besylate (Norvasc -) 2.5 mg PO DAILY [facility] Bisacodyl (Dulcolax -) 10 mg PO DAILY PRN PRN Reason: CONSTIPATION Sodium Chloride (1/2 Normal Saline) 1,000 mls @ 63 mls/hr IV ASDIR [facility] Last Admin: 01/17/20 06:00 Dose: 63 mls/hr Documented by: Mirtazapine (Remeron -) 15 mg PO DAILY [facility] Last Admin: 01/18/20 10:25 Dose: 15 mg Documented by: Multivitamins/Minerals/Vitamin C (Tab-A-Vit -) 1 tab PO DAILY [facility] Last Admin: 01/18/20 10:25 Dose: 1 tab Documented by: Pantoprazole Sodium (Protonix -) 20 mg PO DAILY [facility] Last Admin: 01/18/20 10:25 Dose: 20 mg Documented by: Senna/Docusate Sodium (Pericolace -) 2 tablet PO DAILY PRN PRN Reason: CONSTIPATION - Objective Vital Signs: Vital Signs Temperature 97.9 F 01/18/20 10:00 Pulse Rate 82 01/18/20 10:00 Respiratory Rate 18 01/18/20 10:00 Blood Pressure 125/75 01/18/20 10:00 O2 Sat by Pulse Oximetry (%) 99 01/17/20 21:00 Constitutional: Yes: Calm Eyes: Yes: Conjunctiva Clear HENT: Yes: Atraumatic Neck: Yes: Supple Cardiovascular: Yes: S1, S2 Respiratory: Yes: CTA Bilaterally Gastrointestinal: Yes: Soft Genitourinary: Yes: Incontinence Edema: No Neurological: Yes: Confusion Labs: CBC, BMP 01/17/20 06:00 01/18/20 08:15 INR, PTT INR 1.01 (0.83-1.09) 01/11/20 14:18 Assessment/Plan Current Medications Generic Name Dose Route Start Last Admin Trade Name Freq PRN Reason Stop Dose Admin Acetaminophen 650 mg 01/14/20 15:20 01/15/20 12:59 Tylenol - PO 650 mg Q8H PRN Administration FEVER Amlodipine Besylate 2.5 mg 01/19/20 10:00 Norvasc - PO DAILY MEME Bisacodyl 10 mg 01/11/20 17:34 Dulcolax - PO DAILY PRN CONSTIPATION Sodium Chloride 1,000 mls @ 63 mls/hr 01/15/20 15:59 01/17/20 06:00 1/2 Normal Saline IV 63 mls/hr ASDIR MEME Administration Mirtazapine 15 mg 01/12/20 10:00 01/18/20 10:25 Remeron - PO 15 mg DAILY MEME Administration Multivitamins/Minerals/Vitamin C 1 tab 01/12/20 10:00 01/18/20 10:25 Tab-A-Vit - PO 1 tab DAILY MEME Administration Pantoprazole Sodium 20 mg 01/12/20 10:00 01/18/20 10:25 Protonix - PO 20 mg DAILY MEME Administration Senna/Docusate Sodium 2 tablet 01/11/20 17:34 Pericolace - PO DAILY PRN CONSTIPATION Impression 1. hypernatremia 2. uti 3. gastric cancer 4. 2nd degree av block 5. htn 6. hld 7. LYDIA 8. hypercalcemia 9. hypokalemia Plan - labs reviewed - pt likely to be discharged today - encourage po intake - calcium elevated, likely related to malignancy, pth pending - discussed with medical team
--- NOTE | 2020-01-18 12:50 | PN ---
Progress Note, Physician History of Present Illness: awake confused - Current Medication List Current Medications: Active Medications Acetaminophen (Tylenol -) 650 mg PO Q8H PRN PRN Reason: FEVER Last Admin: 01/15/20 12:59 Dose: 650 mg Documented by: Amlodipine Besylate (Norvasc -) 2.5 mg PO DAILY [facility] Bisacodyl (Dulcolax -) 10 mg PO DAILY PRN PRN Reason: CONSTIPATION Sodium Chloride (1/2 Normal Saline) 1,000 mls @ 63 mls/hr IV ASDIR [facility] Last Admin: 01/17/20 06:00 Dose: 63 mls/hr Documented by: Mirtazapine (Remeron -) 15 mg PO DAILY [facility] Last Admin: 01/18/20 10:25 Dose: 15 mg Documented by: Multivitamins/Minerals/Vitamin C (Tab-A-Vit -) 1 tab PO DAILY [facility] Last Admin: 01/18/20 10:25 Dose: 1 tab Documented by: Pantoprazole Sodium (Protonix -) 20 mg PO DAILY [facility] Last Admin: 01/18/20 10:25 Dose: 20 mg Documented by: Senna/Docusate Sodium (Pericolace -) 2 tablet PO DAILY PRN PRN Reason: CONSTIPATION - Objective Vital Signs: Vital Signs Temperature 97.9 F 01/18/20 10:00 Pulse Rate 82 01/18/20 10:00 Respiratory Rate 18 01/18/20 10:00 Blood Pressure 125/75 01/18/20 10:00 O2 Sat by Pulse Oximetry (%) 99 01/17/20 21:00 Constitutional: Yes: No Distress, Calm Cardiovascular: Yes: S1, S2 Respiratory: Yes: Regular, CTA Bilaterally Gastrointestinal: Yes: Normal Bowel Sounds, Soft Musculoskeletal: Yes: WNL Extremities: Yes: WNL Neurological: Yes: Alert, Other (confused) Psychiatric: Yes: Other Labs: CBC, BMP 01/17/20 06:00 01/18/20 08:15 INR, PTT INR 1.01 (0.83-1.09) 01/11/20 14:18 Assessment/Plan 79 y/o M with a PMHx of HTN, HLD, recent admission to the ED on 10/12/19 for symptomatic anemia, EGD on 10/17/19 which showed mass on gastric antrum, s/p 10/2018 s/p subtotal gastrectomy and 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 Course was complicated by 2nd deg AVB & post -op NSTEMI. Subsequently 11/07/19 patient had poor appetite and barium series showed stricture at anastamosis s/p dilation at [facility]. Patient was sent here by on cologist for hypernatremia. poor appetite since surgery w/ barium series 11/07/19 showing stricture at anastamosis s/p dilation at [facility], plan for chemo/radiation but not started yet, sent from Dr. Watters (oncologist at [facility]) for reported hypernatremia. sepsis roxie hypercalcemia fever constipation depression plan monitor off of abx rest as per the team
--- NOTE | 2020-01-18 12:56 | PN ---
Teaching Attending Note Name of Resident: Brendan Mansfield ATTENDING PHYSICIAN STATEMENT I saw and evaluated the patient. I reviewed the resident's note and discussed the case with the resident. I agree with the resident's findings and plan as documented. SUBJECTIVE: Lethargic but rousable. Feeling well, no complaints. No fever/chills. Moderate oral intake of full liquids. No nausea/vomiting. OBJECTIVE: Afebrile, Hemodynamically Stable. Disoriented. Last Vital Signs Temp Pulse Resp BP Pulse Ox 97.9 F 82 18 125/75 99 01/18/20 10:00 01/18/20 10:00 01/18/20 10:01/18/20 10:01/17/20 21:00 HEENT - Atraumatic, Normocephalic. Cachectic. Heart - S1, S2, RRR Lungs - clear to auscultation Abdomen - Soft, non-tender. Bowel Sounds normal. Extremities - no edema, no calf tenderness. Neuro - AAO x 2. Laboratory Results - last 24 hr 01/13/20 01/17/20 01/18/20 05:25 07:50 08:15 Sodium 143 Potassium 3.8 Chloride 113 H Carbon Dioxide 21 Anion Gap 8 BUN 10.8 Creatinine 0.8 Est GFR (CKD-EPI)AfAm 97.78 Est GFR (CKD-EPI)NonAf 84.37 Random Glucose 101 Calcium TNP 10.3 H Phosphorus 2.3 L Magnesium 2.3 PTH Intact 154 H PTH Intact Intraop 0 m Hep C Ab Diagnostic <0.1 Current Medications Generic Name Dose Route Start Last Admin Trade Name Freq PRN Reason Stop Dose Admin Acetaminophen 650 mg 01/14/20 15:20 01/15/20 12:59 Tylenol - PO 650 mg Q8H PRN Administration FEVER Amlodipine Besylate 2.5 mg 01/19/20 10:00 Norvasc - PO DAILY MEME Bisacodyl 10 mg 01/11/20 17:34 Dulcolax - PO DAILY PRN CONSTIPATION Sodium Chloride 1,000 mls @ 63 mls/hr 01/15/20 15:59 01/17/20 06:00 1/2 Normal Saline IV 63 mls/hr ASDIR MEME Administration Mirtazapine 15 mg 01/12/20 10:00 01/18/20 10:25 Remeron - PO 15 mg DAILY MEME Administration Multivitamins/Minerals/Vitamin C 1 tab 01/12/20 10:00 01/18/20 10:25 Tab-A-Vit - PO 1 tab DAILY MEME Administration Pantoprazole Sodium 20 mg 01/12/20 10:00 01/18/20 10:25 Protonix - PO 20 mg DAILY MEME Administration Senna/Docusate Sodium 2 tablet 01/11/20 17:34 Pericolace - PO DAILY PRN CONSTIPATION Home Medications Medication Instructions Recorded Bisacodyl 5 mg PO DAILY 01/11/20 Famotidine 20 mg PO BID 01/11/20 Mirtazapine 15 mg PO DAILY 01/11/20 Omeprazole 20 mg PO DAILY 01/11/20 Sennosides/Docusate Sodium 2 tab PO DAILY 01/11/20 [Senna-S Tablet] Ferrous Sulfate 45 mg PO DAILY 01/12/20 Ondansetron HCl [Zofran] 1 tab PO DAILY PRN 01/12/20 ASSESSMENT/PLAN: 79 year old male with history of HTN, HLD, 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 He developed febrile episode 01/14, which has since resolved. 1. Hypernatremia sec to dehydration - resolved. Continue to encourage oral hydration with free water (can use nectar to thicken if necessary). 2. Failure to thrive secondary to poor oral intake in setting of Gastric adenocarcinoma diagnosed 10/2018 s/p subtotal gastrectomy and gastrojejunostomy (bilroth II) with anastomotic stricture s/p dilation at [facility], ex lap/GARRICK/GJ revision/parker en y reconstruction (11/2019). Family wishes are to return to [place] for palliative care. Seen by GI - not a candidate for PEG. Encourage oral intake with two Jc HN BID supplementation. Nutrition recommendations appreciated. 3. Febrile episode - no clear source. Resolved. CXR - no infiltrate Septic work-up negative Received 5 days of Cefepime - discussed with Dr. Khan, cleared for discharge without any further Abx. 4. Thrombocytopenia, consumptive sec to fever, now improving. No bruising/petechiae. Out-patient monitoring. Hematology/Oncology follow up. 5. LYDIA sec to Dehydration - resolved. Maintain/encourage adequate oral intake. Renal US unremarkable. 6. CAD s/p NSTEMI now with demand ischemia with mild Troponin elevation. Seen by Cardiology. 7. Chronic Diastolic HF, no evidence of decompensation. Seen by Cardiology. 8. Sinus Bradycardia, transient 2nd degree AV block [id number] - avoid AV pao blocking agents as per Cardiology. 9. HTN - anti-hypertensive meds held. If hypertensive, can resume Norvasc 2.5mg +/- Lisinopril 10mg as an out-patient. 10. Depression - continue Mirtazapine 11. Hypophosphatemia - repleted. 12. Hypercalcemia - likely sec to malignancy. Will follow with Nephrology. DVT Px - Heparin SQ held due to Thrombocytopenia. Dispo - Home. DNR/DNI. Family wants patient to travel back to [place] for Palliative/End of Life care.
[2020-01-18 14:09] VITALS: BP 101/60; PULSE 63; TEMP 97.6
[2020-01-19] MEDS ORDERED: amLODIPine BESYLATE 2.5 MG TABLET (FP) PO SCH (10:00)
== END 2020-01-18 17:28 | disposition home health service (06) | DRG 240 ==
LOC: JER 13:00 → JERBED 15:54 → J4S 18:52
PROVIDERS: ADMIT Internal Medicine
DX: C16.9 Malignant neoplasm of stomach, unspecified (principal); Z68.1 Body mass index [BMI] 19.9 or less, adult; F32.9 Major depressive disorder, single episode, unspecified; E78.5 Hyperlipidemia, unspecified; E83.52 Hypercalcemia; R63.0 Anorexia; E83.39 Other disorders of phosphorus metabolism; E87.6 Hypokalemia; I25.10 Atherosclerotic heart disease of native coronary artery without angina pectoris; A41.9 Sepsis, unspecified organism; D62 Acute posthemorrhagic anemia; E43 Unspecified severe protein-calorie malnutrition; E87.0 Hyperosmolality and hypernatremia; R64 Cachexia; N17.9 Acute kidney failure, unspecified; R00.1 Bradycardia, unspecified; D69.6 Thrombocytopenia, unspecified; I11.0 Hypertensive heart disease with heart failure; R62.7 Adult failure to thrive; E86.0 Dehydration; I50.32 Chronic diastolic (congestive) heart failure; I44.1 Atrioventricular block, second degree; K59.00 Constipation, unspecified; R74.0 Nonspecific elevation of levels of transaminase and lactic acid dehydrogenase [LDH]
CPT/HCPCS: 36415; 71045-TC-FY; 74018-TC-FY; 76705-TC; 76775-TC; 80048; 80053; 81003; 82306; 82310; 82436; 82550; 82565; 82607; 82746; 83735; 83935; 83970; 84100; 84133; 84134; 84300; 84484; 85025; 85027; 85610; 85730; 86022; 86803; 87040; 87086; 87389; 93005; 93010; 93306-TC; 97116-GP; 97161-GP; 99285-25; J1644